=== PATIENT | male | born 1955 | race Caucasian/White ===

== ENCOUNTER 2016-12-22 03:41 | Inpatient (IN) | payer OTHER ==
[~2016-12-22] VITALS: Ht 172.7 cm; Wt 61.9 kg
[~2016-12-22 03:41] MED LIST: AMT24 PO; ASCO500T16 PO; ASPI81TA28 PO; ATOR-24 PO; ATV/2; CALCTAB5 PO; CARB400T3 PO; CARV12.52 PO; CHOL1000 PO; CLON0.5T3 PO; CYAN10005 PO; DOCU-94 PO; FAMO20TA11 PO; FLNIN NAE; FRS/40 PO; LACTTAB7 PO; LAMO100T16 PO; MULT-106 PO; OLOP0.1S2 OP; OMEP40CA PO; PANC6000 PO; PLV75 PO; POTA20TA16 PO; QUET1TAB30 PO; QUET400T PO; TERA1CAP PO; TPM100 PO; VILA1TAB3 PO
[2016-12-22 04:26] LABS: HEMATOCRIT 29.8 % (42-52); MEAN CELL VOLUME 82.3 fL (80-100); MEAN CORPUSCULAR HEMOGLOBIN 27.1 pg (25-34); MEAN CORPUSCULAR HGB CONC 32.9 g/dl (32-36); PLATELET COUNT 294 K/uL (130-400); RED BLOOD COUNT 3.62 M/uL (4.7-6.1); WHITE BLOOD COUNT 6.45 K/uL (4.8-10.8)
[2016-12-22] MEDS ORDERED: DICY20TA35 PO (04:29)
[2016-12-22] MEDS ORDERED: OMEP40CA41 PO (04:33)
[2016-12-22] MEDS ORDERED: TOPI200T14 PO (04:40)
[2016-12-22] MEDS ORDERED: CALC600T PO (04:40)
[2016-12-22] MEDS ORDERED: FLUT0.15 NAE (04:40)
[2016-12-22] MEDS ORDERED: OLOP0.1S3 OP (04:40)
[2016-12-22 04:51] LABS: BUN/CREATININE RATIO 10.4 (10-20); CREATININE 0.54 mg/dl (0.60-1.40); MAGNESIUM 1.6 mg/dl (1.8-2.4); POTASSIUM 4.1 mmol/L (3.5-5.1)
[2016-12-22 04:53] LABS: PARTIAL THROMBOPLASTIN RATIO 1.1; PROTHROMBIN TIME (PATIENT) 11.1 SECONDS (9.0-12.0)
[2016-12-22 04:55] LABS: ACANTHOCYTES 1+; BASO % 0.3 %; BASO ABS # 0.02 K/uL (0-0.2); COMPLETE YES; EOS % 0.9 %; IG% 0.2 %; LYMPH % 20.9 %; LYMPH ABS # 1.35 K/uL (1.2-3.4); MONO % 5.6 %; NEUT % 72.1 %; OVALOCYTES 1+
[2016-12-22 05:02] LABS: ALB/GLOB RATIO 0.7 (0.9-2); CKMB/CK RATIO 3.6 (0-3.0); THYROID STIMULATING HORMONE 1.14 uIu/ml (0.300-4.500)
--- NOTE | 2016-12-22 05:09 | EMERGENCY ROOM VISIT NOTE ---
ED Visit Note First contact with patient: 03:47 I saw this patient in conjunction with Placido Pond PA-C. I agree with his decision-making and treatment plan.
[2016-12-22] MEDS ORDERED: ONDANSETRON INJ 2 MG/ML 2 ML VIAL IV STA (05:26)
[2016-12-22] MEDS ORDERED: MoRPHine SULFATE 4 MG/ML 1 ML CARP\\VIAL IV ONE (05:30)
[2016-12-22 05:48] LABS: URINE APPEARANCE CLOUDY (CLEAR); URINE BILIRUBIN NEG (NEG); URINE COLOR YELLOW; URINE NITRITE NEG (NEG); URINE PH 7.5 (4.5-7.5); URINE SPECIFIC GRAVITY 1.013 (1.000-1.030); UROBILINOGEN NEG (NEG); ZZUR CULT IF INDIC CLEAN CATCH YES
--- NOTE | 2016-12-22 06:00 | EMERGENCY ROOM VISIT NOTE ---
History First contact with patient: 03:47 Chief Complaint: FALL Stated Complaint: FALL/NEAR SYNCOPAL EPISODE History of Present Illness The patient is a 61 year old male who presents to the Emergency Room with complaints of a fall at home approximately 90 minutes ago. The patient states that he was walking into his bathroom to urinate, when the next thing he remembers he was on the ground. The patient does not report having chest pain, chest tightness, shortness of breath, or lightheadedness before or after the event. He is unsure if he had a syncopal episode or mechanical fall. The patient had been feeling well today, but was not able to stand following the fall. He was able to call out to his , who contacted EMS. The patient has a history of stroke and multiple cardiac stents in the past. He is on Plavix. He is with pain of his left leg. He rates his current discomfort a 4/10 that worsens with movement. He is unsure if he struck his head in the fall. He has not had anything for pain. Review of Systems More than 10 systems were reviewed and otherwise negative with the exception of history of present illness. Past Medical/Surgical History Medical Problems: (1) TIA (transient ischemic attack) Family History Patient reports no known family medical history. Social History Smoking Status: Never Smoker Drug Use: none Marital Status: Housing Status: lives with family Occupation Status: disabled Current/Historical Medications Scheduled Ascorbic Acid (Ascorbic Acid), 500 MG PO DAILY Aspirin (Aspirin Ec), 81 MG PO DAILY Atorvastatin (Lipitor), 40 MG PO QAM Calcium Carbonate (Calcium 600), 600 MG PO QAM Carbamazepine Extended Release (Tegretol Xr), 400 MG PO AMPM Carvedilol (Coreg), 12.5 MG PO AMHS Cholecalciferol (Vitamin D3), 1,000 MG PO DAILY Clonazepam (Klonopin), 0.5 MG PO AMHS Clopidogrel Bisulfate (Clopidogrel), 75 MG PO DAILY Cyanocobalamin (Vitamin B-12), 1,000 MCG PO DAILY Fluticasone Propionate (Nasal) (Flonase Allergy Relief), 1 SPRAY XIMENA DAILY Lubiprostone (Amitiza), 24 MCG PO BID Multiple Vitamins W/ Minerals (One Daily Mens), 1 TABLET PO DAILY Olopatadine Hcl (Patanol 0.1% Oph), 1 DROP OP BID Omeprazole (Prilosec), 40 MG PO QAM Pancrelipase (Lipase-Protease- (Creon), 24,000 MG PO WM Quetiapine Fumarate (Seroquel), 25 MG PO TID Quetiapine Fumarate Xr (Seroquel Xr Tab), 800 MG PO HS Terazosin Hcl (Hytrin), 1 MG PO HS Topiramate (Topamax), 200 MG PO AMHS Vilazodone Hcl (Viibryd), 40 MG PO QPM Scheduled PRN Dicyclomine Hcl (Bentyl), 20 MG PO BID PRN for ABDOMINAL CRAMPING Lorazepam (Ativan), 2 MG UNKNOWN UD PRN for seizures Allergies Coded Allergies: Levetiracetam (Verified Allergy, Mild, 12/22/16) Phenytoin (Verified Allergy, Mild, 12/22/16) Physical Exam Vital Signs Date Time Temp Pulse Resp B/P (MAP) Pulse Ox O2 Delivery O2 Flow Rate FiO2 12/22/16 04:48 66 14 129/61 98 Room Air 12/22/16 04:02 Room Air 12/22/16 03:50 76 12/22/16 03:45 36.5 80 18 126/61 97 Room Air Physical Exam VITALS: Vitals are noted on the nurse's note and reviewed by myself. Vital signs stable. GENERAL: Chronically ill appearing thin white male who is comfortable when resting flat and his emergency department bed. HEAD: Normocephalic atraumatic. EYES: Pupils equal round and reactive to light and accommodation. Conjunctivae without injection, sclerae without icterus. Extraocular movements intact. NOSE: Patent, turbinates without inflammation or discharge. NECK: Supple without nuchal rigidity. No lymphadenopathy. No thyromegaly. Cervical spine is nontender. HEART: Regular rate and rhythm with systolic murmur LUNGS: Clear to auscultation bilaterally without wheezes, rales or rhonchi. No retractions or accessory muscle use. ABDOMEN: Positive normal bowel sounds x 4. Soft, nontender, without masses or organomegaly. No guarding or rebound tenderness. MUSCULOSKELETAL: Significant tenderness appreciated with light palpation throughout the left hip into the left mid femur. NEURO: Patient was alert and oriented to person place and time. CN II through XII grossly intact. Medical Decision & Procedures ER Provider Diagnostic Interpretation: Preliminary Findings Only See Final Report For Complete Findings CT HEAD: No acute intracranial hemorrhage or mass effect. Chronic infarcts are similar to prior CT 01/06/16. Visualized paranasal sinuses and mastoid air cells are clear. Laboratory Results 12/22/16 04:10 Red Blood Count 3.62, Mean Corpuscular Volume 82.3, Mean Corpuscular Hemoglobin 27.1, Mean Corpuscular Hemoglobin Concent 32.9, Mean Platelet Volume 8.0, Neutrophils (%) (Auto) 72.1, Lymphocytes (%) (Auto) 20.9, Monocytes (%) (Auto) 5.6, Eosinophils (%) (Auto) 0.9, Basophils (%) (Auto) 0.3, Neutrophils # (Auto) 4.65, Lymphocytes # (Auto) 1.35, Monocytes # (Auto) 0.36, Eosinophils # (Auto) 0.06, Basophils # (Auto) 0.02 12/22/16 04:10 Test 12/22/16 04:10 12/22/16 04:20 12/22/16 05:25 White Blood Count 6.45 K/uL (4.8-10.8) Red Blood Count 3.62 M/uL (4.7-6.1) Hemoglobin 9.8 g/dL (14.0-18.0) Hematocrit 29.8 % (42-52) Mean Corpuscular Volume 82.3 fL (80-100) Mean Corpuscular Hemoglobin 27.1 pg (25-34) Mean Corpuscular Hemoglobin Concent 32.9 g/dl (32-36) Platelet Count 294 K/uL (130-400) Mean Platelet Volume 8.0 fL (7.4-10.4) Neutrophils (%) (Auto) 72.1 % Lymphocytes (%) (Auto) 20.9 % Monocytes (%) (Auto) 5.6 % Eosinophils (%) (Auto) 0.9 % Basophils (%) (Auto) 0.3 % Neutrophils # (Auto) 4.65 K/uL (1.4-6.5) Lymphocytes # (Auto) 1.35 K/uL (1.2-3.4) Monocytes # (Auto) 0.36 K/uL (0.11-0.59) Eosinophils # (Auto) 0.06 K/uL (0-0.5) Basophils # (Auto) 0.02 K/uL (0-0.2) RDW Standard Deviation 47.5 fL (36.4-46.3) RDW Coefficient of Variation 15.6 % (11.5-14.5) Immature Granulocyte % (Auto) 0.2 % Immature Granulocyte # (Auto) 0.01 K/uL (0.00-0.02) Ovalocytes 1+ Acanthocytes 1+ Prothrombin Time 11.1 SECONDS (9.0-12.0) Prothromb Time International Ratio 1.0 (0.9-1.1) Activated Partial Thromboplast Time 27.5 SECONDS (21.0-31.0) Partial Thromboplastin Ratio 1.1 Anion Gap 8.0 mmol/L (3-11) Est Creatinine Clear Calc Drug Dose 116.3 ml/min Estimated GFR () 129.5 Estimated GFR (Non- 111.7 BUN/Creatinine Ratio 10.4 (10-20) Calcium Level 8.0 mg/dl (8.5-10.1) Magnesium Level 1.6 mg/dl (1.8-2.4) Total Bilirubin 0.3 mg/dl (0.2-1) Aspartate Amino Transf (AST/SGOT) 16 U/L (15-37) Alanine Aminotransferase (ALT/SGPT) 20 U/L (12-78) Alkaline Phosphatase 124 U/L (45-117) Total Creatine Kinase 56 U/L (39-308) Creatine Kinase MB 2.0 ng/ml (0.5-3.6) Creatine Kinase MB Ratio 3.6 (0-3.0) Total Protein 6.5 gm/dl (6.4-8.2) Albumin 2.7 gm/dl (3.4-5.0) Globulin 3.8 gm/dl (2.5-4.0) Albumin/Globulin Ratio 0.7 (0.9-2) Thyroid Stimulating Hormone (TSH) 1.140 uIu/ml (0.300-4.500) Bedside Troponin I < 0.030 ng/ml (0-0.045) Medications Administered Medications (Trade) Dose Ordered Sig/Pedro Route Start Time Stop Time Status Last Admin Dose Admin Morphine Sulfate (MoRPHine SULFATE INJ) 4 mg NOW ONCE IV 12/22/16 05:30 12/22/16 05:31 DC 12/22/16 05:33 4 MG Ondansetron HCl (Zofran Inj) 4 mg NOW STAT IV 12/22/16 05:26 12/22/16 05:27 DC 12/22/16 05:32 4 MG ED Course Physical exam and history were performed. Nursing notes and EMR were reviewed. Patient appears to have fallen versus had syncopal episode tonight. He does have tenderness of his left hip. The patient has a history of both stroke and cardiac disease. He is on Plavix. IV access was established and labs were obtained. EKG was performed and was sinus rhythm with first-degree AV block at 61 beats minute. EKG is similar to EKG in November 2015. The patient was placed on the front desk monitor. CT scans and x-rays were performed. Case was discussed with my attending physician, Dr. Moore, who also independently evaluated the patient. The patient's blood work is as above and was reviewed. He does not have a significantly elevated white blood cell count. He is mildly anemic. He does not have a gross electrolyte imbalance. Troponin 1 is negative. CK is not diagnostic of rhabdomyolysis. Patient's CT scan does not show evidence of acute findings. His x-rays were reviewed by myself and my attending, and are concerning for what appears to be a left intertrochanteric fracture of the femur. Radiology read is pending at the time of this dictation. Clinically this does correlate with the patient's discomfort. The patient was given IV morphine and IV Zofran. I had a lengthy discussion with the patient and family regarding the significance of the injury. The patient does not appear stable for discharge home. He may have had a syncopal episode tonight, and certainly seems to have a left hip fracture. He may be a challenging surgical candidate considering his comorbidities. I discussed the case with the on-call [facility] hospitalist , who agreed to evaluate the patient here in the department for further care and management. The chart was completed utilizing [employer] Speech Voice Recognition Software. Grammatical errors, random word insertions, pronoun errors, and incomplete sentences are an occasional consequence of this system due to software limitations, ambient noise, and hardware issues. Any formal questions or concerns about the content, text, or information contained within the body of this dictation should be directly addressed to the provider for clarification. . Medical Decision Differential diagnosis: Etiologies such as vasovagal event, infection, hypoglycemia, electrolyte abnormalities, cardiac sources, intracerebral event, toxicologic, sprain, strain , fracture, dislocation, subluxation, contusion, neurologic, as well as others were entertained. Impression Primary Impression: Fall at home Additional Impression: Hip fracture, left Departure Information Referrals Griffin Salinas M.D. (PCP) Patient Instructions My [facility] Problem Qualifiers
[2016-12-22] MEDS ORDERED: BISACODYL 10 MG SUPP PR PRN (06:15)
[2016-12-22] MEDS ORDERED: POLYETHYLENE (MIRALAX) 17 GM PACK PO PRN ×2 (06:15)
[2016-12-22] MEDS ORDERED: NALOXONE HCL 0.4 MG/1 ML VIAL/CARP IV PRN (06:15)
[2016-12-22] MEDS ORDERED: ONDANSETRON INJ 2 MG/ML 2 ML VIAL IV PRN (06:15)
[2016-12-22] MEDS ORDERED: ALUMINUM/MAGNESIUM/SIMETH (MAALOX MAX) 30 ML UDC PO PRN (06:15)
[2016-12-22] MEDS ORDERED: SOD PHOSPHATE/SOD BIPHOSPHATE ENEMA 132 ML BTL PR PRN (06:15)
[2016-12-22] MEDS ORDERED: MAGNESIUM HYDROXIDE SUSP 30 ML UDC PO PRN ×2 (06:15)
[2016-12-22] MEDS ORDERED: ACETAMINOPHEN 325 MG TAB PO PRN (06:15)
[2016-12-22 06:21] LABS: MANUAL MICROSCOPIC REQUIRED? NO; REVIEW REQ? NO
[2016-12-22] MEDS ORDERED: MAGNESIUM SULFATE 1GM / D5W 1 GM BAG ONE (06:35)
--- NOTE | 2016-12-22 06:49 | History and Physical ---
History & Physical Date & Time of Service: Dec 22, 2016 at 06:18 Chief Complaint: Fall/Near Syncopal Episode Primary Care Physician: Griffin Salinas M.D. History of Present Illness Source: patient, family, hospital records This is a chronically ill 61 year old male with a complex past medical history, including hx. of CVA of the middle cerebral artery, hx. 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, mood disorder/depression/anxiety, tobacco use disorder, unintentional weight loss presents with a syncopal episode , transient loss of consciousness. States that he does not recall the fall itself, but regained consciousness shortly after he fell. Denies urinary/bowel incontinence; no tongue biting. heard the fall - and was by his side very shortly afterwards; states that his main complaint was left hip pain. No post-ictal state; no recent illness; no recent change in medications. No chest pain/shortness of breath/palpitations/ edema. states that he has very poor appetite at home and has had significant weight loss, unintentionally. He continues to smoke and is not yet ready to quit. Family History Patient reports no known family medical history. Social History Smoking Status: Current Every Day Smoker Alcohol Use: occasionally Drug Use: none Marital Status: Occupational Status: disabled Allergies Coded Allergies: Levetiracetam (Verified Allergy, Mild, 12/22/16) Phenytoin (Verified Allergy, Mild, 12/22/16) Home Medications Scheduled Ascorbic Acid (Ascorbic Acid), 500 MG PO DAILY Aspirin (Aspirin Ec), 81 MG PO DAILY Atorvastatin (Lipitor), 40 MG PO QAM Calcium Carbonate (Calcium 600), 600 MG PO QAM Carbamazepine Extended Release (Tegretol Xr), 400 MG PO AMPM Carvedilol (Coreg), 12.5 MG PO AMHS Cholecalciferol (Vitamin D3), 1,000 MG PO DAILY Clonazepam (Klonopin), 0.5 MG PO AMHS Clopidogrel Bisulfate (Clopidogrel), 75 MG PO DAILY Cyanocobalamin (Vitamin B-12), 1,000 MCG PO DAILY Fluticasone Propionate (Nasal) (Flonase Allergy Relief), 1 SPRAY XIMENA DAILY Lubiprostone (Amitiza), 24 MCG PO BID Multiple Vitamins W/ Minerals (One Daily Mens), 1 TABLET PO DAILY Olopatadine Hcl (Patanol 0.1% Oph), 1 DROP OP BID Omeprazole (Prilosec), 40 MG PO QAM Pancrelipase (Lipase-Protease- (Creon), 24,000 MG PO WM Quetiapine Fumarate (Seroquel), 25 MG PO TID Quetiapine Fumarate Xr (Seroquel Xr Tab), 800 MG PO HS Terazosin Hcl (Hytrin), 1 MG PO HS Topiramate (Topamax), 200 MG PO AMHS Vilazodone Hcl (Viibryd), 40 MG PO QPM Scheduled PRN Dicyclomine Hcl (Bentyl), 20 MG PO BID PRN for ABDOMINAL CRAMPING Lorazepam (Ativan), 2 MG UNKNOWN UD PRN for seizures Review of Systems Constitutional: + weight loss, + weakness, + fatigue, No fever, No chills, No sweats Eyes: No worsening of vision ENT: No hearing loss Respiratory: + shortness of breath (chronic), No cough, No sputum, No wheezing , No dyspnea on exertion, No dyspnea at rest, No hemoptysis Cardiovascular: No chest pain, No orthopnea, No PND, No edema, No claudication , No palpitations Abdomen: No pain, No nausea, No vomiting, No diarrhea, No constipation, No GI bleeding Musculoskeletal: + joint pain (left hip), + muscle pain (left leg) Genitourinary - Male: No hematuria, No dysuria, No urinary frequency, No urinary urgency, No urinary hesitancy, No urinary retention, No urinary incontinence Neurologic: + memory loss (transient loss of consciousness during syncopal episode), + weakness, No paralysis, No numbness/tingling, No vertigo, No balance problems Psychiatric: + depression symptoms, + anxiety, + insomnia (controlled with medications) Endocrine: + fatigue Hematologic / Lymphatic: No abnormal bleeding/bruising Integumentary: No rash Allergic / Immunologic: + environmental allergies, No seasonal allergies Physical Exam Vital Signs Date Time Temp Pulse Resp B/P (MAP) Pulse Ox O2 Delivery O2 Flow Rate FiO2 12/22/16 06:01 64 21 111/57 99 Room Air 12/22/16 04:48 66 14 129/61 98 Room Air 12/22/16 04:02 Room Air 12/22/16 03:50 76 12/22/16 03:45 36.5 80 18 126/61 97 Room Air General Appearance: + moderate distress (secondary to pain), + cachetic, + thin , + pertinent finding (thin, ill appearing, cachectic; moderate distress secondary to pain) Head: normocephalic, atraumatic Eyes: normal inspection ENT: hearing grossly normal Respiratory/Chest: chest non-tender, lungs clear, no respiratory distress, no accessory muscle use, + decreased breath sounds Cardiovascular: no edema, no murmur, + tachycardia Abdomen/GI: normal bowel sounds, non tender, soft Back: normal inspection Extremities/Musculoskelatal: + pertinent finding (left leg is externally rotated, no movement secondary to pain, point tenderness) Neurologic/Psych: pressure dispatcher II-XII nml as tested, no motor/sensory deficits, alert, normal mood/affect, oriented x 3 Skin: normal color Lymphatic: no adenopathy Diagnostics Laboratory Results Results Past 24 Hours Test 12/22/16 04:10 12/22/16 04:20 12/22/16 05:25 Range/Units White Blood Count 6.45 4.8-10.8 K/uL Red Blood Count 3.62 4.7-6.1 M/uL Hemoglobin 9.8 14.0-18.0 g/dL Hematocrit 29.8 42-52 % Mean Corpuscular Volume 82.3 80-100 fL Mean Corpuscular Hemoglobin 27.1 25-34 pg Mean Corpuscular Hemoglobin Concent 32.9 32-36 g/dl Platelet Count 294 130-400 K/uL Mean Platelet Volume 8.0 7.4-10.4 fL Neutrophils (%) (Auto) 72.1 % Lymphocytes (%) (Auto) 20.9 % Monocytes (%) (Auto) 5.6 % Eosinophils (%) (Auto) 0.9 % Basophils (%) (Auto) 0.3 % Neutrophils # (Auto) 4.65 1.4-6.5 K/uL Lymphocytes # (Auto) 1.35 1.2-3.4 K/uL Monocytes # (Auto) 0.36 0.11-0.59 K/uL Eosinophils # (Auto) 0.06 0-0.5 K/uL Basophils # (Auto) 0.02 0-0.2 K/uL RDW Standard Deviation 47.5 36.4-46.3 fL RDW Coefficient of Variation 15.6 11.5-14.5 % Immature Granulocyte % (Auto) 0.2 % Immature Granulocyte # (Auto) 0.01 0.00-0.02 K/uL Ovalocytes 1+ Acanthocytes 1+ Prothrombin Time 11.1 9.0-12.0 SECONDS Prothromb Time International Ratio 1.0 0.9-1.1 Activated Partial Thromboplast Time 27.5 21.0-31.0 SECONDS Partial Thromboplastin Ratio 1.1 Sodium Level 131 136-145 mmol/L Potassium Level 4.1 3.5-5.1 mmol/L Chloride Level 97 98-107 mmol/L Carbon Dioxide Level 26 21-32 mmol/L Anion Gap 8.0 3-11 mmol/L Blood Urea Nitrogen 6 7-18 mg/dl Creatinine 0.54 0.60-1.40 mg/dl Est Creatinine Clear Calc Drug Dose 116.3 ml/min Estimated GFR () 129.5 Estimated GFR (Non- 111.7 BUN/Creatinine Ratio 10.4 10-20 Random Glucose 76 70-99 mg/dl Calcium Level 8.0 8.5-10.1 mg/dl Magnesium Level 1.6 1.8-2.4 mg/dl Total Bilirubin 0.3 0.2-1 mg/dl Aspartate Amino Transf (AST/SGOT) 16 15-37 U/L Alanine Aminotransferase (ALT/SGPT) 20 12-78 U/L Alkaline Phosphatase 124 45-117 U/L Total Creatine Kinase 56 39-308 U/L Creatine Kinase MB 2.0 0.5-3.6 ng/ml Creatine Kinase MB Ratio 3.6 0-3.0 Total Protein 6.5 6.4-8.2 gm/dl Albumin 2.7 3.4-5.0 gm/dl Globulin 3.8 2.5-4.0 gm/dl Albumin/Globulin Ratio 0.7 0.9-2 Thyroid Stimulating Hormone (TSH) 1.140 0.300-4.500 uIu/ml Bedside Troponin I < 0.030 0-0.045 ng/ml No change from prior EKG Impression Assessment and Plan This is a chronically ill 61 year old male with a complex past medical history, including hx. of CVA of the middle cerebral artery, hx. 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 of CVA No residual motor dysfunction besides left LE, no sensory deficits No post-ictal state monitor in tele update echo IVFs may need adjustment of his medications Unintentional Weight Loss in the setting of Tobacco use Disorder concerning for malignancy with tobacco use disorder, should obtain chest CT as outpatient elevated alk phos is also concerning when he is eating, will need ensure TID with meals Hx. of CVA middle cerebral artery follows with Dr. Silva hold aspirin, Plavix for now for possible surgery continue statin Hx. of CAD no complaint of chest pain, clinically stable continue b-bella, statin, hold aspirin Seizure Disorder cont anticonvulsants DVT ppx SCDs FULL CODE
[2016-12-22 07:00] VITALS: BP 120/68; PULSE 64; TEMP 36.6; O2SAT 98; Ht 172.7 cm; Wt 61.9 kg
--- NOTE | 2016-12-22 07:09 | DIAGNOSTIC IMAGING REPORT ---
HEAD CT NONCONTRAST CT DOSE: 729.78 mGycm HISTORY: Syncope TECHNIQUE: Multiaxial CT images of the head were performed without the use of intravenous contrast. Automated exposure control was utilized for this study. Comparison: Head CT 01/06/2016. Findings: The paranasal sinuses and mastoid air cells are clear. Old large right MCA territory infarct. Small old left parietal infarct. No mass, hematoma, midline shift, or acute infarct. Impression: No acute intracranial abnormality. Old infarcts, unchanged. Electronically signed by: Tereso Guerrier M.D. 12/22/2016 7:08 AM Dictated Date/Time: 12/22/2016 7:06 AM
--- NOTE | 2016-12-22 07:49 | DIAGNOSTIC IMAGING REPORT ---
PELVIS 1 OR 2 VIEW ROUTINE, LEFT FEMUR 2 VIEWS ROUTINE CLINICAL HISTORY: Fall. Left side pelvic pain. Left leg pain. COMPARISON STUDY: None. FINDINGS: There is a nondisplaced intertrochanteric fracture within the proximal left femur. No fractures identified within the pelvis or right hip. No dislocation. Focal round density overlying the right greater trochanter likely represents calcification within the soft tissues. There is suture material within the left lower quadrant and a stent within the midabdomen. The sacrum appears intact. IMPRESSION: Nondisplaced intertrochanteric fracture within the proximal left femur. Electronically signed by: Tereso Guerrier M.D. 12/22/2016 7:48 AM Dictated Date/Time: 12/22/2016 7:46 AM
--- NOTE | 2016-12-22 07:50 | DIAGNOSTIC IMAGING REPORT ---
CHEST ONE VIEW PORTABLE HISTORY: Fall. Left hip fracture. Syncope COMPARISON: Chest 12/29/2015. FINDINGS: The lungs are clear. The heart is normal in size. No pleural effusions. No pneumothorax. Old, healed left rib fractures. Old, healed right humeral neck fracture. Surgical clips within the right upper quadrant. IMPRESSION: No significant change compared to the prior study. No acute process. Electronically signed by: Tereso Guerrier M.D. 12/22/2016 7:49 AM Dictated Date/Time: 12/22/2016 7:48 AM
[2016-12-22] MEDS: SODIUM CHLORIDE 0.9% 1000ML 1,000 ML IV SCH ×2 (08:18→20:40)
[2016-12-22] MEDS: OXYCODONE HCL IR 5 MG TAB (IMMEDIATE RELEASE) PO PRN ×2 (08:18→17:20)
[2016-12-22] MEDS ORDERED: MAGNESIUM SULFATE 1GM / D5W 1 GM in PREMIXED IN D5W 100 ML IV ONE (09:00)
[2016-12-22] MEDS: HYDROmorphone INJ 1 MG/ML SYR IV PRN ×3 (09:09→19:08)
[2016-12-22] MEDS ORDERED: NURSING VERBAL MED ORDER ONE (09:45)
[2016-12-22] MEDS: CLONAZEPAM 0.5 MG TAB PO SCH ×2 (10:08→20:35)
[2016-12-22] MEDS: LUBIPROSTONE 8 MCG CAP PO SCH ×2 (10:09→20:35)
[2016-12-22] MEDS: CARVEDILOL 12.5 MG TAB PO SCH ×2 (10:09→20:35)
[2016-12-22] MEDS: QUETIAPINE FUMARATE 25 MG TAB PO SCH ×3 (10:09→20:33)
[2016-12-22] MEDS: ATORVASTATIN 40 MG TAB PO SCH (10:09)
[2016-12-22] MEDS: PANTOprazole SOD 40 MG TAB PO SCH (10:10)
[2016-12-22] MEDS: TOPIRAMATE 100 MG TAB PO SCH ×2 (10:10→20:34)
[2016-12-22] MEDS: HEPARIN SOD 5000 UNIT/0.5 ML CARP SQ SCH ×2 (10:12→20:40)
[2016-12-22 11:24] VITALS: BP 103/62; PULSE 73; TEMP 36.6; O2SAT 97
[2016-12-22 15:06] VITALS: BP 113/64; PULSE 71; TEMP 36.7; O2SAT 97
--- NOTE | 2016-12-22 17:40 | Progress Note ---
Internal Med Progress Note Date of Service: Dec 22, 2016. Provider Documentation: SUBJECTIVE: The patient was seen and examined Complains of Left Hip pain Denies any Chest pain,palpitation,SOB No cardiac symptoms on regular activities No new neurological symptoms Schedule for surgery today Denies any symptoms OBJECTIVE: Vital Signs-as noted below Exam: General-No distress malnourished Minimal Left facial droop Eyes-Normal ENT-Normal Neck-supple Lungs-Clear to auscultate bilaterally Heart-Regular Abdomen-Benign,no masses,bowel sound present Extremities-No edema Neuro-AAOx3 Left facial droop Generally weak,no focal deficit Lab data as noted below. ASSESSMENT & PLAN: Enterococcus UTI Asymptomatic No fever and or Increase in WCC Discussed with ID and started on Dapomycin Can go for surgery Await C/S Left Hip Fracture s/p Mechanical Fall X-ray seems to suggest a left hip fracture Clinically significant pain at that side with painful ROM Complex medical history; will consult anesthesia Obtain an updated echo:: Moderate circumferential pericardial effusion. * There are no echocardiographic indications of cardiac tamponade. * Ejection Fraction = 55-60%. * Septal motion is consistent with conduction abnormality. Orthopedic consultation placed-appreciate Input Dilaudid and oxycodone PRN D/W Ortho-likely surgery this afternoon Hx. of CAD Has ~ 6 cardiac stents No complaint of chest pain, clinically stable Continue b-bella, statin, hold aspirin Was evaluated by the Acoustical Installer 1 year ago Will get Updated ECHO : Moderate circumferential pericardial effusion. * There are no echocardiographic indications of cardiac tamponade. * Ejection Fraction = 55-60%. * Septal motion is consistent with conduction abnormality. Carries more than usual risk for proposed surgery Discussed with the family members Syncopal Episode Likely mechanical fall Denies any LOC Unsure of the cause of his syncopal episode: possible polypharmacy H/O seizures and hx. of CVA No residual motor dysfunction besides left LE, no sensory deficits No post-ictal state monitor in tele update echo IVFs may need adjustment of his medications Unintentional Weight Loss in the setting of Tobacco use Disorder concerning for malignancy with tobacco use disorder, should obtain chest CT as outpatient elevated alk phos is also concerning when he is eating, will need ensure TID with meals Hx. of CVA middle cerebral artery follows with Dr. Silva hold aspirin, Plavix -has not been taking Plavix for the last 1 week or so. continue statin Malnutrition Has severe protein calori malnutrition Will need Dietary consult and nutritional supplements Seizure Disorder cont anticonvulsants DVT ppx SCDs FULL CODE Vital Signs: Date Time Temp Pulse Resp B/P (MAP) Pulse Ox O2 Delivery O2 Flow Rate FiO2 12/23/16 11:27 Room Air 12/23/16 10:44 36.6 82 16 104/58 (73) 98 Room Air 12/23/16 08:00 Room Air 12/23/16 07:46 36.2 84 18 104/64 (77) 96 Room Air 12/23/16 04:06 36.9 86 18 102/64 (77) 95 12/23/16 04:00 Room Air 12/23/16 00:10 36.8 71 16 114/63 (80) 95 12/22/16 23:59 Room Air 12/22/16 20:00 Room Air 12/22/16 19:12 36.9 71 18 116/64 (81) 95 Room Air 12/22/16 16:00 Room Air 12/22/16 15:06 36.7 71 19 113/64 (80) 97 Room Air Lab Results: Microbiology Results 12/22/16 MRSA DNA Surveillance Screen - Final, Complete Specimen Negative for MRSA by DNA Probe
--- NOTE | 2016-12-22 18:37 | ORTHOPEDIC CONSULTATION ---
DATE OF CONSULTATION: 12/22/2016 HISTORY OF PRESENT ILLNESS: A 61-year-old male with a history of a CVA in the past. He was at home in his usual state and had a fall. He fractured his left hip. 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 He is a smoker. He told me that he has brittle bones. He has a poor appetite. FAMILY HISTORY: Noncontributory. SOCIAL HISTORY: Lives with his and is current every day smoker. He is disabled. ALLERGIES: PHENYTOIN AND LEVETIRACETAM. MEDICATIONS: He is on multiple including aspirin and Plavix, which he takes 75 mg daily, but it is unclear when his last dose of Plavix was, possibly it could have been 5 days ago. Other medications per history and physical. These were reviewed. PHYSICAL EXAMINATION: Demonstrates he is a thin male, looks a bit cachectic and left hip is externally rotated, but not significantly shortened at all. Any movement of his leg gives him significant pain in his left hip. He can dorsiflex his great toe, but even dorsiflexing his foot gives him pain in his hips, so he is reluctant to do that, so I could not tell for sure as he had dorsiflexion of the foot being intact. Circulation, he had satisfactory capillary refill. His upper extremity on the left side did not have any significant weakness. His x-rays demonstrate a minimally displaced intertrochanteric hip fracture of the left hip. ASSESSMENT: Intertrochanteric hip fracture, left hip in an ill appearing cachectic male, smoker, likely has poor bone quality. PLAN: Is for open reduction and internal fixation with trochanteric femoral nail. The patient needs to be medically cleared prior to proceeding with surgery tentatively planned for add on tomorrow's schedule.
--- NOTE | 2016-12-22 19:06 | Anesthesiology Progress Note ---
Anesthesia Progress Note Date of Service Dec 22, 2016. Progress Notes Mr. Doyle is a 61 year old male with a complex medical history to include chronic SOB, HTN, CAD (with stents), PVD, GERD, CVA with associated grand mal seizures, anemia, anxiety/depression and current every day smoking. He had a syncopal episode at home (no post-ictal state or loss of bowel function) and sustained left hip fx. Plan for left troch nail with Dr. Goldman on 12/23/16. EKG showed sinus rhythm with first degree AV block and LBBB (LBBB seen on EKG in 2016). Echo has been ordered and is pending at this time. H/H is 9.8 and 29.8 and patient is also hyponatremia with a sodium of 131. Of note, patient had been on plavix as an outpatient but has NOT taken this in 2 weeks per his (problems with refilling the medication). I spoke both with the patient and his and discussed GA vs SAB with MAC. He should be a candidate for SAB given its been over 7 days since his last plavix dose although will await echo to ensure no significant valvular disease. Consent was obtained and all questions were answered.
[2016-12-22 19:12] VITALS: BP 116/64; PULSE 71; TEMP 36.9; O2SAT 95
[2016-12-22] MEDS: DOCUSATE SODIUM/SENNA 50/8.6MG TAB PO SCH (20:34)
[2016-12-22] MEDS: QUETIAPINE FUMARATE 200 MG TABCR PO SCH (20:35)
[2016-12-23] VITALS (12 sets, daily range): BP systolic 102–145; BP diastolic 55–70; PULSE 71–99; TEMP 36.2–36.9; O2SAT 93–99
[2016-12-23] MEDS: HYDROmorphone INJ 1 MG/ML SYR IV PRN ×2 (04:10→21:10)
[2016-12-23] MEDS ORDERED: CEFAZOLIN 2000 MG/60 ML D5W IV SCH (06:00)
[2016-12-23] MEDS ORDERED: CEFAZOLIN IV 2,000 MG in DEXTROSE 5% 50ML 50 ML IV SCH (06:00)
--- NOTE | 2016-12-23 06:57 | History & Physical Bridge Note ---
H&P Re-Evaluation Bridge Note: I have examined the patient, reviewed the History & Physical and in the interval since the performance of the History & Physical I have noted the following changes of clinical significance: No changes noted
[2016-12-23] MEDS: SODIUM CHLORIDE 0.9% 1000ML 1,000 ML IV SCH ×2 (07:38→19:26)
[2016-12-23] MEDS: ATORVASTATIN 40 MG TAB PO SCH (07:41)
[2016-12-23] MEDS: PANTOprazole SOD 40 MG TAB PO SCH (07:41)
[2016-12-23] MEDS: QUETIAPINE FUMARATE 25 MG TAB PO SCH ×3 (07:42→20:23)
[2016-12-23] MEDS: TOPIRAMATE 100 MG TAB PO SCH ×2 (07:42→20:23)
[2016-12-23] MEDS: LUBIPROSTONE 8 MCG CAP PO SCH ×2 (07:42→20:24)
[2016-12-23] MEDS: CLONAZEPAM 0.5 MG TAB PO SCH ×2 (07:44→20:23)
[2016-12-23] MEDS: CARVEDILOL 12.5 MG TAB PO SCH ×2 (07:46→20:23)
[2016-12-23] MEDS ORDERED: PERFLUTREN LIPID MICROSPHERE (DEFINITY) IV ONE (08:53)
[2016-12-23] MEDS: HEPARIN SOD 5000 UNIT/0.5 ML CARP SQ SCH (08:59)
[2016-12-23] MEDS ORDERED: NURSING VERBAL MED ORDER ONE ×2 (09:00→14:30)
--- NOTE | 2016-12-23 09:32 | Clinical Documentation Query ---
[facility] : CLINICAL DOCUMENTATION QUERY Patient is a 61 year old male admitted s/p fall, sustaining a left hip fracture. H&P noted " states that he has very poor appetite at home and has had significant weight loss, unintentionally. Subsquent assessment includes "cachectic", "ill appearing", and "thin". BMI 19.5 kg/m*m. Unable to quantify weight loss per EMR as there seems to be some incorrectly documented findings. Treatment to include Ensure TID with meals when oral intake resumed. In your clinical opinion is this patient being managed for: ( +) Severe protein-calorie malnutrition ( ) Other explanation of clinical findings (Please Explain) ( ) Unable to determine (Please Define) ( ) Need to Discuss ( ) Not Agree The medical record reflects the following clinical findings, treatment, and risk factors. Clinical Indicators: As above. Low albumin. Low serum creatinine. BMI 19.5 kg/m*m Treatment: Ensure TID with meals Risk Factors: Possible malignancy Please clarify and document your clinical opinion in the progress notes and discharge summary. Terms such as "probable", "suspected", "likely", "questionable", "possible", or "still to be ruled out" are acceptable. IF IN AGREEMENT, YOU MUST DOCUMENT ABOVE DIAGNOSTIC STATEMENT IN DAILY PROGRESS NOTES AND DISCHARGE SUMMARY. This document is not part of the patient's record. Thank You, Dennis Oh RN [phone]
--- NOTE | 2016-12-23 11:25 | ECHOCARDIOGRAM REPORT ---
*NOTICE TO RECEIVING [employer] This information is strictly Confidential and protected under [place] law. [place] law prohibits you from making any further disclosure of this information unless further disclosure is expressly permitted by the written consent of the person to whom it pertains or is authorized by law. A general authorization for the release of medical or other information is not sufficient for this purpose. Hospital accepts no responsibility if the information is made available to any other person, INCLUDING THE PATIENT. Interpretation Summary * Name: KOFI GRAY II Study Date: 12/23/2016 08:42 AM BP: 111/79 mmHg * Patient Location: [facility] HR: 67 * : 1955 (M/d/yyyy) Gender: Male Height: 68 in * Age: 61 yrs Ethnicity: CA Weight: 129 lb * Ordering Physician: Travis Montes * Performed By: Fabby Piña * * Reason For Study: SYNCOPE * BSA: 1.7 m2 * -- Conclusions -- * Moderate circumferential pericardial effusion. * There are no echocardiographic indications of cardiac tamponade. * Ejection Fraction = 55-60%. * Septal motion is consistent with conduction abnormality. Procedure Details * The study was technically limited. * The study was technically difficult. * Limited views were obtained. * There were technical limitations due to patient's Poor acoustic windows secondary to severe lung disease, poor positioning and inability to cooperate. * A contrast injection of Definity was performed to improve assessment of LV function. * Contrast was injected into an intravenous site in the right arm. * One vial of Definity ultrasound contrast was diluted in normal saline to a total volume of 10 ml. A total of '2' ml of solution was administered during imaging. * Lot # [id number] of Definity utilized for procedure. * Expiration date 12/26. Left Ventricle * Ejection Fraction = 55-60%. * Septal motion is consistent with conduction abnormality. Right Ventricle * The right ventricular cavity size is normal (basal dimension <4.2 cm in right ventricular apical 4-chamber view). * The right ventricular systolic function is normal. Atria * The left atrial size is normal. * Right atrial size is normal. Mitral Valve * There is mild mitral annular calcification. * There is no mitral valve stenosis. * There is no mitral regurgitation noted. Tricuspid Valve * The tricuspid valve is not well visualized. Aortic Valve * The aortic valve is not well visualized. Pulmonic Valve * The pulmonic valve is not well visualized. Pericardium/Pleural * There are no echocardiographic indications of cardiac tamponade. * Moderate circumferential pericardial effusion. MMode 2D Measurements and Calculations LVAd ap4 37.3 cm\S\2 LVLd ap4 9.1 cm EDV(MOD-sp4) 122.5 ml EDV(sp4-el) 130.0 ml LVAs ap4 19.4 cm\S\2 LVLs ap4 7.3 cm ESV(MOD-sp4) 43.8 ml ESV(sp4-el) 43.8 ml EF(MOD-sp4) 64.3 % EF(sp4-el) 66.3 % LVAd ap2 29.2 cm\S\2 LVLd ap2 9.1 cm EDV(MOD-sp2) 77.6 ml EDV(sp2-el) 79.8 ml LVAs ap2 17.1 cm\S\2 LVLs ap2 8.0 cm ESV(MOD-sp2) 30.4 ml ESV(sp2-el) 31.1 ml EF(MOD-sp2) 60.9 % EF(sp2-el) 61.1 % LVLd %diff -0.16 % EDV(MOD-bp) 97.8 ml LVLs %diff 8.6 % ESV(MOD-bp) 37.8 ml EF(MOD-bp) 61.4 % SV(MOD-sp4) 78.8 ml SI(MOD-sp4) 46.4 ml/m\S\2 SV(MOD-sp2) 47.3 ml SI(MOD-sp2) 27.9 ml/m\S\2 SV(MOD-bp) 60.0 ml SI(MOD-bp) 35.4 ml/m\S\2 SV(sp4-el) 86.2 ml SI(sp4-el) 50.8 ml/m\S\2 SV(sp2-el) 48.8 ml SI(sp2-el) 28.8 ml/m\S\2 Doppler Measurements and Calculations MV E max donna 91.1 cm/sec MV dec time 0.16 sec Ao V2 max 123.8 cm/sec Ao max PG 6.1 mmHg Ao max PG (full) 2.7 mmHg LV V1 max PG 3.5 mmHg LV V1 max 93.2 cm/sec
[2016-12-23] MEDS ORDERED: DAPTOmycin IV 250 MG in SODIUM CHLORIDE 0.9% 50ML 50 ML IV SCH (12:00)
--- NOTE | 2016-12-23 14:11 | Consultant Recommendations ---
[employer] Supervisor Recommendations Date of Service Dec 23, 2016. [employer] Supervisor Recommendations ID Consult Dictated # [id number] A/P: 1. UTI -continue dapto pending final culture results, will need 3 days total -thank you
--- NOTE | 2016-12-23 15:02 | INFECT. DISEASE CONSULTATION ---
DATE OF CONSULTATION: 12/23/2016 REQUESTING PHYSICIAN: Dr. Montes. HISTORY OF PRESENT ILLNESS: This is a 61-year-old gentleman who was admitted after he suffered a fall at home. He states he does not remember falling. As a result of this, he did have a left hip fracture and is scheduled for open reduction and internal fixation later today. As part of his initial workup, a urine culture was obtained and is growing enterococcus. His UA had greater than 30 WBCs. He denies any current urinary symptoms. He also denies any symptoms of burning, bleeding, frequency or urgency at home prior to admission. He denies any fevers or chills. He was given a one time dose of daptomycin. Currently, he is only receiving perioperative Ancef. He denies chest pain, cough, shortness of breath, nausea, vomiting, diarrhea or abdominal pain. He does admit to some pain in the hip but states it is mild. Per the H&P, there was questionable syncopal episode at home. PAST MEDICAL HISTORY: Significant for CVA, coronary artery disease with stenting, seizure disorder, depression, anxiety. FAMILY HISTORY: Noncontributory. SOCIAL HISTORY: Significant for daily tobacco use. He does drink occasionally. He denies any drug use. He is and lives with his . ALLERGIES: HE HAS ALLERGIES TO KEPPRA AND DILANTIN. CURRENT MEDICATIONS: Include Senokot, Seroquel, Hytrin, Lipitor, Coreg, Klonopin, Seroquel, Topamax, Amitiza, Protonix, Tylenol, Maalox, milk of magnesia, Zofran, Roxicodone, Dilaudid. PHYSICAL EXAMINATION: VITAL SIGNS: He is afebrile, pulse 82, respiratory rate 16, blood pressure 104/58, oxygen saturation is 98% on room air. GENERAL: He is awake, alert and oriented. He does have some aphasia secondary to his previous CVA. HEENT: Mucous membranes are dry. HEART: Regular. LUNGS: Clear. ABDOMEN: Soft, nontender, nondistended. There is no suprapubic tenderness. There is no edema. SKIN: Without rash. LABORATORY STUDIES: CBC reveals a white blood cell count of 6.4, hemoglobin 9.8 and platelets were 294. Chemistry panel reveals a sodium of 131, potassium 4.1, chloride 97, bicarb 26, BUN 6, creatinine 0.5, glucose is 76. LFTs are within normal limits. Again, urinalysis had greater than 30 WBCs and 1+ bacteria. Hep C antibody is negative. Urine cultures growing enterococcus species. Chest x-ray done today shows no acute process. Femur x-ray showed a nondisplaced left femur fracture. Head CT done in the Emergency Room showed no acute abnormality. Pelvic x-ray done does not show any pelvic fracture. Enterococcal urinary tract infection. At this time, he can be restarted on daptomycin at his current dose, pending the results of his urine culture. He will likely need a short course of antibiotics for cystitis. Antibiotics will be further narrowed when final sensitivities are available. Thank you for this consultation.
[2016-12-23] MEDS ORDERED: PROPOFOL IV EMULSION 10 MG/ML 20 ML VIAL IV ONE ×2 (16:00→17:05)
[2016-12-23] MEDS ORDERED: FENTANYL CITRATE INJ 50 MCG/1 ML 2 ML VIAL ONE (16:00)
[2016-12-23] MEDS ORDERED: MIDAZOLAM HCL 1 MG/ML 2ML VIAL ONE ×2 (16:00→16:47)
[2016-12-23] MEDS ORDERED: LIDOCAINE HCL 2% 2 ML VIAL (20MG/ML) ONE (16:00)
[2016-12-23] MEDS ORDERED: BUPIVACAINE 0.5 % 5 MG/1 ML PF 10ML VIAL ONE (16:14)
[2016-12-23] MEDS ORDERED: HYDROmorphone INJ 2 MG/ML SYR/VIAL IV PRN (16:45)
[2016-12-23] MEDS ORDERED: ATROPINE SULFATE 0.1 MG/ML 5ML SYR IV PRN (16:45)
[2016-12-23] MEDS ORDERED: ONDANSETRON INJ 2 MG/ML 2 ML VIAL IV PRN (16:45)
[2016-12-23] MEDS ORDERED: PHENYLEPHRINE 100MCG/ML 5ML SYR IV PRN (16:45)
[2016-12-23] MEDS ORDERED: EpHEDrine SULFATE INJ 50 MG/ML AMP IV PRN (16:45)
--- NOTE | 2016-12-23 18:07 | Anesthesiology Progress Note ---
Anesthesia Post Op Note Date & Time Dec 23, 2016 at 18:07 Vital Signs Pain Intensity: 0 Vital Signs Past 12 Hours Date Time Temp Pulse Resp B/P (MAP) Pulse Ox O2 Delivery O2 Flow Rate FiO2 12/23/16 17:55 85 14 133/66 100 Oxymask 5 12/23/16 17:45 82 14 140/68 100 Oxymask 10 12/23/16 17:38 36.5 84 14 132/63 100 Oxymask 10 12/23/16 11:27 Room Air 12/23/16 10:44 36.6 82 16 104/58 (73) 98 Room Air 12/23/16 08:00 Room Air 12/23/16 07:46 36.2 84 18 104/64 (77) 96 Room Air Notes Mental Status: alert / awake / arousable, participated in evaluation Pt Amnestic to Procedure: Yes Nausea / Vomiting: adequately controlled Pain: adequately controlled Airway Patency, RR, SpO2: stable & adequate BP & HR: stable & adequate Hydration State: stable & adequate Neuraxial Anesthesia: was administered, sensory block is resolving Anesthetic Complications: no major complications apparent
[2016-12-23] MEDS: BOOST VANILLA PO SCH ×2 (19:48)
--- NOTE | 2016-12-23 19:48 | DIAGNOSTIC IMAGING REPORT ---
LEFT HIP UNILATERAL 2 VIEWS CLINICAL HISTORY: Left hip fracture. Postoperative evaluation. COMPARISON: Left femur radiographs December 22, 2016. FINDINGS: These images demonstrate placement of a left femoral trochanteric nail. Hardware fixates the intertrochanteric fracture of the left femur. Fracture alignment is near anatomic. There are no unexpected radiopaque foreign bodies. There is a distal screw. IMPRESSION: Expected findings following proximal left femoral internal fixation with trochanteric nail. Electronically signed by: Biju Cortes M.D. 12/23/2016 7:46 PM Dictated Date/Time: 12/23/2016 7:45 PM
--- NOTE | 2016-12-23 19:49 | DIAGNOSTIC IMAGING REPORT ---
INTRAOPERATIVE FLUOROSCOPIC IMAGES OF THE LEFT FEMUR CLINICAL HISTORY: Left trochanteric nail. COMPARISON: Pelvis and left femur radiographs December 22, 2016. Fluoroscopy time: 46 seconds. FINDINGS: 3 fluoroscopic images demonstrate placement of a left femoral trochanteric nail which fixates the intertrochanteric fracture. There is a distal screw. Fracture alignment is near anatomic. There are no unexpected radiopaque foreign bodies. IMPRESSION: Expected findings following left femoral internal fixation with trochanteric nail. Electronically signed by: Biju Cortes M.D. 12/23/2016 7:47 PM Dictated Date/Time: 12/23/2016 7:47 PM
--- NOTE | 2016-12-23 20:17 | OPERATIVE REPORT ---
DATE OF OPERATION: 12/23/2016 PREOPERATIVE DIAGNOSIS: Two-part intertrochanteric left hip fracture. POSTOPERATIVE DIAGNOSIS: Two-part intertrochanteric left hip fracture. PROCEDURE: Closed reduction, trochanteric femoral nailing, left hip fracture. SURGEON: Dr. Goldman. ANESTHESIA: Spinal. COMPLICATIONS: None. DESCRIPTION OF PROCEDURE: Following induction of adequate spinal anesthesia, the patient was placed on the fracture table and the fracture was reduced, with a small amount of traction and internal rotation. The left hip was prepped and draped in the usual sterile manner. Longitudinal incision was made over the tip of the trochanter roughly 1 inch in length. Blunt dissection was carried down to the tip of the trochanter which was opened slightly with a drill tipped guidewire and the drill tipped guidewire was manually placed intramedullary. That was overdrilled using a 17 mm drill. A short 11 mm trochanteric nail was impacted into position and locked proximally using a spiral blade 105 mm in diameter. This was locked and then distal locking was carried out using a single 44 mm cortical bone screw. This produced anatomic reduction and fixation of the fracture. Wounds were irrigated and closed with 2-0 Dexon and lena. Sterile dressing of Adaptic, 4 x 4's, and foam tape was applied. The patient tolerated the procedure well. I attest to the content of the Intraoperative Record and any orders documented therein. Any exception s are noted below.
[2016-12-23] MEDS: DOCUSATE SODIUM/SENNA 50/8.6MG TAB PO SCH (20:23)
[2016-12-23] MEDS: QUETIAPINE FUMARATE 200 MG TABCR PO SCH (20:24)
[2016-12-24] VITALS (7 sets, daily range): BP systolic 106–137; BP diastolic 56–71; PULSE 84–93; TEMP 36.6–37.2; O2SAT 91–100
[2016-12-24] MEDS: QUETIAPINE FUMARATE 25 MG TAB PO SCH ×3 (07:45→20:35)
[2016-12-24] MEDS: PANTOprazole SOD 40 MG TAB PO SCH (07:45)
[2016-12-24] MEDS: CARVEDILOL 12.5 MG TAB PO SCH ×2 (07:45→20:35)
[2016-12-24] MEDS: TOPIRAMATE 100 MG TAB PO SCH ×2 (07:45→20:36)
[2016-12-24] MEDS: ATORVASTATIN 40 MG TAB PO SCH (07:46)
[2016-12-24] MEDS: LUBIPROSTONE 8 MCG CAP PO SCH ×2 (07:46→20:34)
[2016-12-24] MEDS: SODIUM CHLORIDE 0.9% 1000ML 1,000 ML IV SCH ×2 (07:49→20:36)
[2016-12-24] MEDS: CLONAZEPAM 0.5 MG TAB PO SCH ×2 (07:49→20:34)
--- NOTE | 2016-12-24 08:07 | Orthopedic Progress Note ---
Orthopedic Progress Note Date of Service Dec 24, 2016. Subjective Post OP Day: 1 Reports: feeling well Objective N/V intact, dressing C/D/I, toes mobile Date Time Temp Pulse Resp B/P (MAP) Pulse Ox O2 Delivery O2 Flow Rate FiO2 12/24/16 07:11 36.7 88 18 123/67 (85) 97 Room Air 12/24/16 04:21 36.7 93 18 128/60 (82) 95 Room Air 12/24/16 04:00 Room Air 12/24/16 00:00 Room Air 12/23/16 23:41 36.7 93 18 125/65 (85) 98 Room Air 12/23/16 20:30 88 18 131/67 (88) 96 12/23/16 20:00 86 18 145/68 (93) 98 12/23/16 20:00 Room Air 12/23/16 19:45 83 16 145/69 (94) 99 12/23/16 19:30 96 16 135/67 (89) 97 12/23/16 19:15 99 16 138/70 (92) 93 12/23/16 19:07 96 Room Air 12/23/16 19:00 36.4 90 16 122/55 (77) 96 Room Air 12/23/16 18:30 90 14 168/76 100 Oxymask 3 12/23/16 18:15 82 14 131/79 100 Oxymask 3 12/23/16 18:05 36.9 80 14 136/68 100 Oxymask 3 12/23/16 17:55 85 14 133/66 100 Oxymask 5 12/23/16 17:45 82 14 140/68 100 Oxymask 10 12/23/16 17:38 36.5 84 14 132/63 100 Oxymask 10 12/23/16 11:27 Room Air 12/23/16 10:44 36.6 82 16 104/58 (73) 98 Room Air Laboratory Results 24 Hours: Test 12/24/16 07:39 Additional Notes: Labs pending Assessment & Plan Assessment: 61 yo male stable POD #1 s/p left hip troch nail Plan: 1. Med management 2. DVT prophylaxis- will defer to medicine given h/o CVA 3. PT/OT- WBAT 4. D/C planning
--- NOTE | 2016-12-24 08:34 | Anesthesiology Progress Note ---
Anesthesia Post Op Note Date & Time Dec 24, 2016 at 08:33 Vital Signs Pain Intensity: 0.0 Vital Signs Past 12 Hours Date Time Temp Pulse Resp B/P (MAP) Pulse Ox O2 Delivery O2 Flow Rate FiO2 12/24/16 07:11 36.7 88 18 123/67 (85) 97 Room Air 12/24/16 04:21 36.7 93 18 128/60 (82) 95 Room Air 12/24/16 04:00 Room Air 12/24/16 00:00 Room Air 12/23/16 23:41 36.7 93 18 125/65 (85) 98 Room Air Notes Mental Status: alert / awake / arousable, participated in evaluation Pt Amnestic to Procedure: Yes Nausea / Vomiting: adequately controlled Pain: adequately controlled Airway Patency, RR, SpO2: stable & adequate BP & HR: stable & adequate Hydration State: stable & adequate Neuraxial Anesthesia: sensory block resolved Anesthetic Complications: no major complications apparent
[2016-12-24] MEDS ORDERED: NURSING VERBAL MED ORDER ONE ×2 (09:00)
[2016-12-24 09:12] LABS: HEMATOCRIT 28.8 % (42-52); MEAN CELL VOLUME 84.7 fL (80-100); MEAN CORPUSCULAR HEMOGLOBIN 26.5 pg (25-34); MEAN CORPUSCULAR HGB CONC 31.3 g/dl (32-36); MEAN PLATELET VOLUME 8.3 fL (7.4-10.4); PLATELET COUNT 289 K/uL (130-400); WHITE BLOOD COUNT 6.97 K/uL (4.8-10.8)
[2016-12-24] MEDS: BOOST VANILLA PO SCH ×6 (09:27→20:35)
--- NOTE | 2016-12-24 09:52 | Progress Note ---
Subjective Date of Service: Dec 24, 2016. Subjective s/p ORIF hip for fracture after fall at home. Remains on Dapto, day 09/10 today. Final urine culture pending. afebrile. wbc nml. no events. Problem List Medical Problems: (1) Altered mental status Status: Acute (2) Fall at home Status: Acute (3) Falling Status: Acute (4) Hip fracture, left Status: Acute (5) Slurred speech Status: Acute (6) Vomiting Status: Acute Objective Vital Signs Date Time Temp Pulse Resp B/P (MAP) Pulse Ox O2 Delivery O2 Flow Rate FiO2 12/24/16 08:00 Room Air 12/24/16 07:11 36.7 88 18 123/67 (85) 97 Room Air 12/24/16 04:21 36.7 93 18 128/60 (82) 95 Room Air 12/24/16 04:00 Room Air 12/24/16 00:00 Room Air 12/23/16 23:41 36.7 93 18 125/65 (85) 98 Room Air 12/23/16 20:30 88 18 131/67 (88) 96 12/23/16 20:00 86 18 145/68 (93) 98 12/23/16 20:00 Room Air 12/23/16 19:45 83 16 145/69 (94) 99 12/23/16 19:30 96 16 135/67 (89) 97 12/23/16 19:15 99 16 138/70 (92) 93 12/23/16 19:07 96 Room Air 12/23/16 19:00 36.4 90 16 122/55 (77) 96 Room Air 12/23/16 18:30 90 14 168/76 100 Oxymask 3 12/23/16 18:15 82 14 131/79 100 Oxymask 3 12/23/16 18:05 36.9 80 14 136/68 100 Oxymask 3 12/23/16 17:55 85 14 133/66 100 Oxymask 5 12/23/16 17:45 82 14 140/68 100 Oxymask 10 12/23/16 17:38 36.5 84 14 132/63 100 Oxymask 10 12/23/16 11:27 Room Air 12/23/16 10:44 36.6 82 16 104/58 (73) 98 Room Air Laboratory Results Item Value Date Time Urine Culture - Preliminary Resulted 12/22/16 0525 Urine , Clean Catch Enterococcus Species Last 24 Hours Test 12/24/16 08:44 White Blood Count 6.97 K/uL Red Blood Count 3.40 M/uL Hemoglobin 9.0 g/dL Hematocrit 28.8 % Mean Corpuscular Volume 84.7 fL Mean Corpuscular Hemoglobin 26.5 pg Mean Corpuscular Hemoglobin Concent 31.3 g/dl RDW Standard Deviation 49.4 fL RDW Coefficient of Variation 15.9 % Platelet Count 289 K/uL Mean Platelet Volume 8.3 fL Assessment and Plan (1) UTI (urinary tract infection) due to Enterococcus Assessment & Plan: continue dapto, day 3/3. can d/c abx after today's dose. No new ID recs at this time.
[2016-12-24 10:11] LABS: BUN/CREATININE RATIO 10.4 (10-20); CALCIUM 8.3 mg/dl (8.5-10.1); CREATININE 0.54 mg/dl (0.60-1.40); MAGNESIUM 1.8 mg/dl (1.8-2.4); PHOSPHORUS 2.6 mg/dl (2.5-4.9); POTASSIUM 3.2 mmol/L (3.5-5.1)
[2016-12-24] MEDS ORDERED: POTASSIUM CHLORIDE 20 MEQ TABCR PO STA (10:23)
--- NOTE | 2016-12-24 11:28 | Progress Note ---
Internal Med Progress Note Date of Service: Dec 24, 2016. Provider Documentation: SUBJECTIVE: The patient was seen and examined Complains of Left Hip pain Denies any Chest pain,palpitation,SOB No cardiac symptoms on regular activities No new neurological symptoms S/P left hip troch nail on 12/24/16 Doing well following surgery OBJECTIVE: Vital Signs-as noted below Exam: General-No distress malnourished Minimal Left facial droop Eyes-Normal ENT-Normal Neck-supple Lungs-Clear to auscultate bilaterally Heart-Regular Abdomen-Benign,no masses,bowel sound present Extremities-No edema Neuro-AAOx3 Left facial droop Generally weak,no focal deficit Lab data as noted below. ASSESSMENT & PLAN: Enterococcus UTI Asymptomatic No fever and or Increase in WCC Discussed with ID and started on Dapomycin Await C/S Appreciate ID input Left Hip Fracture s/p Mechanical Fall X-ray seems to suggest a left hip fracture Clinically significant pain at that side with painful ROM Complex medical history; will consult anesthesia Obtain an updated echo:: Moderate circumferential pericardial effusion. * There are no echocardiographic indications of cardiac tamponade. * Ejection Fraction = 55-60%. * Septal motion is consistent with conduction abnormality. Orthopedic consultation placed-appreciate Input Dilaudid and oxycodone PRN POD #1 left hip troch nail on 12/24/16 Hx. of CAD Has ~ 6 cardiac stents No complaint of chest pain, clinically stable Continue b-bella, statin, hold aspirin Was evaluated by the [employer] 1 year ago Will get Updated ECHO : Moderate circumferential pericardial effusion. * There are no echocardiographic indications of cardiac tamponade. * Ejection Fraction = 55-60%. * Septal motion is consistent with conduction abnormality. Carries more than usual risk for proposed surgery Discussed with the family members No acute issue Syncopal Episode Likely mechanical fall Denies any LOC Unsure of the cause of his syncopal episode: possible polypharmacy H/O seizures and hx. of CVA No residual motor dysfunction besides left LE, no sensory deficits No post-ictal state monitor in tele update echo IVFs may need adjustment of his medications Unintentional Weight Loss in the setting of Tobacco use Disorder concerning for malignancy with tobacco use disorder, should obtain chest CT as outpatient elevated alk phos is also concerning when he is eating, will need ensure TID with meals Hx. of CVA middle cerebral artery follows with Dr. Ricardo rg aspirin, Plavix -has not been taking Plavix for the last 1 week or so. continue statin Will start Plavix fron tomorrow Aspirin from today Malnutrition Has severe protein calori malnutrition Will need Dietary consult and nutritional supplements Seizure Disorder cont anticonvulsants DVT ppx SQ Heparin FULL CODE PT/OT evaluation Vital Signs: Date Time Temp Pulse Resp B/P (MAP) Pulse Ox O2 Delivery O2 Flow Rate FiO2 12/24/16 16:00 Room Air 12/24/16 15:00 37.2 87 18 137/71 (93) 99 Room Air 12/24/16 12:00 Room Air 12/24/16 10:57 36.6 86 18 106/56 (73) 96 Room Air 12/24/16 08:00 Room Air 12/24/16 07:11 36.7 88 18 123/67 (85) 97 Room Air 12/24/16 04:21 36.7 93 18 128/60 (82) 95 Room Air 12/24/16 04:00 Room Air 12/24/16 00:00 Room Air 12/23/16 23:41 36.7 93 18 125/65 (85) 98 Room Air 12/23/16 20:30 88 18 131/67 (88) 96 12/23/16 20:00 86 18 145/68 (93) 98 12/23/16 20:00 Room Air 12/23/16 19:45 83 16 145/69 (94) 99 12/23/16 19:30 96 16 135/67 (89) 97 12/23/16 19:15 99 16 138/70 (92) 93 12/23/16 19:07 96 Room Air 12/23/16 19:00 36.4 90 16 122/55 (77) 96 Room Air 12/23/16 18:30 90 14 168/76 100 Oxymask 3 12/23/16 18:15 82 14 131/79 100 Oxymask 3 Lab Results: Results Past 24 Hours Test 12/24/16 08:44 Range/Units White Blood Count 6.97 4.8-10.8 K/uL Red Blood Count 3.40 4.7-6.1 M/uL Hemoglobin 9.0 14.0-18.0 g/dL Hematocrit 28.8 42-52 % Mean Corpuscular Volume 84.7 80-100 fL Mean Corpuscular Hemoglobin 26.5 25-34 pg Mean Corpuscular Hemoglobin Concent 31.3 32-36 g/dl RDW Standard Deviation 49.4 36.4-46.3 fL RDW Coefficient of Variation 15.9 11.5-14.5 % Platelet Count 289 130-400 K/uL Mean Platelet Volume 8.3 7.4-10.4 fL Sodium Level 137 136-145 mmol/L Potassium Level 3.2 3.5-5.1 mmol/L Chloride Level 106 98-107 mmol/L Carbon Dioxide Level 21 21-32 mmol/L Anion Gap 10.0 3-11 mmol/L Blood Urea Nitrogen 6 7-18 mg/dl Creatinine 0.54 0.60-1.40 mg/dl Est Creatinine Clear Calc Drug Dose 112.9 ml/min Estimated GFR () 129.5 Estimated GFR (Non- 111.7 BUN/Creatinine Ratio 10.4 10-20 Random Glucose 131 70-99 mg/dl Calcium Level 8.3 8.5-10.1 mg/dl Phosphorus Level 2.6 2.5-4.9 mg/dl Magnesium Level 1.8 1.8-2.4 mg/dl
[2016-12-24] MEDS: OXYCODONE HCL IR 5 MG TAB (IMMEDIATE RELEASE) PO PRN ×2 (12:57→21:31)
[2016-12-24] MEDS: DAPTOmycin IV 250 MG in SODIUM CHLORIDE 0.9% 50ML 50 ML IV SCH (12:57)
[2016-12-24] MEDS: PANCRELIPASE PO SCH (17:30)
[2016-12-24] MEDS: QUETIAPINE FUMARATE 200 MG TABCR PO SCH (20:35)
[2016-12-24] MEDS: DOCUSATE SODIUM/SENNA 50/8.6MG TAB PO SCH (20:35)
[2016-12-24] MEDS: HEPARIN SOD 5000 UNIT/0.5 ML CARP SQ SCH (20:37)
[2016-12-25] VITALS (19 sets, daily range): BP systolic 93–172; BP diastolic 55–85; PULSE 81–100; TEMP 36.4–37.4; O2SAT 96–100
[2016-12-25 05:59] LABS: MEAN CELL VOLUME 84.5 fL (80-100); MEAN CORPUSCULAR HEMOGLOBIN 27.1 pg (25-34); MEAN CORPUSCULAR HGB CONC 32.1 g/dl (32-36); MEAN PLATELET VOLUME 8.2 fL (7.4-10.4); PLATELET COUNT 255 K/uL (130-400); RED BLOOD COUNT 2.84 M/uL (4.7-6.1); WHITE BLOOD COUNT 5.88 K/uL (4.8-10.8)
[2016-12-25] MEDS: PANCRELIPASE PO SCH ×3 (06:04→17:03)
[2016-12-25] MEDS: ATORVASTATIN 40 MG TAB PO SCH (07:48)
[2016-12-25] MEDS: LUBIPROSTONE 8 MCG CAP PO SCH ×2 (07:48→20:58)
[2016-12-25] MEDS: QUETIAPINE FUMARATE 25 MG TAB PO SCH ×3 (07:49→20:58)
[2016-12-25] MEDS: CLOPIDOGREL BISULFATE 75 MG TAB PO SCH (07:49)
[2016-12-25] MEDS: TOPIRAMATE 100 MG TAB PO SCH ×2 (07:49→20:58)
[2016-12-25] MEDS: ASPIRIN 81 MG ECTAB PO SCH (07:49)
[2016-12-25] MEDS: PANTOprazole SOD 40 MG TAB PO SCH (07:53)
[2016-12-25] MEDS: CLONAZEPAM 0.5 MG TAB PO SCH ×2 (07:53→20:56)
[2016-12-25] MEDS: HEPARIN SOD 5000 UNIT/0.5 ML CARP SQ SCH ×2 (07:56→20:56)
[2016-12-25] MEDS: CARVEDILOL 12.5 MG TAB PO SCH ×2 (08:10→20:57)
[2016-12-25] MEDS: BOOST VANILLA PO SCH ×6 (08:55→20:56)
[2016-12-25] MEDS: VIIBRYD 40 MG PO SCH (08:56)
[2016-12-25] MEDS: DAPTOmycin IV 250 MG in SODIUM CHLORIDE 0.9% 50ML 50 ML IV SCH (11:17)
[2016-12-25] MEDS: HYDROmorphone INJ 1 MG/ML SYR IV PRN (11:17)
--- NOTE | 2016-12-25 11:34 | Orthopedic Progress Note ---
Orthopedic Progress Note Date of Service Dec 25, 2016. Subjective Post OP Day: 2 Reports: feeling well, pain controlled w PO medications, Denies: complaints, chest pain, SOB, nausea / vomiting, light headedness, calf pain Objective calves soft nontender, N/V intact, capillary refill less than 2 sec., dressing C /D/I, A&O x3, toes mobile Date Time Temp Pulse Resp B/P (MAP) Pulse Ox O2 Delivery O2 Flow Rate FiO2 12/25/16 11:22 Room Air 12/25/16 11:13 36.6 84 18 132/73 (92) 98 Room Air 12/25/16 08:00 Room Air 12/25/16 07:57 93/55 (68) 12/25/16 07:18 36.9 81 19 98/61 (73) 98 Room Air 12/25/16 04:09 37.4 86 18 117/67 (84) 98 Room Air 12/25/16 04:02 Room Air 12/25/16 00:00 Room Air 12/24/16 23:51 36.7 84 18 134/70 (91) 99 Room Air 12/24/16 20:00 Room Air 12/24/16 18:53 36.6 90 19 133/70 (91) 100 Room Air 12/24/16 16:00 Room Air 12/24/16 15:00 37.2 87 18 137/71 (93) 99 Room Air 12/24/16 12:00 Room Air Laboratory Results 24 Hours: Test 12/25/16 05:30 Hematocrit 24.0 % Hemoglobin 7.7 g/dL Assessment & Plan Assessment: 61 yo male stable POD #2 s/p left hip troch nail Plan: 1. Med management 2. DVT prophylaxis- will defer to medicine given h/o CVA 3. PT/OT- WBAT 4. D/C planning - per medicine
--- NOTE | 2016-12-25 13:47 | Progress Note ---
Internal Med Progress Note Date of Service: Dec 25, 2016. Provider Documentation: SUBJECTIVE: The patient was seen and examined Complains of Left Hip pain Denies any Chest pain,palpitation,SOB No cardiac symptoms on regular activities No new neurological symptoms-On Admission S/P left hip troch nail on 12/24/16 Doing well following surgery Generally weak but no other symptoms OBJECTIVE: Vital Signs-as noted below Exam: General-No distress malnourished Minimal Left facial droop Eyes-Normal ENT-Normal Neck-supple Lungs-Clear to auscultate bilaterally Heart-Regular Abdomen-Benign,no masses,bowel sound present Extremities-No edema Neuro-AAOx3 Left facial droop Generally weak,no focal deficit Lab data as noted below. ASSESSMENT & PLAN: Acute Blood Loss Anemia Hb Dropped to 7.7 Will recheck Will transfuse 2 units of PRBC if trending down Will need to discuss with the Enterococcus faecalis- UTI Asymptomatic No fever and or Increase in WCC Discussed with ID and started on Dapomycin Await C/S- Appreciate ID input Continue Daptomycin for w 3 days Left Hip Fracture s/p Mechanical Fall X-ray seems to suggest a left hip fracture Clinically significant pain at that side with painful ROM Complex medical history; will consult anesthesia Obtain an updated echo:: Moderate circumferential pericardial effusion. * There are no echocardiographic indications of cardiac tamponade. * Ejection Fraction = 55-60%. * Septal motion is consistent with conduction abnormality. Orthopedic consultation placed-appreciate Input Dilaudid and oxycodone PRN POD #1 left hip troch nail on 12/24/16 Denies any pain at rest PT/OT Hx. 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 * There are no echocardiographic indications of cardiac tamponade. * Ejection Fraction = 55-60%. * Septal motion is consistent with conduction abnormality. Carries more than usual risk for proposed surgery Discussed with the family members No acute issue Syncopal Episode Likely mechanical fall Denies any LOC Unsure of the cause of his syncopal episode: possible polypharmacy H/O seizures and hx. of CVA No residual motor dysfunction besides left LE, no sensory deficits No post-ictal state monitor in tele update echo IVFs may need adjustment of his medications Unintentional Weight Loss in the setting of Tobacco use Disorder concerning for malignancy with tobacco use disorder, should obtain chest CT as outpatient elevated alk phos is also concerning when he is eating, will need ensure TID with meals Hx. of CVA middle cerebral artery follows with Dr. Silva hold aspirin, Plavix -has not been taking Plavix for the last 1 week or so. continue statin Will start Plavix fron tomorrow Aspirin from today Malnutrition Has severe protein calori malnutrition Will need Dietary consult and nutritional supplements Seizure Disorder cont anticonvulsants DVT ppx SQ Heparin FULL CODE PT/OT evaluation Likely to need Rehab Vital Signs: Date Time Temp Pulse Resp B/P (MAP) Pulse Ox O2 Delivery O2 Flow Rate FiO2 12/25/16 13:15 36.5 88 17 117/70 98 12/25/16 12:45 36.7 92 17 109/69 99 12/25/16 12:10 36.8 88 17 109/67 100 12/25/16 11:55 37.0 92 18 109/66 98 12/25/16 11:22 Room Air 12/25/16 11:13 36.6 84 18 132/73 (92) 98 Room Air 12/25/16 08:00 Room Air 12/25/16 07:57 93/55 (68) 12/25/16 07:18 36.9 81 19 98/61 (73) 98 Room Air 12/25/16 04:09 37.4 86 18 117/67 (84) 98 Room Air 12/25/16 04:02 Room Air 12/25/16 00:00 Room Air 12/24/16 23:51 36.7 84 18 134/70 (91) 99 Room Air 12/24/16 20:00 Room Air 12/24/16 18:53 36.6 90 19 133/70 (91) 100 Room Air 12/24/16 16:00 Room Air 12/24/16 15:00 37.2 87 18 137/71 (93) 99 Room Air Lab Results: Results Past 24 Hours Test 12/25/16 05:30 12/25/16 12:00 Range/Units White Blood Count 5.88 4.8-10.8 K/uL Red Blood Count 2.84 4.7-6.1 M/uL Hemoglobin 7.7 14.0-18.0 g/dL Hematocrit 24.0 42-52 % Mean Corpuscular Volume 84.5 80-100 fL Mean Corpuscular Hemoglobin 27.1 25-34 pg Mean Corpuscular Hemoglobin Concent 32.1 32-36 g/dl RDW Standard Deviation 50.1 36.4-46.3 fL RDW Coefficient of Variation 16.0 11.5-14.5 % Platelet Count 255 130-400 K/uL Mean Platelet Volume 8.2 7.4-10.4 fL
[2016-12-25] MEDS: QUETIAPINE FUMARATE 200 MG TABCR PO SCH (20:57)
[2016-12-25] MEDS: DOCUSATE SODIUM/SENNA 50/8.6MG TAB PO SCH (20:58)
[2016-12-25 21:23] LABS: HEMATOCRIT 34.9 % (42-52)
[2016-12-26 04:23] VITALS: BP 145/69; PULSE 93; TEMP 36.8; O2SAT 97
[2016-12-26] MEDS: PANCRELIPASE PO SCH ×3 (06:22→15:29)
[2016-12-26 06:56] VITALS: BP 123/66; PULSE 86; TEMP 36.8; O2SAT 97
[2016-12-26] MEDS: CLOPIDOGREL BISULFATE 75 MG TAB PO SCH (07:41)
[2016-12-26] MEDS: LUBIPROSTONE 8 MCG CAP PO SCH ×2 (07:41→20:27)
[2016-12-26] MEDS: PANTOprazole SOD 40 MG TAB PO SCH (07:41)
[2016-12-26] MEDS: DICYCLOMINE HCL 20 MG TAB PO PRN ×2 (07:41→20:30)
[2016-12-26] MEDS: CARVEDILOL 12.5 MG TAB PO SCH ×2 (07:41→20:27)
[2016-12-26] MEDS: QUETIAPINE FUMARATE 25 MG TAB PO SCH ×3 (07:41→20:26)
[2016-12-26] MEDS: VIIBRYD 40 MG PO SCH (07:42)
[2016-12-26] MEDS: TOPIRAMATE 100 MG TAB PO SCH ×2 (07:42→20:27)
[2016-12-26] MEDS: ASPIRIN 81 MG ECTAB PO SCH (07:42)
[2016-12-26] MEDS: ATORVASTATIN 40 MG TAB PO SCH (07:42)
[2016-12-26] MEDS: HEPARIN SOD 5000 UNIT/0.5 ML CARP SQ SCH ×2 (07:48→20:27)
[2016-12-26] MEDS: BOOST VANILLA PO SCH ×6 (07:49→20:26)
--- NOTE | 2016-12-26 08:20 | Orthopedic Progress Note ---
Orthopedic Progress Note Date of Service Dec 26, 2016. Subjective Post OP Day: 3 Reports: feeling well, pain controlled w PO medications, Denies: complaints, chest pain, SOB, nausea / vomiting, light headedness, calf pain Objective calves soft nontender, capillary refill less than 2 sec., dressing C/D/I, A&O x3 , toes mobile Patient was tired during the examination but was easily aroused by talking to him. Dressing was C/D/I. He did note some pain over his hip. Date Time Temp Pulse Resp B/P (MAP) Pulse Ox O2 Delivery O2 Flow Rate FiO2 12/26/16 06:56 36.8 86 20 123/66 (85) 97 Room Air 12/26/16 04:23 36.8 93 18 145/69 (94) 97 Room Air 12/26/16 04:00 Room Air 12/26/16 00:00 Room Air 12/25/16 23:57 36.8 94 18 131/67 (88) 97 Room Air 12/25/16 20:00 Room Air 12/25/16 19:45 37.2 96 20 167/76 96 12/25/16 19:00 36.8 96 18 172/81 98 12/25/16 18:00 36.6 94 18 166/85 100 12/25/16 17:30 89 18 169/80 100 12/25/16 17:00 97 18 154/74 98 12/25/16 16:40 36.7 100 18 153/76 100 12/25/16 16:25 36.7 94 18 140/76 97 12/25/16 16:11 36.5 94 18 138/75 98 12/25/16 16:00 Room Air 12/25/16 15:01 36.9 99 18 133/71 (91) 97 Room Air 12/25/16 14:00 36.4 87 18 122/71 98 12/25/16 13:15 36.5 88 17 117/70 98 12/25/16 12:45 36.7 92 17 109/69 99 12/25/16 12:10 36.8 88 17 109/67 100 12/25/16 11:55 37.0 92 18 109/66 98 12/25/16 11:22 Room Air 12/25/16 11:13 36.6 84 18 132/73 (92) 98 Room Air Laboratory Results 24 Hours: Test 12/25/16 20:58 Hematocrit 34.9 % Hemoglobin 11.4 g/dL Assessment & Plan Assessment: 61 yo male stable POD #3 s/p left hip troch nail Plan: 1. Med management 2. DVT prophylaxis- will defer to medicine given h/o CVA 3. PT/OT- WBAT 4. D/C planning - per medicine Inhouse Planning Pain Management: Dilaudid, Oxy IR DVT Prophylaxis: other (Plavix) Discharge Planning Discharge Planning: uncertain
[2016-12-26] MEDS: CLONAZEPAM 0.5 MG TAB PO SCH ×2 (09:00→20:27)
[2016-12-26 09:51] LABS: HEMATOCRIT 33.1 % (42-52); MEAN CELL VOLUME 84.4 fL (80-100); MEAN CORPUSCULAR HEMOGLOBIN 29.1 pg (25-34); MEAN CORPUSCULAR HGB CONC 34.4 g/dl (32-36); MEAN PLATELET VOLUME 8.6 fL (7.4-10.4); PLATELET COUNT 269 K/uL (130-400); RED BLOOD COUNT 3.92 M/uL (4.7-6.1); WHITE BLOOD COUNT 6.14 K/uL (4.8-10.8)
--- NOTE | 2016-12-26 10:04 | Consultant Recommendations ---
Cognos Developer Recommendations Date of Service Dec 26, 2016. Cognos Developer Recommendations ID Consult Dictated # [id number] A/P: 1. UTI -continue dapto pending final culture results, will need 3 days total -thank you Orthopedics S/P Left intertrochanteric nail UOC DISCHARGE INSTRUCTIONS: HIP FRACTURE SELF CARE INSTRUCTIONS: A. You are to ambulate with a walker or crutches for approximately 6 weeks. B. You are TOE TOUCH WEIGHT BEARING on your operative lower extremity for at least 6 weeks. C. Wear low heeled shoes with non-slip soles D. Be sure that your floors are free of things that could trip you throw rugs, electrical cords, and small objects. Avoid wet and waxed floors, especially with crutches/walker/cane. E. Try to walk several times a day with rest periods between. F. You may shower 48 hours after surgery and get the incision area wet, but DO NOT soak or submerge incision area in water. (No baths, swimming pools, hot tubs ) G. You may have a large, band-aid like dressing over your incision (Aquacel). This will remain on your incision for 7 days, and then can be removed. You CAN shower with this on. If incision is leaking through the dressing, please call the office . H. Do NOT apply soap or any ointment/lotions directly over incision. I. You may use ice as needed to operative site. SPECIAL CARE INSTRUCTIONS: VERY IMPORTANT TO READ AND REVIEW A. You may be at risk for phlebitis or blood clots. a. Wear surgical stockings (YANET hose) for 2 weeks after surgery to improve circulation and reduce swelling. b. Take ASPIRIN 325 mg twice daily for 4 weeks or as directed. This is your blood thinner. c. If you are on Coumadin- you will have daily/weekly blood work to monitor your levels. This will be done by either your family physician/ herbarium curator (if you are on Coumadin chronically) versus your orthopedic surgeon. Expect a phone call the day of or the day after your blood work is drawn to adjust your dose accordingly. B. There are a few signs you need to watch for after you are home. Call [facility] [place] at [phone] if you experience any of the following: a. If you have a temperature of 101 degrees or higher. b. Sudden increase in pain in your hip not relieved by rest or pain medication. c. Any fluid or drainage from the incision; redness of the incision. d. Shortness of breath or chest pain. B. Please call [facility] at [phone] if you have any questions or concerns about your operation or recovery. C. Call your physician if: a. Temperature is greater than 101 degrees (F). b. Pain is not relieved by prescribed pain medications. c. Increase drainage or redness from incision. d. Unanswered questions or concerns. D. Pain Medication: a. You will be prescribed pain medication upon discharge that should last till your first post-operative appointment. b. If you experience nausea and/or skin rash, discontinue this medication and contact our office for an alternative medication. c. Caution- narcotic pain medication can cause constipation. FOLLOW UP VISIT: Please call [facility] at [phone] to schedule a follow up appointment 10-14 days from the date of your surgery date.
[2016-12-26 10:26] LABS: BUN/CREATININE RATIO 11.8 (10-20); CALCIUM 8.5 mg/dl (8.5-10.1); CREATININE 0.68 mg/dl (0.60-1.40); MAGNESIUM 1.7 mg/dl (1.8-2.4); POTASSIUM 2.7 mmol/L (3.5-5.1)
[2016-12-26 11:00] VITALS: BP 94/56; PULSE 86; TEMP 36.4; O2SAT 97
[2016-12-26] MEDS ORDERED: POTASSIUM CHLORIDE 10 MEQ TABCR PO ONE (11:00)
[2016-12-26] MEDS ORDERED: POTASSIUM CHLR 10 MEQ / WTR 10 MEQ in PREMIXED WATER 100 ML IV ONE (11:00)
[2016-12-26] MEDS ORDERED: MAGNESIUM SULFATE 1GM / D5W 1 GM in PREMIXED IN D5W 100 ML IV ONE (12:00)
[2016-12-26] MEDS: DAPTOmycin IV 250 MG in SODIUM CHLORIDE 0.9% 50ML 50 ML IV SCH (12:48)
[2016-12-26 15:17] VITALS: BP 132/68; PULSE 80; TEMP 36.7; O2SAT 98
--- NOTE | 2016-12-26 15:39 | Progress Note ---
Internal Med Progress Note Date of Service: Dec 26, 2016. Provider Documentation: SUBJECTIVE: The patient was seen and examined Complains of Left Hip pain Denies any Chest pain,palpitation,SOB No cardiac symptoms on regular activities No new neurological symptoms-On Admission S/P left hip troch nail on 12/24/16 Remains generally weak No babatunde symptoms OBJECTIVE: Vital Signs-as noted below Exam: General-No distress malnourished Minimal Left facial droop Eyes-Normal ENT-Normal Neck-supple Lungs-Clear to auscultate bilaterally Heart-Regular Abdomen-Benign,no masses,bowel sound present Extremities-No edema Neuro-AAOx3 Left facial droop Generally weak,no focal deficit Lab data as noted below. ASSESSMENT & PLAN: Acute Blood Loss Anemia Hb Dropped to 7.7 Will recheck Will transfuse 2 units of PRBC if trending down Will need to discuss with the Hb went up to >11 Enterococcus faecalis- UTI Asymptomatic No fever and or Increase in WCC Discussed with ID and started on Dapomycin Await C/S- Appreciate ID input Continue Daptomycin for w 3 days Will discontinue Daptomycin Left Hip Fracture s/p Mechanical Fall X-ray seems to suggest a left hip fracture Clinically significant pain at that side with painful ROM Complex medical history; will consult anesthesia Obtain an updated echo:: Moderate circumferential pericardial effusion. * There are no echocardiographic indications of cardiac tamponade. * Ejection Fraction = 55-60%. * Septal motion is consistent with conduction abnormality. Orthopedic consultation placed-appreciate Input Dilaudid and oxycodone PRN POD #1 left hip troch nail on 12/24/16 Denies any pain at rest PT/OT-will need rehab Hx. of CAD Has ~ 6 cardiac stents No complaint of chest pain, clinically stable Continue b-bella, statin, hold aspirin Was evaluated by the Form Setter 1 year ago Will get Updated ECHO : Moderate circumferential pericardial effusion. * There are no echocardiographic indications of cardiac tamponade. * Ejection Fraction = 55-60%. * Septal motion is consistent with conduction abnormality. Carries more than usual risk for proposed surgery Discussed with the family members No acute issue Syncopal Episode Likely mechanical fall Denies any LOC Unsure of the cause of his syncopal episode: possible polypharmacy H/O seizures and hx. of CVA No residual motor dysfunction besides left LE, no sensory deficits No post-ictal state monitor in tele update echo IVFs may need adjustment of his medications Unintentional Weight Loss in the setting of Tobacco use Disorder concerning for malignancy with tobacco use disorder, should obtain chest CT as outpatient elevated alk phos is also concerning when he is eating, will need ensure TID with meals Hx. of CVA middle cerebral artery follows with Dr. Silva hold aspirin, Plavix -has not been taking Plavix for the last 1 week or so. continue statin Will start Plavix fron tomorrow Aspirin from today Malnutrition Has severe protein calori malnutrition Will need Dietary consult and nutritional supplements Seizure Disorder cont anticonvulsants DVT ppx SQ Heparin FULL CODE PT/OT evaluation Likely to need Rehab Vital Signs: Date Time Temp Pulse Resp B/P (MAP) Pulse Ox O2 Delivery O2 Flow Rate FiO2 12/26/16 12:03 Room Air 12/26/16 11:00 36.4 86 17 94/56 (69) 97 Room Air 12/26/16 08:05 Room Air 12/26/16 06:56 36.8 86 20 123/66 (85) 97 Room Air 12/26/16 04:23 36.8 93 18 145/69 (94) 97 Room Air 12/26/16 04:00 Room Air 12/26/16 00:00 Room Air 12/25/16 23:57 36.8 94 18 131/67 (88) 97 Room Air 12/25/16 20:00 Room Air 12/25/16 19:45 37.2 96 20 167/76 96 12/25/16 19:00 36.8 96 18 172/81 98 12/25/16 18:00 36.6 94 18 166/85 100 12/25/16 17:30 89 18 169/80 100 12/25/16 17:00 97 18 154/74 98 12/25/16 16:40 36.7 100 18 153/76 100 12/25/16 16:25 36.7 94 18 140/76 97 12/25/16 16:11 36.5 94 18 138/75 98 12/25/16 16:00 Room Air Lab Results: Results Past 24 Hours Test 12/25/16 20:58 12/26/16 08:40 Range/Units Hemoglobin 11.4 11.4 14.0-18.0 g/dL Hematocrit 34.9 33.1 42-52 % White Blood Count 6.14 4.8-10.8 K/uL Red Blood Count 3.92 4.7-6.1 M/uL Mean Corpuscular Volume 84.4 80-100 fL Mean Corpuscular Hemoglobin 29.1 25-34 pg Mean Corpuscular Hemoglobin Concent 34.4 32-36 g/dl RDW Standard Deviation 49.0 36.4-46.3 fL RDW Coefficient of Variation 15.9 11.5-14.5 % Platelet Count 269 130-400 K/uL Mean Platelet Volume 8.6 7.4-10.4 fL Sodium Level 139 136-145 mmol/L Potassium Level 2.7 3.5-5.1 mmol/L Chloride Level 108 98-107 mmol/L Carbon Dioxide Level 20 21-32 mmol/L Anion Gap 11.0 3-11 mmol/L Blood Urea Nitrogen 8 7-18 mg/dl Creatinine 0.68 0.60-1.40 mg/dl Est Creatinine Clear Calc Drug Dose 96.9 ml/min Estimated GFR () 117.8 Estimated GFR (Non- 101.6 BUN/Creatinine Ratio 11.8 10-20 Random Glucose 113 70-99 mg/dl Calcium Level 8.5 8.5-10.1 mg/dl Magnesium Level 1.7 1.8-2.4 mg/dl
[2016-12-26 18:48] VITALS: BP 150/73; PULSE 82; TEMP 36.8; O2SAT 97
[2016-12-26] MEDS: DOCUSATE SODIUM/SENNA 50/8.6MG TAB PO SCH (20:26)
[2016-12-26] MEDS: QUETIAPINE FUMARATE 200 MG TABCR PO SCH (20:28)
[2016-12-26 23:15] VITALS: BP 118/68; PULSE 78; TEMP 37; O2SAT 98
[2016-12-27] VITALS (10 sets, daily range): BP systolic 85–147; BP diastolic 48–70; PULSE 74–91; TEMP 36.6–37.5; O2SAT 95–98
[2016-12-27] MEDS: PANCRELIPASE PO SCH ×3 (06:34→16:42)
[2016-12-27] MEDS: HEPARIN SOD 5000 UNIT/0.5 ML CARP SQ SCH ×2 (08:13→21:02)
[2016-12-27] MEDS: CLOPIDOGREL BISULFATE 75 MG TAB PO SCH (08:14)
[2016-12-27] MEDS: LUBIPROSTONE 8 MCG CAP PO SCH ×2 (08:14→21:02)
[2016-12-27] MEDS: CARVEDILOL 12.5 MG TAB PO SCH ×2 (08:14→21:00)
[2016-12-27] MEDS: ATORVASTATIN 40 MG TAB PO SCH (08:15)
[2016-12-27] MEDS: VIIBRYD 40 MG PO SCH (08:15)
[2016-12-27] MEDS: ASPIRIN 81 MG ECTAB PO SCH (08:15)
[2016-12-27] MEDS: CLONAZEPAM 0.5 MG TAB PO SCH ×2 (08:16→20:59)
[2016-12-27] MEDS: QUETIAPINE FUMARATE 25 MG TAB PO SCH ×3 (08:17→21:01)
[2016-12-27] MEDS: TOPIRAMATE 100 MG TAB PO SCH ×2 (08:18→21:01)
[2016-12-27] MEDS: PANTOprazole SOD 40 MG TAB PO SCH (08:18)
[2016-12-27 09:13] LABS: HEMATOCRIT 31.6 % (42-52); MEAN CORPUSCULAR HEMOGLOBIN 27.4 pg (25-34); MEAN CORPUSCULAR HGB CONC 32.6 g/dl (32-36); MEAN PLATELET VOLUME 8.4 fL (7.4-10.4); PLATELET COUNT 311 K/uL (130-400); RED BLOOD COUNT 3.76 M/uL (4.7-6.1); WHITE BLOOD COUNT 5.18 K/uL (4.8-10.8)
[2016-12-27 09:28] LABS: CALCIUM 7.9 mg/dl (8.5-10.1)
[2016-12-27 09:45] LABS: BUN/CREATININE RATIO 15.7 (10-20); CREATININE 0.56 mg/dl (0.60-1.40); MAGNESIUM 1.9 mg/dl (1.8-2.4); PHOSPHORUS 2.7 mg/dl (2.5-4.9); POTASSIUM 2.4 mmol/L (3.5-5.1)
[2016-12-27] MEDS: BOOST VANILLA PO SCH ×6 (10:00→20:59)
[2016-12-27] MEDS ORDERED: POTASSIUM CHLORIDE 10 MEQ TABCR PO ONE (10:30)
[2016-12-27] MEDS ORDERED: MAGNESIUM SULFATE 1GM / D5W 1 GM in PREMIXED IN D5W 100 ML IV ONE (10:30)
[2016-12-27] MEDS: POTASSIUM CHLR 10 MEQ / WTR 10 MEQ in PREMIXED WATER 100 ML IV SCH ×2 (10:40→11:59)
[2016-12-27] MEDS: DAPTOmycin IV 250 MG in SODIUM CHLORIDE 0.9% 50ML 50 ML IV SCH (13:08)
--- NOTE | 2016-12-27 15:41 | Progress Note ---
Internal Med Progress Note Date of Service: Dec 27, 2016. Provider Documentation: SUBJECTIVE: The patient was seen and examined Complains of Left Hip pain Denies any Chest pain,palpitation,SOB No cardiac symptoms on regular activities No new neurological symptoms-On Admission S/P left hip troch nail on 12/24/16 Remains generally weak and lethargic No new symptoms OBJECTIVE: Vital Signs-as noted below Exam: General-No distress malnourished Minimal Left facial droop Eyes-Normal ENT-Normal Neck-supple Lungs-Clear to auscultate bilaterally Heart-Regular Abdomen-Benign,no masses,bowel sound present Extremities-No edema Neuro-AAOx3 Left facial droop Generally weak,no focal deficit Lab data as noted below. ASSESSMENT & PLAN: Acute Blood Loss Anemia Hb Dropped to 7.7 Will recheck Will transfuse 2 units of PRBC if trending down Will need to discuss with the Hb went up to >11 Remains stable Enterococcus faecalis- UTI Asymptomatic No fever and or Increase in WCC Discussed with ID and started on Dapomycin Await C/S- Appreciate ID input Continue Daptomycin for w 3 days Daptomycin discontinued Left Hip Fracture s/p Mechanical Fall X-ray seems to suggest a left hip fracture Clinically significant pain at that side with painful ROM Complex medical history; will consult anesthesia Obtain an updated echo:: Moderate circumferential pericardial effusion. * There are no echocardiographic indications of cardiac tamponade. * Ejection Fraction = 55-60%. * Septal motion is consistent with conduction abnormality. Orthopedic consultation placed-appreciate Input Dilaudid and oxycodone PRN POD #3 left hip troch nail on 12/24/16 Denies any pain at rest PT/OT-will need rehab Anxiety/Depression On a host of Antipsychotic medication Not sure if medications need to be updated to improve his general condition Will get a psychiatry evaluation Hx. of CAD Has ~ 6 cardiac stents No complaint of chest pain, clinically stable Continue b-bella, statin, hold aspirin Was evaluated by the [employer] 1 year ago Will get Updated ECHO : Moderate circumferential pericardial effusion. * There are no echocardiographic indications of cardiac tamponade. * Ejection Fraction = 55-60%. * Septal motion is consistent with conduction abnormality. Carries more than usual risk for proposed surgery Discussed with the family members No acute issue Syncopal Episode Likely mechanical fall Denies any LOC Unsure of the cause of his syncopal episode: possible polypharmacy H/O seizures and hx. of CVA No residual motor dysfunction besides left LE, no sensory deficits No post-ictal state monitor in tele update echo IVFs may need adjustment of his medications Unintentional Weight Loss in the setting of Tobacco use Disorder concerning for malignancy with tobacco use disorder, should obtain chest CT as outpatient elevated alk phos is also concerning when he is eating, will need ensure TID with meals Weight loss has been going on for >1 year Recently lost more Saw his PCP in last 2 weeks-no malignancy suggested CT of the abdomen and pelvis last year-no mass and CXR is negative Hx. of CVA middle cerebral artery follows with Dr. Ricardo rg aspirin, Plavix -has not been taking Plavix for the last 1 week or so. continue statin Will start Plavix fron tomorrow Aspirin from today Malnutrition Has severe protein calori malnutrition Will need Dietary consult and nutritional supplements Seizure Disorder cont anticonvulsants DVT ppx SQ Heparin FULL CODE PT/OT evaluation Likely to need Rehab Discussed in detailed with the Vital Signs: Date Time Temp Pulse Resp B/P (MAP) Pulse Ox O2 Delivery O2 Flow Rate FiO2 12/27/16 14:50 36.6 76 17 147/70 (95) 98 Room Air 12/27/16 12:00 95 Room Air 12/27/16 11:58 36.8 88 20 122/67 (85) 98 Room Air 12/27/16 09:35 91 97 12/27/16 08:00 96 Room Air 12/27/16 07:41 37.0 74 18 132/65 (87) 96 12/27/16 04:02 Room Air 12/27/16 03:41 37.1 77 18 129/69 (89) 97 Room Air 12/27/16 00:02 Room Air 12/26/16 23:15 37.0 78 18 118/68 (85) 98 Room Air 12/26/16 20:00 Room Air 12/26/16 18:48 36.8 82 19 150/73 (98) 97 Room Air Lab Results: Results Past 24 Hours Test 12/27/16 08:51 Range/Units White Blood Count 5.18 4.8-10.8 K/uL Red Blood Count 3.76 4.7-6.1 M/uL Hemoglobin 10.3 14.0-18.0 g/dL Hematocrit 31.6 42-52 % Mean Corpuscular Volume 84.0 80-100 fL Mean Corpuscular Hemoglobin 27.4 25-34 pg Mean Corpuscular Hemoglobin Concent 32.6 32-36 g/dl RDW Standard Deviation 49.7 36.4-46.3 fL RDW Coefficient of Variation 16.1 11.5-14.5 % Platelet Count 311 130-400 K/uL Mean Platelet Volume 8.4 7.4-10.4 fL Sodium Level 142 136-145 mmol/L Potassium Level 2.4 3.5-5.1 mmol/L Chloride Level 111 98-107 mmol/L Carbon Dioxide Level 19 21-32 mmol/L Anion Gap 12.0 3-11 mmol/L Blood Urea Nitrogen 9 7-18 mg/dl Creatinine 0.56 0.60-1.40 mg/dl Est Creatinine Clear Calc Drug Dose 119.9 ml/min Estimated GFR () 127.6 Estimated GFR (Non- 110.1 BUN/Creatinine Ratio 15.7 10-20 Random Glucose 103 70-99 mg/dl Calcium Level 7.9 8.5-10.1 mg/dl Phosphorus Level 2.7 2.5-4.9 mg/dl Magnesium Level 1.9 1.8-2.4 mg/dl
[2016-12-27] MEDS: OXYCODONE HCL IR 5 MG TAB (IMMEDIATE RELEASE) PO PRN (20:59)
[2016-12-27] MEDS: DOCUSATE SODIUM/SENNA 50/8.6MG TAB PO SCH (21:00)
[2016-12-27] MEDS: QUETIAPINE FUMARATE 200 MG TABCR PO SCH (21:01)
[2016-12-28] VITALS (8 sets, daily range): BP systolic 85–156; BP diastolic 45–75; PULSE 71–82; TEMP 36.4–37.5; O2SAT 96–100
[2016-12-28] MEDS: PANCRELIPASE PO SCH ×3 (06:00→17:04)
[2016-12-28 06:38] LABS: HEMATOCRIT 31.8 % (42-52); MEAN CORPUSCULAR HGB CONC 31.8 g/dl (32-36); MEAN PLATELET VOLUME 8.7 fL (7.4-10.4); PLATELET COUNT 318 K/uL (130-400); RED BLOOD COUNT 3.74 M/uL (4.7-6.1)
[2016-12-28 07:24] LABS: BUN/CREATININE RATIO 21.2 (10-20); CALCIUM 7.7 mg/dl (8.5-10.1); CREATININE 0.46 mg/dl (0.60-1.40); MAGNESIUM 1.9 mg/dl (1.8-2.4); POTASSIUM 2.3 mmol/L (3.5-5.1)
[2016-12-28] MEDS ORDERED: POTASSIUM CHLR 20 MEQ / WTR 40 MEQ in PREMIXED WATER 100 ML IV STA (07:45)
--- NOTE | 2016-12-28 07:57 | Psychiatric Consultation ---
Consultation Date of Consultation Dec 28, 2016. Identifying Data Rufus Doyle is a 61-year-old male who currently lives with his who is his POA. Rufus Doyle was admitted to the medical service s/p fall beleived to be mechanical resulting in broken hip. He has had subsequent surgery and due to significant weight loss, low interest and low motivation psychiatry was consulted to evaluate anxiety and depression. Information provided by the patient is considered to be reliable in regards to his self report, but he is o/w a poor historian. Remainder of history gathered from record, and his Chief Complaint "I am okay". History of Present Illness Medical history he coronary stenting history of seizures secondary disorder depression, irritability personality changes possibly secondary to CVA, tobacco dependence who has had a one-year history of significant weight loss unintentionally. He presented to the [facility] status post fall which is notably to be mechanical in nature resulting in a fractured hip. He is status post surgery and is pending transfer to [facility] once medically stable for rehabilitation. Psychiatry was consulted regarding concerns of depression. The patient was seen at the bedside 2017 prior nurse liaison and then again on 12/28/2016 by this provider. History is gathered from the record, and bedside evaluations. The patient is a poor historian stating that he sees a doctor in [place] "ask my " he states he sees a doctor once a month and reports being on meds "for a long time." Further information gathered from the record is that he sees a psychiatric physician senior agricultural assistant at [facility] every 3 months and that his daughter sets up a pillbox at home and that the patient has not aware of the medications that he takes. Apparently the patient became aggressive after his CVA in 2004 and mean, very depressed and paranoid. It was reported that lately he has not been irritable or aggressive or mean that has been more withdrawn. Since his hip surgery has been reported that he is getting mean and shorter tempered again. The patient reports low motivation and low interest. However he denies being hopeless helpless or worthless and states he enjoys times with his grandkids. He denies suicidal ideations intention or plan. He denies homicidal ideations intention or plan. Collateral history reports no history of aggressive actions such as hitting or hurting others in the past 12 months and denies any history of suicide attempts. He does report low appetite and not feeling like eating. He does report that he struggled with constipation and he told the nurse "I had trouble with my bowels and afraid now to eat" he denies having low energy and states he spends his time tinkering in his garage and enjoying time with his grandkids. The patient denies feeling irritable he denies anxiety. He states he sleeps well. He denies signs or symptoms of psychosis. Collateral history from patient's confirms history as above. She notes that patient has had two bowel obstructions and surgery at [facility], and then at [facility] the latter was 5 weeks ago, and so he is afraid to eat due to fear or recurrent bowel obstruction. She notes that his klonopin, and viibryd and his seroquel come from [facility] at [facility] (prior provider was Dr Lu who no longer provides telemedicine services there) To the 's knowledge the patient has not been on mirtazapine. Dr Silva prescribes the topiramate and the tegretol. Of not the tegretol XR has not been continued during this hospital stay but is listed on home meds. Past Psychiatric History Current OP Treatment: psychiatrist (psychiatric physician senior agricultural assistant at [facility]) Prior Psych Hospitalizations: none Access to a Gun: No Suicide Attempts: No Past Medication Trials Unknown at this time we will be crit requesting records from [facility] in discussing with Past Medical/Surgical History History of Concussion/Seizure: Yes (seizures status post CVA in 2004) (1) UTI (urinary tract infection) due to Enterococcus (2) Seizures (3) CVA (cerebral infarction) (4) GERD (gastroesophageal reflux disease) (5) Hip fracture, left (6) History of cholecystectomy (7) Status post carotid surgery (8) S/p stent right lower extremity (9) Velez esophagus (10) Pancreatitis (11) Diverticulitis (12) PAD (peripheral artery disease) (13) WI (myocardial infarction) Allergies Allergies: Coded Allergies: Levetiracetam (Verified Allergy, Mild, 12/23/16) Phenytoin (Verified Allergy, Mild, 12/23/16) Home Medications Scheduled Ascorbic Acid (Ascorbic Acid), 500 MG PO DAILY Aspirin (Aspirin Ec), 81 MG PO DAILY Atorvastatin (Lipitor), 40 MG PO QAM Calcium Carbonate (Calcium 600), 600 MG PO QAM Carbamazepine Extended Release (Tegretol Xr), 400 MG PO AMPM Carvedilol (Coreg), 12.5 MG PO AMHS Cholecalciferol (Vitamin D3), 1,000 MG PO DAILY Clonazepam (Klonopin), 0.5 MG PO AMHS Clopidogrel Bisulfate (Clopidogrel), 75 MG PO DAILY Cyanocobalamin (Vitamin B-12), 1,000 MCG PO DAILY Fluticasone Propionate (Nasal) (Flonase Allergy Relief), 1 SPRAY XIMENA DAILY Lubiprostone (Amitiza), 24 MCG PO BID Multiple Vitamins W/ Minerals (One Daily Mens), 1 TABLET PO DAILY Olopatadine Hcl (Patanol 0.1% Oph), 1 DROP OP BID Omeprazole (Prilosec), 40 MG PO QAM Pancrelipase (Lipase-Protease- (Creon), 24,000 MG PO WM Quetiapine Fumarate (Seroquel), 25 MG PO TID Quetiapine Fumarate Xr (Seroquel Xr Tab), 800 MG PO HS Terazosin Hcl (Hytrin), 1 MG PO HS Topiramate (Topamax), 200 MG PO AMHS Vilazodone Hcl (Viibryd), 40 MG PO QPM Scheduled PRN Dicyclomine Hcl (Bentyl), 20 MG PO BID PRN for ABDOMINAL CRAMPING Lorazepam (Ativan), 2 MG UNKNOWN UD PRN for seizures Family History Cardiac disorder MOTHER SISTER FH: cancer BROTHER Hypertension MOTHER SISTER History of Suicide: No History of Substance Abuse: No Psychiatric History: No Alcohol Use Alcohol Use In Past 12 Months: No (history of significant alcohol use until his stroke in 2004, functional alcoholic) Smoking Use Smoking Status: Current Every Day Smoker (precontemplation O regarding quitting ) Personal History Work History: 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 We had a heart attack.an inspection license and worked on cars. Now he is on disability. His grandson took over the garage after patient had a stroke. Patient continues to go down to the garage and sometimes seems down and not being able help anymore. Relationship History: (44 years has 2 children a son and a daughter, total of 14 grandchildren to include biological, some adopted and some stepgrandchildren) Legal History: none Additional Comments: He denies a history of physical emotional sexual or verbal abuse. Review of Systems Patient does have some residual hip pain, low appetite, low motivation, low interest he has motor deficits from his CVA in 2004 but denies other physical concerns on review of symptoms today. Examination Vital Signs Vital Signs Past 12 Hours Date Time Temp Pulse Resp B/P (MAP) Pulse Ox O2 Delivery O2 Flow Rate FiO2 12/28/16 04:27 37.5 78 18 144/71 (95) 97 Room Air 12/28/16 04:02 Room Air 12/28/16 00:00 Room Air 12/27/16 23:45 37.5 79 18 121/66 (84) 96 Room Air 12/27/16 20:04 Room Air Laboratory Results Last 24 Hours Test 12/27/16 08:51 12/28/16 06:02 White Blood Count 5.18 K/uL 6.30 K/uL Red Blood Count 3.76 M/uL 3.74 M/uL Hemoglobin 10.3 g/dL 10.1 g/dL Hematocrit 31.6 % 31.8 % Mean Corpuscular Volume 84.0 fL 85.0 fL Mean Corpuscular Hemoglobin 27.4 pg 27.0 pg Mean Corpuscular Hemoglobin Concent 32.6 g/dl 31.8 g/dl RDW Standard Deviation 49.7 fL 50.4 fL RDW Coefficient of Variation 16.1 % 16.4 % Platelet Count 311 K/uL 318 K/uL Mean Platelet Volume 8.4 fL 8.7 fL Sodium Level 142 mmol/L 143 mmol/L Potassium Level 2.4 mmol/L 2.3 mmol/L Chloride Level 111 mmol/L 114 mmol/L Carbon Dioxide Level 19 mmol/L 19 mmol/L Anion Gap 12.0 mmol/L 11.0 mmol/L Blood Urea Nitrogen 9 mg/dl 10 mg/dl Creatinine 0.56 mg/dl 0.46 mg/dl Est Creatinine Clear Calc Drug Dose 119.9 ml/min 143.9 ml/min Estimated GFR () 127.6 138.3 Estimated GFR (Non- 110.1 119.4 BUN/Creatinine Ratio 15.7 21.2 Random Glucose 103 mg/dl 89 mg/dl Calcium Level 7.9 mg/dl 7.7 mg/dl Phosphorus Level 2.7 mg/dl Magnesium Level 1.9 mg/dl 1.9 mg/dl Mental Examination During interview pt is: alert and oriented (awakens to verbal stimuli) Appearance: other (clean laying in bed but appears slightly groggy) Eye contact is: good Motor behavior is: other (gait and station not appreciated as patient lays in bed he leans against the pillows and opens his eyes to verbal stimuli and answers questions cooperatively) Speech: other (slowed slurred speech, but oriented and answers questions appropriately) Affect: mood congruent, depressed Mood is: depressed Thought process: goal directed, linear, logical (although paucity of spontaneous participation only answering in 1-2 word phrases to questions) Thought content: reality based without delusions Suicidal thought are: denied Homicidal thoughts are: denied Hallucinations: denies auditory, denies visual Cognition: attention grossly intact (he is oriented to person place and location and reason for being in the hospital) Intelligence estimated to be: average Insight: good Judgement: fair Impression / Recommendations Impression The patient is a 61-year-old white male with multiple medical problems. From a behavioral health perspective it is possible that he had mental health concerns prior to his CVA given his alcoholism. However since his CVA is reported that he has personality and mood changes to include irritability and depression that if seemingly been well controlled up until recently now manifesting as low motivation low interest apathy and significant weight loss. He denies imminent safety concerns at this time although this should be monitored. Although medications could slow bowels and decreased appetite is a secondary concern resulting in weight loss, or medications simply suppress his appetite significantly, I do agree that patient should be evaluated for other causes of weight loss such as underlying cancer process as the degree of his weight loss is fairly dramatic in the last year. Furthermore that he does endorse some symptoms of depression that do not seem sufficiently impairing to explain the degree of weight loss that he has had. His thyroid is normal. We will need to gain more collateral to see what medications patient has been on in the past as well as how long he has been on his current regimen. The reason being is there are several medications in his regimen that could slow his bowels such as Seroquel, Tegretol. Furthermore medications such as Topamax and fibroid can lead to anorexia and nausea/low appetite respectively. It is unclear if the Topamax is being used for seizure prophylaxis or as a behavioral health medication. Requesting records from [facility] as well as Dr. Silva may be useful prior to making immediate men changes. If the patient has never had a trial of mirtazapine (Remeron) it may make sense to change his viibryd to this particular medication as it can facilitate appetite. We would need to watch for oversedation and consider a slow taper of the clonazepam watching again for seizures. Finally in regards to slow bowel if these medications are considered essential weaning he has had prior trials off of these medicines her multiple medication failures or intolerances then it would make sense to promote bowel movement with me relax and starting Colace simultaneously to help promote regular bowel movements. I will defer to the primary team to set up a bowel regimen for this patient so that we can help overcome his concern of blockage. And again assuring he has had routine GI screenings to rule out malignancy as a cause of blockage. Inventory Assets Strengths: Supportive family, patient willing to take medications, willing to participate in care Risk Factors Assessment Male: Yes : Yes /single/: No Higher / Fall in social status: No Access to guns: No Health problems: Yes Mental Health Diagnoses: Yes Substance use disorders: No Previous attempt: No Previous attempt;highly lethal: No Previous attempt; planned: No Previous attempt; didn't tell: No Family history of suicide: No Previous psychiatric stay: No Hopelessness: No Smoker: Yes Protective Factors Assessment : Yes Employed: No Stable relationships: Yes Supportive family: Yes Recommendations (1) 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 Safety patient is not considered an imminent danger to self or others at this time. When he is medically cleared outpatient care with close follow-up with his behavioral health providers is the most appropriate setting for care. 2. In regards to his medications after collecting collateral information from his and in light of his depressive symptoms of low interest and low energy and poor appetite and ongoing worry about recurrent SBO. Will taper off viibryd and give trial of mitazapine (taper ordered in chart) - will wait for records from [facility] and Dr Silva's office to see duration of each med to see if a change in the last year coincided with his concerns of weight loss, small bowel obstruction, and or depressive sx - in future would like to slow taper klonopin once tegretol is reinitiated and therapeutic to reduce risk of oversedation from remeron and klonopin and seroquel (tegretol could contribute as well but needed for seizure prophylaxis) (2) Weight loss Please see discussion above regarding psychotropic medications that could be contributing to weight loss and again as above we will gather collateral history from his medical records to look for medications that will help inspire appetite or at least not suppress it any further. He may benefit from therapy to work on his anxiety about eating given his repeat Small Bowel Obstructions (3) Alcohol dependence in sustained full remission This is currently not an active concern provider included on the problem list for completeness. (4) Seizures Recommend primary team start titration of tegretol XR to work towards prior outpatient dose to prophylax against seizures. Psychiatry would like to taper klonopin to reduce risk of oversedation as we start remeron, but will wait until this medication is therapeutic as to reduce risk of provoking seizure. (5) Intermittent small bowel obstruction - primary team may consider a bowel regimen such as starting with me relax and Colace simultaneously and once patient is having consistent productive bowel movements - please consider consultation with pharmacy to rule out medications as culprits, and assure f/u with PCM or GI to evaluate for cause or reccurent Small bowel obstructions
[2016-12-28] MEDS: CLONAZEPAM 0.5 MG TAB PO SCH ×2 (07:58→21:12)
[2016-12-28] MEDS: BOOST VANILLA PO SCH ×6 (07:58→21:12)
[2016-12-28] MEDS: QUETIAPINE FUMARATE 25 MG TAB PO SCH ×3 (07:59→22:07)
[2016-12-28] MEDS: LUBIPROSTONE 8 MCG CAP PO SCH ×2 (07:59→22:59)
[2016-12-28] MEDS: TOPIRAMATE 100 MG TAB PO SCH ×2 (07:59→22:10)
[2016-12-28] MEDS: CLOPIDOGREL BISULFATE 75 MG TAB PO SCH (07:59)
[2016-12-28] MEDS: CARVEDILOL 12.5 MG TAB PO SCH ×2 (07:59→22:06)
[2016-12-28] MEDS: ATORVASTATIN 40 MG TAB PO SCH (08:00)
[2016-12-28] MEDS: VIIBRYD 40 MG PO SCH ×2 (08:00→21:13)
[2016-12-28] MEDS: ASPIRIN 81 MG ECTAB PO SCH (08:00)
[2016-12-28] MEDS: POTASSIUM CHLR 10MEQ / WTR IV SCH ×4 (08:01→11:33)
[2016-12-28] MEDS: PANTOprazole SOD 40 MG TAB PO SCH (08:02)
[2016-12-28] MEDS ORDERED: POTASSIUM CHLORIDE 10 MEQ TABCR PO ONE (08:15)
[2016-12-28] MEDS: HEPARIN SOD 5000 UNIT/0.5 ML CARP SQ SCH ×2 (08:19→22:16)
--- NOTE | 2016-12-28 12:36 | Progress Note ---
Internal Med Progress Note Date of Service: Dec 28, 2016. Provider Documentation: SUBJECTIVE: The patient was seen and examined Complains of Left Hip pain Denies any Chest pain,palpitation,SOB No cardiac symptoms on regular activities No new neurological symptoms-On Admission S/P left hip troch nail on 12/24/16 Remains generally weak and lethargic Lack of motivation OBJECTIVE: Vital Signs-as noted below Exam: General-No distress at rest malnourished Minimal Left facial droop Eyes-Normal ENT-Normal Neck-supple Lungs-Clear to auscultate bilaterally Heart-Regular Abdomen-Benign,no masses,bowel sound present Extremities-No edema Neuro-AAOx3 Left facial droop Generally weak,no focal deficit Lab data as noted below. ASSESSMENT & PLAN: Hypokalemia Do not know the cause yet Poor intake may be the reason Supplement and recheck Acute Blood Loss Anemia Hb Dropped to 7.7 Will recheck Will transfuse 2 units of PRBC if trending down Will need to discuss with the Hb went up to >11 Remains stable Enterococcus faecalis- UTI Asymptomatic No fever and or Increase in WCC Discussed with ID and started on Dapomycin Await C/S- Appreciate ID input Continue Daptomycin for w 3 days Daptomycin discontinued Left Hip Fracture s/p Mechanical Fall X-ray seems to suggest a left hip fracture Clinically significant pain at that side with painful ROM Complex medical history; will consult anesthesia Obtain an updated echo:: Moderate circumferential pericardial effusion. * There are no echocardiographic indications of cardiac tamponade. * Ejection Fraction = 55-60%. * Septal motion is consistent with conduction abnormality. Orthopedic consultation placed-appreciate Input Dilaudid and oxycodone PRN POD #3 left hip troch nail on 12/24/16 Denies any pain at rest PT/OT-will need rehab Hx. of CVA-deconditioning middle cerebral artery follows with Dr. Ricardo rg aspirin, Plavix -has not been taking Plavix for the last 1 week or so. continue statin started back on Aspirin and Plavix Neurology consulted for any adjustment of medication Anxiety/Depression On a host of Antipsychotic medication Not sure if medications need to be updated to improve his general condition Will get a psychiatry evaluation-appreciate input Advised Neurology evaluation Hx. of CAD Has ~ 6 cardiac stents No complaint of chest pain, clinically stable Continue b-bella, statin, hold aspirin Was evaluated by the Broadcast Supervisor 1 year ago Will get Updated ECHO : Moderate circumferential pericardial effusion. * There are no echocardiographic indications of cardiac tamponade. * Ejection Fraction = 55-60%. * Septal motion is consistent with conduction abnormality. Carries more than usual risk for proposed surgery Discussed with the family members No acute issue Syncopal Episode Likely mechanical fall Denies any LOC Unsure of the cause of his syncopal episode: possible polypharmacy H/O seizures and hx. of CVA No residual motor dysfunction besides left LE, no sensory deficits No post-ictal state monitor in tele update echo IVFs may need adjustment of his medications Unintentional Weight Loss in the setting of Tobacco use Disorder concerning for malignancy with tobacco use disorder, should obtain chest CT as outpatient elevated alk phos is also concerning when he is eating, will need ensure TID with meals Weight loss has been going on for >1 year Recently lost more Saw his PCP in last 2 weeks-no malignancy suggested CT of the abdomen and pelvis last year-no mass and CXR is negative Malnutrition Has severe protein calori malnutrition Dietary consult and nutritional supplements Seizure Disorder cont anticonvulsants No recent seizure DVT ppx SQ Heparin FULL CODE PT/OT evaluation Likely to need Rehab Discussed in detailed with the Vital Signs: Date Time Temp Pulse Resp B/P (MAP) Pulse Ox O2 Delivery O2 Flow Rate FiO2 12/28/16 11:20 37.1 76 20 126/69 (88) 98 Room Air 12/28/16 09:10 71 96 12/28/16 08:00 Room Air 12/28/16 07:53 36.6 82 20 147/68 (94) 96 Room Air 12/28/16 04:27 37.5 78 18 144/71 (95) 97 Room Air 12/28/16 04:02 Room Air 12/28/16 00:00 Room Air 12/27/16 23:45 37.5 79 18 121/66 (84) 96 Room Air 12/27/16 20:04 Room Air 12/27/16 18:54 36.9 82 18 140/68 (92) 96 Room Air 12/27/16 16:00 96 Room Air 12/27/16 14:50 36.6 76 17 147/70 (95) 98 Room Air Lab Results: Results Past 24 Hours Test 12/28/16 06:02 Range/Units White Blood Count 6.30 4.8-10.8 K/uL Red Blood Count 3.74 4.7-6.1 M/uL Hemoglobin 10.1 14.0-18.0 g/dL Hematocrit 31.8 42-52 % Mean Corpuscular Volume 85.0 80-100 fL Mean Corpuscular Hemoglobin 27.0 25-34 pg Mean Corpuscular Hemoglobin Concent 31.8 32-36 g/dl RDW Standard Deviation 50.4 36.4-46.3 fL RDW Coefficient of Variation 16.4 11.5-14.5 % Platelet Count 318 130-400 K/uL Mean Platelet Volume 8.7 7.4-10.4 fL Sodium Level 143 136-145 mmol/L Potassium Level 2.3 3.5-5.1 mmol/L Chloride Level 114 98-107 mmol/L Carbon Dioxide Level 19 21-32 mmol/L Anion Gap 11.0 3-11 mmol/L Blood Urea Nitrogen 10 7-18 mg/dl Creatinine 0.46 0.60-1.40 mg/dl Est Creatinine Clear Calc Drug Dose 143.9 ml/min Estimated GFR () 138.3 Estimated GFR (Non- 119.4 BUN/Creatinine Ratio 21.2 10-20 Random Glucose 89 70-99 mg/dl Calcium Level 7.7 8.5-10.1 mg/dl Magnesium Level 1.9 1.8-2.4 mg/dl
[2016-12-28] MEDS ORDERED: HOME MED ADMINISTRATION ONE (13:45)
[2016-12-28] MEDS: DOCUSATE SODIUM/SENNA 50/8.6MG TAB PO SCH (21:15)
[2016-12-28] MEDS: MIRTAZAPINE TAB 15 MG TAB PO SCH (22:07)
[2016-12-28] MEDS: QUETIAPINE FUMARATE 200 MG TABCR PO SCH (22:08)
[2016-12-29] VITALS (7 sets, daily range): BP systolic 97–154; BP diastolic 55–79; PULSE 80–88; TEMP 36.6–37.1; O2SAT 97–100
--- NOTE | 2016-12-29 08:16 | Neurology Consultation ---
Neurology Consultation Date of Consultation: Dec 29, 2016. Attending Physician: Travis Montes DO Primary Care Physician: Griffin Salinas M.D. Reason for Consultation: Patient is a 61-year-old, was asked to see the request of Dr. Gamez, for neurologic evaluation regarding previous stroke, seizure disorder, and decreased appetite with weight loss. History of Present Illness Source: patient, caregiver, clinic records, hospital records I first saw this patient in November 2015 for a nonspecific transient ischemic attack. He had no new stroke by MRI. The patient's history starts with a large right middle cerebral artery stroke in 2004. He was left with a left spastic hemiparesis, dysarthric speech problem , affective disorder, and complex partial seizures. Typical seizure would consist of the onset of a visual distortion or visual hallucination followed by left upper extremity clonic activity. Occasionally there would be secondary generalization of the activity. In the past she had allergies to Keppra and Dilantin. He saw Dr. Silva in 2007 while on Depakote and topiramate. By the time of his last known seizure, August 2015, he was on topiramate and carbamazepine as well as Lamictal. Currently, he is on carbamazepine e- are 400 mg twice a day, topiramate 200 mg twice a day, clonazepam 0.5 mg 3 times a day. His most recent carbamazepine level was in July and was 10.5. The patient fell on December 22 in the bathroom. This was approximately 90 minutes prior to him arriving at the emergency room at 0345 hours on that date. At that time temperature was 36.5, pulse 80, respiratory rate 18, blood pressure 126/61, and O2 saturation 97%. He did not remember the fall, and there was a concern of head trauma. CT scan of the head showed the old infarcts and no acute or new findings. A left hip fracture was diagnosed and he underwent surgery to repair the left hip fracture December [address] Goldman. He has been having some left lower extremity pain since surgery. He has had no seizures since admission. Unfortunately, he was not given his carbamazepine since admission December 22 because his particular dosage was not formulary for the hospital. He was not given a generic equivalent. He continued on topiramate. He saw Dr. Arnett, psychiatry, December 28 verified mood issues secondary to his old stroke, consisting of depression and irritability, and some issues with decreased appetite and weight loss and weakness in general. She wondered if some medications could be changed. This morning, the patient has no complaint of pain in the arms or right leg, spine, or head. He does have some left lower extremity pain that increases with leg movement. He denies lightheadedness, double vision, new weakness or numbness. Past Medical/Surgical History Medical Problems: (1) Altered mental status Status: Acute (2) Fall at home Status: Acute (3) Falling Status: Acute (4) Hip fracture, left Status: Acute (5) Slurred speech Status: Acute (6) Vomiting Status: Acute Large right middle cerebral artery stroke 2004. 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 Patient was a half-pack a day cigarette smoker, using unfiltered cigarettes Patient used to drink a case of beer per week but quit in 2005 after his seizure disorder initiated and he was on seizure medication Smoking Status: Current every day smoker Smokeless Tobacco Use: No Alcohol Use: none Drug Use: none Marital Status: Housing Status: lives with family Occupation Status: disabled Allergies Coded Allergies: Levetiracetam (Verified Allergy, Mild, 12/23/16) Phenytoin (Verified Allergy, Mild, 12/23/16) Current Inpatient Medications Current Inpatient Medications Medications (Trade) Dose Ordered Sig/Pedro Route Start Time Stop Time Status Last Admin Dose Admin Heparin Sodium (Porcine) (Heparin Sq 5000 Unit/0.5ml) 5,000 unit Q12 SQ 12/22/16 09:00 01/21/17 08:59 Future hold 12/28/16 22:16 5,000 UNIT Acetaminophen (Tylenol Tab) 650 mg Q4H PRN PO 12/22/16 06:15 01/21/17 06:14 Al Hydrox/Mg Hydrox/Simethicone (Maalox Max Susp) 15 ml Q4H PRN PO 12/22/16 06:15 01/21/17 06:14 Magnesium Hydroxide (Milk Of Magnesia Susp) 30 ml Q12H PRN PO 12/22/16 06:15 01/21/17 06:14 12/26/16 11:09 30 ML Ondansetron HCl (Zofran Inj) 4 mg Q6H PRN IV 12/22/16 06:15 01/21/17 06:14 Polyethylene (Miralax Powder Packet) 17 gm DAILY PRN PO 12/22/16 06:15 01/21/17 06:14 12/25/16 17:03 17 GM Oxycodone HCl (Roxicodone Immediate Rel Tab) 10 mg Q4H PRN PO 12/22/16 06:15 01/05/17 06:14 12/27/16 20:59 10 MG Hydromorphone HCl (Dilaudid Inj) 0.5 mg Q20M PRN IV 12/22/16 06:15 01/05/17 06:14 12/25/16 11:17 0.5 MG Naloxone HCl (Narcan Inj) 0.1 mg PRN PRN IV 12/22/16 06:15 01/21/17 06:14 Senna/Docusate Sodium (Senokot S Tab) 2 tab HS PO 12/22/16 21:00 01/21/17 20:59 12/28/16 21:15 2 TAB Bisacodyl (Dulcolax Supp) 10 mg DAILY PRN TX 12/22/16 06:15 01/21/17 06:14 Sodium Biphosphate/ Sodium Phosphate (Fleet Enema) 132 ml PRN PRN TX 12/22/16 06:15 Atorvastatin Calcium (Lipitor Tab) 40 mg QAM PO 12/22/16 09:00 01/21/17 08:59 12/28/16 08:00 40 MG Carvedilol (Coreg Tab) 12.5 mg BID PO 12/22/16 09:00 01/21/17 08:59 12/28/16 22:06 12.5 MG Clonazepam (Klonopin Tab) 0.5 mg BID PO 12/22/16 09:00 01/21/17 08:59 12/28/16 21:12 0.5 MG Dicyclomine HCl (Bentyl Tab) 20 mg BID PRN PO 12/22/16 06:15 01/21/17 06:14 12/26/16 20:30 20 MG Quetiapine Fumarate (seroQUEL TAB) 25 mg TID PO 12/22/16 09:00 01/21/17 08:59 12/28/16 22:07 25 MG Quetiapine Fumarate (seroQUEL XR TAB) 800 mg HS PO 12/22/16 21:00 01/21/17 20:59 12/28/16 22:08 800 MG Terazosin HCl (Hytrin Cap) 1 mg HS PO 12/22/16 21:00 01/21/17 20:59 12/28/16 22:06 1 MG Topiramate (Topamax Tab) 200 mg AMHS PO 12/22/16 09:00 01/21/17 08:59 12/28/16 22:10 200 MG Lubiprostone (Amitiza) 24 mcg BID PO 12/22/16 09:00 01/21/17 08:59 12/28/16 22:59 24 MCG Pantoprazole Sodium (Protonix Tab) 40 mg QAM PO 12/22/16 09:00 01/21/17 08:59 12/28/16 08:02 40 MG Enteral Nutritional Formula (Boost) 1 can 1000,1400,2000 PO 12/23/16 20:00 01/22/17 19:59 12/28/16 21:12 1 CAN Aspirin (Ecotrin Tab) 81 mg QAM PO 12/25/16 09:00 01/24/17 08:59 12/28/16 08:00 81 MG Clopidogrel Bisulfate (plAVix TAB) 75 mg QAM PO 12/25/16 09:00 01/24/17 08:59 12/28/16 07:59 75 MG Pancrelipase (Creon 94448 Unit) 1 AC PO 12/24/16 16:15 01/23/17 16:14 12/28/16 17:04 1 Mirtazapine (Remeron Tab) 7.5 mg Taper HS PO 12/28/16 21:00 04/10/17 20:59 12/28/16 22:07 7.5 MG Non-Formulary Medication (Non-Formulary Patient'S Own Med) 0.5 ea Taper HS PO 12/28/16 21:00 01/05/17 20:59 12/28/16 21:13 0.5 EA Miscellaneous Information (Order Awaiting Action) 1 ea QS N/A 12/28/16 16:00 01/27/17 15:59 Review of Systems Constitutional: + weakness, + fatigue Eyes: No worsening of vision, No diplopia ENT: No hearing loss, No tinnitus Respiratory: No cough, No shortness of breath Cardiovascular: No chest pain, No palpitations Abdomen: No pain, No nausea Musculoskeletal: + joint pain, No muscle pain Genitourinary - Male: No dysuria, No urinary incontinence Neurologic: + weakness, No memory loss, No numbness/tingling Psychiatric: + depression symptoms, No anxiety Endocrine: + fatigue Hematologic / Lymphatic: No abnormal bleeding/bruising Integumentary: No rash Allergic / Immunologic: No hives Physical Exam Vital Signs (Past 24 Hrs): Date Time Temp Pulse Resp B/P (MAP) Pulse Ox O2 Delivery O2 Flow Rate FiO2 12/29/16 00:07 Room Air 12/28/16 23:24 36.9 75 16 125/69 (87) 98 Room Air 12/28/16 21:17 73 156/73 (100) 12/28/16 20:15 Room Air 12/28/16 15:01 36.4 73 16 139/75 (96) 100 Room Air 12/28/16 14:45 Room Air 12/28/16 14:30 36.4 76 18 131/69 (89) 98 Room Air 12/28/16 12:00 Room Air 12/28/16 11:20 37.1 76 20 126/69 (88) 98 Room Air 12/28/16 09:10 71 96 12/28/16 08:00 Room Air 12/28/16 07:53 36.6 82 20 147/68 (94) 96 Room Air The patient is right-handed. The patient is sleepy but easily arousable with voice and gentle shaking. Speech has some dysarthria but no specific aphasia. Mentation and thought processes are reasonable to questioning. Mood and affect seems reasonable also although he is sleepy. The discs are sharp with positive venous pulsations. There are no exudates, hemorrhages, or blood vessel changes seen. Pupils are 3mm bilaterally and reactive to light. Extraocular eye muscles are intact without nystagmus. He seems to not see off to the left consistent with a homonymous hemianopsia. There are no deficits to sensation of the face bilaterally. Corneal reflexes are positive bilaterally. Facial strength and symmetry is normal bilaterally. Hearing seems intact grossly to voice and finger rub. Palate moves well without asymmetry. There is normal sternocleidomastoid and trapezius strength bilaterally. Tongue is midline with good strength bilaterally. Neck is with full range of motion without discomfort. There are no cervical bruits. There are no cranial or ocular bruits. Heart is without murmur. Cervical, thoracic, and lumbar spine are nontender to palpation. Gait is is not tested in his stance is poor sitting up in bed With outstretched arms there is drift on the left. There are no resting, postural, or action tremors. There is no ataxia with [id number] testing. There is decreased facility in the left hand. There are no abnormal involuntary movements noted. Motor strength is 5/5 diffusely in the right arm and leg diffusely both proximally and distally with good tone. The left arm and leg are 4/5 diffusely both proximally and distally but there are some giveaway weakness on the left leg because of pain at the hip The limbs have good tone without rigidity or spasticity, and there is no atrophy noted. Muscle bulk is normal, there is no tenderness, no myotonia noted to percussion, and no fasciculations seen. Sensory examination is intact to pin and touch throughout all four limbs. Reflexes are 1/4 in the biceps, triceps, brachioradialis, quadriceps, and Achilles tendons bilaterally. Toes are downgoing with plantar stimulation bilaterally. Peripheral pulses are present and of normal quality distally in all four limbs. There is no peripheral edema noted. Laboratory Results Past 24 Hours: Test 12/29/16 07:[address] DOSE: 729.78 mGycm HISTORY: Syncope TECHNIQUE: Multiaxial CT images of the head were performed without the use of intravenous contrast. Automated exposure control was utilized for this study. Comparison: Head CT 01/06/2016. Findings: The paranasal sinuses and mastoid air cells are clear. Old large right MCA territory infarct. Small old left parietal infarct. No mass, hematoma, midline shift, or acute infarct. Impression: No acute intracranial abnormality. Old infarcts, unchanged. Electronically signed by: Tereso Guerrier M.D. 12/22/2016 7:08 AM Impression 1. Post large right middle cerebral artery stroke 2005 with residual dysarthria , left hemiparesis, seizure disorder, and psychiatric issues. he is post-TIA in November 2015 as well. Sometime in the past he had a left posterior parietal small stroke. Currently he is stable neurologically although he seems to have a little more deficits on the left side than I remember a year ago. This could indicate new stroke activity since last year, but it may be bringing out old deficits when he is weak and fatigued. He is on aspirin and Plavix currently. He continues to be in until 10 cigarette smoker chronically 2. Seizure disorder secondary to previous stroke. He has been quite stable on carbamazepine, topiramate, and clonazepam. Unfortunate, he has not been getting carbamazepine in the hospital. 3. Decreased appetite and weight loss. Certainly, topiramate could be responsible for this. 4. Depression and other behavioral/psychiatric issues. Currently he is on Seroquel and clonazepam Plan 1. He needs carbamazepine while in the hospital. I would give him 200 mg carbamazepine 4 times a day, until he is able to get his usual long-acting Tegretol ER 400 mg twice a day 2. Once he is on his carbamazepine for a few days, I would decrease topiramate by 50 mg per week until off. 3. MRI of the brain to compare to previous study 4. PT, OT, and speech therapy consults. 5. I do not see a need for an EEG at this time. I have spoken with Dr. worrell regarding this case, including differential diagnosis and treatment options.
[2016-12-29 08:30] LABS: BUN/CREATININE RATIO 16.4 (10-20); CALCIUM 7.4 mg/dl (8.5-10.1); CREATININE 0.47 mg/dl (0.60-1.40); POTASSIUM 2.5 mmol/L (3.5-5.1)
[2016-12-29] MEDS ORDERED: MAGNESIUM SULFATE 1GM / D5W 1 GM in PREMIXED IN D5W 100 ML IV STA (08:47)
[2016-12-29] MEDS ORDERED: POTASSIUM CHLORIDE 10 MEQ TABCR PO ONE (09:00)
[2016-12-29] MEDS: LUBIPROSTONE 8 MCG CAP PO SCH ×2 (09:26→20:46)
[2016-12-29] MEDS: PANCRELIPASE PO SCH ×3 (09:26→17:13)
[2016-12-29] MEDS: QUETIAPINE FUMARATE 25 MG TAB PO SCH ×3 (09:28→20:50)
[2016-12-29] MEDS: CARBAMAZEPINE 200 MG TAB PO SCH ×4 (09:29→20:56)
[2016-12-29] MEDS: TOPIRAMATE 100 MG TAB PO SCH ×2 (09:29→20:51)
[2016-12-29] MEDS: CARVEDILOL 12.5 MG TAB PO SCH ×2 (09:32→20:47)
[2016-12-29] MEDS: PANTOprazole SOD 40 MG TAB PO SCH (10:16)
[2016-12-29] MEDS: CLOPIDOGREL BISULFATE 75 MG TAB PO SCH (10:16)
[2016-12-29] MEDS: ATORVASTATIN 40 MG TAB PO SCH (10:17)
[2016-12-29] MEDS: CLONAZEPAM 0.5 MG TAB PO SCH ×2 (10:19→21:01)
[2016-12-29] MEDS: HEPARIN SOD 5000 UNIT/0.5 ML CARP SQ SCH ×2 (10:21→20:54)
[2016-12-29] MEDS: BOOST VANILLA PO SCH ×6 (10:26→19:53)
[2016-12-29] MEDS: POTASSIUM CHLR 10 MEQ / WTR 10 MEQ in PREMIXED WATER 100 ML IV SCH ×6 (11:40→23:28)
[2016-12-29] MEDS: ASPIRIN 81 MG ECTAB PO SCH (11:41)
--- NOTE | 2016-12-29 16:49 | Progress Note ---
Subjective Date of Service: Dec 29, 2016. Subjective Pt evaluation today including: conversation w/ patient, physical exam, lab review, review of studies, review of inpatient medication list Saw/examined the patient in room 382 +tired/lethargic denies any pain states he is eating okay, but his family member states that he's not eating as he should Problem List Medical Problems: (1) Altered mental status Status: Acute (2) Fall at home Status: Acute (3) Falling Status: Acute (4) Hip fracture, left Status: Acute (5) Slurred speech Status: Acute (6) Vomiting Status: Acute Review of Systems Constitutional: + weakness, No fever, No chills Respiratory: No cough, No sputum, No wheezing, No shortness of breath, No dyspnea on exertion, No dyspnea at rest, No hemoptysis Cardiac: No chest pain Abdomen: No pain, No nausea, No vomiting, No diarrhea, No constipation, No GI bleeding Male : No dysuria, No urinary frequency Psychiatric: No depression symptoms Heme: No abnormal bleeding/bruising Medications Current Inpatient Medications Medications (Trade) Dose Ordered Sig/Pedro Route Start Time Stop Time Status Last Admin Dose Admin Heparin Sodium (Porcine) (Heparin Sq 5000 Unit/0.5ml) 5,000 unit Q12 SQ 12/22/16 09:00 01/21/17 08:59 Future hold 12/29/16 10:21 5,000 UNIT Acetaminophen (Tylenol Tab) 650 mg Q4H PRN PO 12/22/16 06:15 01/21/17 06:14 Al Hydrox/Mg Hydrox/Simethicone (Maalox Max Susp) 15 ml Q4H PRN PO 12/22/16 06:15 01/21/17 06:14 Magnesium Hydroxide (Milk Of Magnesia Susp) 30 ml Q12H PRN PO 12/22/16 06:15 01/21/17 06:14 12/26/16 11:09 30 ML Ondansetron HCl (Zofran Inj) 4 mg Q6H PRN IV 12/22/16 06:15 01/21/17 06:14 Polyethylene (Miralax Powder Packet) 17 gm DAILY PRN PO 12/22/16 06:15 01/21/17 06:14 12/25/16 17:03 17 GM Oxycodone HCl (Roxicodone Immediate Rel Tab) 10 mg Q4H PRN PO 12/22/16 06:15 01/05/17 06:14 12/27/16 20:59 10 MG Hydromorphone HCl (Dilaudid Inj) 0.5 mg Q20M PRN IV 12/22/16 06:15 01/05/17 06:14 12/25/16 11:17 0.5 MG Naloxone HCl (Narcan Inj) 0.1 mg PRN PRN IV 12/22/16 06:15 01/21/17 06:14 Senna/Docusate Sodium (Senokot S Tab) 2 tab HS PO 12/22/16 21:00 01/21/17 20:59 12/28/16 21:15 2 TAB Bisacodyl (Dulcolax Supp) 10 mg DAILY PRN [place] 12/22/16 06:15 01/21/17 06:14 Sodium Biphosphate/ Sodium Phosphate (Fleet Enema) 132 ml PRN PRN [place] 12/22/16 06:15 Atorvastatin Calcium (Lipitor Tab) 40 mg QAM PO 12/22/16 09:00 01/21/17 08:59 12/29/16 10:17 40 MG Carvedilol (Coreg Tab) 12.5 mg BID PO 12/22/16 09:00 01/21/17 08:59 12/28/16 22:06 12.5 MG Clonazepam (Klonopin Tab) 0.5 mg BID PO 12/22/16 09:00 01/21/17 08:59 12/29/16 10:19 0.5 MG Dicyclomine HCl (Bentyl Tab) 20 mg BID PRN PO 12/22/16 06:15 01/21/17 06:14 12/26/16 20:30 20 MG Quetiapine Fumarate (seroQUEL TAB) 25 mg TID PO 12/22/16 09:00 01/21/17 08:59 12/29/16 13:45 25 MG Quetiapine Fumarate (seroQUEL XR TAB) 800 mg HS PO 12/22/16 21:00 01/21/17 20:59 12/28/16 22:08 800 MG Terazosin HCl (Hytrin Cap) 1 mg HS PO 12/22/16 21:00 01/21/17 20:59 12/28/16 22:06 1 MG Topiramate (Topamax Tab) 200 mg AMHS PO 12/22/16 09:00 01/21/17 08:59 12/29/16 09:29 200 MG Lubiprostone (Amitiza) 24 mcg BID PO 12/22/16 09:00 01/21/17 08:59 12/29/16 09:26 24 MCG Pantoprazole Sodium (Protonix Tab) 40 mg QAM PO 12/22/16 09:00 01/21/17 08:59 12/29/16 10:16 40 MG Enteral Nutritional Formula (Boost) 1 can 1000,1400,2000 PO 12/23/16 20:00 01/22/17 19:59 12/29/16 10:26 1 CAN Aspirin (Ecotrin Tab) 81 mg QAM PO 12/25/16 09:00 01/24/17 08:59 12/29/16 11:41 81 MG Clopidogrel Bisulfate (plAVix TAB) 75 mg QAM PO 12/25/16 09:00 01/24/17 08:59 12/29/16 10:16 75 MG Pancrelipase (Creon 73993 Unit) 1 AC PO 12/24/16 16:15 01/23/17 16:14 12/29/16 12:38 1 Mirtazapine (Remeron Tab) 7.5 mg Taper HS PO 12/28/16 21:00 04/10/17 20:59 12/28/16 22:07 7.5 MG Non-Formulary Medication (Non-Formulary Patient'S Own Med) 0.5 ea Taper HS PO 12/28/16 21:00 01/05/17 20:59 12/28/16 21:13 0.5 EA Carbamazepine (Tegretol Tab) 200 mg QID PO 12/29/16 09:00 01/28/17 08:59 12/29/16 13:16 200 MG Objective Vital Signs Date Time Temp Pulse Resp B/P (MAP) Pulse Ox O2 Delivery O2 Flow Rate FiO2 12/29/16 15:43 36.6 80 16 151/79 (103) 100 Room Air 12/29/16 15:30 Room Air 12/29/16 09:31 83 100/60 (73) 12/29/16 09:21 83 12/29/16 08:01 97 Room Air 12/29/16 08:00 Room Air 12/29/16 07:51 37.1 80 12 148/70 (96) 97 Room Air 150/71 (97) 12/29/16 00:07 Room Air 12/28/16 23:24 36.9 75 16 125/69 (87) 98 Room Air 12/28/16 21:17 73 156/73 (100) 12/28/16 20:15 Room Air Physical Exam General Appearance: no apparent distress, + thin, + pertinent finding (+tired/+ weakness) Cardiovascular: regular rate, rhythm, no edema, no murmur Abdomen: normal bowel sounds, non tender, soft Extremities: non-tender, normal inspection, no pedal edema Neurologic/Psychiatric: no motor/sensory deficits, alert, normal mood/affect Laboratory Results Last 24 Hours Test 12/29/16 07:11 12/29/16 09:53 Sodium Level 144 mmol/L Potassium Level 2.5 mmol/L Chloride Level 114 mmol/L Carbon Dioxide Level 21 mmol/L Anion Gap 9.0 mmol/L Blood Urea Nitrogen 8 mg/dl Creatinine 0.47 mg/dl Est Creatinine Clear Calc Drug Dose 140.8 ml/min Estimated GFR () 137.1 Estimated GFR (Non- 118.3 BUN/Creatinine Ratio 16.4 Random Glucose 87 mg/dl Calcium Level 7.4 mg/dl Assessment and Plan This is a chronically ill 61 year old male with a complex past medical history, including hx. of CVA of the middle cerebral artery, hx. 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, mood disorder/depression/anxiety, tobacco use disorder, unintentional weight loss presents with a syncopal episode Left Hip Fracture 12/29 s/p left hip nail PT/OT d/c to rehab when stable; in 1-2 days X-ray seems to suggest a left hip fracture clinically significant pain at that side with painful ROM complex medical history; will consult anesthesia obtain an updated echo orthopedic consultation placed Dilaudid and oxycodone PRN Acute Blood Loss Anemia s/p two units PRBCs H/H stable Hypokalemia possibly related to decreased PO intake boost 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 of CVA carbamazepine restarted taper topiramate as per neuro unsure of the cause of his syncopal episode: possible polypharmacy hx includes seizures and hx. of CVA No residual motor dysfunction besides left LE, no sensory deficits No post-ictal state monitor in tele update echo IVFs may need adjustment of his medications Unintentional Weight Loss in the setting of Tobacco use Disorder concerning for malignancy with tobacco use disorder, should obtain chest CT as outpatient elevated alk phos is also concerning when he is eating, will need ensure TID with meals Hx. of CVA middle cerebral artery follows with Dr. Silva hold aspirin, Plavix for now for possible surgery continue statin repeat Brain MRI pending Hx. of CAD no complaint of chest pain, clinically stable continue b-bella, statin, hold aspirin Seizure Disorder cont anticonvulsants DVT ppx SCDs FULL CODE
[2016-12-29] MEDS: MIRTAZAPINE TAB 15 MG TAB PO SCH (20:49)
[2016-12-29] MEDS: DOCUSATE SODIUM/SENNA 50/8.6MG TAB PO SCH (20:49)
[2016-12-29] MEDS: QUETIAPINE FUMARATE 200 MG TABCR PO SCH (20:51)
[2016-12-29] MEDS: VIIBRYD 40 MG PO SCH (21:05)
--- NOTE | 2016-12-29 22:24 | DIAGNOSTIC IMAGING REPORT ---
ORBIT RADIOGRAPHS 3 VIEWS HISTORY: pre-MRI screening. COMPARISON: None. FINDINGS: There are no radiopaque foreign bodies identified within the orbits. IMPRESSION: No radiopaque foreign bodies identified within the orbits. Electronically signed by: Chao Francis M.D. 12/29/2016 10:22 PM Dictated Date/Time: 12/29/2016 10:22 PM
--- NOTE | 2016-12-30 06:39 | DIAGNOSTIC IMAGING REPORT ---
Brain MRI WITHOUT CONTRAST HISTORY: Visual change homonymous hemianopsia TECHNIQUE: Multiplanar multisequence MRI of the brain was performed without the use of contrast. COMPARISON STUDY: 11/26/2015 FINDINGS: Old right cerebral infarct. No evidence for acute ischemic process based on diffusion-weighted images. Superimposed chronic small vessel change. Mild compensatory prominence of the right lateral ventricular system unchanged. Old cortical defect left superior parietal lobe. Moderate cerebral atrophy. No deviation of midline structures. Sella and parasellar regions are unremarkable. Internal auditory canals are symmetric. IMPRESSION: 1. Old cerebral infarct. 2. Mild atrophy. 3. No acute or interval change. Electronically signed by: Colby Stone M.D. 12/30/2016 6:38 AM Dictated Date/Time: 12/30/2016 6:34 AM
[2016-12-30 07:32] VITALS: BP 144/76; PULSE 78; TEMP 36.9; O2SAT 98
[2016-12-30 08:30] VITALS: O2SAT 98
[2016-12-30] MEDS: PANCRELIPASE PO SCH ×3 (08:58→17:50)
[2016-12-30] MEDS: LUBIPROSTONE 8 MCG CAP PO SCH ×2 (08:59→21:00)
[2016-12-30] MEDS: ASPIRIN 81 MG ECTAB PO SCH (08:59)
[2016-12-30] MEDS: ATORVASTATIN 40 MG TAB PO SCH (09:00)
[2016-12-30] MEDS: CLOPIDOGREL BISULFATE 75 MG TAB PO SCH (09:00)
[2016-12-30] MEDS: PANTOprazole SOD 40 MG TAB PO SCH (09:00)
[2016-12-30] MEDS: CARBAMAZEPINE 200 MG TAB PO SCH ×4 (09:01→22:56)
[2016-12-30] MEDS: QUETIAPINE FUMARATE 25 MG TAB PO SCH ×3 (09:01→21:00)
[2016-12-30] MEDS: TOPIRAMATE 100 MG TAB PO SCH ×2 (09:02→21:00)
[2016-12-30 09:06] VITALS: BP 143/77; PULSE 85
[2016-12-30 09:07] LABS: BUN/CREATININE RATIO 12.2 (10-20); CREATININE 0.5 mg/dl (0.60-1.40); POTASSIUM 2.7 mmol/L (3.5-5.1)
[2016-12-30] MEDS: CARVEDILOL 12.5 MG TAB PO SCH ×2 (09:07→22:54)
[2016-12-30] MEDS: CLONAZEPAM 0.5 MG TAB PO SCH ×2 (09:08→22:54)
[2016-12-30] MEDS: BOOST VANILLA PO SCH ×6 (09:08→18:32)
[2016-12-30 09:19] LABS: CALCIUM 7.7 mg/dl (8.5-10.1)
--- NOTE | 2016-12-30 09:35 | Neurology Progress Notes ---
Neurology Progress Note Date of Service Dec 30, 2016. Subjective Patient has no complaint of pain or headache this morning. He is up in the halls walking with a walker and assistance. He is not dizzy or have any vision issues. He has no new weakness or numbness. MRI of the brain showed no new stroke or lesions. The old strokes or similar. Chem profile revealed a low potassium. He has had no seizure activity. Objective Date Time Temp Pulse Resp B/P (MAP) Pulse Ox O2 Delivery O2 Flow Rate FiO2 12/30/16 09:06 85 143/77 (99) 12/30/16 08:30 98 Room Air 12/30/16 07:32 36.9 78 12 144/76 (98) 98 Room Air 12/30/16 00:30 Room Air 12/29/16 23:11 36.6 87 18 132/75 (94) 100 Room Air 12/29/16 20:44 88 154/69 (97) 100 Room Air 12/29/16 15:43 36.6 80 16 151/79 (103) 100 Room Air 12/29/16 15:30 Room Air 12/29/16 09:31 83 100/60 (73) Last 24 Hours Test 12/29/16 09:53 12/30/16 08:05 Sodium Level 143 mmol/L Potassium Level 2.7 mmol/L Chloride Level 113 mmol/L Carbon Dioxide Level 20 mmol/L Anion Gap 10.0 mmol/L Blood Urea Nitrogen 6 mg/dl Creatinine 0.50 mg/dl Est Creatinine Clear Calc Drug Dose 132.4 ml/min Estimated GFR () 133.7 Estimated GFR (Non- 115.3 BUN/Creatinine Ratio 12.2 Random Glucose 86 mg/dl Calcium Level 7.7 mg/dl Imaging: Brain MRI WITHOUT CONTRAST HISTORY: Visual change homonymous hemianopsia TECHNIQUE: Multiplanar multisequence MRI of the brain was performed without the use of contrast. COMPARISON STUDY: 11/26/2015 FINDINGS: Old right cerebral infarct. No evidence for acute ischemic process based on diffusion-weighted images. Superimposed chronic small vessel change. Mild compensatory prominence of the right lateral ventricular system unchanged. Old cortical defect left superior parietal lobe. Moderate cerebral atrophy. No deviation of midline structures. Sella and parasellar regions are unremarkable. Internal auditory canals are symmetric. IMPRESSION: 1. Old cerebral infarct. 2. Mild atrophy. 3. No acute or interval change. Electronically signed by: Colby Stone M.D. 12/30/2016 6:38 AM Exam: He is awake and alert. His speech is slow and slightly dysarthric but he follows commands well and is pleasant and cooperative. His mood seems good. Extraocular eye muscles seem intact without nystagmus. Today, he has normal visual gibson bilaterally with no signs of visual field deficit. Facial droop on the left is noted but it moves well voluntarily with smile. Strength is similar in the limbs compared to yesterday. Current Inpatient Medications Medications (Trade) Dose Ordered Sig/Pedro Route Start Time Stop Time Status Last Admin Dose Admin Heparin Sodium (Porcine) (Heparin Sq 5000 Unit/0.5ml) 5,000 unit Q12 SQ 12/22/16 09:00 01/21/17 08:59 Future hold 12/29/16 20:54 5,000 UNIT Acetaminophen (Tylenol Tab) 650 mg Q4H PRN PO 12/22/16 06:15 01/21/17 06:14 Al Hydrox/Mg Hydrox/Simethicone (Maalox Max Susp) 15 ml Q4H PRN PO 12/22/16 06:15 01/21/17 06:14 Magnesium Hydroxide (Milk Of Magnesia Susp) 30 ml Q12H PRN PO 12/22/16 06:15 01/21/17 06:14 12/26/16 11:09 30 ML Ondansetron HCl (Zofran Inj) 4 mg Q6H PRN IV 12/22/16 06:15 01/21/17 06:14 Polyethylene (Miralax Powder Packet) 17 gm DAILY PRN PO 12/22/16 06:15 01/21/17 06:14 12/25/16 17:03 17 GM Oxycodone HCl (Roxicodone Immediate Rel Tab) 10 mg Q4H PRN PO 12/22/16 06:15 01/05/17 06:14 12/27/16 20:59 10 MG Hydromorphone HCl (Dilaudid Inj) 0.5 mg Q20M PRN IV 12/22/16 06:15 01/05/17 06:14 12/25/16 11:17 0.5 MG Naloxone HCl (Narcan Inj) 0.1 mg PRN PRN IV 12/22/16 06:15 01/21/17 06:14 Senna/Docusate Sodium (Senokot S Tab) 2 tab HS PO 12/22/16 21:00 01/21/17 20:59 12/29/16 20:49 2 TAB Bisacodyl (Dulcolax Supp) 10 mg DAILY PRN SD 12/22/16 06:15 01/21/17 06:14 Sodium Biphosphate/ Sodium Phosphate (Fleet Enema) 132 ml PRN PRN SD 12/22/16 06:15 Atorvastatin Calcium (Lipitor Tab) 40 mg QAM PO 12/22/16 09:00 01/21/17 08:59 12/30/16 09:00 40 MG Carvedilol (Coreg Tab) 12.5 mg BID PO 12/22/16 09:00 01/21/17 08:59 12/30/16 09:07 12.5 MG Clonazepam (Klonopin Tab) 0.5 mg BID PO 12/22/16 09:00 01/21/17 08:59 12/30/16 09:08 0.5 MG Dicyclomine HCl (Bentyl Tab) 20 mg BID PRN PO 12/22/16 06:15 01/21/17 06:14 12/26/16 20:30 20 MG Quetiapine Fumarate (seroQUEL TAB) 25 mg TID PO 12/22/16 09:00 01/21/17 08:59 12/30/16 09:01 25 MG Quetiapine Fumarate (seroQUEL XR TAB) 800 mg HS PO 12/22/16 21:00 01/21/17 20:59 12/29/16 20:51 800 MG Terazosin HCl (Hytrin Cap) 1 mg HS PO 12/22/16 21:00 01/21/17 20:59 12/29/16 20:47 1 MG Topiramate (Topamax Tab) 200 mg AMHS PO 12/22/16 09:00 01/21/17 08:59 12/30/16 09:02 200 MG Lubiprostone (Amitiza) 24 mcg BID PO 12/22/16 09:00 01/21/17 08:59 12/30/16 08:59 24 MCG Pantoprazole Sodium (Protonix Tab) 40 mg QAM PO 12/22/16 09:00 01/21/17 08:59 12/30/16 09:00 40 MG Aspirin (Ecotrin Tab) 81 mg QAM PO 12/25/16 09:00 01/24/17 08:59 12/30/16 08:59 81 MG Clopidogrel Bisulfate (plAVix TAB) 75 mg QAM PO 12/25/16 09:00 01/24/17 08:59 12/30/16 09:00 75 MG Pancrelipase (Creon 39917 Unit) 1 AC PO 12/24/16 16:15 01/23/17 16:14 12/30/16 08:58 1 Mirtazapine (Remeron Tab) 7.5 mg Taper HS PO 12/28/16 21:00 04/10/17 20:59 12/29/16 20:49 7.5 MG Non-Formulary Medication (Non-Formulary Patient'S Own Med) 0.5 ea Taper HS PO 12/28/16 21:00 01/05/17 20:59 12/29/16 21:05 0.5 EA Carbamazepine (Tegretol Tab) 200 mg QID PO 12/29/16 09:00 01/28/17 08:59 12/30/16 09:01 200 MG Enteral Nutritional Formula (Boost) 1 can TIDM PO 12/29/16 18:00 01/28/17 17:59 12/30/16 09:08 1 CAN Impression 1. Post large right middle cerebral artery stroke 2004 with residual dysarthria , left hemiparesis, seizure disorder, and psychiatric issues. he is post-TIA in November 2015 as well. Sometime in the past he had a left posterior parietal small stroke. Currently he is stable neurologically although he seems to have a little more deficits on the left side than I remember a year ago. This could indicate new stroke activity since last year, but it may be bringing out old deficits when he is weak and fatigued. As an example, the left visual field deficit seen yesterday are not present today. That was likely a function of decreased concentration and fatigue He is on aspirin and Plavix currently. He continues to chronically smoke 2. Seizure disorder secondary to previous stroke. He has been quite stable on carbamazepine, topiramate, and clonazepam. Unfortunate, he has not been getting carbamazepine in the hospital, until yesterday. 3. Decreased appetite and weight loss. Certainly, topiramate could contribute to this 4. Depression and other behavioral/psychiatric issues. Currently he is on Seroquel and clonazepam and seems improved and stable Plan 1. Continue carbamazepine 200 mg by mouth 4 times a day while in the hospital. Once discharged he can switch to his Tegretol XL are 400 mg twice a day Check trough carbamazepine level in 5-7 days. 2. Starting tomorrow, decrease topiramate by 50 mg. Therefore 150 mg daily for 2 weeks, then 100 mg daily for 2 weeks, then 50 mg daily for 2 weeks, then stop 3. PT, OT, and speech therapy consults. He would likely benefit from a rehabilitation hospital stay to help recover from his hip fracture 4. I see no need for additional neurologic testing or treatment at this time. Please contact me if I can be of further assistance on this case. He can be seen by neurology as an outpatient for follow-up, if desired. Both Dr. Silva and myself have seen him in the past.
[2016-12-30] MEDS: HEPARIN SOD 5000 UNIT/0.5 ML CARP SQ SCH ×2 (09:52→22:58)
[2016-12-30] MEDS ORDERED: POTASSIUM CHLORIDE 20 MEQ/15 ML UDC PO STA (11:30)
[2016-12-30] MEDS ORDERED: POTASSIUM CHLR 20 MEQ / WTR 40 MEQ in PREMIXED WATER 100 ML IV STA (11:30)
[2016-12-30] MEDS: POTASSIUM CHLR 10MEQ / WTR IV SCH ×4 (11:53→16:41)
--- NOTE | 2016-12-30 12:04 | Psychiatric Progress Notes ---
Progress Note Date of Service Dec 30, 2016. Interval History The patient is a 61-year-old white male with multiple medical problems to include mood disorder secondary to general medical condition (right parietal temporal CVA) who has worsening of interest and significant weight loss preceding his fall and hip fracture that prompted this hospital stay. Chief Complaint "I'm okay". Subjective Patient was seen & assessed interval progress reviewed with the consult team. Patient appears to be tolerating the cross titration from viibryd to remeron now at 7.5mg x2 nights pending move to 15mg/hs tonight. He does state that he is tired today and reports he does not feel he is sleeping soundly at nights. He does not report any side effects that he can tell with the change (e.g. no PEDERSEN) His appetite is unchanged, and remains low. He states his mood remains low but denies h/h/w and denies safety concerns. he has hope that he will feel better as his medical conditions improve He denies feeling anxious. he denies s/sx of psychosis or waxing/waning mental status. --records from [facility] indicate that klonopin, seorquel and viibryd are from psychiatry (tegretol and topomax for seizures) there is a clear not from Spring 2016 where dtr mentioned to prescribing psychiatric provider about low appetite that seems to coincide with topomax titration. (prior opsychotropic trials of meds include: lamictal, depakote, lexapro, pamelor low dose for sleep, abilify) --neurology notes indicate that topomax was optimized to target seizure related activity through 2015 Review of Systems as noted above o/w patient denies concerns to this provider Mental Status Exam During interview pt is: alert and oriented (sitting in chair at bedside eyes closed opens to verbal stimili but does fall asleep and needs to be re-awakened) Appearance: other (clean sitting in hospital gown in chair at bedside) Eye contact is: good Motor behavior is: other (gait and station not appreciated as patient lays in bed he leans against the pillows and opens his eyes to verbal stimuli and answers questions cooperatively) Speech: other (slowed slurred speech, but oriented and answers questions appropriately) Affect: mood congruent, depressed Mood is: depressed Thought process: goal directed, linear, logical (although paucity of spontaneous participation only answering in 1-2 word phrases to questions) Thought content: reality based without delusions Suicidal thought are: denied Homicidal thoughts are: denied Hallucinations: denies auditory, denies visual Cognition: attention grossly intact (he is oriented to person place and location and reason for being in the hospital) Intelligence estimated to be: average Insight: good Judgement: fair Impression The patient is a 61-year-old white male with multiple medical problems. From a behavioral health perspective it is possible that he had mental health concerns prior to his CVA given his alcoholism. However since his CVA is reported that he has personality and mood changes to include irritability and depression that if seemingly been well controlled up until recently now manifesting as low motivation low interest apathy and significant weight loss. He denies imminent safety concerns at this time although this should be monitored. Plan (1) 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 Safety patient is not considered an imminent danger to self or others at this time. When he is medically cleared outpatient care with close follow-up with his behavioral health providers is the most appropriate setting for care. 2. In regards to his medications : - continue taper off viibryd and give trial of mitazapine (taper ordered in chart) will move to 15mg/hs tonight watch for excessive sedation - in future would like to slow taper klonopin but will delay to outpatient once tegretol is reinitiated and topomax is discontinued as not to further lower seizure threshold at this time of transition between seizure meds Goal is to reduce risk of oversedation from remeron and klonopin and seroquel ( tegretol could contribute as well but needed for seizure prophylaxis) (2) Weight loss - appreciate neurology recommendations regarding patient's medications to include topomax - continue cross titration off viibryd to remeron with hope that will stimulate appetite and improve mood - continue to keep bowels regular to reassure patient about regularity and reduce trepidation about repeat SBO - defer further evaluation to primary team regarding additional processes that could be relate to weight loss (3) Alcohol dependence in sustained full remission This is currently not an active concern provider included on the problem list for completeness. (4) Seizures - appreciate neurology input - psychiatry will not recommend taper of klonopin at this time. It should be held for excessive sedation, but since neurology is tapering one antiseizure med do not want to complicate the picture at this time by also adjusting klonopin as tapering could lower seizure threshold. In future once stable on tegretol and off topomax a slow protracted taper to reduce rebound anxiety and reduce risk of rebound seizure activity would be apporpriate as he is likely tolerant and it may be contributing to sedation. (5) Intermittent small bowel obstruction - defer to primary team as noted in initial consult. (per outpatinet records he has a history of Amtiza, bentyl, and stool softener, see scanned neurology notes for further details) Discharge / Aftercare Planning Psychiatrist: Name: Yusef Samaniego PA-C ([facility]) Date of Appointment: Feb 21, 2017 Time of Appointment: 929 Appointment Notes: This appointment had already been scheduled prior to hospitalization Visit Code E&M Code: 97422 Inventory Assets Strengths: Supportive family, patient willing to take medications, willing to participate in care Risk Factors Assessment Male: Yes : Yes /single/: No Higher / Fall in social status: No Health problems: Yes Mental Health Diagnoses: Yes Substance use disorders: No Previous attempt: No Previous attempt;highly lethal: No Previous attempt; planned: No Previous attempt; didn't tell: No Family history of suicide: No Previous psychiatric stay: No Hopelessness: No Smoker: Yes Protective Factors Assessment : Yes Employed: No Stable relationships: Yes Supportive family: Yes Data Vital Signs Last 24 Hrs: Date Time Temp Pulse Resp B/P (MAP) Pulse Ox O2 Delivery O2 Flow Rate FiO2 12/30/16 09:06 85 143/77 (99) 12/30/16 08:30 98 Room Air 12/30/16 07:45 Room Air 12/30/16 07:32 36.9 78 12 144/76 (98) 98 Room Air 12/30/16 00:30 Room Air 12/29/16 23:11 36.6 87 18 132/75 (94) 100 Room Air 12/29/16 20:44 88 154/69 (97) 100 Room Air 12/29/16 15:43 36.6 80 16 151/79 (103) 100 Room Air 12/29/16 15:30 Room Air Meds Administered Last 24 Hrs: Meds Administered (Past 24Hrs) Medications (Trade) Dose Ordered Sig/Pedro Route Start Time Stop Time Status Last Admin Dose Admin Mirtazapine (Remeron Tab) 7.5 mg Taper HS PO 12/28/16 21:00 04/10/17 20:59 12/29/16 20:49 7.5 MG Non-Formulary Medication (Non-Formulary Patient'S Own Med) 0.5 ea Taper HS PO 12/28/16 21:00 01/05/17 20:59 12/29/16 21:05 0.5 EA Carbamazepine (Tegretol Tab) 200 mg QID PO 12/29/16 09:00 01/28/17 08:59 12/30/16 09:01 200 MG Potassium Chloride 10 meq/ Prmx 100 ml @ 50 mls/hr Q1H IV 12/29/16 09:00 12/29/16 12:59 DC 12/29/16 18:32 50 MLS/HR Magnesium Sulfate 1 gm/Prmx 100 ml @ 100 mls/hr NOW STAT IV 12/29/16 08:47 12/29/16 09:46 DC 12/29/16 09:51 100 MLS/HR Enteral Nutritional Formula (Boost) 1 can TIDM PO 12/29/16 18:00 01/28/17 17:59 12/30/16 09:08 1 CAN Potassium Chloride 10 meq/ Prmx 100 ml @ 100 mls/hr Q1H IV 12/29/16 18:00 12/29/16 19:59 DC 12/29/16 23:28 100 MLS/HR Lab Results Last 24 Hrs: Last 24 Hours Test 12/30/16 08:05 12/30/16 11:15 Sodium Level 143 mmol/L Potassium Level 2.7 mmol/L Chloride Level 113 mmol/L Carbon Dioxide Level 20 mmol/L Anion Gap 10.0 mmol/L Blood Urea Nitrogen 6 mg/dl Creatinine 0.50 mg/dl Est Creatinine Clear Calc Drug Dose 132.4 ml/min Estimated GFR () 133.7 Estimated GFR (Non- 115.3 BUN/Creatinine Ratio 12.2 Random Glucose 86 mg/dl Calcium Level 7.7 mg/dl
--- NOTE | 2016-12-30 13:46 | NEPHROLOGY CONSULTATION ---
DATE OF CONSULTATION: 12/30/2016 CONSULTING PHYSICIAN: Dr. Montes. REASON FOR CONSULTATION: Hypokalemia, not improving. HISTORY OF PRESENT ILLNESS: This is a 61-year-old male who has multiple medical problems including a stroke in the past as well as grand mal seizure secondary to the stroke as well as heart disease requiring stenting, who had a recent partial colon resection in [place]. The patient was having significant diarrhea prior to the resection and then after the surgery, during that hospitalization, was having issues with low potassium and was sent home on potassium supplement twice a day. Potassium was eventually repleted and they stopped the potassium supplement. The patient was doing well, although has had a significant weight loss over the past year and half with a poor appetite. The patient also has tobacco abuse and continues to smoke. The patient fell, resulting in left hip fracture with a possible syncopal episode. Given the unintentional weight loss and smoking history, chest x-ray was done, which showed a heart normal in size, no pleural effusions, no pneumothorax, lungs are clear, previously healed left rib fractures, and a right humeral neck fracture. The patient's potassium level was 4.1 on the , it went down to 3.2 on the th, 2.7 on the , 2.4 on the , 2.3 on the and now up to 2.7. The patient has been having partially liquid stools. states that ever since the partial colon resection, he has not had the ability to pass gas. The patient received 40 mEq of potassium on the 16, 40 mEq on the , IV potassium on the x1, 20 IV on the as well as on the , 40 oral and 40 IV. On the , the patient received 40 IV followed by 20 IV and today received an additional 40 IV. The patient is comfortable. Pain is well controlled and his at the bedside. FAMILY HISTORY: No renal disease in family. SOCIAL HISTORY: Active smoker. No drugs. Occasional alcohol. Lives at home with . He does have significant history of alcohol abuse; however, quit in 2005. REVIEW OF SYSTEMS: Significant weight loss over the past year and half. Positive fatigue. Positive weakness. Positive chronic shortness of breath. Positive left hip pain with recent fracture, resulting in pinning. Positive weakness. Positive memory loss. No chest pain. Does have some loose stools. No nausea or vomiting. Positive poor appetite. All other review of systems otherwise negative. CURRENT MEDICATIONS: Aspirin 81 mg a day; Lipitor 40 mg a day; Tegretol 200 mg 4 times a day; Coreg 12.5 mg p.o. b.i.d.; Klonopin 0.5 mg p.o. b.i.d.; Plavix 75 mg daily; Boost 1 can p.o. t.i.d., which the patient declines; heparin 5,000 units subQ q. 12 hours; Amitiza 24 mcg p.o. b.i.d.; Dilaudid as needed; pancrelipase 1 with each meal; Protonix 40 mg daily; 40 of IV potassium administering now; Seroquel 25 mg p.o. t.i.d. and 800 mg at night; senna 2 tabs at night; Hytrin 1 mg at night and Topamax 200 mg. PAST MEDICAL HISTORY: Stroke of his middle cerebral artery; heart disease, status post stenting; seizure history, status post stroke; depression and anxiety; tobacco abuse; significant unintentional weight loss; and hypokalemia since the GI surgery. PAST SURGICAL HISTORY: Right CEA, cholecystectomy, recent pinning of the left hip fracture, stenting of the heart. PHYSICAL EXAMINATION: VITAL SIGNS: Temperature 36.9, pulse 85, blood pressure 143/77, and satting 98% on room air. GENERAL: Awake, alert, and oriented x3. Flat affect. Soft voice. EYES: No scleral icterus. ENT: Moist mucous membranes. NECK: Supple. PULMONARY: Clear to auscultation. CARDIAC: Regular rate and rhythm. ABDOMEN: Bowel sounds tympanitic. Mildly distended. incision well healed except for one small opening GENITOURINARY: Positive Vines. EXTREMITIES: No significant clubbing, cyanosis or edema. NEUROLOGIC: Decreased left arm and leg strength. DERMATOLOGIC: No rash or ulcers noted. LABORATORY DATA: Sodium level is 143, potassium 2.7, chloride is 113, bicarbonate is 20, BUN 6, creatinine 0.5, glucose is 86, calcium 7.7, phosphorus last checked was 2.7, and magnesium 1.9. Renin-nicolette is pending. Albumin is low at 2.7. CK was normal a 56. White count 6.3, H&H 10.1 and 31.8, and platelet count is 318. INR is 1. A 24-hour urine potassium is pending as well as a 24-hour urine sodium. Hep C is negative. ASSESSMENT AND PLAN: Persistent hypokalemia, developed after a partial colon resection and continues to have issues with low potassium. Most common causes are GI or renal related. Currently not on any diuretics. Magnesium levels are sufficient. Renin/nicolette is pending. Does have some loose stools. Perhaps may be losing it through the GI tract. GI examination does reveal tympanitic bowel sounds, so perhaps has some dilated loops of bowel, which may be affecting potassium and checking a KUB to be thorough. I continue to replete aggressively and agree with the current plan of care with Dr. Montes. I feel most likely cause is GI losses. The patient is undergoing 24-hour urine for potassium and sodium, although difficult to interpret in the setting of potassium administration. For now, we will continue to replete aggressively. The patient does have unintentional weight loss for the past year and a half, which may be more failure to thrive given his previous stroke and slow down or decline in function. We will discuss further with the hospitalist. For now, continue to replete aggressively with potassium, obtain a KUB of his abdomen looking for dilated loops of bowel, which I feel may be contributing in some way to the persistent hypokalemia. Other electrolytes are stable. We will follow up on the renin-nicolette. Thyroid levels are stable as well. I appreciate the consultation. PAOLO
--- NOTE | 2016-12-30 14:27 | DIAGNOSTIC IMAGING REPORT ---
KUB CLINICAL HISTORY: tympanitic bowel sounds-screen for dilated loops of bowel COMPARISON STUDY: 11/27/2015 FINDINGS: There are surgical clips within the right upper quadrant. There is diffuse colonic distention down to the level of the rectum. The transverse colon measures 12 cm in maximal diameter. IMPRESSION: Diffuse gaseous distention of the colon down to the level the rectum. The transverse colon measures 12 cm in diameter. Electronically signed by: Chao Francis M.D. 12/30/2016 2:26 PM Dictated Date/Time: 12/30/2016 2:24 PM
[2016-12-30 14:51] VITALS: BP 156/69; PULSE 84; TEMP 36.3; O2SAT 99
--- NOTE | 2016-12-30 17:40 | Progress Note ---
Subjective Date of Service: Dec 30, 2016. Subjective Pt evaluation today including: conversation w/ patient, physical exam, lab review, review of studies, review of inpatient medication list Saw/examined the patient in room 382 He is eating pudding; no distress, states there is no pain No abdominal pain, no diarrhea, no nausea/vomiting No other problems at this time Problem List Medical Problems: (1) Altered mental status Status: Acute (2) Fall at home Status: Acute (3) Falling Status: Acute (4) Hip fracture, left Status: Acute (5) Slurred speech Status: Acute (6) Vomiting Status: Acute Review of Systems Constitutional: + weakness, No fever, No chills Respiratory: No cough, No sputum, No shortness of breath Cardiac: No chest pain Abdomen: No pain, No nausea, No vomiting, No diarrhea Musculoskeletal: No joint pain (controlled with medications) Medications Current Inpatient Medications Medications (Trade) Dose Ordered Sig/Pedro Route Start Time Stop Time Status Last Admin Dose Admin Heparin Sodium (Porcine) (Heparin Sq 5000 Unit/0.5ml) 5,000 unit Q12 SQ 12/22/16 09:00 01/21/17 08:59 Future hold 12/30/16 09:52 5,000 UNIT Acetaminophen (Tylenol Tab) 650 mg Q4H PRN PO 12/22/16 06:15 01/21/17 06:14 Al Hydrox/Mg Hydrox/Simethicone (Maalox Max Susp) 15 ml Q4H PRN PO 12/22/16 06:15 01/21/17 06:14 Magnesium Hydroxide (Milk Of Magnesia Susp) 30 ml Q12H PRN PO 12/22/16 06:15 01/21/17 06:14 12/26/16 11:09 30 ML Ondansetron HCl (Zofran Inj) 4 mg Q6H PRN IV 12/22/16 06:15 01/21/17 06:14 Polyethylene (Miralax Powder Packet) 17 gm DAILY PRN PO 12/22/16 06:15 01/21/17 06:14 12/25/16 17:03 17 GM Oxycodone HCl (Roxicodone Immediate Rel Tab) 10 mg Q4H PRN PO 12/22/16 06:15 01/05/17 06:14 12/27/16 20:59 10 MG Hydromorphone HCl (Dilaudid Inj) 0.5 mg Q20M PRN IV 12/22/16 06:15 01/05/17 06:14 12/25/16 11:17 0.5 MG Naloxone HCl (Narcan Inj) 0.1 mg PRN PRN IV 12/22/16 06:15 01/21/17 06:14 Senna/Docusate Sodium (Senokot S Tab) 2 tab HS PO 12/22/16 21:00 01/21/17 20:59 12/29/16 20:49 2 TAB Bisacodyl (Dulcolax Supp) 10 mg DAILY PRN DC 12/22/16 06:15 01/21/17 06:14 Sodium Biphosphate/ Sodium Phosphate (Fleet Enema) 132 ml PRN PRN DC 12/22/16 06:15 Atorvastatin Calcium (Lipitor Tab) 40 mg QAM PO 12/22/16 09:00 01/21/17 08:59 12/30/16 09:00 40 MG Carvedilol (Coreg Tab) 12.5 mg BID PO 12/22/16 09:00 01/21/17 08:59 12/30/16 09:07 12.5 MG Clonazepam (Klonopin Tab) 0.5 mg BID PO 12/22/16 09:00 01/21/17 08:59 12/30/16 09:08 0.5 MG Dicyclomine HCl (Bentyl Tab) 20 mg BID PRN PO 12/22/16 06:15 01/21/17 06:14 12/26/16 20:30 20 MG Quetiapine Fumarate (seroQUEL TAB) 25 mg TID PO 12/22/16 09:00 01/21/17 08:59 12/30/16 13:27 25 MG Quetiapine Fumarate (seroQUEL XR TAB) 800 mg HS PO 12/22/16 21:00 01/21/17 20:59 12/29/16 20:51 800 MG Terazosin HCl (Hytrin Cap) 1 mg HS PO 12/22/16 21:00 01/21/17 20:59 12/29/16 20:47 1 MG Topiramate (Topamax Tab) 200 mg AMHS PO 12/22/16 09:00 01/21/17 08:59 12/30/16 09:02 200 MG Lubiprostone (Amitiza) 24 mcg BID PO 12/22/16 09:00 01/21/17 08:59 12/30/16 08:59 24 MCG Pantoprazole Sodium (Protonix Tab) 40 mg QAM PO 12/22/16 09:00 01/21/17 08:59 12/30/16 09:00 40 MG Aspirin (Ecotrin Tab) 81 mg QAM PO 12/25/16 09:00 01/24/17 08:59 12/30/16 08:59 81 MG Clopidogrel Bisulfate (plAVix TAB) 75 mg QAM PO 12/25/16 09:00 01/24/17 08:59 12/30/16 09:00 75 MG Pancrelipase (Creon 38087 Unit) 1 AC PO 12/24/16 16:15 01/23/17 16:14 12/30/16 12:04 1 Mirtazapine (Remeron Tab) 7.5 mg Taper HS PO 12/28/16 21:00 04/10/17 20:59 12/29/16 20:49 7.5 MG Non-Formulary Medication (Non-Formulary Patient'S Own Med) 0.5 ea Taper HS PO 12/28/16 21:00 01/05/17 20:59 12/29/16 21:05 0.5 EA Carbamazepine (Tegretol Tab) 200 mg QID PO 12/29/16 09:00 01/28/17 08:59 12/30/16 16:44 200 MG Enteral Nutritional Formula (Boost) 1 can TIDM PO 12/29/16 18:00 01/28/17 17:59 12/30/16 09:08 1 CAN Objective Vital Signs Date Time Temp Pulse Resp B/P (MAP) Pulse Ox O2 Delivery O2 Flow Rate FiO2 12/30/16 14:51 36.3 84 16 156/69 (98) 99 Room Air 12/30/16 09:06 85 143/77 (99) 12/30/16 08:30 98 Room Air 12/30/16 07:45 Room Air 12/30/16 07:32 36.9 78 12 144/76 (98) 98 Room Air 12/30/16 00:30 Room Air 12/29/16 23:11 36.6 87 18 132/75 (94) 100 Room Air 12/29/16 20:44 88 154/69 (97) 100 Room Air Physical Exam General Appearance: no apparent distress, + thin, + pertinent finding (+weak, slow motor function) Respiratory/Chest: chest non-tender, lungs clear, normal breath sounds, no respiratory distress, no accessory muscle use Cardiovascular: regular rate, rhythm, no edema, no murmur Abdomen: normal bowel sounds, non tender, soft Extremities: normal inspection, no pedal edema Neurologic/Psychiatric: alert, normal mood/affect, + motor weakness Laboratory Results Last 24 Hours Test 12/30/16 08:05 12/30/16 11:15 Sodium Level 143 mmol/L Potassium Level 2.7 mmol/L Chloride Level 113 mmol/L Carbon Dioxide Level 20 mmol/L Anion Gap 10.0 mmol/L Blood Urea Nitrogen 6 mg/dl Creatinine 0.50 mg/dl Est Creatinine Clear Calc Drug Dose 132.4 ml/min Estimated GFR () 133.7 Estimated GFR (Non- 115.3 BUN/Creatinine Ratio 12.2 Random Glucose 86 mg/dl Calcium Level 7.7 mg/dl Assessment and Plan This is a chronically ill 61 year old male with a complex past medical history, including hx. of CVA of the middle cerebral artery, hx. 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, mood disorder/depression/anxiety, tobacco use disorder, unintentional weight loss presents with a syncopal episode Left Hip Fracture 12/30 s/p left trochanteric nail PT/OT; d/c to rehab when stable 12/29 s/p left hip nail PT/OT d/c to rehab when stable; in 1-2 days X-ray seems to suggest a left hip fracture clinically significant pain at that side with painful ROM complex medical history; will consult anesthesia obtain an updated echo orthopedic consultation placed Dilaudid and oxycodone PRN Acute Blood Loss Anemia s/p two units PRBCs H/H stable Hypokalemia 12/30 appreciate nephro input possible GI loss replete aggressively, recheck in AM encourage PO intake, boost protein shakes TID with meals 12/29 possibly related to decreased PO intake 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 of CVA carbamazepine restarted taper topiramate as per neuro unsure of the cause of his syncopal episode: possible polypharmacy hx includes seizures and hx. of CVA No residual motor dysfunction besides left LE, no sensory deficits No post-ictal state monitor in tele update echo IVFs may need adjustment of his medications Unintentional Weight Loss in the setting of Tobacco use Disorder concerning for malignancy with tobacco use disorder, should obtain chest CT as outpatient elevated alk phos is also concerning when he is eating, will need ensure TID with meals Hx. of CVA middle cerebral artery follows with Dr. Silva hold aspirin, Plavix for now for possible surgery continue statin repeat Brain MRI pending Hx. of CAD no complaint of chest pain, clinically stable continue b-bella, statin, hold aspirin Seizure Disorder cont anticonvulsants DVT ppx SCDs FULL CODE
[2016-12-30 19:47] LABS: POTASSIUM URINE 10.4 meq/L
[2016-12-30 20:44] LABS: URINE COLLECTION TIME 24 HOURS; URINE SODIUM 24 HR 82 mmol/24 (40-220)
[2016-12-30] MEDS: VIIBRYD 40 MG PO SCH (21:00)
[2016-12-30 22:41] VITALS: BP 150/72; PULSE 85; TEMP 36.9; O2SAT 98
[2016-12-30] MEDS: DOCUSATE SODIUM/SENNA 50/8.6MG TAB PO SCH (22:55)
[2016-12-30] MEDS: QUETIAPINE FUMARATE 200 MG TABCR PO SCH (22:56)
[2016-12-30] MEDS: MIRTAZAPINE TAB 15 MG TAB PO SCH (22:56)
[2016-12-31 07:28] VITALS: BP 123/67; PULSE 85; TEMP 36.5; O2SAT 98
[2016-12-31 07:32] LABS: HEMATOCRIT 35.6 % (42-52); MEAN CELL VOLUME 86.4 fL (80-100); MEAN CORPUSCULAR HEMOGLOBIN 27.7 pg (25-34); MEAN PLATELET VOLUME 8.6 fL (7.4-10.4); PLATELET COUNT 313 K/uL (130-400); RED BLOOD COUNT 4.12 M/uL (4.7-6.1); WHITE BLOOD COUNT 5.77 K/uL (4.8-10.8)
[2016-12-31 08:07] LABS: BUN/CREATININE RATIO 14.1 (10-20); CALCIUM 8.5 mg/dl (8.5-10.1); CREATININE 0.56 mg/dl (0.60-1.40); MAGNESIUM 1.8 mg/dl (1.8-2.4)
[2016-12-31] MEDS: CLOPIDOGREL BISULFATE 75 MG TAB PO SCH (09:18)
[2016-12-31] MEDS: PANCRELIPASE PO SCH ×3 (09:18→17:05)
[2016-12-31] MEDS: CARBAMAZEPINE 200 MG TAB PO SCH ×4 (09:18→20:58)
[2016-12-31] MEDS: CARVEDILOL 12.5 MG TAB PO SCH ×2 (09:18→20:51)
[2016-12-31] MEDS: BOOST VANILLA PO SCH ×6 (09:18→17:49)
[2016-12-31] MEDS: ASPIRIN 81 MG ECTAB PO SCH (09:18)
[2016-12-31] MEDS: TOPIRAMATE 100 MG TAB PO SCH ×2 (09:18→20:59)
[2016-12-31] MEDS: PANTOprazole SOD 40 MG TAB PO SCH (09:18)
[2016-12-31] MEDS: ATORVASTATIN 40 MG TAB PO SCH (09:18)
[2016-12-31] MEDS: CLONAZEPAM 0.5 MG TAB PO SCH ×2 (09:18→20:55)
[2016-12-31] MEDS: LUBIPROSTONE 8 MCG CAP PO SCH ×2 (09:18→20:51)
[2016-12-31] MEDS ORDERED: MAGNESIUM SULFATE 1GM / D5W 1 GM in PREMIXED IN D5W 100 ML IV ONE (09:30)
[2016-12-31] MEDS: HEPARIN SOD 5000 UNIT/0.5 ML CARP SQ SCH ×2 (09:30→21:04)
[2016-12-31] MEDS: QUETIAPINE FUMARATE 25 MG TAB PO SCH ×3 (09:55→20:57)
--- NOTE | 2016-12-31 10:06 | Progress Note ---
Subjective Date of Service: Dec 31, 2016. Subjective Pt evaluation today including: conversation w/ patient, physical exam, lab review, review of studies, review of inpatient medication list Saw/examined the patient in room 382 Doing well today, actually more awake/alert c/o diarrhea this morning; did not have this prior to today pain is controlled ambulating Problem List Medical Problems: (1) Altered mental status Status: Acute (2) Fall at home Status: Acute (3) Falling Status: Acute (4) Hip fracture, left Status: Acute (5) Slurred speech Status: Acute (6) Vomiting Status: Acute Review of Systems Constitutional: No fever, No chills Respiratory: No shortness of breath Cardiac: No chest pain Abdomen: + diarrhea, No pain, No nausea, No vomiting, No constipation Musculoskeletal: No joint pain (controlled with medications) Heme: No abnormal bleeding/bruising Medications Current Inpatient Medications Medications (Trade) Dose Ordered Sig/Pedro Route Start Time Stop Time Status Last Admin Dose Admin Heparin Sodium (Porcine) (Heparin Sq 5000 Unit/0.5ml) 5,000 unit Q12 SQ 12/22/16 09:00 01/21/17 08:59 Future hold 12/31/16 09:30 5,000 UNIT Acetaminophen (Tylenol Tab) 650 mg Q4H PRN PO 12/22/16 06:15 01/21/17 06:14 Al Hydrox/Mg Hydrox/Simethicone (Maalox Max Susp) 15 ml Q4H PRN PO 12/22/16 06:15 01/21/17 06:14 Magnesium Hydroxide (Milk Of Magnesia Susp) 30 ml Q12H PRN PO 12/22/16 06:15 01/21/17 06:14 12/26/16 11:09 30 ML Ondansetron HCl (Zofran Inj) 4 mg Q6H PRN IV 12/22/16 06:15 01/21/17 06:14 Polyethylene (Miralax Powder Packet) 17 gm DAILY PRN PO 12/22/16 06:15 01/21/17 06:14 12/25/16 17:03 17 GM Oxycodone HCl (Roxicodone Immediate Rel Tab) 10 mg Q4H PRN PO 12/22/16 06:15 01/05/17 06:14 12/27/16 20:59 10 MG Hydromorphone HCl (Dilaudid Inj) 0.5 mg Q20M PRN IV 12/22/16 06:15 01/05/17 06:14 12/25/16 11:17 0.5 MG Naloxone HCl (Narcan Inj) 0.1 mg PRN PRN IV 12/22/16 06:15 01/21/17 06:14 Senna/Docusate Sodium (Senokot S Tab) 2 tab HS PO 12/22/16 21:00 01/21/17 20:59 12/30/16 22:55 2 TAB Bisacodyl (Dulcolax Supp) 10 mg DAILY PRN AR 12/22/16 06:15 01/21/17 06:14 Sodium Biphosphate/ Sodium Phosphate (Fleet Enema) 132 ml PRN PRN AR 12/22/16 06:15 Atorvastatin Calcium (Lipitor Tab) 40 mg QAM PO 12/22/16 09:00 01/21/17 08:59 12/31/16 09:18 40 MG Carvedilol (Coreg Tab) 12.5 mg BID PO 12/22/16 09:00 01/21/17 08:59 12/31/16 09:18 12.5 MG Clonazepam (Klonopin Tab) 0.5 mg BID PO 12/22/16 09:00 01/21/17 08:59 12/31/16 09:18 0.5 MG Dicyclomine HCl (Bentyl Tab) 20 mg BID PRN PO 12/22/16 06:15 01/21/17 06:14 12/26/16 20:30 20 MG Quetiapine Fumarate (seroQUEL TAB) 25 mg TID PO 12/22/16 09:00 01/21/17 08:59 12/31/16 09:55 25 MG Quetiapine Fumarate (seroQUEL XR TAB) 800 mg HS PO 12/22/16 21:00 01/21/17 20:59 12/30/16 22:56 800 MG Terazosin HCl (Hytrin Cap) 1 mg HS PO 12/22/16 21:00 01/21/17 20:59 12/30/16 22:54 1 MG Topiramate (Topamax Tab) 200 mg AMHS PO 12/22/16 09:00 01/21/17 08:59 12/31/16 09:18 200 MG Lubiprostone (Amitiza) 24 mcg BID PO 12/22/16 09:00 01/21/17 08:59 12/31/16 09:18 24 MCG Pantoprazole Sodium (Protonix Tab) 40 mg QAM PO 12/22/16 09:00 01/21/17 08:59 12/31/16 09:18 40 MG Aspirin (Ecotrin Tab) 81 mg QAM PO 12/25/16 09:00 01/24/17 08:59 12/31/16 09:18 81 MG Clopidogrel Bisulfate (plAVix TAB) 75 mg QAM PO 12/25/16 09:00 01/24/17 08:59 12/31/16 09:18 75 MG Pancrelipase (Creon 74316 Unit) 1 AC PO 12/24/16 16:15 01/23/17 16:14 12/31/16 09:18 1 Mirtazapine (Remeron Tab) 7.5 mg Taper HS PO 12/28/16 21:00 04/10/17 20:59 12/30/16 22:56 7.5 MG Non-Formulary Medication (Non-Formulary Patient'S Own Med) 0.5 ea Taper HS PO 12/28/16 21:00 01/05/17 20:59 12/29/16 21:05 0.5 EA Carbamazepine (Tegretol Tab) 200 mg QID PO 12/29/16 09:00 01/28/17 08:59 12/31/16 09:18 200 MG Enteral Nutritional Formula (Boost) 1 can TIDM PO 12/29/16 18:00 01/28/17 17:59 12/31/16 09:18 1 CAN Potassium Chloride 10 meq/ Prmx 100 ml @ 100 mls/hr Q1H IV 12/31/16 10:30 12/31/16 14:29 Magnesium Sulfate 1 gm/Prmx 100 ml @ 100 mls/hr NOW ONCE IV 12/31/16 09:30 12/31/16 10:29 12/31/16 09:55 100 MLS/HR Objective Vital Signs Date Time Temp Pulse Resp B/P (MAP) Pulse Ox O2 Delivery O2 Flow Rate FiO2 12/31/16 08:00 Room Air 12/31/16 07:28 36.5 85 20 123/67 (85) 98 Room Air 12/31/16 00:20 Room Air 12/30/16 22:41 36.9 85 16 150/72 (98) 98 Room Air 12/30/16 15:40 Room Air 12/30/16 14:51 36.3 84 16 156/69 (98) 99 Room Air Physical Exam General Appearance: no apparent distress, + cachetic, + thin Respiratory/Chest: chest non-tender, lungs clear, normal breath sounds, no respiratory distress, no accessory muscle use Cardiovascular: regular rate, rhythm, no edema, no murmur Abdomen: normal bowel sounds, non tender, soft Extremities: normal inspection, no pedal edema Neurologic/Psychiatric: + motor weakness (slow psychomotor) Laboratory Results Last 24 Hours Test 12/30/16 11:15 12/31/16 07:20 Urine Collection Time 24 HOURS Urine Total Volume 2000 mL Urine Sodium mEQ/L 41 meq/L Urine Sodium 24 Hour 82 mmol/24 Urine Potassium 24 Hour 21 mmol/24 White Blood Count 5.77 K/uL Red Blood Count 4.12 M/uL Hemoglobin 11.4 g/dL Hematocrit 35.6 % Mean Corpuscular Volume 86.4 fL Mean Corpuscular Hemoglobin 27.7 pg Mean Corpuscular Hemoglobin Concent 32.0 g/dl RDW Standard Deviation 52.6 fL RDW Coefficient of Variation 16.9 % Platelet Count 313 K/uL Mean Platelet Volume 8.6 fL Sodium Level 142 mmol/L Potassium Level 3.0 mmol/L Chloride Level 111 mmol/L Carbon Dioxide Level 23 mmol/L Anion Gap 8.0 mmol/L Blood Urea Nitrogen 8 mg/dl Creatinine 0.56 mg/dl Est Creatinine Clear Calc Drug Dose 118.2 ml/min Estimated GFR () 127.6 Estimated GFR (Non- 110.1 BUN/Creatinine Ratio 14.1 Random Glucose 87 mg/dl Calcium Level 8.5 mg/dl Magnesium Level 1.8 mg/dl Assessment and Plan This is a chronically ill 61 year old male with a complex past medical history, including hx. of CVA of the middle cerebral artery, hx. 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, mood disorder/depression/anxiety, tobacco use disorder, unintentional weight loss presents with a syncopal episode Left Hip Fracture 12/31 doing well stable for d/c in terms of fracture to [facility] 12/30 s/p left trochanteric nail PT/OT; d/c to rehab when stable 12/29 s/p left hip nail PT/OT d/c to rehab when stable; in 1-2 days X-ray seems to suggest a left hip fracture clinically significant pain at that side with painful ROM complex medical history; will consult anesthesia obtain an updated echo orthopedic consultation placed Dilaudid and oxycodone PRN Acute Blood Loss Anemia s/p two units PRBCs H/H stable Hypokalemia 12/31 K improving to 3.0 will need to replete again KUB ordered yesterday, showed some gaseous distention +diarrhea this morning appreciate nephrology input 12/30 appreciate nephro input possible GI loss replete aggressively, recheck in AM encourage PO intake, boost protein shakes TID with meals 12/29 possibly related to decreased PO intake 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 of CVA carbamazepine restarted taper topiramate as per neuro unsure of the cause of his syncopal episode: possible polypharmacy hx includes seizures and hx. of CVA No residual motor dysfunction besides left LE, no sensory deficits No post-ictal state monitor in tele update echo IVFs may need adjustment of his medications Unintentional Weight Loss in the setting of Tobacco use Disorder concerning for malignancy with tobacco use disorder, should obtain chest CT as outpatient elevated alk phos is also concerning when he is eating, will need ensure TID with meals Hx. of CVA middle cerebral artery follows with Dr. Silva hold aspirin, Plavix for now for possible surgery continue statin repeat Brain MRI pending Hx. of CAD no complaint of chest pain, clinically stable continue b-bella, statin, hold aspirin Seizure Disorder cont anticonvulsants DVT ppx SCDs FULL CODE
[2016-12-31] MEDS: POTASSIUM CHLR 10 MEQ / WTR 10 MEQ in PREMIXED WATER 100 ML IV SCH ×4 (11:12→14:36)
--- NOTE | 2016-12-31 12:26 | Nephrology Progress Note ---
Nephrology Progress Note Date of Service: Dec 31, 2016. Subjective 61 yo male with hip fracture s/p pinning with recent colon surgery and has dilated loops of bowel. has had chronic hypokalemia since the colon surgery. being aggressively repleted. k trending back up and now in the 3s. does have some diarrhea today. Objective Date Time Temp Pulse Resp B/P (MAP) Pulse Ox O2 Delivery O2 Flow Rate FiO2 12/31/16 08:00 Room Air 12/31/16 07:28 36.5 85 20 123/67 (85) 98 Room Air 12/31/16 00:20 Room Air 12/30/16 22:41 36.9 85 16 150/72 (98) 98 Room Air 12/30/16 15:40 Room Air 12/30/16 14:51 36.3 84 16 156/69 (98) 99 Room Air Physical Exam: General-aaox3, weak Eyes-no scleral icterus ENT-mmm Neck-supple Lungs-cta Heart-rrr Abdomen-bs+/tympanitic, mildly distended Extremities-mild edema Neuro-no new changes Current Inpatient Medications Medications (Trade) Dose Ordered Sig/Pedro Route Start Time Stop Time Status Last Admin Dose Admin Heparin Sodium (Porcine) (Heparin Sq 5000 Unit/0.5ml) 5,000 unit Q12 SQ 12/22/16 09:00 01/21/17 08:59 Future hold 12/31/16 09:30 5,000 UNIT Acetaminophen (Tylenol Tab) 650 mg Q4H PRN PO 12/22/16 06:15 01/21/17 06:14 Al Hydrox/Mg Hydrox/Simethicone (Maalox Max Susp) 15 ml Q4H PRN PO 12/22/16 06:15 01/21/17 06:14 Magnesium Hydroxide (Milk Of Magnesia Susp) 30 ml Q12H PRN PO 12/22/16 06:15 01/21/17 06:14 12/26/16 11:09 30 ML Ondansetron HCl (Zofran Inj) 4 mg Q6H PRN IV 12/22/16 06:15 01/21/17 06:14 Polyethylene (Miralax Powder Packet) 17 gm DAILY PRN PO 12/22/16 06:15 01/21/17 06:14 12/25/16 17:03 17 GM Oxycodone HCl (Roxicodone Immediate Rel Tab) 10 mg Q4H PRN PO 12/22/16 06:15 01/05/17 06:14 12/27/16 20:59 10 MG Hydromorphone HCl (Dilaudid Inj) 0.5 mg Q20M PRN IV 12/22/16 06:15 01/05/17 06:14 12/25/16 11:17 0.5 MG Naloxone HCl (Narcan Inj) 0.1 mg PRN PRN IV 12/22/16 06:15 01/21/17 06:14 Senna/Docusate Sodium (Senokot S Tab) 2 tab HS PO 12/22/16 21:00 01/21/17 20:59 12/30/16 22:55 2 TAB Bisacodyl (Dulcolax Supp) 10 mg DAILY PRN OR 12/22/16 06:15 01/21/17 06:14 Sodium Biphosphate/ Sodium Phosphate (Fleet Enema) 132 ml PRN PRN OR 12/22/16 06:15 Atorvastatin Calcium (Lipitor Tab) 40 mg QAM PO 12/22/16 09:00 01/21/17 08:59 12/31/16 09:18 40 MG Carvedilol (Coreg Tab) 12.5 mg BID PO 12/22/16 09:00 01/21/17 08:59 12/31/16 09:18 12.5 MG Clonazepam (Klonopin Tab) 0.5 mg BID PO 12/22/16 09:00 01/21/17 08:59 12/31/16 09:18 0.5 MG Dicyclomine HCl (Bentyl Tab) 20 mg BID PRN PO 12/22/16 06:15 01/21/17 06:14 12/26/16 20:30 20 MG Quetiapine Fumarate (seroQUEL TAB) 25 mg TID PO 12/22/16 09:00 01/21/17 08:59 12/31/16 09:55 25 MG Quetiapine Fumarate (seroQUEL XR TAB) 800 mg HS PO 12/22/16 21:00 01/21/17 20:59 12/30/16 22:56 800 MG Terazosin HCl (Hytrin Cap) 1 mg HS PO 12/22/16 21:00 01/21/17 20:59 12/30/16 22:54 1 MG Topiramate (Topamax Tab) 200 mg AMHS PO 12/22/16 09:00 01/21/17 08:59 12/31/16 09:18 200 MG Lubiprostone (Amitiza) 24 mcg BID PO 12/22/16 09:00 01/21/17 08:59 12/31/16 09:18 24 MCG Pantoprazole Sodium (Protonix Tab) 40 mg QAM PO 12/22/16 09:00 01/21/17 08:59 12/31/16 09:18 40 MG Aspirin (Ecotrin Tab) 81 mg QAM PO 12/25/16 09:00 01/24/17 08:59 12/31/16 09:18 81 MG Clopidogrel Bisulfate (plAVix TAB) 75 mg QAM PO 12/25/16 09:00 01/24/17 08:59 12/31/16 09:18 75 MG Pancrelipase (Creon 97766 Unit) 1 AC PO 12/24/16 16:15 01/23/17 16:14 12/31/16 09:18 1 Mirtazapine (Remeron Tab) 7.5 mg Taper HS PO 12/28/16 21:00 04/10/17 20:59 12/30/16 22:56 7.5 MG Non-Formulary Medication (Non-Formulary Patient'S Own Med) 0.5 ea Taper HS PO 12/28/16 21:00 01/05/17 20:59 12/29/16 21:05 0.5 EA Carbamazepine (Tegretol Tab) 200 mg QID PO 12/29/16 09:00 01/28/17 08:59 12/31/16 09:18 200 MG Enteral Nutritional Formula (Boost) 1 can TIDM PO 12/29/16 18:00 01/28/17 17:59 12/31/16 09:18 1 CAN Potassium Chloride 10 meq/ Prmx 100 ml @ 100 mls/hr Q1H IV 12/31/16 10:30 12/31/16 14:29 12/31/16 11:12 100 MLS/HR Last 24 Hours Test 12/31/16 07:20 White Blood Count 5.77 K/uL Red Blood Count 4.12 M/uL Hemoglobin 11.4 g/dL Hematocrit 35.6 % Mean Corpuscular Volume 86.4 fL Mean Corpuscular Hemoglobin 27.7 pg Mean Corpuscular Hemoglobin Concent 32.0 g/dl RDW Standard Deviation 52.6 fL RDW Coefficient of Variation 16.9 % Platelet Count 313 K/uL Mean Platelet Volume 8.6 fL Sodium Level 142 mmol/L Potassium Level 3.0 mmol/L Chloride Level 111 mmol/L Carbon Dioxide Level 23 mmol/L Anion Gap 8.0 mmol/L Blood Urea Nitrogen 8 mg/dl Creatinine 0.56 mg/dl Est Creatinine Clear Calc Drug Dose 118.2 ml/min Estimated GFR () 127.6 Estimated GFR (Non- 110.1 BUN/Creatinine Ratio 14.1 Random Glucose 87 mg/dl Calcium Level 8.5 mg/dl Magnesium Level 1.8 mg/dl Assessment & Plan hypokalemia-has chronic potassium wasting, thought to be GI in origin. 24 hour urine potassium was low indicating more of a GI source. mag is acceptable. k is trending back up and will need high dose oral potassium as an outpt and checking k every other day as outpt. for now, continue the iv potassium supplementation. question if the dilated loops of bowel is contributing somewhat to the GI losses. nicolette/renin is pending.
[2016-12-31 13:38] VITALS: BP 75/47; PULSE 78; O2SAT 100
[2016-12-31 15:26] VITALS: BP 148/67; PULSE 74; TEMP 36.5; O2SAT 100
[2016-12-31 20:49] VITALS: BP 144/75; PULSE 85
[2016-12-31] MEDS: MIRTAZAPINE TAB 15 MG TAB PO SCH (20:56)
[2016-12-31] MEDS: DOCUSATE SODIUM/SENNA 50/8.6MG TAB PO SCH (20:57)
[2016-12-31] MEDS: QUETIAPINE FUMARATE 200 MG TABCR PO SCH (21:00)
[2016-12-31] MEDS: VIIBRYD 40 MG PO SCH (22:37)
[2017-01-01 00:11] VITALS: BP 110/70; PULSE 75; TEMP 36.9; O2SAT 98
[2017-01-01 06:09] LABS: HEMATOCRIT 31.5 % (42-52); MEAN CELL VOLUME 85.6 fL (80-100); MEAN CORPUSCULAR HEMOGLOBIN 28.3 pg (25-34); MEAN PLATELET VOLUME 8.8 fL (7.4-10.4); PLATELET COUNT 306 K/uL (130-400); RED BLOOD COUNT 3.68 M/uL (4.7-6.1); WHITE BLOOD COUNT 4.99 K/uL (4.8-10.8)
[2017-01-01 06:41] LABS: CALCIUM 8.2 mg/dl (8.5-10.1); CREATININE 0.52 mg/dl (0.60-1.40); MAGNESIUM 1.9 mg/dl (1.8-2.4); POTASSIUM 2.9 mmol/L (3.5-5.1)
[2017-01-01 06:47] LABS: BUN/CREATININE RATIO 16.2 (10-20)
[2017-01-01 07:20] VITALS: BP 126/65; PULSE 76; TEMP 36.4; O2SAT 99
[2017-01-01] MEDS: QUETIAPINE FUMARATE 25 MG TAB PO SCH ×4 (08:38→17:31)
[2017-01-01] MEDS: DICYCLOMINE HCL 20 MG TAB PO PRN (08:39)
[2017-01-01] MEDS: ASPIRIN 81 MG ECTAB PO SCH (08:39)
[2017-01-01] MEDS: ATORVASTATIN 40 MG TAB PO SCH (08:39)
[2017-01-01] MEDS: CLOPIDOGREL BISULFATE 75 MG TAB PO SCH (08:39)
[2017-01-01] MEDS: TOPIRAMATE 100 MG TAB PO SCH ×2 (08:40→21:00)
[2017-01-01] MEDS: PANTOprazole SOD 40 MG TAB PO SCH (08:40)
[2017-01-01] MEDS: CARBAMAZEPINE 200 MG TAB PO SCH ×5 (08:41→21:57)
[2017-01-01] MEDS: CARVEDILOL 12.5 MG TAB PO SCH ×2 (08:42→21:45)
[2017-01-01] MEDS: LUBIPROSTONE 8 MCG CAP PO SCH ×2 (08:42→21:51)
[2017-01-01] MEDS: HEPARIN SOD 5000 UNIT/0.5 ML CARP SQ SCH ×2 (08:45→21:42)
[2017-01-01] MEDS: PANCRELIPASE PO SCH ×4 (08:49→17:30)
[2017-01-01] MEDS: CLONAZEPAM 0.5 MG TAB PO SCH ×2 (08:55→21:42)
[2017-01-01] MEDS: BOOST VANILLA PO SCH ×6 (08:55→19:14)
--- NOTE | 2017-01-01 09:08 | Nephrology Progress Note ---
Nephrology Progress Note Date of Service: Jan 01, 2017. Subjective 61 yo male with hip fracture s/p pinning with recent colon surgery and has dilated loops of bowel. has had chronic hypokalemia since the colon surgery. being aggressively repleted. k of 2.9 this morning. pt comfortable. no significant diarrhea noted. Objective Date Time Temp Pulse Resp B/P (MAP) Pulse Ox O2 Delivery O2 Flow Rate FiO2 01/01/17 07:20 36.4 76 16 126/65 (85) 99 Room Air 01/01/17 00:43 Room Air 01/01/17 00:11 36.9 75 16 110/70 (83) 98 Room Air 12/31/16 20:49 85 144/75 (98) 12/31/16 15:45 Room Air 12/31/16 15:26 36.5 74 16 148/67 (94) 100 Room Air 12/31/16 13:38 78 100 Physical Exam: General-aaox3, weak, cachectic Eyes-no scleral icterus ENT-mmm Neck-supple Lungs-clear Heart-regular Abdomen-bs+/tympanitic, nondistended Extremities-mild edema Neuro-chronic, no new focal deficits Current Inpatient Medications Medications (Trade) Dose Ordered Sig/Pedro Route Start Time Stop Time Status Last Admin Dose Admin Heparin Sodium (Porcine) (Heparin Sq 5000 Unit/0.5ml) 5,000 unit Q12 SQ 12/22/16 09:00 01/21/17 08:59 Future hold 01/01/17 08:45 5,000 UNIT Acetaminophen (Tylenol Tab) 650 mg Q4H PRN PO 12/22/16 06:15 01/21/17 06:14 Al Hydrox/Mg Hydrox/Simethicone (Maalox Max Susp) 15 ml Q4H PRN PO 12/22/16 06:15 01/21/17 06:14 Magnesium Hydroxide (Milk Of Magnesia Susp) 30 ml Q12H PRN PO 12/22/16 06:15 01/21/17 06:14 12/26/16 11:09 30 ML Ondansetron HCl (Zofran Inj) 4 mg Q6H PRN IV 12/22/16 06:15 01/21/17 06:14 Polyethylene (Miralax Powder Packet) 17 gm DAILY PRN PO 12/22/16 06:15 01/21/17 06:14 12/25/16 17:03 17 GM Oxycodone HCl (Roxicodone Immediate Rel Tab) 10 mg Q4H PRN PO 12/22/16 06:15 01/05/17 06:14 12/27/16 20:59 10 MG Hydromorphone HCl (Dilaudid Inj) 0.5 mg Q20M PRN IV 12/22/16 06:15 01/05/17 06:14 12/25/16 11:17 0.5 MG Naloxone HCl (Narcan Inj) 0.1 mg PRN PRN IV 12/22/16 06:15 01/21/17 06:14 Senna/Docusate Sodium (Senokot S Tab) 2 tab HS PO 12/22/16 21:00 01/21/17 20:59 12/30/16 22:55 2 TAB Bisacodyl (Dulcolax Supp) 10 mg DAILY PRN NM 12/22/16 06:15 01/21/17 06:14 Sodium Biphosphate/ Sodium Phosphate (Fleet Enema) 132 ml PRN PRN NM 12/22/16 06:15 Atorvastatin Calcium (Lipitor Tab) 40 mg QAM PO 12/22/16 09:00 01/21/17 08:59 01/01/17 08:39 40 MG Carvedilol (Coreg Tab) 12.5 mg BID PO 12/22/16 09:00 01/21/17 08:59 01/01/17 08:42 12.5 MG Clonazepam (Klonopin Tab) 0.5 mg BID PO 12/22/16 09:00 01/21/17 08:59 01/01/17 08:55 0.5 MG Dicyclomine HCl (Bentyl Tab) 20 mg BID PRN PO 12/22/16 06:15 01/21/17 06:14 01/01/17 08:39 20 MG Quetiapine Fumarate (seroQUEL XR TAB) 800 mg HS PO 12/22/16 21:00 01/21/17 20:59 12/31/16 21:00 800 MG Terazosin HCl (Hytrin Cap) 1 mg HS PO 12/22/16 21:00 01/21/17 20:59 12/31/16 20:52 1 MG Topiramate (Topamax Tab) 200 mg AMHS PO 12/22/16 09:00 01/21/17 08:59 01/01/17 08:40 200 MG Lubiprostone (Amitiza) 24 mcg BID PO 12/22/16 09:00 01/21/17 08:59 01/01/17 08:42 24 MCG Pantoprazole Sodium (Protonix Tab) 40 mg QAM PO 12/22/16 09:00 01/21/17 08:59 01/01/17 08:40 40 MG Aspirin (Ecotrin Tab) 81 mg QAM PO 12/25/16 09:00 01/24/17 08:59 01/01/17 08:39 81 MG Clopidogrel Bisulfate (plAVix TAB) 75 mg QAM PO 12/25/16 09:00 01/24/17 08:59 01/01/17 08:39 75 MG Pancrelipase (Creon 52826 Unit) 1 AC PO 12/24/16 16:15 01/23/17 16:14 01/01/17 08:49 1 Mirtazapine (Remeron Tab) 7.5 mg Taper HS PO 12/28/16 21:00 04/10/17 20:59 12/31/16 20:56 7.5 MG Non-Formulary Medication (Non-Formulary Patient'S Own Med) 0.5 ea Taper HS PO 12/28/16 21:00 01/05/17 20:59 12/31/16 22:37 0.5 EA Carbamazepine (Tegretol Tab) 200 mg QID PO 12/29/16 09:00 01/28/17 08:59 01/01/17 08:41 200 MG Enteral Nutritional Formula (Boost) 1 can TIDM PO 12/29/16 18:00 01/28/17 17:59 01/01/17 08:55 1 CAN Quetiapine Fumarate (seroQUEL TAB) 25 mg TID@0900,1300,1700 PO 01/01/17 09:00 01/31/17 08:59 01/01/17 08:38 25 MG Potassium Chloride 10 meq/ Prmx 100 ml @ 100 mls/hr Q1H IV 01/01/17 09:00 01/01/17 12:59 Potassium Chloride (Klor-Con M10) 40 meq BID PO 01/01/17 09:00 01/31/17 08:59 Potassium Chloride 40 meq/ Prmx 100 ml @ 50 mls/hr ONE ONCE IV 01/01/17 18:00 01/01/17 19:59 UNV Last 24 Hours Test 01/01/17 05:45 White Blood Count 4.99 K/uL Red Blood Count 3.68 M/uL Hemoglobin 10.4 g/dL Hematocrit 31.5 % Mean Corpuscular Volume 85.6 fL Mean Corpuscular Hemoglobin 28.3 pg Mean Corpuscular Hemoglobin Concent 33.0 g/dl RDW Standard Deviation 53.7 fL RDW Coefficient of Variation 17.3 % Platelet Count 306 K/uL Mean Platelet Volume 8.8 fL Sodium Level 142 mmol/L Potassium Level 2.9 mmol/L Chloride Level 111 mmol/L Carbon Dioxide Level 22 mmol/L Anion Gap 9.0 mmol/L Blood Urea Nitrogen 8 mg/dl Creatinine 0.52 mg/dl Est Creatinine Clear Calc Drug Dose 127.3 ml/min Estimated GFR () 131.5 Estimated GFR (Non- 113.5 BUN/Creatinine Ratio 16.2 Random Glucose 79 mg/dl Calcium Level 8.2 mg/dl Magnesium Level 1.9 mg/dl Date/Time Source Procedure Growth Status 12/31/16 16:00 Stool C.difficile Toxin B Gene (PCR) - Final No C. difficile toxin B gene detected Complete Assessment & Plan hypokalemia-has chronic potassium wasting, thought to be GI in origin. giving 40 iv now and again 40 iv at 6pm, also giving 40po bid chronically. would like k levels to be stable on oral k supplement only, before sending home/ [facility] if possible. to recheck bmp again at 4pm.
[2017-01-01] MEDS: POTASSIUM CHLORIDE 10 MEQ TABCR PO SCH ×2 (09:09→21:00)
[2017-01-01] MEDS: POTASSIUM CHLR 10 MEQ / WTR 10 MEQ in PREMIXED WATER 100 ML IV SCH ×4 (09:10→12:32)
--- NOTE | 2017-01-01 12:51 | Progress Note ---
Internal Med Progress Note Date of Service: Jan 01, 2017. Provider Documentation: SUBJECTIVE: pt denies of any pain or discomfort no chest pa in or SOB visiting updated OBJECTIVE: Vital Signs-as noted below Exam: General-no sign of distress Eyes-sclera non icteric ENT-NAD Lungs-CTA Heart-regular S1/S2 Abdomen-soft, non tender Extremities-left hip surgical lena placed, appears to heal well Neuro-AAO x3, no focal deficit Lab data as noted below. ASSESSMENT & PLAN: This is a chronically ill 61 year old male with a complex past medical history, including hx. of CVA of the middle cerebral artery, hx. 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 cont 40meq po bid k level needs to be stable on oral k supplement only, before sending to [facility]. Acute Blood Loss Anemia due to post surgical status s/p two units PRBCs H/H stable Syncopal Episode appreciate neuro input on Tegretol taper Topiramate as outlined by neurology unsure of the cause of his syncopal episode: possible polypharmacy hx includes seizures and hx. of CVA MRI of brain -no acute change No residual motor dysfunction besides left LE, no sensory deficits No post-ictal state Hx. of CVA middle cerebral artery follows with Dr. Silva cont Aspirin , statin , Plavix MRI of brain : no acute change Hx. of CAD no complaint of chest pain, clinically stable continue b-bella, statin, aspirin Seizure Disorder cont anticonvulsants DVT ppx Sub q heparin FULL CODE DISPOSITION transfer pt to [facility] when medically stable Vital Signs: Date Time Temp Pulse Resp B/P (MAP) Pulse Ox O2 Delivery O2 Flow Rate FiO2 01/01/17 07:20 36.4 76 16 126/65 (85) 99 Room Air 01/01/17 00:43 Room Air 01/01/17 00:11 36.9 75 16 110/70 (83) 98 Room Air 12/31/16 20:49 85 144/75 (98) 12/31/16 15:45 Room Air 12/31/16 15:26 36.5 74 16 148/67 (94) 100 Room Air 12/31/16 13:38 78 100 Lab Results: Results Past 24 Hours Test 01/01/17 05:45 Range/Units White Blood Count 4.99 4.8-10.8 K/uL Red Blood Count 3.68 4.7-6.1 M/uL Hemoglobin 10.4 14.0-18.0 g/dL Hematocrit 31.5 42-52 % Mean Corpuscular Volume 85.6 80-100 fL Mean Corpuscular Hemoglobin 28.3 25-34 pg Mean Corpuscular Hemoglobin Concent 33.0 32-36 g/dl RDW Standard Deviation 53.7 36.4-46.3 fL RDW Coefficient of Variation 17.3 11.5-14.5 % Platelet Count 306 130-400 K/uL Mean Platelet Volume 8.8 7.4-10.4 fL Sodium Level 142 136-145 mmol/L Potassium Level 2.9 3.5-5.1 mmol/L Chloride Level 111 98-107 mmol/L Carbon Dioxide Level 22 21-32 mmol/L Anion Gap 9.0 3-11 mmol/L Blood Urea Nitrogen 8 7-18 mg/dl Creatinine 0.52 0.60-1.40 mg/dl Est Creatinine Clear Calc Drug Dose 127.3 ml/min Estimated GFR () 131.5 Estimated GFR (Non- 113.5 BUN/Creatinine Ratio 16.2 10-20 Random Glucose 79 70-99 mg/dl Calcium Level 8.2 8.5-10.1 mg/dl Magnesium Level 1.9 1.8-2.4 mg/dl Microbiology Results 12/31/16 C.difficile Toxin B Gene (PCR) - Final, Complete No C. difficile toxin B gene detected
[2017-01-01 14:51] VITALS: BP 143/80; PULSE 77; TEMP 36.6; O2SAT 100
[2017-01-01 16:22] LABS: BUN/CREATININE RATIO 11.3 (10-20); CALCIUM 8.1 mg/dl (8.5-10.1); CREATININE 0.63 mg/dl (0.60-1.40); POTASSIUM 3.8 mmol/L (3.5-5.1)
[2017-01-01] MEDS ORDERED: POTASSIUM CHLR 10 MEQ / WTR 10 MEQ in PREMIXED WATER 100 ML IV SCH (18:00)
--- NOTE | 2017-01-01 18:20 | Progress Note ---
Progress Note Date of Service Jan 01, 2017. Progress Note PRP AT 1600 K 3.8 D/C further IV K rider cont PO Supplement repeat PRP in AM Nephrology updated
[2017-01-01] MEDS: DOCUSATE SODIUM/SENNA 50/8.6MG TAB PO SCH (21:00)
[2017-01-01 21:35] VITALS: BP 149/79; PULSE 82
[2017-01-01] MEDS: VIIBRYD 40 MG PO SCH (21:46)
[2017-01-01] MEDS: QUETIAPINE FUMARATE 200 MG TABCR PO SCH (21:55)
[2017-01-01] MEDS: MIRTAZAPINE TAB 15 MG TAB PO SCH (21:55)
[2017-01-01 23:45] VITALS: BP 147/68; PULSE 80; TEMP 37.2; O2SAT 99
[2017-01-02 07:35] VITALS: BP 118/69; PULSE 88; TEMP 36.8; O2SAT 98
[2017-01-02 07:43] LABS: BUN/CREATININE RATIO 16.6 (10-20); CREATININE 0.4 mg/dl (0.60-1.40); POTASSIUM 3.1 mmol/L (3.5-5.1)
[2017-01-02] MEDS: BOOST VANILLA PO SCH ×6 (07:50→17:27)
[2017-01-02] MEDS: PANCRELIPASE PO SCH ×3 (07:50→17:25)
[2017-01-02 08:01] LABS: CALCIUM 8.3 mg/dl (8.5-10.1)
[2017-01-02] MEDS: POTASSIUM CHLORIDE 10 MEQ TABCR PO SCH (08:31)
[2017-01-02] MEDS: TOPIRAMATE 100 MG TAB PO SCH ×2 (08:31→20:37)
[2017-01-02] MEDS: QUETIAPINE FUMARATE 25 MG TAB PO SCH ×3 (08:32→17:25)
[2017-01-02] MEDS: PANTOprazole SOD 40 MG TAB PO SCH (08:32)
[2017-01-02] MEDS: CARBAMAZEPINE 200 MG TAB PO SCH ×4 (08:33→20:40)
[2017-01-02] MEDS: ASPIRIN 81 MG ECTAB PO SCH (08:34)
[2017-01-02] MEDS: CARVEDILOL 12.5 MG TAB PO SCH ×2 (08:34→20:40)
[2017-01-02] MEDS: ATORVASTATIN 40 MG TAB PO SCH (08:34)
[2017-01-02] MEDS: CLOPIDOGREL BISULFATE 75 MG TAB PO SCH (08:34)
[2017-01-02] MEDS: LUBIPROSTONE 8 MCG CAP PO SCH ×2 (08:34→20:38)
[2017-01-02] MEDS: CLONAZEPAM 0.5 MG TAB PO SCH ×2 (08:35→20:38)
[2017-01-02] MEDS: HEPARIN SOD 5000 UNIT/0.5 ML CARP SQ SCH ×2 (08:45→20:36)
[2017-01-02] MEDS: POTASSIUM CHLR 10 MEQ / WTR 10 MEQ in PREMIXED WATER 100 ML IV SCH ×4 (11:52→14:30)
--- NOTE | 2017-01-02 13:11 | Nephrology Progress Note ---
Nephrology Progress Note Date of Service: Jan 02, 2017. Subjective 61 yo male with hip fracture s/p pinning with recent colon surgery and has dilated loops of bowel. has had chronic hypokalemia since the colon surgery. being aggressively repleted. pt just had a diarrhea episode at 1pm and has good urine output from aguilera catheter. daughter in room and answered her questions. Objective Date Time Temp Pulse Resp B/P (MAP) Pulse Ox O2 Delivery O2 Flow Rate FiO2 01/02/17 07:35 36.8 88 18 118/69 (85) 98 Room Air 01/02/17 07:10 Room Air 01/01/17 23:45 37.2 80 16 147/68 (94) 99 Room Air 01/01/17 21:35 82 149/79 (102) 01/01/17 19:30 Room Air 01/01/17 16:20 Room Air 01/01/17 14:51 36.6 77 16 143/80 (101) 100 Room Air Physical Exam: General-aaox3, weak, cachectic Eyes-no scleral icterus ENT-mmm Neck-supple Lungs-cta Heart-rrr Abdomen-bs+/tympanitic Extremities-no edema Neuro-chronic, no new focal deficits Current Inpatient Medications Medications (Trade) Dose Ordered Sig/Pedro Route Start Time Stop Time Status Last Admin Dose Admin Heparin Sodium (Porcine) (Heparin Sq 5000 Unit/0.5ml) 5,000 unit Q12 SQ 12/22/16 09:00 01/21/17 08:59 Future hold 01/02/17 08:45 5,000 UNIT Acetaminophen (Tylenol Tab) 650 mg Q4H PRN PO 12/22/16 06:15 01/21/17 06:14 Al Hydrox/Mg Hydrox/Simethicone (Maalox Max Susp) 15 ml Q4H PRN PO 12/22/16 06:15 01/21/17 06:14 Magnesium Hydroxide (Milk Of Magnesia Susp) 30 ml Q12H PRN PO 12/22/16 06:15 01/21/17 06:14 12/26/16 11:09 30 ML Ondansetron HCl (Zofran Inj) 4 mg Q6H PRN IV 12/22/16 06:15 01/21/17 06:14 Polyethylene (Miralax Powder Packet) 17 gm DAILY PRN PO 12/22/16 06:15 01/21/17 06:14 12/25/16 17:03 17 GM Oxycodone HCl (Roxicodone Immediate Rel Tab) 10 mg Q4H PRN PO 12/22/16 06:15 01/05/17 06:14 12/27/16 20:59 10 MG Hydromorphone HCl (Dilaudid Inj) 0.5 mg Q20M PRN IV 12/22/16 06:15 01/05/17 06:14 12/25/16 11:17 0.5 MG Naloxone HCl (Narcan Inj) 0.1 mg PRN PRN IV 12/22/16 06:15 01/21/17 06:14 Senna/Docusate Sodium (Senokot S Tab) 2 tab HS PO 12/22/16 21:00 01/21/17 20:59 12/30/16 22:55 2 TAB Bisacodyl (Dulcolax Supp) 10 mg DAILY PRN [place] 12/22/16 06:15 01/21/17 06:14 Sodium Biphosphate/ Sodium Phosphate (Fleet Enema) 132 ml PRN PRN [place] 12/22/16 06:15 Atorvastatin Calcium (Lipitor Tab) 40 mg QAM PO 12/22/16 09:00 01/21/17 08:59 01/02/17 08:34 40 MG Carvedilol (Coreg Tab) 12.5 mg BID PO 12/22/16 09:00 01/21/17 08:59 01/02/17 08:34 12.5 MG Clonazepam (Klonopin Tab) 0.5 mg BID PO 12/22/16 09:00 01/21/17 08:59 01/02/17 08:35 0.5 MG Dicyclomine HCl (Bentyl Tab) 20 mg BID PRN PO 12/22/16 06:15 01/21/17 06:14 01/01/17 08:39 20 MG Quetiapine Fumarate (seroQUEL XR TAB) 800 mg HS PO 12/22/16 21:00 01/21/17 20:59 01/01/17 21:55 800 MG Terazosin HCl (Hytrin Cap) 1 mg HS PO 12/22/16 21:00 01/21/17 20:59 01/01/17 21:46 1 MG Topiramate (Topamax Tab) 200 mg AMHS PO 12/22/16 09:00 01/21/17 08:59 01/02/17 08:31 200 MG Lubiprostone (Amitiza) 24 mcg BID PO 12/22/16 09:00 01/21/17 08:59 01/02/17 08:34 24 MCG Pantoprazole Sodium (Protonix Tab) 40 mg QAM PO 12/22/16 09:00 01/21/17 08:59 01/02/17 08:32 40 MG Aspirin (Ecotrin Tab) 81 mg QAM PO 12/25/16 09:00 01/24/17 08:59 01/02/17 08:34 81 MG Clopidogrel Bisulfate (plAVix TAB) 75 mg QAM PO 12/25/16 09:00 01/24/17 08:59 01/02/17 08:34 75 MG Pancrelipase (Creon 13074 Unit) 1 AC PO 12/24/16 16:15 01/23/17 16:14 01/02/17 11:52 1 Mirtazapine (Remeron Tab) 15 mg Taper HS PO 12/28/16 21:00 04/10/17 20:59 01/01/17 21:55 15 MG Non-Formulary Medication (Non-Formulary Patient'S Own Med) 0.25 ea Taper HS PO 12/28/16 21:00 01/05/17 20:59 01/01/17 21:46 0.25 EA Carbamazepine (Tegretol Tab) 200 mg QID PO 12/29/16 09:00 01/28/17 08:59 01/02/17 11:53 200 MG Enteral Nutritional Formula (Boost) 1 can TIDM PO 12/29/16 18:00 01/28/17 17:59 01/02/17 07:50 1 CAN Quetiapine Fumarate (seroQUEL TAB) 25 mg TID@0900,1300,1700 PO 01/01/17 09:00 01/31/17 08:59 01/02/17 11:53 25 MG Potassium Chloride (Klor-Con M10) 40 meq BID PO 01/01/17 09:00 01/31/17 08:59 01/02/17 08:31 40 MEQ Potassium Chloride 10 meq/ Prmx 100 ml @ 100 mls/hr Q1H IV 01/02/17 11:30 01/02/17 15:29 01/02/17 12:53 100 MLS/HR Last 24 Hours Test 01/01/17 15:52 01/02/17 06:22 Sodium Level 143 mmol/L 142 mmol/L Potassium Level 3.8 mmol/L 3.1 mmol/L Chloride Level 111 mmol/L 113 mmol/L Carbon Dioxide Level 23 mmol/L 20 mmol/L Anion Gap 9.0 mmol/L 9.0 mmol/L Blood Urea Nitrogen 7 mg/dl 7 mg/dl Creatinine 0.63 mg/dl 0.40 mg/dl Est Creatinine Clear Calc Drug Dose 105.1 ml/min 165.5 ml/min Estimated GFR () 121.6 146.5 Estimated GFR (Non- 104.9 126.4 BUN/Creatinine Ratio 11.3 16.6 Random Glucose 122 mg/dl 77 mg/dl Calcium Level 8.1 mg/dl 8.3 mg/dl Assessment & Plan hypokalemia-has chronic potassium wasting, thought to be GI in origin. increasing his oral potassium from 40 bid to 40 tid. currently getting another 40 iv of potassium and rechecking bmp again at 6pm. trying to maintain appropriate potassium levels on oral potassium supplement alone.
--- NOTE | 2017-01-02 13:52 | Progress Note ---
Subjective Date of Service: Jan 02, 2017. Subjective Pt evaluation today including: conversation w/ patient, physical exam, lab review, review of studies, review of inpatient medication list Saw/examined the patient in room 382 He's doing well - no issues to note, denies chest pain/palpitations Eating well Problem List Medical Problems: (1) Altered mental status Status: Acute (2) Fall at home Status: Acute (3) Falling Status: Acute (4) Hip fracture, left Status: Acute (5) Slurred speech Status: Acute (6) Vomiting Status: Acute Review of Systems Constitutional: No fever, No chills Respiratory: No shortness of breath Cardiac: No chest pain, No edema, No palpitations Abdomen: No pain, No nausea, No vomiting, No diarrhea Musculoskeletal: No joint pain Heme: No abnormal bleeding/bruising Medications Current Inpatient Medications Medications (Trade) Dose Ordered Sig/Pedro Route Start Time Stop Time Status Last Admin Dose Admin Heparin Sodium (Porcine) (Heparin Sq 5000 Unit/0.5ml) 5,000 unit Q12 SQ 12/22/16 09:00 01/21/17 08:59 Future hold 01/02/17 08:45 5,000 UNIT Acetaminophen (Tylenol Tab) 650 mg Q4H PRN PO 12/22/16 06:15 01/21/17 06:14 Al Hydrox/Mg Hydrox/Simethicone (Maalox Max Susp) 15 ml Q4H PRN PO 12/22/16 06:15 01/21/17 06:14 Magnesium Hydroxide (Milk Of Magnesia Susp) 30 ml Q12H PRN PO 12/22/16 06:15 01/21/17 06:14 12/26/16 11:09 30 ML Ondansetron HCl (Zofran Inj) 4 mg Q6H PRN IV 12/22/16 06:15 01/21/17 06:14 Polyethylene (Miralax Powder Packet) 17 gm DAILY PRN PO 12/22/16 06:15 01/21/17 06:14 12/25/16 17:03 17 GM Oxycodone HCl (Roxicodone Immediate Rel Tab) 10 mg Q4H PRN PO 12/22/16 06:15 01/05/17 06:14 12/27/16 20:59 10 MG Hydromorphone HCl (Dilaudid Inj) 0.5 mg Q20M PRN IV 12/22/16 06:15 01/05/17 06:14 12/25/16 11:17 0.5 MG Naloxone HCl (Narcan Inj) 0.1 mg PRN PRN IV 12/22/16 06:15 01/21/17 06:14 Senna/Docusate Sodium (Senokot S Tab) 2 tab HS PO 12/22/16 21:00 01/21/17 20:59 12/30/16 22:55 2 TAB Bisacodyl (Dulcolax Supp) 10 mg DAILY PRN [place] 12/22/16 06:15 01/21/17 06:14 Sodium Biphosphate/ Sodium Phosphate (Fleet Enema) 132 ml PRN PRN [place] 12/22/16 06:15 Atorvastatin Calcium (Lipitor Tab) 40 mg QAM PO 12/22/16 09:00 01/21/17 08:59 01/02/17 08:34 40 MG Carvedilol (Coreg Tab) 12.5 mg BID PO 12/22/16 09:00 01/21/17 08:59 01/02/17 08:34 12.5 MG Clonazepam (Klonopin Tab) 0.5 mg BID PO 12/22/16 09:00 01/21/17 08:59 01/02/17 08:35 0.5 MG Dicyclomine HCl (Bentyl Tab) 20 mg BID PRN PO 12/22/16 06:15 01/21/17 06:14 01/01/17 08:39 20 MG Quetiapine Fumarate (seroQUEL XR TAB) 800 mg HS PO 12/22/16 21:00 01/21/17 20:59 01/01/17 21:55 800 MG Terazosin HCl (Hytrin Cap) 1 mg HS PO 12/22/16 21:00 01/21/17 20:59 01/01/17 21:46 1 MG Topiramate (Topamax Tab) 200 mg AMHS PO 12/22/16 09:00 01/21/17 08:59 01/02/17 08:31 200 MG Lubiprostone (Amitiza) 24 mcg BID PO 12/22/16 09:00 01/21/17 08:59 01/02/17 08:34 24 MCG Pantoprazole Sodium (Protonix Tab) 40 mg QAM PO 12/22/16 09:00 01/21/17 08:59 01/02/17 08:32 40 MG Aspirin (Ecotrin Tab) 81 mg QAM PO 12/25/16 09:00 01/24/17 08:59 01/02/17 08:34 81 MG Clopidogrel Bisulfate (plAVix TAB) 75 mg QAM PO 12/25/16 09:00 01/24/17 08:59 01/02/17 08:34 75 MG Pancrelipase (Creon [id number] Unit) 1 AC PO 12/24/16 16:15 01/23/17 16:14 01/02/17 11:52 1 Mirtazapine (Remeron Tab) 15 mg Taper HS PO 12/28/16 21:00 04/10/17 20:59 01/01/17 21:55 15 MG Non-Formulary Medication (Non-Formulary Patient'S Own Med) 0.25 ea Taper HS PO 12/28/16 21:00 01/05/17 20:59 01/01/17 21:46 0.25 EA Carbamazepine (Tegretol Tab) 200 mg QID PO 12/29/16 09:00 01/28/17 08:59 01/02/17 11:53 200 MG Enteral Nutritional Formula (Boost) 1 can TIDM PO 12/29/16 18:00 01/28/17 17:59 01/02/17 07:50 1 CAN Quetiapine Fumarate (seroQUEL TAB) 25 mg TID@0900,1300,1700 PO 01/01/17 09:00 01/31/17 08:59 01/02/17 11:53 25 MG Potassium Chloride 10 meq/ Prmx 100 ml @ 100 mls/hr Q1H IV 01/02/17 11:30 01/02/17 15:29 01/02/17 12:53 100 MLS/HR Potassium Chloride (Klor-Con Tab) 40 meq TID PO 01/02/17 14:00 01/31/17 08:59 Objective Vital Signs Date Time Temp Pulse Resp B/P (MAP) Pulse Ox O2 Delivery O2 Flow Rate FiO2 01/02/17 07:35 36.8 88 18 118/69 (85) 98 Room Air 01/02/17 07:10 Room Air 01/01/17 23:45 37.2 80 16 147/68 (94) 99 Room Air 01/01/17 21:35 82 149/79 (102) 01/01/17 19:30 Room Air 01/01/17 16:20 Room Air 01/01/17 14:51 36.6 77 16 143/80 (101) 100 Room Air Physical Exam General Appearance: no apparent distress, + thin Respiratory/Chest: chest non-tender, lungs clear, normal breath sounds, no respiratory distress, no accessory muscle use Cardiovascular: regular rate, rhythm, no edema, no murmur Extremities: normal inspection, no pedal edema Neurologic/Psychiatric: + motor weakness (mild, chronic psychomotor slowing) Laboratory Results Last 24 Hours Test 01/01/17 15:52 01/02/17 06:22 Sodium Level 143 mmol/L 142 mmol/L Potassium Level 3.8 mmol/L 3.1 mmol/L Chloride Level 111 mmol/L 113 mmol/L Carbon Dioxide Level 23 mmol/L 20 mmol/L Anion Gap 9.0 mmol/L 9.0 mmol/L Blood Urea Nitrogen 7 mg/dl 7 mg/dl Creatinine 0.63 mg/dl 0.40 mg/dl Est Creatinine Clear Calc Drug Dose 105.1 ml/min 165.5 ml/min Estimated GFR () 121.6 146.5 Estimated GFR (Non- 104.9 126.4 BUN/Creatinine Ratio 11.3 16.6 Random Glucose 122 mg/dl 77 mg/dl Calcium Level 8.1 mg/dl 8.3 mg/dl Assessment and Plan This is a chronically ill 61 year old male with a complex past medical history, including hx. of CVA of the middle cerebral artery, hx. 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, mood disorder/depression/anxiety, tobacco use disorder, unintentional weight loss presents with a syncopal episode Left Hip Fracture 01/02 stable 12/31 doing well stable for d/c in terms of fracture to [facility] 12/30 s/p left trochanteric nail PT/OT; d/c to rehab when stable 12/29 s/p left hip nail PT/OT d/c to rehab when stable; in 1-2 days X-ray seems to suggest a left hip fracture clinically significant pain at that side with painful ROM complex medical history; will consult anesthesia obtain an updated echo orthopedic consultation placed Dilaudid and oxycodone PRN Acute Blood Loss Anemia s/p two units PRBCs H/H stable Hypokalemia 01/02 K fluctuating, likely GI loss K = 3.1 this morning PO K increased, supplementing via IV K as well recheck BMP at 6PM and tomorrow morning 12/31 K improving to 3.0 will need to replete again KUB ordered yesterday, showed some gaseous distention +diarrhea this morning appreciate nephrology input 12/30 appreciate nephro input possible GI loss replete aggressively, recheck in AM encourage PO intake, boost protein shakes TID with meals 12/29 possibly related to decreased PO intake boost TID with meals printed circuit boards contact printer consulted urinary studies pending replete K and recheck in AM Syncopal Episode 12/30 appreciate neuro input will d/c back on Tegretol taper Topiramate as outlined by neurology 12/29 very weak and lethargic appreciate neuro input Brain MRI pending; hx. of CVA carbamazepine restarted taper topiramate as per neuro unsure of the cause of his syncopal episode: possible polypharmacy hx includes seizures and hx. of CVA No residual motor dysfunction besides left LE, no sensory deficits No post-ictal state monitor in tele update echo IVFs may need adjustment of his medications Unintentional Weight Loss in the setting of Tobacco use Disorder concerning for malignancy with tobacco use disorder, should obtain chest CT as outpatient elevated alk phos is also concerning when he is eating, will need ensure TID with meals Hx. of CVA middle cerebral artery follows with Dr. Silva hold aspirin, Plavix for now for possible surgery continue statin repeat Brain MRI pending Hx. of CAD no complaint of chest pain, clinically stable continue b-bella, statin, hold aspirin Seizure Disorder cont anticonvulsants DVT ppx SCDs FULL CODE
[2017-01-02] MEDS: POTASSIUM CHLORIDE 20 MEQ TABCR PO SCH ×2 (13:57→20:39)
[2017-01-02 14:54] VITALS: BP 153/70; PULSE 80; TEMP 36.9; O2SAT 99
[2017-01-02 18:34] LABS: BUN/CREATININE RATIO 12.6 (10-20); CALCIUM 7.9 mg/dl (8.5-10.1); CREATININE 0.66 mg/dl (0.60-1.40)
[2017-01-02] MEDS: DOCUSATE SODIUM/SENNA 50/8.6MG TAB PO SCH (20:37)
[2017-01-02] MEDS: QUETIAPINE FUMARATE 200 MG TABCR PO SCH (20:37)
[2017-01-02] MEDS: MIRTAZAPINE TAB 15 MG TAB PO SCH (20:39)
[2017-01-02] MEDS: VIIBRYD 40 MG PO SCH (20:40)
[2017-01-02 20:42] VITALS: BP 137/70; PULSE 105
[2017-01-02 23:05] VITALS: BP 123/65; PULSE 99; TEMP 36.7; O2SAT 98
[2017-01-03 06:35] LABS: HEMATOCRIT 33.5 % (42-52); MEAN CELL VOLUME 87.5 fL (80-100); MEAN CORPUSCULAR HGB CONC 33.1 g/dl (32-36); MEAN PLATELET VOLUME 9.2 fL (7.4-10.4); PLATELET COUNT 330 K/uL (130-400); RED BLOOD COUNT 3.83 M/uL (4.7-6.1); WHITE BLOOD COUNT 8.29 K/uL (4.8-10.8)
[2017-01-03 07:03] VITALS: BP 158/73; PULSE 86; TEMP 36.6; O2SAT 99
[2017-01-03 07:07] LABS: BUN/CREATININE RATIO 10.5 (10-20); CALCIUM 8.2 mg/dl (8.5-10.1); CREATININE 0.58 mg/dl (0.60-1.40); POTASSIUM 3.8 mmol/L (3.5-5.1)
[2017-01-03] MEDS: BOOST VANILLA PO SCH ×6 (08:46→18:21)
[2017-01-03] MEDS: PANCRELIPASE PO SCH ×3 (08:46→18:21)
[2017-01-03] MEDS: CLONAZEPAM 0.5 MG TAB PO SCH ×2 (08:47→21:09)
[2017-01-03] MEDS: ASPIRIN 81 MG ECTAB PO SCH (08:49)
[2017-01-03] MEDS: CLOPIDOGREL BISULFATE 75 MG TAB PO SCH (08:49)
[2017-01-03] MEDS: LUBIPROSTONE 8 MCG CAP PO SCH ×2 (08:50→21:01)
[2017-01-03] MEDS: CARVEDILOL 12.5 MG TAB PO SCH ×2 (08:56→21:04)
[2017-01-03] MEDS: ATORVASTATIN 40 MG TAB PO SCH (08:57)
[2017-01-03] MEDS: POTASSIUM CHLORIDE 20 MEQ TABCR PO SCH ×3 (08:57→21:01)
[2017-01-03] MEDS: PANTOprazole SOD 40 MG TAB PO SCH (08:58)
[2017-01-03] MEDS: QUETIAPINE FUMARATE 25 MG TAB PO SCH ×3 (08:58→15:59)
[2017-01-03] MEDS: CARBAMAZEPINE 200 MG TAB PO SCH ×4 (08:59→21:03)
[2017-01-03] MEDS: TOPIRAMATE 100 MG TAB PO SCH ×2 (08:59→20:59)
[2017-01-03] MEDS: HEPARIN SOD 5000 UNIT/0.5 ML CARP SQ SCH ×2 (09:04→21:08)
[2017-01-03 09:12] VITALS: BP 153/77; PULSE 86; O2SAT 99
--- NOTE | 2017-01-03 09:30 | Progress Note ---
Subjective Date of Service: Jan 03, 2017. Subjective Pt evaluation today including: conversation w/ patient, physical exam, lab review, review of studies, review of inpatient medication list Saw/examined the patient in room 382 Doing well today, seated in a chair, eating breakfast No pain, eager to go home Denies any other symptoms at this time Problem List Medical Problems: (1) Altered mental status Status: Acute (2) Fall at home Status: Acute (3) Falling Status: Acute (4) Hip fracture, left Status: Acute (5) Slurred speech Status: Acute (6) Vomiting Status: Acute Review of Systems Constitutional: No fever, No chills Respiratory: No cough, No sputum, No shortness of breath Cardiac: No chest pain, No edema, No palpitations Abdomen: No pain, No nausea, No vomiting, No diarrhea Musculoskeletal: + joint pain (controlled with medications) Heme: No abnormal bleeding/bruising Medications Current Inpatient Medications Medications (Trade) Dose Ordered Sig/Pedro Route Start Time Stop Time Status Last Admin Dose Admin Heparin Sodium (Porcine) (Heparin Sq 5000 Unit/0.5ml) 5,000 unit Q12 SQ 12/22/16 09:00 01/21/17 08:59 Future hold 01/03/17 09:04 5,000 UNIT Acetaminophen (Tylenol Tab) 650 mg Q4H PRN PO 12/22/16 06:15 01/21/17 06:14 Al Hydrox/Mg Hydrox/Simethicone (Maalox Max Susp) 15 ml Q4H PRN PO 12/22/16 06:15 01/21/17 06:14 Magnesium Hydroxide (Milk Of Magnesia Susp) 30 ml Q12H PRN PO 12/22/16 06:15 01/21/17 06:14 12/26/16 11:09 30 ML Ondansetron HCl (Zofran Inj) 4 mg Q6H PRN IV 12/22/16 06:15 01/21/17 06:14 Polyethylene (Miralax Powder Packet) 17 gm DAILY PRN PO 12/22/16 06:15 01/21/17 06:14 12/25/16 17:03 17 GM Oxycodone HCl (Roxicodone Immediate Rel Tab) 10 mg Q4H PRN PO 12/22/16 06:15 01/05/17 06:14 12/27/16 20:59 10 MG Hydromorphone HCl (Dilaudid Inj) 0.5 mg Q20M PRN IV 12/22/16 06:15 01/05/17 06:14 12/25/16 11:17 0.5 MG Naloxone HCl (Narcan Inj) 0.1 mg PRN PRN IV 12/22/16 06:15 01/21/17 06:14 Senna/Docusate Sodium (Senokot S Tab) 2 tab HS PO 12/22/16 21:00 01/21/17 20:59 01/02/17 20:37 2 TAB Bisacodyl (Dulcolax Supp) 10 mg DAILY PRN [place] 12/22/16 06:15 01/21/17 06:14 Sodium Biphosphate/ Sodium Phosphate (Fleet Enema) 132 ml PRN PRN [place] 12/22/16 06:15 Atorvastatin Calcium (Lipitor Tab) 40 mg QAM PO 12/22/16 09:00 01/21/17 08:59 01/03/17 08:57 40 MG Carvedilol (Coreg Tab) 12.5 mg BID PO 12/22/16 09:00 01/21/17 08:59 01/03/17 08:56 12.5 MG Clonazepam (Klonopin Tab) 0.5 mg BID PO 12/22/16 09:00 01/21/17 08:59 01/03/17 08:47 0.5 MG Dicyclomine HCl (Bentyl Tab) 20 mg BID PRN PO 12/22/16 06:15 01/21/17 06:14 01/01/17 08:39 20 MG Quetiapine Fumarate (seroQUEL XR TAB) 800 mg HS PO 12/22/16 21:00 01/21/17 20:59 01/02/17 20:37 800 MG Terazosin HCl (Hytrin Cap) 1 mg HS PO 12/22/16 21:00 01/21/17 20:59 01/02/17 20:38 1 MG Topiramate (Topamax Tab) 200 mg AMHS PO 12/22/16 09:00 01/21/17 08:59 01/03/17 08:59 200 MG Lubiprostone (Amitiza) 24 mcg BID PO 12/22/16 09:00 01/21/17 08:59 01/03/17 08:50 24 MCG Pantoprazole Sodium (Protonix Tab) 40 mg QAM PO 12/22/16 09:00 01/21/17 08:59 01/03/17 08:58 40 MG Aspirin (Ecotrin Tab) 81 mg QAM PO 12/25/16 09:00 01/24/17 08:59 01/03/17 08:49 81 MG Clopidogrel Bisulfate (plAVix TAB) 75 mg QAM PO 12/25/16 09:00 01/24/17 08:59 01/03/17 08:49 75 MG Pancrelipase (Creon 07531 Unit) 1 AC PO 12/24/16 16:15 01/23/17 16:14 01/03/17 08:46 1 Mirtazapine (Remeron Tab) 15 mg Taper HS PO 12/28/16 21:00 04/10/17 20:59 01/02/17 20:39 15 MG Non-Formulary Medication (Non-Formulary Patient'S Own Med) 0.25 ea Taper HS PO 12/28/16 21:00 01/05/17 20:59 01/02/17 20:40 0.25 EA Carbamazepine (Tegretol Tab) 200 mg QID PO 12/29/16 09:00 01/28/17 08:59 01/03/17 08:59 200 MG Enteral Nutritional Formula (Boost) 1 can TIDM PO 12/29/16 18:00 01/28/17 17:59 01/03/17 08:46 1 CAN Quetiapine Fumarate (seroQUEL TAB) 25 mg TID@0900,1300,1700 PO 01/01/17 09:00 01/31/17 08:59 01/03/17 08:58 25 MG Potassium Chloride (Klor-Con Tab) 40 meq TID PO 01/02/17 14:00 01/31/17 08:59 01/03/17 08:57 40 MEQ Objective Vital Signs Date Time Temp Pulse Resp B/P (MAP) Pulse Ox O2 Delivery O2 Flow Rate FiO2 01/03/17 07:03 36.6 86 15 158/73 (101) 99 Room Air 01/03/17 00:25 Room Air 01/02/17 23:05 36.7 99 18 123/65 (84) 98 Room Air 01/02/17 20:42 105 137/70 (92) 01/02/17 15:30 Room Air 01/02/17 14:54 36.9 80 18 153/70 (97) 99 Room Air Physical Exam General Appearance: no apparent distress, + cachetic, + thin Respiratory/Chest: lungs clear, normal breath sounds, no respiratory distress, no accessory muscle use Cardiovascular: regular rate, rhythm, no edema, no murmur Extremities: normal inspection, no pedal edema Neurologic/Psychiatric: alert, normal mood/affect, + motor weakness (some psychomotor slowing, chronic) Laboratory Results Last 24 Hours Test 01/02/17 18:10 01/03/17 05:55 Sodium Level 143 mmol/L 145 mmol/L Potassium Level 4.0 mmol/L 3.8 mmol/L Chloride Level 112 mmol/L 114 mmol/L Carbon Dioxide Level 23 mmol/L 23 mmol/L Anion Gap 8.0 mmol/L 8.0 mmol/L Blood Urea Nitrogen 8 mg/dl 6 mg/dl Creatinine 0.66 mg/dl 0.58 mg/dl Est Creatinine Clear Calc Drug Dose 100.3 ml/min 114.1 ml/min Estimated GFR () 119.3 125.8 Estimated GFR (Non- 102.9 108.5 BUN/Creatinine Ratio 12.6 10.5 Random Glucose 103 mg/dl 87 mg/dl Calcium Level 7.9 mg/dl 8.2 mg/dl White Blood Count 8.29 K/uL Red Blood Count 3.83 M/uL Hemoglobin 11.1 g/dL Hematocrit 33.5 % Mean Corpuscular Volume 87.5 fL Mean Corpuscular Hemoglobin 29.0 pg Mean Corpuscular Hemoglobin Concent 33.1 g/dl RDW Standard Deviation 56.9 fL RDW Coefficient of Variation 17.9 % Platelet Count 330 K/uL Mean Platelet Volume 9.2 fL Assessment and Plan This is a chronically ill 61 year old male with a complex past medical history, including hx. of CVA of the middle cerebral artery, hx. 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, mood disorder/depression/anxiety, tobacco use disorder, unintentional weight loss presents with a syncopal episode Hypokalemia 01/03 K = 3.8 today he is now on Klor-con 40 mEq TID, which we will continue as outpatient d/c to [facility] if okay with nephrology 01/02 K fluctuating, likely GI loss K = 3.1 this morning PO K increased, supplementing via IV K as well recheck BMP at 6PM and tomorrow morning 12/31 K improving to 3.0 will need to replete again KUB ordered yesterday, showed some gaseous distention +diarrhea this morning appreciate nephrology input 12/30 appreciate nephro input possible GI loss replete aggressively, recheck in AM encourage PO intake, boost protein shakes TID with meals 12/29 possibly related to decreased PO intake boost TID with meals licensed occupational therapy assistant consulted urinary studies pending replete K and recheck in AM Left Hip Fracture 01/02 stable 12/31 doing well stable for d/c in terms of fracture to [facility] 12/30 s/p left trochanteric nail PT/OT; d/c to rehab when stable 12/29 s/p left hip nail PT/OT d/c to rehab when stable; in 1-2 days X-ray seems to suggest a left hip fracture clinically significant pain at that side with painful ROM complex medical history; will consult anesthesia obtain an updated echo orthopedic consultation placed Dilaudid and oxycodone PRN Acute Blood Loss Anemia s/p two units PRBCs H/H stable Syncopal Episode 12/30 appreciate neuro input will d/c back on Tegretol taper Topiramate as outlined by neurology 12/29 very weak and lethargic appreciate neuro input Brain MRI pending; hx. of CVA carbamazepine restarted taper topiramate as per neuro unsure of the cause of his syncopal episode: possible polypharmacy hx includes seizures and hx. of CVA No residual motor dysfunction besides left LE, no sensory deficits No post-ictal state monitor in tele update echo IVFs may need adjustment of his medications Unintentional Weight Loss in the setting of Tobacco use Disorder concerning for malignancy with tobacco use disorder, should obtain chest CT as outpatient elevated alk phos is also concerning when he is eating, will need ensure TID with meals Hx. of CVA middle cerebral artery follows with Dr. Silva hold aspirin, Plavix for now for possible surgery continue statin repeat Brain MRI pending Hx. of CAD no complaint of chest pain, clinically stable continue b-bella, statin, hold aspirin Seizure Disorder cont anticonvulsants DVT ppx SCDs FULL CODE
[2017-01-03] MEDS ORDERED: TOPI100T45 PO (13:15)
[2017-01-03] MEDS ORDERED: MCRK20 PO (13:15)
--- NOTE | 2017-01-03 15:11 | Nephrology Progress Note ---
Nephrology Progress Note Date of Service: Jan 03, 2017. Subjective 61 yo male with hip fracture s/p pinning with recent colon surgery and has dilated loops of bowel. has had chronic hypokalemia since the colon surgery. pt doing better. potassium this morning was stable. currently on 40mg of kdur three times a day. pt had aguilera catheter removed this morning. urinating on his own. Objective Date Time Temp Pulse Resp B/P (MAP) Pulse Ox O2 Delivery O2 Flow Rate FiO2 01/03/17 09:12 86 99 01/03/17 07:30 Room Air 01/03/17 07:03 36.6 86 15 158/73 (101) 99 Room Air 01/03/17 00:25 Room Air 01/02/17 23:05 36.7 99 18 123/65 (84) 98 Room Air 01/02/17 20:42 105 137/70 (92) 01/02/17 15:30 Room Air Physical Exam: General-aaox3, weak, cachectic Eyes-no scleral icterus ENT-mmm Neck-supple Lungs-clear Heart-regular Abdomen-bs+/tympanitic Extremities-no edema Neuro-chronic, no new focal deficits Current Inpatient Medications Medications (Trade) Dose Ordered Sig/Pedro Route Start Time Stop Time Status Last Admin Dose Admin Heparin Sodium (Porcine) (Heparin Sq 5000 Unit/0.5ml) 5,000 unit Q12 SQ 12/22/16 09:00 01/21/17 08:59 Future hold 01/03/17 09:04 5,000 UNIT Acetaminophen (Tylenol Tab) 650 mg Q4H PRN PO 12/22/16 06:15 01/21/17 06:14 Al Hydrox/Mg Hydrox/Simethicone (Maalox Max Susp) 15 ml Q4H PRN PO 12/22/16 06:15 01/21/17 06:14 Magnesium Hydroxide (Milk Of Magnesia Susp) 30 ml Q12H PRN PO 12/22/16 06:15 01/21/17 06:14 12/26/16 11:09 30 ML Ondansetron HCl (Zofran Inj) 4 mg Q6H PRN IV 12/22/16 06:15 01/21/17 06:14 Polyethylene (Miralax Powder Packet) 17 gm DAILY PRN PO 12/22/16 06:15 01/21/17 06:14 12/25/16 17:03 17 GM Oxycodone HCl (Roxicodone Immediate Rel Tab) 10 mg Q4H PRN PO 12/22/16 06:15 01/05/17 06:14 12/27/16 20:59 10 MG Hydromorphone HCl (Dilaudid Inj) 0.5 mg Q20M PRN IV 12/22/16 06:15 01/05/17 06:14 12/25/16 11:17 0.5 MG Naloxone HCl (Narcan Inj) 0.1 mg PRN PRN IV 12/22/16 06:15 01/21/17 06:14 Senna/Docusate Sodium (Senokot S Tab) 2 tab HS PO 12/22/16 21:00 01/21/17 20:59 01/02/17 20:37 2 TAB Bisacodyl (Dulcolax Supp) 10 mg DAILY PRN [place] 12/22/16 06:15 01/21/17 06:14 Sodium Biphosphate/ Sodium Phosphate (Fleet Enema) 132 ml PRN PRN [place] 12/22/16 06:15 Atorvastatin Calcium (Lipitor Tab) 40 mg QAM PO 12/22/16 09:00 01/21/17 08:59 01/03/17 08:57 40 MG Carvedilol (Coreg Tab) 12.5 mg BID PO 12/22/16 09:00 01/21/17 08:59 01/03/17 08:56 12.5 MG Clonazepam (Klonopin Tab) 0.5 mg BID PO 12/22/16 09:00 01/21/17 08:59 01/03/17 08:47 0.5 MG Dicyclomine HCl (Bentyl Tab) 20 mg BID PRN PO 12/22/16 06:15 01/21/17 06:14 01/01/17 08:39 20 MG Quetiapine Fumarate (seroQUEL XR TAB) 800 mg HS PO 12/22/16 21:00 01/21/17 20:59 01/02/17 20:37 800 MG Terazosin HCl (Hytrin Cap) 1 mg HS PO 12/22/16 21:00 01/21/17 20:59 01/02/17 20:38 1 MG Topiramate (Topamax Tab) 200 mg AMHS PO 12/22/16 09:00 01/21/17 08:59 01/03/17 08:59 200 MG Lubiprostone (Amitiza) 24 mcg BID PO 12/22/16 09:00 01/21/17 08:59 01/03/17 08:50 24 MCG Pantoprazole Sodium (Protonix Tab) 40 mg QAM PO 12/22/16 09:00 01/21/17 08:59 01/03/17 08:58 40 MG Aspirin (Ecotrin Tab) 81 mg QAM PO 12/25/16 09:00 01/24/17 08:59 01/03/17 08:49 81 MG Clopidogrel Bisulfate (plAVix TAB) 75 mg QAM PO 12/25/16 09:00 01/24/17 08:59 01/03/17 08:49 75 MG Pancrelipase (Creon 30693 Unit) 1 AC PO 12/24/16 16:15 01/23/17 16:14 01/03/17 12:39 1 Mirtazapine (Remeron Tab) 15 mg Taper HS PO 12/28/16 21:00 04/10/17 20:59 01/02/17 20:39 15 MG Non-Formulary Medication (Non-Formulary Patient'S Own Med) 0.25 ea Taper HS PO 12/28/16 21:00 01/05/17 20:59 01/02/17 20:40 0.25 EA Carbamazepine (Tegretol Tab) 200 mg QID PO 12/29/16 09:00 01/28/17 08:59 01/03/17 12:40 200 MG Enteral Nutritional Formula (Boost) 1 can TIDM PO 12/29/16 18:00 01/28/17 17:59 01/03/17 12:40 1 CAN Quetiapine Fumarate (seroQUEL TAB) 25 mg TID@0900,1300,1700 PO 01/01/17 09:00 01/31/17 08:59 01/03/17 12:39 25 MG Potassium Chloride (Klor-Con Tab) 40 meq TID PO 01/02/17 14:00 01/31/17 08:59 01/03/17 13:52 40 MEQ Last 24 Hours Test 01/02/17 18:10 01/03/17 05:55 Sodium Level 143 mmol/L 145 mmol/L Potassium Level 4.0 mmol/L 3.8 mmol/L Chloride Level 112 mmol/L 114 mmol/L Carbon Dioxide Level 23 mmol/L 23 mmol/L Anion Gap 8.0 mmol/L 8.0 mmol/L Blood Urea Nitrogen 8 mg/dl 6 mg/dl Creatinine 0.66 mg/dl 0.58 mg/dl Est Creatinine Clear Calc Drug Dose 100.3 ml/min 114.1 ml/min Estimated GFR () 119.3 125.8 Estimated GFR (Non- 102.9 108.5 BUN/Creatinine Ratio 12.6 10.5 Random Glucose 103 mg/dl 87 mg/dl Calcium Level 7.9 mg/dl 8.2 mg/dl White Blood Count 8.29 K/uL Red Blood Count 3.83 M/uL Hemoglobin 11.1 g/dL Hematocrit 33.5 % Mean Corpuscular Volume 87.5 fL Mean Corpuscular Hemoglobin 29.0 pg Mean Corpuscular Hemoglobin Concent 33.1 g/dl RDW Standard Deviation 56.9 fL RDW Coefficient of Variation 17.9 % Platelet Count 330 K/uL Mean Platelet Volume 9.2 fL Assessment & Plan hypokalemia-has chronic potassium wasting, thought to be GI in origin. on 40meq po tid and to repeat bmp again tomorrow. if k is stable on current k dose, ok from renal perspective to be discharged tomorrow. will need close follow up with frequent labs as an outpt to adjust potassium supplementation.
[2017-01-03 15:46] VITALS: BP 147/77; PULSE 85; TEMP 36.8; O2SAT 100
[2017-01-03 16:30] VITALS: O2SAT 100
[2017-01-03] MEDS: DOCUSATE SODIUM/SENNA 50/8.6MG TAB PO SCH (20:59)
[2017-01-03] MEDS: QUETIAPINE FUMARATE 200 MG TABCR PO SCH (21:00)
[2017-01-03] MEDS: MIRTAZAPINE TAB 15 MG TAB PO SCH (21:00)
[2017-01-03] MEDS: VIIBRYD 40 MG PO SCH (21:03)
[2017-01-03 23:05] VITALS: BP 128/70; PULSE 96; TEMP 37.3; O2SAT 97
[2017-01-04 07:04] LABS: BUN/CREATININE RATIO 10.6 (10-20); CREATININE 0.61 mg/dl (0.60-1.40); POTASSIUM 4.2 mmol/L (3.5-5.1)
[2017-01-04 07:17] VITALS: BP 147/78; PULSE 81; TEMP 36.6; O2SAT 99
[2017-01-04] MEDS: PANCRELIPASE PO SCH ×2 (08:20→12:37)
[2017-01-04] MEDS: LUBIPROSTONE 8 MCG CAP PO SCH (08:21)
[2017-01-04] MEDS: ASPIRIN 81 MG ECTAB PO SCH (08:21)
[2017-01-04] MEDS: ATORVASTATIN 40 MG TAB PO SCH (08:22)
[2017-01-04] MEDS: POTASSIUM CHLORIDE 20 MEQ TABCR PO SCH (08:22)
[2017-01-04] MEDS: CLOPIDOGREL BISULFATE 75 MG TAB PO SCH (08:23)
[2017-01-04] MEDS: PANTOprazole SOD 40 MG TAB PO SCH (08:23)
[2017-01-04] MEDS: QUETIAPINE FUMARATE 25 MG TAB PO SCH ×2 (08:24→12:38)
[2017-01-04] MEDS: CARBAMAZEPINE 200 MG TAB PO SCH ×2 (08:24→12:38)
[2017-01-04] MEDS: TOPIRAMATE 100 MG TAB PO SCH (08:25)
[2017-01-04 08:27] VITALS: BP 127/74; PULSE 88
[2017-01-04] MEDS: CARVEDILOL 12.5 MG TAB PO SCH (08:27)
[2017-01-04] MEDS: CLONAZEPAM 0.5 MG TAB PO SCH (08:30)
[2017-01-04] MEDS: BOOST VANILLA PO SCH ×4 (08:34→12:41)
[2017-01-04] MEDS: HEPARIN SOD 5000 UNIT/0.5 ML CARP SQ SCH (08:34)
--- NOTE | 2017-01-04 10:49 | Progress Note ---
Subjective Date of Service: Jan 04, 2017. Subjective Pt evaluation today including: conversation w/ patient, physical exam, lab review, review of studies, review of inpatient medication list Saw/examined the patient in room 382 No problems/issues to note today, he is seated in a chair; denies pain, eager to be discharged Problem List Medical Problems: (1) Altered mental status Status: Acute (2) Fall at home Status: Acute (3) Falling Status: Acute (4) Hip fracture, left Status: Acute (5) Slurred speech Status: Acute (6) Vomiting Status: Acute Review of Systems Constitutional: No fever, No chills Respiratory: No cough, No sputum, No shortness of breath Cardiac: No chest pain, No palpitations Abdomen: No pain, No nausea, No vomiting, No diarrhea Musculoskeletal: No joint pain Medications Current Inpatient Medications Medications (Trade) Dose Ordered Sig/Pedro Route Start Time Stop Time Status Last Admin Dose Admin Heparin Sodium (Porcine) (Heparin Sq 5000 Unit/0.5ml) 5,000 unit Q12 SQ 12/22/16 09:00 01/21/17 08:59 Future hold 01/04/17 08:34 5,000 UNIT Acetaminophen (Tylenol Tab) 650 mg Q4H PRN PO 12/22/16 06:15 01/21/17 06:14 Al Hydrox/Mg Hydrox/Simethicone (Maalox Max Susp) 15 ml Q4H PRN PO 12/22/16 06:15 01/21/17 06:14 Magnesium Hydroxide (Milk Of Magnesia Susp) 30 ml Q12H PRN PO 12/22/16 06:15 01/21/17 06:14 12/26/16 11:09 30 ML Ondansetron HCl (Zofran Inj) 4 mg Q6H PRN IV 12/22/16 06:15 01/21/17 06:14 Polyethylene (Miralax Powder Packet) 17 gm DAILY PRN PO 12/22/16 06:15 01/21/17 06:14 12/25/16 17:03 17 GM Oxycodone HCl (Roxicodone Immediate Rel Tab) 10 mg Q4H PRN PO 12/22/16 06:15 01/05/17 06:14 12/27/16 20:59 10 MG Hydromorphone HCl (Dilaudid Inj) 0.5 mg Q20M PRN IV 12/22/16 06:15 01/05/17 06:14 12/25/16 11:17 0.5 MG Naloxone HCl (Narcan Inj) 0.1 mg PRN PRN IV 12/22/16 06:15 01/21/17 06:14 Senna/Docusate Sodium (Senokot S Tab) 2 tab HS PO 12/22/16 21:00 01/21/17 20:59 01/03/17 20:59 2 TAB Bisacodyl (Dulcolax Supp) 10 mg DAILY PRN AK 12/22/16 06:15 01/21/17 06:14 Sodium Biphosphate/ Sodium Phosphate (Fleet Enema) 132 ml PRN PRN AK 12/22/16 06:15 Atorvastatin Calcium (Lipitor Tab) 40 mg QAM PO 12/22/16 09:00 01/21/17 08:59 01/04/17 08:22 40 MG Carvedilol (Coreg Tab) 12.5 mg BID PO 12/22/16 09:00 01/21/17 08:59 01/04/17 08:27 12.5 MG Clonazepam (Klonopin Tab) 0.5 mg BID PO 12/22/16 09:00 01/21/17 08:59 01/04/17 08:30 0.5 MG Dicyclomine HCl (Bentyl Tab) 20 mg BID PRN PO 12/22/16 06:15 01/21/17 06:14 01/01/17 08:39 20 MG Quetiapine Fumarate (seroQUEL XR TAB) 800 mg HS PO 12/22/16 21:00 01/21/17 20:59 01/03/17 21:00 800 MG Terazosin HCl (Hytrin Cap) 1 mg HS PO 12/22/16 21:00 01/21/17 20:59 01/03/17 20:59 1 MG Topiramate (Topamax Tab) 200 mg AMHS PO 12/22/16 09:00 01/21/17 08:59 01/04/17 08:25 200 MG Lubiprostone (Amitiza) 24 mcg BID PO 12/22/16 09:00 01/21/17 08:59 01/04/17 08:21 24 MCG Pantoprazole Sodium (Protonix Tab) 40 mg QAM PO 12/22/16 09:00 01/21/17 08:59 01/04/17 08:23 40 MG Aspirin (Ecotrin Tab) 81 mg QAM PO 12/25/16 09:00 01/24/17 08:59 01/04/17 08:21 81 MG Clopidogrel Bisulfate (plAVix TAB) 75 mg QAM PO 12/25/16 09:00 01/24/17 08:59 01/04/17 08:23 75 MG Pancrelipase (Creon 28444 Unit) 1 AC PO 12/24/16 16:15 01/23/17 16:14 01/04/17 08:20 1 Mirtazapine (Remeron Tab) 15 mg Taper HS PO 12/28/16 21:00 04/10/17 20:59 01/03/17 21:00 15 MG Non-Formulary Medication (Non-Formulary Patient'S Own Med) 0.25 ea Taper HS PO 12/28/16 21:00 01/05/17 20:59 01/03/17 21:03 0.25 EA Carbamazepine (Tegretol Tab) 200 mg QID PO 12/29/16 09:00 01/28/17 08:59 01/04/17 08:24 200 MG Enteral Nutritional Formula (Boost) 1 can TIDM PO 12/29/16 18:00 01/28/17 17:59 01/04/17 08:34 1 CAN Quetiapine Fumarate (seroQUEL TAB) 25 mg TID@0900,1300,1700 PO 01/01/17 09:00 01/31/17 08:59 01/04/17 08:24 25 MG Potassium Chloride (Klor-Con Tab) 40 meq TID PO 01/02/17 14:00 01/31/17 08:59 01/04/17 08:22 40 MEQ Objective Vital Signs Date Time Temp Pulse Resp B/P (MAP) Pulse Ox O2 Delivery O2 Flow Rate FiO2 01/04/17 08:27 88 127/74 (91) 01/04/17 07:17 36.6 81 16 147/78 (101) 99 Room Air 01/04/17 07:15 Room Air 01/04/17 00:25 Room Air 01/03/17 23:05 37.3 96 16 128/70 (89) 97 Room Air 01/03/17 16:30 100 Room Air 01/03/17 15:46 36.8 85 16 147/77 (100) 100 Room Air Physical Exam General Appearance: no apparent distress, + thin Respiratory/Chest: lungs clear, normal breath sounds, no respiratory distress, no accessory muscle use Cardiovascular: regular rate, rhythm, no edema, no murmur Extremities: non-tender, normal inspection, no pedal edema Laboratory Results Last 24 Hours Test 01/04/17 06:14 Sodium Level 141 mmol/L Potassium Level 4.2 mmol/L Chloride Level 111 mmol/L Carbon Dioxide Level 21 mmol/L Anion Gap 9.0 mmol/L Blood Urea Nitrogen 6 mg/dl Creatinine 0.61 mg/dl Est Creatinine Clear Calc Drug Dose 108.5 ml/min Estimated GFR () 123.2 Estimated GFR (Non- 106.3 BUN/Creatinine Ratio 10.6 Random Glucose 91 mg/dl Assessment and Plan This is a chronically ill 61 year old male with a complex past medical history, including hx. of CVA of the middle cerebral artery, hx. 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, mood disorder/depression/anxiety, tobacco use disorder, unintentional weight loss presents with a syncopal episode Hypokalemia 01/04 K = 4.2 today will switch PO potassium to 40mEq BID check K on 01/05, 01/06, and 01/07 at [facility] and adjust dose as needed 01/03 K = 3.8 today he is now on Klor-con 40 mEq TID, which we will continue as outpatient d/c to [facility] if okay with nephrology 01/02 K fluctuating, likely GI loss K = 3.1 this morning PO K increased, supplementing via IV K as well recheck BMP at 6PM and tomorrow morning 12/31 K improving to 3.0 will need to replete again KUB ordered yesterday, showed some gaseous distention +diarrhea this morning appreciate nephrology input 12/30 appreciate nephro input possible GI loss replete aggressively, recheck in AM encourage PO intake, boost protein shakes TID with meals 12/29 possibly related to decreased PO intake boost TID with meals director cardiovascular consulted urinary studies pending replete K and recheck in AM Left Hip Fracture 01/02 stable 12/31 doing well stable for d/c [facility] terms of [facility] 12/30 s/p left trochanteric nail PT/OT; d/c to rehab when stable 12/29 s/p left hip nail PT/OT d/c to rehab when stable; in 1-2 days X-ray seems to suggest a left hip fracture clinically significant pain at that side with painful ROM complex medical history; will consult anesthesia obtain an updated echo orthopedic consultation placed Dilaudid and oxycodone PRN Acute Blood Loss Anemia s/p two units PRBCs H/H stable Syncopal Episode 12/30 appreciate neuro input will d/c back on Tegretol taper Topiramate as outlined by neurology 12/29 very weak and lethargic appreciate neuro input Brain MRI pending; hx. of CVA carbamazepine restarted taper topiramate as per neuro unsure of the cause of his syncopal episode: possible polypharmacy hx includes seizures and hx. of CVA No residual motor dysfunction besides left LE, no sensory deficits No post-ictal state monitor in tele update echo IVFs may need adjustment of his medications Unintentional Weight Loss in the setting of Tobacco use Disorder concerning for malignancy with tobacco use disorder, should obtain chest CT as outpatient elevated alk phos is also concerning when he is eating, will need ensure TID with meals Hx. of CVA middle cerebral artery follows with Dr. Silva hold aspirin, Plavix for now for possible surgery continue statin repeat Brain MRI pending Hx. of CAD no complaint of chest pain, clinically stable continue b-bella, statin, hold aspirin Seizure Disorder cont anticonvulsants DVT ppx SCDs FULL CODE
[2017-01-04] MEDS ORDERED: MCRK20 PO ×2 (10:50→11:26)
--- NOTE | 2017-01-04 10:58 | Discharge Instructions ---
Discharge Instructions Date of Service Jan 04, 2017. Admission Reason for Admission: Fall At Home, Left Hip Fracture Discharge Discharge Diagnosis / Problem: Left Hip Fracture, Seizure Disorder, Hypokalemia Discharge Goals Goal(s): Decrease discomfort, Improve function, Diagnostic testing, Therapeutic intervention Activity Recommendations Activity Level: Up Ad Mariaelena, Assistance Required Therapies: Physical Therapy, Occupational Therapy Weightbearing Status: Left toe touch . Additional Information Patient informed of condition: Yes Advance Directives: No DNR: No Level of Care: Acute Rehab Communicable Disease: No Prognosis: Stable Instructions / Follow-Up Instructions / Follow-Up Patient to be discharged on Klor-Con 40mEq BID * check PRP on 01/05, 01/06, 01/07 to assure no hypo or hyperkalemia with the above dose Patient to be discharged on Topiramate 150mg for one more week * Please decrease dose to 100mg daily for two weeks, then 50mg daily for two weeks and then stop SELF CARE INSTRUCTIONS: A. You are to ambulate with a walker or crutches for approximately 6 weeks. B. You are TOE TOUCH WEIGHT BEARING on your operative lower extremity for at least 6 weeks. C. Wear low heeled shoes with non-slip soles D. Be sure that your floors are free of things that could trip you throw rugs, electrical cords, and small objects. Avoid wet and waxed floors, especially with crutches/walker/cane. E. Try to walk several times a day with rest periods between. F. You may shower 48 hours after surgery and get the incision area wet, but DO NOT soak or submerge incision area in water. (No baths, swimming pools, hot tubs ) G. You may have a large, band-aid like dressing over your incision (Aquacel). This will remain on your incision for 7 days, and then can be removed. You CAN shower with this on. If incision is leaking through the dressing, please call the office . H. Do NOT apply soap or any ointment/lotions directly over incision. I. You may use ice as needed to operative site. SPECIAL CARE INSTRUCTIONS: VERY IMPORTANT TO READ AND REVIEW A. You may be at risk for phlebitis or blood clots. a. Wear surgical stockings (YANET hose) for 2 weeks after surgery to improve circulation and reduce swelling. b. Take ASPIRIN 325 mg twice daily for 4 weeks or as directed. This is your blood thinner. c. If you are on Coumadin- you will have daily/weekly blood work to monitor your levels. This will be done by either your family physician/ deputy sheriff k9 handler (if you are on Coumadin chronically) versus your orthopedic surgeon. Expect a phone call the day of or the day after your blood work is drawn to adjust your dose accordingly. B. There are a few signs you need to watch for after you are home. Call [facility] at [phone] if you experience any of the following: a. If you have a temperature of 101 degrees or higher. b. Sudden increase in pain in your hip not relieved by rest or pain medication. c. Any fluid or drainage from the incision; redness of the incision. d. Shortness of breath or chest pain. B. Please call [facility] at [phone] if you have any questions or concerns about your operation or recovery. C. Call your physician if: a. Temperature is greater than 101 degrees (F). b. Pain is not relieved by prescribed pain medications. c. Increase drainage or redness from incision. d. Unanswered questions or concerns. D. Pain Medication: a. You will be prescribed pain medication upon discharge that should last till your first post-operative appointment. b. If you experience nausea and/or skin rash, discontinue this medication and contact our office for an alternative medication. c. Caution- narcotic pain medication can cause constipation. FOLLOW UP VISIT: Please call [facility] at [phone] to schedule a follow up appointment 10-14 days from the date of your surgery date. Current Hospital Diet Patient's current hospital diet: Regular Diet Discharge Diet Recommended Diet: Regular Diet Procedures Procedures Performed: Closed reduction, intermedulary nailing of left hip fracture Pending Studies Studies pending at discharge: no Medical Emergencies . Who to Call and When: Medical Emergencies: If at any time you feel your situation is an emergency, please call 911 immediately. . Non-Emergent Contact Non-Emergency issues call your: Primary Care Provider, Surgeon . . "Provider Documentation" section prepared by Travis Motnes. . Onshore Diver Recommendations Onshore Diver Recommendations: ID Consult Dictated # [id number] A/P: 1. UTI -continue dapto pending final culture results, will need 3 days total -thank you Orthopedics S/P Left intertrochanteric nail UOC DISCHARGE INSTRUCTIONS: HIP FRACTURE SELF CARE INSTRUCTIONS: A. You are to ambulate with a walker or crutches for approximately 6 weeks. B. You are TOE TOUCH WEIGHT BEARING on your operative lower extremity for at least 6 weeks. C. Wear low heeled shoes with non-slip soles D. Be sure that your floors are free of things that could trip you throw rugs, electrical cords, and small objects. Avoid wet and waxed floors, especially with crutches/walker/cane. E. Try to walk several times a day with rest periods between. F. You may shower 48 hours after surgery and get the incision area wet, but DO NOT soak or submerge incision area in water. (No baths, swimming pools, hot tubs ) G. You may have a large, band-aid like dressing over your incision (Aquacel). This will remain on your incision for 7 days, and then can be removed. You CAN shower with this on. If incision is leaking through the dressing, please call the office . H. Do NOT apply soap or any ointment/lotions directly over incision. I. You may use ice as needed to operative site. SPECIAL CARE INSTRUCTIONS: VERY IMPORTANT TO READ AND REVIEW A. You may be at risk for phlebitis or blood clots. a. Wear surgical stockings (YANET hose) for 2 weeks after surgery to improve circulation and reduce swelling. b. Take ASPIRIN 325 mg twice daily for 4 weeks or as directed. This is your blood thinner. c. If you are on Coumadin- you will have daily/weekly blood work to monitor your levels. This will be done by either your family physician/ deputy sheriff k9 handler (if you are on Coumadin chronically) versus your orthopedic surgeon. Expect a phone call the day of or the day after your blood work is drawn to adjust your dose accordingly. B. There are a few signs you need to watch for after you are home. Call [facility] at [phone] if you experience any of the following: a. If you have a temperature of 101 degrees or higher. b. Sudden increase in pain in your hip not relieved by rest or pain medication. c. Any fluid or drainage from the incision; redness of the incision. d. Shortness of breath or chest pain. B. Please call [facility] at [phone] if you have any questions or concerns about your operation or recovery. C. Call your physician if: a. Temperature is greater than 101 degrees (F). b. Pain is not relieved by prescribed pain medications. c. Increase drainage or redness from incision. d. Unanswered questions or concerns. D. Pain Medication: a. You will be prescribed pain medication upon discharge that should last till your first post-operative appointment. b. If you experience nausea and/or skin rash, discontinue this medication and contact our office for an alternative medication. c. Caution- narcotic pain medication can cause constipation. FOLLOW UP VISIT: Please call [facility] at [phone] to schedule a follow up appointment 10-14 days from the date of your surgery date. Core Measure Problem Core Measures: None
--- NOTE | 2017-01-04 11:01 | Discharge Summary ---
Discharge Summary Date of Service Jan 04, 2017. Discharge Summary Admission Date: Dec 22, 2016 at 06:29 Discharge Date: Jan 03, 2017 Discharge Disposition: Rehab Principal Diagnosis: Left Hip Fracture, Seizure Disorder, Hypokalemia Medication Reconciliation New Medications: Potassium Chloride (Klor-Con M20) 20 Meq Tabcr 40 MEQ PO BID for 30 Days, #120 TABS Changed Medications: Topiramate (Topamax) 100 Mg Tab 1.5 TAB PO DAILY for 7 Days, #11 TAB 1 Refill (Changed from: Topiramate (Topamax ) 200 Mg Tab 200 Mg PO AMHS) Continued Medications: Ascorbic Acid (Ascorbic Acid) 500 Mg Tab 500 MG PO DAILY, TAB Aspirin (Aspirin Ec) 81 Mg Tab 81 MG PO DAILY Atorvastatin (Lipitor) 40 Mg Tab 40 MG PO QAM Calcium Carbonate (Calcium 600) 600 Mg Tab 600 MG PO QAM Carbamazepine Extended Release (Tegretol Xr) 400 Mg Tabcr 400 MG PO AMPM, TAB Carvedilol (Coreg) 12.5 Mg Tab 12.5 MG PO AMHS Cholecalciferol (Vitamin D3) 1,000 Unit Tab 1000 MG PO DAILY Clonazepam (Klonopin) 0.5 Mg Tab 0.5 MG PO AMHS TAKE AT 8AM & 10PM Clopidogrel Bisulfate (Clopidogrel) 75 Mg Tab 75 MG PO DAILY Cyanocobalamin (Vitamin B-12) 1,000 Mcg Tab 1000 MCG PO DAILY, TAB Dicyclomine Hcl (Bentyl) 20 Mg Tab 20 MG PO BID PRN for ABDOMINAL CRAMPING, TAB Fluticasone Propionate (Nasal) (Flonase Allergy Relief) 50 Mcg/Act Spr 1 SPRAY XIMENA DAILY Lorazepam (Ativan) 2 Mg Tab 2 MG UNKNOWN UD PRN for seizures Lubiprostone (Amitiza) 24 Mcg Cap 24 MCG PO BID, CAP Multiple Vitamins W/ Minerals (One Daily Mens) 1 Tab Tab 1 TABLET PO DAILY Olopatadine Hcl (Patanol 0.1% Oph) 0.1 % Carolyn 1 DROP OP BID, BTL Omeprazole (Prilosec) 40 Mg Cap 40 MG PO QAM, CAP Pancrelipase (Lipase-Protease- (Creon) 1 Cap Cap 79903 MG PO WM Quetiapine Fumarate (Seroquel) 25 Mg Tab 25 MG PO TID, TAB Quetiapine Fumarate Xr (Seroquel Xr Tab) 400 Mg Tabcr 800 MG PO HS, TAB Terazosin Hcl (Hytrin) 1 Mg Cap 1 MG PO HS, CAP Vilazodone Hcl (Viibryd) 40 Mg Tab 40 MG PO QPM Admission Information HPI (per Admitting provider): This is a chronically ill 61 year old male with a complex past medical history, including hx. of CVA of the middle cerebral artery, hx. 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, mood disorder/depression/anxiety, tobacco use disorder, unintentional weight loss presents with a syncopal episode , transient loss of consciousness. States that he does not recall the fall itself, but regained consciousness shortly after he fell. Denies urinary/bowel incontinence; no tongue biting. heard the fall - and was by his side very shortly afterwards; states that his main complaint was left hip pain. No post-ictal state; no recent illness; no recent change in medications. No chest pain/shortness of breath/palpitations/ edema. states that he has very poor appetite at home and has had significant weight loss, unintentionally. He continues to smoke and is not yet ready to quit. Physical Exam (per Admitting): General Appearance: + moderate distress (secondary to pain), + cachetic, + thin, + pertinent finding (thin, ill appearing, cachectic; moderate distress secondary to pain) Head: normocephalic, atraumatic Eyes: normal inspection ENT: hearing grossly normal Respiratory/Chest: chest non-tender, lungs clear, no respiratory distress, no accessory muscle use, + decreased breath sounds Cardiovascular: no edema, no murmur, + tachycardia Abdomen/GI: normal bowel sounds, non tender, soft Back: normal inspection Extremities/Musculoskelatal: + pertinent finding (left leg is externally rotated, no movement secondary to pain, point tenderness) Neurologic/Psych: sheet heater II-XII nml as tested, no motor/sensory deficits, alert , normal mood/affect, oriented x 3 Skin: normal color Lymphatic: no adenopathy Hospital Course This is a chronically ill 61 year old male with a complex past medical history, including hx. of CVA of the middle cerebral artery, hx. 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, mood disorder/depression/anxiety, tobacco use disorder, unintentional weight loss presents with a syncopal episode Hypokalemia 6/27 K = 4.2 today will switch PO potassium to 40mEq BID check K on 01/05, 01/06, and 01/07 at [facility] and adjust dose as needed 01/03 K = 3.8 today he is now on Klor-con 40 mEq TID, which we will continue as outpatient d/c to [facility] if okay with nephrology 01/02 K fluctuating, likely GI loss K = 3.1 this morning PO K increased, supplementing via IV K as well recheck BMP at 6PM and tomorrow morning 12/31 K improving to 3.0 will need to replete again KUB ordered yesterday, showed some gaseous distention +diarrhea this morning appreciate nephrology input 12/30 appreciate nephro input possible GI loss replete aggressively, recheck in AM encourage PO intake, boost protein shakes TID with meals 12/29 possibly related to decreased PO intake 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 pending replete K and recheck in AM Left Hip Fracture 01/02 stable 12/31 doing well stable for d/c in terms of fracture to [facility] 12/30 s/p left trochanteric nail PT/OT; d/c to rehab when stable 12/29 s/p left hip nail PT/OT d/c to rehab when stable; in 1-2 days X-ray seems to suggest a left hip fracture clinically significant pain at that side with painful ROM complex medical history; will consult anesthesia obtain an updated echo orthopedic consultation placed Dilaudid and oxycodone PRN Acute Blood Loss Anemia s/p two units PRBCs H/H stable Syncopal Episode 12/30 appreciate neuro input will d/c back on Tegretol taper Topiramate as outlined by neurology 12/29 very weak and lethargic appreciate neuro input Brain MRI pending; hx. of CVA carbamazepine restarted taper topiramate as per neuro unsure of the cause of his syncopal episode: possible polypharmacy hx includes seizures and hx. of CVA No residual motor dysfunction besides left LE, no sensory deficits No post-ictal state monitor in tele update echo IVFs may need adjustment of his medications Unintentional Weight Loss in the setting of Tobacco use Disorder concerning for malignancy with tobacco use disorder, should obtain chest CT as outpatient elevated alk phos is also concerning when he is eating, will need ensure TID with meals Hx. of CVA middle cerebral artery follows with Dr. Silva hold aspirin, Plavix for now for possible surgery continue statin repeat Brain MRI pending Hx. of CAD no complaint of chest pain, clinically stable continue b-bella, statin, hold aspirin Seizure Disorder cont anticonvulsants DVT ppx SCDs FULL CODE Total time spent on discharge = 45 minutes This includes examination of the patient, discharge planning, medication reconciliation, and communication with other providers. Discharge Instructions Patient to be discharged on Klor-Con 40mEq BID * check PRP on 01/05, 01/06, 01/07 to assure no hypo or hyperkalemia with the above dose Patient to be discharged on Topiramate 150mg for one more week * Please decrease dose to 100mg daily for two weeks, then 50mg daily for two weeks and then stop SELF CARE INSTRUCTIONS: A. You are to ambulate with a walker or crutches for approximately 6 weeks. B. You are TOE TOUCH WEIGHT BEARING on your operative lower extremity for at least 6 weeks. C. Wear low heeled shoes with non-slip soles D. Be sure that your floors are free of things that could trip you throw rugs, electrical cords, and small objects. Avoid wet and waxed floors, especially with crutches/walker/cane. E. Try to walk several times a day with rest periods between. F. You may shower 48 hours after surgery and get the incision area wet, but DO NOT soak or submerge incision area in water. (No baths, swimming pools, hot tubs ) G. You may have a large, band-aid like dressing over your incision (Aquacel). This will remain on your incision for 7 days, and then can be removed. You CAN shower with this on. If incision is leaking through the dressing, please call the office . H. Do NOT apply soap or any ointment/lotions directly over incision. I. You may use ice as needed to operative site. SPECIAL CARE INSTRUCTIONS: VERY IMPORTANT TO READ AND REVIEW A. You may be at risk for phlebitis or blood clots. a. Wear surgical stockings (YANET hose) for 2 weeks after surgery to improve circulation and reduce swelling. b. Take ASPIRIN 325 mg twice daily for 4 weeks or as directed. This is your blood thinner. c. If you are on Coumadin- you will have daily/weekly blood work to monitor your levels. This will be done by either your family physician/ media planner (if you are on Coumadin chronically) versus your orthopedic surgeon. Expect a phone call the day of or the day after your blood work is drawn to adjust your dose accordingly. B. There are a few signs you need to watch for after you are home. Call [facility] at [phone] if you experience any of the following: a. If you have a temperature of 101 degrees or higher. b. Sudden increase in pain in your hip not relieved by rest or pain medication. c. Any fluid or drainage from the incision; redness of the incision. d. Shortness of breath or chest pain. B. Please call [facility] at [phone] if you have any questions or concerns about your operation or recovery. C. Call your physician if: a. Temperature is greater than 101 degrees (F). b. Pain is not relieved by prescribed pain medications. c. Increase drainage or redness from incision. d. Unanswered questions or concerns. D. Pain Medication: a. You will be prescribed pain medication upon discharge that should last till your first post-operative appointment. b. If you experience nausea and/or skin rash, discontinue this medication and contact our office for an alternative medication. c. Caution- narcotic pain medication can cause constipation. FOLLOW UP VISIT: Please call [facility] at [phone] to schedule a follow up appointment 10-14 days from the date of your surgery date.
[2017-01-04] MEDS ORDERED: TOPI100T45 PO (11:26)
[2017-01-04 12:49] VITALS: BP 127/74; PULSE 88; TEMP 36.6; O2SAT 99
[2017-01-04 13:17] LABS: CALCIUM 8.5 mg/dl (8.5-10.1)
== END 2017-01-04 13:27 | DRG 480 ==
LOC: EDBD 03:41 → C.EDB 03:42 → C.2T 06:29 → ENRESERV 06:43 → C.MSN 12-28 12:54 → ENRESERV 12-28 13:19
PROVIDERS: ADMIT Family Medicine; ATTEND Hospitalist
PROC: 0QS734Z Reposition Left Upper Femur with Internal Fixation Device, Percutaneous Approach (ICD-10-PCS; principal; 2016-12-23 13:45)
DX: S72.142A Displaced intertrochanteric fracture of left femur, initial encounter for closed fracture (principal); E43 Unspecified severe protein-calorie malnutrition; N39.0 Urinary tract infection, site not specified; D62 Acute posthemorrhagic anemia; I25.10 Atherosclerotic heart disease of native coronary artery without angina pectoris; I69.898 Other sequelae of other cerebrovascular disease; Z95.5 Presence of coronary angioplasty implant and graft; F17.200 Nicotine dependence, unspecified, uncomplicated; R56.9 Unspecified convulsions; E87.6 Hypokalemia; F32.9 Major depressive disorder, single episode, unspecified; R73.03 Prediabetes; I73.9 Peripheral vascular disease, unspecified; I25.2 Old myocardial infarction; K22.70 Barrett's esophagus without dysplasia; F10.21 Alcohol dependence, in remission; B95.4 Other streptococcus as the cause of diseases classified elsewhere; Y93.01 Activity, walking, marching and hiking; Y92.012 Bathroom of single-family (private) house as the place of occurrence of the external cause; Z79.82 Long term (current) use of aspirin; W19.XXXA Unspecified fall, initial encounter

== ENCOUNTER → 2017-08-15 | Outpatient (CLI) | payer OTHER ==
[~2017-08-15] MED LIST changes: +CALC600T PO; -CALCTAB5 PO; +DICY20TA35 PO; -DOCU-94 PO; -FAMO20TA11 PO; -FLNIN NAE; +FLUT0.15 NAE; -FRS/40 PO; -LACTTAB7 PO; -LAMO100T16 PO; +MCRK20 PO; -OLOP0.1S2 OP; +OLOP0.1S3 OP; -OMEP40CA PO; +OMEP40CA41 PO; -POTA20TA16 PO; +TOPI100T45 PO; -TPM100 PO
[2017-08-15 12:39] LABS: BASO % 0.4 %; BASO ABS # 0.03 K/uL (0-0.2); EOS % 1.7 %; EOS ABS # 0.14 K/uL (0-0.5); HEMATOCRIT 36.7 % (42-52); HEMOGLOBIN 12.2 g/dL (14.0-18.0); LYMPH % 16.6 %; LYMPH ABS # 1.34 K/uL (1.2-3.4); MEAN CELL VOLUME 91.5 fL (80-100); MEAN CORPUSCULAR HEMOGLOBIN 30.4 pg (25-34); MEAN CORPUSCULAR HGB CONC 33.2 g/dl (32-36); MEAN PLATELET VOLUME 8.8 fL (7.4-10.4); MONO % 8.9 %; MONO ABS # 0.72 K/uL (0.11-0.59); NEUT % 71.2 %; NEUT ABS # 5.74 K/uL (1.4-6.5); PLATELET COUNT 345 K/uL (130-400); RED CELL DISTRIBUTION WIDTH CV 16.6 % (11.5-14.5); RED CELL DISTRIBUTION WIDTH SD 55.9 fL (36.4-46.3); WHITE BLOOD COUNT 8.07 K/uL (4.8-10.8)
[2017-08-15 13:05] LABS: ALBUMIN 2.7 gm/dl (3.4-5.0); ALKALINE PHOSPHATASE 240 U/L (45-117); ALT/SGPT 22 U/L (12-78); AST/SGOT 12 U/L (15-37); BLOOD UREA NITROGEN 8 mg/dl (7-18); CALCIUM 8.1 mg/dl (8.5-10.1); CARBON DIOXIDE 25 mmol/L (21-32); GLUCOSE 110 mg/dl (70-99); SODIUM 134 mmol/L (136-145); TOTAL PROTEIN 7.1 gm/dl (6.4-8.2)
== END | disposition home or self-care (01) ==
LOC: C.LABPBG 08:18
PROVIDERS: ATTEND Psychiatry & Neurology Neurology
DX: R33.9 Retention of urine, unspecified (principal); G40.909 Epilepsy, unspecified, not intractable, without status epilepticus

== ENCOUNTER 2018-02-03 13:17 | Inpatient (IN) | payer OTHER ==
[~2018-02-03] VITALS: Ht 172.7 cm; Wt 67.1 kg
[~2018-02-03 13:17] MED LIST changes: -CLON0.5T3 PO; +KLN/5 PO
[2018-02-03] MEDS ORDERED: SODIUM CHLORIDE 0.9% 1000ML 1,000 ML IV STA (15:16)
[2018-02-03] MEDS ORDERED: SODIUM CHLORIDE 0.9% 500ML 500 ML IV STA (15:16)
[2018-02-03 15:29] LABS: BASO % 0.5 %; BASO ABS # 0.03 K/uL (0-0.2); EOS % 2.6 %; EOS ABS # 0.17 K/uL (0-0.5); HEMATOCRIT 35.4 % (42-52); HEMOGLOBIN 11.4 g/dL (14.0-18.0); IG# 0.01 K/uL (0.00-0.02); LYMPH % 15.7 %; LYMPH ABS # 1.04 K/uL (1.2-3.4); MEAN CELL VOLUME 91.5 fL (80-100); MEAN CORPUSCULAR HEMOGLOBIN 29.5 pg (25-34); MEAN CORPUSCULAR HGB CONC 32.2 g/dl (32-36); MEAN PLATELET VOLUME 10.1 fL (7.4-10.4); MONO % 6.5 %; MONO ABS # 0.43 K/uL (0.11-0.59); NEUT % 74.5 %; NEUT ABS # 4.94 K/uL (1.4-6.5); PLATELET COUNT 329 K/uL (130-400); RED CELL DISTRIBUTION WIDTH CV 17.5 % (11.5-14.5); RED CELL DISTRIBUTION WIDTH SD 58.7 fL (36.4-46.3); WHITE BLOOD COUNT 6.62 K/uL (4.8-10.8)
--- NOTE | 2018-02-03 15:41 | EMERGENCY ROOM VISIT NOTE ---
History Report prepared by Camilla: Jeimy Vargas Under the Supervision of: Dr. Liat Childers M.D. First contact with patient: 14:53 Chief Complaint: WEAKNESS Stated Complaint: WEAKNESS,DIZZY,FALLS,SEEING DOUBLE Nursing Triage Summary: Pt with . per pt has been increasingly weak, increase in falls, lack of appetite. Ongoing for the past 2 months. Pt unable to get into PCP until end of Feb. c/o lower abd pain. "anytime I drink or eat anything". Hx of TIA and seizure History of Present Illness The patient is a 62 year old male who presents to the Emergency Room with complaints of constant weakness beginning 5 weeks ago. He notes he feels too weak to stand up, and experiences dizziness when he does stand up, causing him to fall. The patient states he has fallen 6 times in the past 2 months, and his last fall was a few days ago. He states he uses a walker or wheelchair most of the time. The patient notes he has not been eating as much past 5 weeks. His states he eats about 1 1/2 slices toast per day and has been losing weight. The patient notes he is not pooping much, and his last bowel movement was a few days ago. He denies vomiting or blood in his stools. His notes he is very confused, especially about time, which is relatively new. The patient notes he has chronic stomach pain below his belly button. He states he was seen in [place] 1.5 months ago when his symptoms began, diagnosed with a sinus infection, and given antibiotics and sent home. He notes his symptoms did not improve following that visit, but an enema he was given then made him feel much better. He reports a history of heart trouble and stents. His notes the patient had a bowel obstruction 3 months ago, and had surgery on his lower colon at that time. Source of History: patient, spouse/significant other Onset: 5 weeks ago Position: other (global) Quality: other (weakness) Timing: constant Modifying Factors (Worsening): other (standing up) Associated Symptoms: + abdominal pain (chronic, below belly button) Note: Associated symptoms: lack of appetite, weight loss, reduced bowel movements Review of Systems See HPI for pertinent positives & negatives. A total of 10 systems reviewed and were otherwise negative. Past Medical & Surgical Medical Problems: (1) Alcohol dependence in sustained full remission (2) Velez esophagus (3) CAD (coronary artery disease) (4) Constipation (5) CVA (cerebral infarction) (6) Diverticulitis (7) GERD (gastroesophageal reflux disease) (8) Intermittent small bowel obstruction (9) WA (myocardial infarction) (10) Mood disorder due to cerebrovascular accident (CVA) (11) PAD (peripheral artery disease) (12) Pancreatitis (13) Seizure disorder as sequela of cerebrovascular accident (14) TIA (transient ischemic attack) (15) Tobacco use disorder Surgical Problems: (1) S/P laparoscopic cholecystectomy (2) S/p stent right lower extremity (3) Status post carotid surgery Social History Problems: (1) Humerus fracture Family History Cardiac disorder MOTHER SISTER FH: cancer BROTHER Hypertension MOTHER SISTER Social History Smoking Status: Former Smoker Drug Use: none Marital Status: Housing Status: lives with family Occupation Status: disabled Current/Historical Medications Scheduled Ascorbic Acid (Ascorbic Acid), 500 MG PO DAILY Aspirin (Aspirin Ec), 81 MG PO DAILY Calcium Carbonate-Vitamin D W/ (Caltrate 600 Plus), 1 TAB PO DAILY Carbamazepine Extended Release (Tegretol Xr), 400 MG PO AMPM Carvedilol (Coreg), 12.5 MG PO AMHS Cholecalciferol (Vitamin D3), 1,000 MG PO DAILY Clonazepam (Klonopin), 0.5 MG PO AMHS Clopidogrel Bisulfate (Clopidogrel), 75 MG PO DAILY Cyanocobalamin (Vitamin B-12), 1,000 MCG PO DAILY Docusate Sodium (Stool Softener), 200 MG PO HS Dutasteride (Avodart), 0.5 MG PO DAILY Famotidine (Pepcid), 20 MG PO DAILY Furosemide (Lasix), 40 MG PO DAILY Lubiprostone (Amitiza), 24 MCG PO BID Multiple Vitamins W/ Minerals (One Daily Mens), 1 TABLET PO DAILY Olopatadine Hcl (Patanol 0.1% Oph), 1 DROP OP BID Potassium Chloride Microencaps (Potassium Chloride Er), 2 TAB PO DAILY Quetiapine Fumarate (Seroquel), 25 MG PO TID Quetiapine Fumarate Xr (Seroquel Xr Tab), 800 MG PO HS Tamsulosin Hcl (Flomax), 0.4 MG PO DAILY Telmisartan (Micardis), 1 TAB PO HS Terazosin Hcl (Hytrin), 1 MG PO HS Topiramate (Topamax), 200 MG PO BID Vilazodone Hcl (Viibryd), 40 MG PO QPM Scheduled PRN Dicyclomine Hcl (Dicyclomine Hcl), 1 TAB PO BID PRN for ABD PAIN Fluticasone Propionate (Nasal) (Flonase Allergy Relief), 1 SPRAY XIMENA DAILY PRN for Nasal Congestion Lorazepam (Ativan), 2 MG UNKNOWN UD PRN for seizures Allergies Coded Allergies: Levetiracetam (Verified Allergy, Mild, 12/23/16) Phenytoin (Verified Allergy, Mild, 12/23/16) Physical Exam Vital Signs Date Time Temp Pulse Resp B/P (MAP) Pulse Ox O2 Delivery O2 Flow Rate FiO2 02/03/18 18:50 80 18 128/78 99 Room Air 02/03/18 17:18 68 18 131/80 100 Room Air 02/03/18 16:26 89 115/68 99 Room Air 85 110/70 92 64/50 02/03/18 15:14 75 22 131/99 100 Room Air 02/03/18 14:23 99 Room Air 02/03/18 14:23 77 02/03/18 13:31 36.7 72 16 102/70 97 Room Air Physical Exam Vital signs reviewed. General: Chronically ill-appearing 62-year-old male, in no significant distress. HEENT: Pale conjunctiva, no scleral icterus, PERRLA, neck supple. Atraumatic. Dry mucus membranes. Cardiovascular: Regular rate and rhythm, no extra sounds. Pulmonary: Clear to auscultation bilaterally, normal work of breathing. Abdomen: Soft, nontender, nondistended, positive bowel sounds. Musculoskeletal: Atraumatic, no peripheral edema. Neurologic: Patient awake alert and oriented x 3 Skin: Warm, dry, no rash Rectal exam: dried stool to rectum that is black, guaiac positive, liquidly melanotic stool Medical Decision & Procedures ER Provider Diagnostic Interpretation: Radiology results as stated below per my review and radiologist interpretation: KUB CLINICAL HISTORY: constipation COMPARISON STUDY: 12/30/2016 FINDINGS: There are surgical clips within the right upper quadrant. There are left upper quadrant calcifications likely splenic. There is a right iliac artery stent. There are postsurgical changes present within the left hip. There is a 2 cm sclerotic density projected over the right greater trochanter. There is gaseous distention of both large and small bowel loops, likely secondary to an ileus. An excessive amount of stool was not visualized on conventional graphic imaging. IMPRESSION: Gaseous distention of both large and small bowel loops, likely secondary to an ileus. It is not possible to exclude obstruction on the basis of this study. If this is a clinical concern, additional imaging such as a CT scan would be recommended. Electronically signed by: Chao Francis M.D. 02/03/2018 4:09 PM Dictated Date/Time: 02/03/2018 4:[address] OF THE HEAD WITHOUT CONTRAST CLINICAL HISTORY: Falls. Weakness. COMPARISON STUDY: Head CT December 22, 2016 and MRI of the brain December 29, 2016. CT DOSE: 614.27 mGy.cm TECHNIQUE: Helical axial images of the head were obtained without IV contrast. Automated exposure control was utilized for the study. A dose lowering technique was utilized adhering to the principles of ALARA. FINDINGS: No acute intracranial hemorrhage, midline shift or mass effect is present. Old right MCA territory infarct is noted with extensive encephalomalacia and associated dilatation of the right lateral ventricle. The basilar cisterns are patent. There are no extra-axial collections. Old left parietal infarct is noted. There are no findings to suggest acute dural sinus thrombosis or acute territorial infarct. The appearance of the brain is unchanged. There is no calvarial fracture. Interval sphenoid sinus secretions are noted. IMPRESSION: 1. No acute intracranial findings. 2. No change since previous exam with multiple old infarcts, as described above. 3. No calvarial fracture. Electronically signed by: Biju Cortes M.D. 02/03/2018 5:03 PM Dictated Date/Time: 02/03/2018 4:53 PM CHEST ONE VIEW PORTABLE HISTORY: falls, weakness COMPARISON: Chest 12/22/2016. FINDINGS: No pneumothorax. No pleural effusions. The heart is normal in size. Old, healed right humeral neck fracture. Nodular density at the right lung base consistent with a nipple shadow. The lungs appear clear. Stable blunting of the left lateral costophrenic sulcus. Multiple old, healed left-sided rib fractures. Cortical step-off at the left anterior sixth rib. IMPRESSION: 1. Cortical step-off at the left anterior sixth rib. This favors an old, healed fracture. However, recommend correlation for pain at this location to exclude an acute injury.. 2. Multiple old, healed left-sided rib fractures. 3. No pneumothorax. Electronically signed by: Tereso Guerrier M.D. 02/03/2018 4:08 PM Dictated Date/Time: 02/03/2018 4:05 PM Laboratory Results Test 02/03/18 14:20 Immature Granulocyte % (Auto) 0.2 % White Blood Count 6.62 K/uL (4.8-10.8) Red Blood Count 3.87 M/uL (4.7-6.1) Hemoglobin 11.4 g/dL (14.0-18.0) Hematocrit 35.4 % (42-52) Mean Corpuscular Volume 91.5 fL (80-100) Mean Corpuscular Hemoglobin 29.5 pg (25-34) Mean Corpuscular Hemoglobin Concent 32.2 g/dl (32-36) Platelet Count 329 K/uL (130-400) Mean Platelet Volume 10.1 fL (7.4-10.4) Neutrophils (%) (Auto) 74.5 % Lymphocytes (%) (Auto) 15.7 % Monocytes (%) (Auto) 6.5 % Eosinophils (%) (Auto) 2.6 % Basophils (%) (Auto) 0.5 % Neutrophils # (Auto) 4.94 K/uL (1.4-6.5) Lymphocytes # (Auto) 1.04 K/uL (1.2-3.4) Monocytes # (Auto) 0.43 K/uL (0.11-0.59) Eosinophils # (Auto) 0.17 K/uL (0-0.5) Basophils # (Auto) 0.03 K/uL (0-0.2) Immature Granulocyte # (Auto) 0.01 K/uL (0.00-0.02) Magnesium Level 2.1 mg/dl (1.8-2.4) Total Bilirubin 0.4 mg/dl (0.2-1) Direct Bilirubin 0.2 mg/dl (0-0.2) Aspartate Amino Transf (AST/SGOT) 25 U/L (15-37) Alanine Aminotransferase (ALT/SGPT) 32 U/L (12-78) Alkaline Phosphatase 243 U/L (45-117) Troponin I < 0.015 ng/ml (0-0.045) Total Protein 7.2 gm/dl (6.4-8.2) Albumin 2.4 gm/dl (3.4-5.0) Thyroid Stimulating Hormone (TSH) 1.450 uIu/ml (0.300-4.500) Laboratory results per my review. Medications Administered Medications (Trade) Dose Ordered Sig/Pedro Route Start Time Stop Time Status Last Admin Dose Admin Sodium Chloride 500 ml @ 999 mls/hr Q31M STAT IV 02/03/18 15:16 02/03/18 15:46 DC 02/03/18 16:26 999 MLS/HR Sodium Chloride 1,000 ml @ 125 mls/hr Q8H STAT IV 02/03/18 15:16 02/03/18 20:56 DC 02/03/18 18:50 125 MLS/HR ECG Per My Interpretation Indication: weakness Rate (beats per minute): 77 Rhythm: normal sinus Findings: 1st degree AV block, LBBB ED Course 1501: Past medical records reviewed. The patient was evaluated in room A2. A complete history and physical examination was performed. 1734: I reviewed the patient's case with Leigh Peralta PA-C, [facility] hospitalist. She will evaluate the patient for further management. 1830: I discussed findings with the patient. He verbalized agreement of the treatment plan. The patient was admitted for further evaluation. Medical Decision Differential diagnosis: Etiologies such as diverticulosis, AVM, coagulopathy, colitis, inflammatory bowel disease, malignancy, Padmini-Lee tear, esophagitis, peptic ulcer disease , variceal bleed, gastritis, epistaxis, fissure, hemorrhoids, as well as others were entertained. This patient was evaluated and appeared to be in no significant distress. The patient appears to be chronically ill. He was hydrated with normal saline solution. Stool is guaiac positive. Abdomen is surprisingly not significantly distended. KUB x-ray was performed due to the patient's complaints of constipation. There are dilated loops of both large and small bowel. Patient was CT scan of the abdomen pelvis was ordered with IV and oral contrast, there is great concern for the possibility of underlying malignancy. This study remains pending. Patient is noted to be markedly orthostatic dropping to 64 systolic upon standing. I did speak with the patient and his . The patient will be evaluated by the hospitalist service for further management. Medication Reconcilliation Current Medication List: was personally reviewed by me Blood Pressure Screening Patient's blood pressure: Normal blood pressure Blood pressure disposition: Did not require urgent referral Consults Time Called: 1729 Consulting Physician: Leigh Peralta PA-C, [facility] hospitalist Returned Call: [phone] I reviewed the patient's case with Leigh Peralta PA-C, [facility] hospitalist. She will evaluate the patient for further management. Impression Primary Impression: Orthostasis Additional Impressions: Weakness Weight loss Ileus GI bleed Scribe Attestation The scribe's documentation has been prepared under my direction and personally reviewed by me in its entirety. I confirm that the note above accurately reflects all work, treatment, procedures, and medical decision making performed by me. Departure Information Dispostion Being Evaluated By Hospitalist Referrals Griffin Salinas M.D. (PCP) Patient Instructions My [facility] Problem Qualifiers
[2018-02-03 15:48] LABS: ALBUMIN 2.4 gm/dl (3.4-5.0); ALKALINE PHOSPHATASE 243 U/L (45-117); ALT/SGPT 32 U/L (12-78); AST/SGOT 25 U/L (15-37); BLOOD UREA NITROGEN 11 mg/dl (7-18); CALCIUM 8.9 mg/dl (8.5-10.1); CARBON DIOXIDE 24 mmol/L (21-32); CREATININE 0.96 mg/dl (0.60-1.40); GLUCOSE 95 mg/dl (70-99); POTASSIUM 4.3 mmol/L (3.5-5.1); SODIUM 141 mmol/L (136-145); TOTAL PROTEIN 7.2 gm/dl (6.4-8.2)
--- NOTE | 2018-02-03 16:09 | DIAGNOSTIC IMAGING REPORT ---
CHEST ONE VIEW PORTABLE HISTORY: falls, weakness COMPARISON: Chest 12/22/2016. FINDINGS: No pneumothorax. No pleural effusions. The heart is normal in size. Old, healed right humeral neck fracture. Nodular density at the right lung base consistent with a nipple shadow. The lungs appear clear. Stable blunting of the left lateral costophrenic sulcus. Multiple old, healed left-sided rib fractures. Cortical step-off at the left anterior sixth rib. IMPRESSION: 1. Cortical step-off at the left anterior sixth rib. This favors an old, healed fracture. However, recommend correlation for pain at this location to exclude an acute injury.. 2. Multiple old, healed left-sided rib fractures. 3. No pneumothorax. Electronically signed by: Tereso Guerrier M.D. 02/03/2018 4:08 PM Dictated Date/Time: 02/03/2018 4:05 PM
--- NOTE | 2018-02-03 16:10 | DIAGNOSTIC IMAGING REPORT ---
KUB CLINICAL HISTORY: constipation COMPARISON STUDY: 12/30/2016 FINDINGS: There are surgical clips within the right upper quadrant. There are left upper quadrant calcifications likely splenic. There is a right iliac artery stent. There are postsurgical changes present within the left hip. There is a 2 cm sclerotic density projected over the right greater trochanter. There is gaseous distention of both large and small bowel loops, likely secondary to an ileus. An excessive amount of stool was not visualized on conventional graphic imaging. IMPRESSION: Gaseous distention of both large and small bowel loops, likely secondary to an ileus. It is not possible to exclude obstruction on the basis of this study. If this is a clinical concern, additional imaging such as a CT scan would be recommended. Electronically signed by: Chao Francis M.D. 02/03/2018 4:09 PM Dictated Date/Time: 02/03/2018 4:06 PM
[2018-02-03] MEDS ORDERED: DUTA0.5C PO (16:42)
[2018-02-03] MEDS ORDERED: TOPI200T14 PO (16:42)
[2018-02-03] MEDS ORDERED: CALCTAB7 PO (16:42)
[2018-02-03] MEDS ORDERED: FAMO20TA11 PO (16:42)
[2018-02-03] MEDS ORDERED: TAMS0.4C38 PO (16:42)
[2018-02-03] MEDS ORDERED: DOCU100T7 PO (16:42)
[2018-02-03] MEDS ORDERED: FRS/40 PO (16:42)
[2018-02-03] MEDS ORDERED: DICY20TA10 PO (16:42)
[2018-02-03] MEDS ORDERED: LEVE500T13 PO (16:42)
[2018-02-03] MEDS ORDERED: OTC POTASSIUM PO (16:46)
[2018-02-03] MEDS ORDERED: AMT24 PO (16:49)
--- NOTE | 2018-02-03 17:04 | DIAGNOSTIC IMAGING REPORT ---
CT OF THE HEAD WITHOUT CONTRAST CLINICAL HISTORY: Falls. Weakness. COMPARISON STUDY: Head CT December 22, 2016 and MRI of the brain December 29, 2016. CT DOSE: 614.27 mGy.cm TECHNIQUE: Helical axial images of the head were obtained without IV contrast. Automated exposure control was utilized for the study. A dose lowering technique was utilized adhering to the principles of ALARA. FINDINGS: No acute intracranial hemorrhage, midline shift or mass effect is present. Old right MCA territory infarct is noted with extensive encephalomalacia and associated dilatation of the right lateral ventricle. The basilar cisterns are patent. There are no extra-axial collections. Old left parietal infarct is noted. There are no findings to suggest acute dural sinus thrombosis or acute territorial infarct. The appearance of the brain is unchanged. There is no calvarial fracture. Interval sphenoid sinus secretions are noted. IMPRESSION: 1. No acute intracranial findings. 2. No change since previous exam with multiple old infarcts, as described above. 3. No calvarial fracture. Electronically signed by: Biju Cortes M.D. 02/03/2018 5:03 PM Dictated Date/Time: 02/03/2018 4:53 PM
[2018-02-03] MEDS ORDERED: OPTIRAY 320 IV PRN (17:15)
[2018-02-03] MEDS ORDERED: SODIUM CHLORIDE 0.9% 1000ML 1,000 ML IV SCH (19:30)
[2018-02-03] MEDS ORDERED: ONDANSETRON INJ 2 MG/ML 2 ML VIAL IV PRN (19:30)
--- NOTE | 2018-02-03 19:30 | History and Physical ---
History & Physical Date & Time of Service: Feb 03, 2018 at 19:29 Chief Complaint: Weakness,Dizzy,Falls,Seeing Double Primary Care Physician: Griffin Salinas M.D. History of Present Illness Source: patient, spouse ( at bedside), clinic records, hospital records This is a 62-year-old male with a PMH of seizure disorder (secondary to MCA stroke in 2004) with residual dysarthria and left hemiparesis, h/o recurrent SBO and diverticulitis, h/o pancreatitis, CAD (s/p stenting), PAD and other medical problems listed below who presents with increased weakness and frequency of falls 5 weeks. Patient feels generally weak, having difficulty standing up and feels dizzy when he does so. Last fall was 3 days ago and states that he first experienced a seizure before falling back into his chair. Describes double vision and "shaking all over". No head trauma. Denies any bowel/bladder incontinence, tongue biting or post-ictal state. Also endorses continued decreased appetite, only eating a few pieces of toast each day. Poor fluid intake as well. Continues to have chronic lower abdominal pain and constipation. Last bowel movement was diarrhea 3 days ago with some bright red blood mixed into stool. notes that patient had surgery on his lower colon ~ 3 months ago due to an obstruction. Denies fever, chills, headache, chest pain, palpitations, SOB, nausea, vomiting, dysuria, hematuria or melena. No LE swelling. Patient was last admitted from 12/22-01/04 for a left hip fracture 2/2 fall from syncopal episode. Brain MRI performed at this time was negative for acute changes. Due to complaints of decreased appetite and unintentional weight loss, the plan was to taper off Topamax over a 6 week period. Unfortunately, there was a miscommunication and patient has not tapered medication. is unsure of current Topamax dose. In the ED, orthostatics were positive and rectal exam was heme positive with melanotic stool. Past Medical/Surgical History Medical Problems: (1) Alcohol dependence in sustained full remission (2) Altered mental status (3) Velez esophagus (4) Constipation (5) CVA (cerebral infarction) (6) Diverticulitis (7) Fall at home (8) Falling (9) GERD (gastroesophageal reflux disease) (10) Hip fracture, left (11) Humerus fracture (12) Intermittent small bowel obstruction (13) AK (myocardial infarction) (14) Mood disorder due to cerebrovascular accident (CVA) (15) PAD (peripheral artery disease) (16) Pancreatitis (17) Seizures (18) Slurred speech (19) TIA (transient ischemic attack) (20) Vomiting Surgical Problems: (1) History of cholecystectomy (2) S/P laparoscopic cholecystectomy (3) S/p stent right lower extremity (4) Status post carotid surgery Family History Cardiac disorder MOTHER SISTER FH: cancer BROTHER Hypertension MOTHER SISTER Social History Smoking Status: Current Every Day Smoker (1-2 cigarettes daily ) Alcohol Use: none Drug Use: none Marital Status: Housing status: lives with significant other Occupational Status: disabled Allergies Coded Allergies: Levetiracetam (Verified Allergy, Mild, 12/23/16) Phenytoin (Verified Allergy, Mild, 12/23/16) Home Medications Scheduled Ascorbic Acid (Ascorbic Acid), 500 MG PO DAILY Aspirin (Aspirin Ec), 81 MG PO DAILY Calcium Carbonate-Vitamin D W/ (Caltrate 600 Plus), 1 TAB PO DAILY Carbamazepine Extended Release (Tegretol Xr), 400 MG PO AMPM Carvedilol (Coreg), 12.5 MG PO AMHS Cholecalciferol (Vitamin D3), 1,000 MG PO DAILY Clonazepam (Klonopin), 0.5 MG PO AMHS Clopidogrel Bisulfate (Clopidogrel), 75 MG PO DAILY Cyanocobalamin (Vitamin B-12), 1,000 MCG PO DAILY Docusate Sodium (Stool Softener), 200 MG PO HS Dutasteride (Avodart), 0.5 MG PO DAILY Famotidine (Pepcid), 20 MG PO DAILY Furosemide (Lasix), 40 MG PO DAILY Lubiprostone (Amitiza), 24 MCG PO BID Multiple Vitamins W/ Minerals (One Daily Mens), 1 TABLET PO DAILY Olopatadine Hcl (Patanol 0.1% Oph), 1 DROP OP BID Potassium Chloride Microencaps (Potassium Chloride Er), 2 TAB PO DAILY Quetiapine Fumarate (Seroquel), 25 MG PO TID Quetiapine Fumarate Xr (Seroquel Xr Tab), 800 MG PO HS Tamsulosin Hcl (Flomax), 0.4 MG PO DAILY Telmisartan (Micardis), 1 TAB PO HS Terazosin Hcl (Hytrin), 1 MG PO HS Topiramate (Topamax), 200 MG PO BID Vilazodone Hcl (Viibryd), 40 MG PO QPM Scheduled PRN Dicyclomine Hcl (Dicyclomine Hcl), 1 TAB PO BID PRN for ABD PAIN Fluticasone Propionate (Nasal) (Flonase Allergy Relief), 1 SPRAY XIMENA DAILY PRN for Nasal Congestion Lorazepam (Ativan), 2 MG UNKNOWN UD PRN for seizures Review of Systems Ten systems reviewed and negative except as noted in the HPI. Physical Exam Vital Signs Date Time Temp Pulse Resp B/P (MAP) Pulse Ox O2 Delivery O2 Flow Rate FiO2 02/03/18 18:50 80 18 128/78 99 Room Air 02/03/18 17:18 68 18 131/80 100 Room Air 02/03/18 16:26 89 115/68 99 Room Air 85 110/70 92 64/50 02/03/18 15:14 75 22 131/99 100 Room Air 02/03/18 14:23 99 Room Air 02/03/18 14:23 77 02/03/18 13:31 36.7 72 16 102/70 97 Room Air General Appearance: WD/WN, no apparent distress, + pertinent finding ( chronically ill appearing, pale ) Head: normocephalic, atraumatic Eyes: normal inspection, PERRL, sclerae normal ENT: normal ENT inspection, hearing grossly normal, pharynx normal (dry mucous membranes ) Neck: supple, thyroid normal, trachea midline Respiratory/Chest: chest non-tender, lungs clear, normal breath sounds, no respiratory distress, no accessory muscle use Cardiovascular: regular rate, rhythm, no murmur, normal peripheral pulses Abdomen/GI: normal bowel sounds, soft, no organomegaly, + tenderness (Mild LLQ TTP, no guarding ) Back: normal inspection Extremities/Musculoskelatal: normal inspection, no calf tenderness, no pedal edema Neurologic/Psych: no motor/sensory deficits, alert, normal mood/affect, oriented x 3 Skin: warm/dry, no rash, + pallor Diagnostics Laboratory Results Results Past 24 Hours Test 02/03/18 14:20 Range/Units White Blood Count 6.62 4.8-10.8 K/uL Red Blood Count 3.87 4.7-6.1 M/uL Hemoglobin 11.4 14.0-18.0 g/dL Hematocrit 35.4 42-52 % Mean Corpuscular Volume 91.5 80-100 fL Mean Corpuscular Hemoglobin 29.5 25-34 pg Mean Corpuscular Hemoglobin Concent 32.2 32-36 g/dl Platelet Count 329 130-400 K/uL Mean Platelet Volume 10.1 7.4-10.4 fL Neutrophils (%) (Auto) 74.5 % Lymphocytes (%) (Auto) 15.7 % Monocytes (%) (Auto) 6.5 % Eosinophils (%) (Auto) 2.6 % Basophils (%) (Auto) 0.5 % Neutrophils # (Auto) 4.94 1.4-6.5 K/uL Lymphocytes # (Auto) 1.04 1.2-3.4 K/uL Monocytes # (Auto) 0.43 0.11-0.59 K/uL Eosinophils # (Auto) 0.17 0-0.5 K/uL Basophils # (Auto) 0.03 0-0.2 K/uL RDW Standard Deviation 58.7 36.4-46.3 fL RDW Coefficient of Variation 17.5 11.5-14.5 % Immature Granulocyte % (Auto) 0.2 % Immature Granulocyte # (Auto) 0.01 0.00-0.02 K/uL Sodium Level 141 136-145 mmol/L Potassium Level 4.3 3.5-5.1 mmol/L Chloride Level 110 98-107 mmol/L Carbon Dioxide Level 24 21-32 mmol/L Anion Gap 7.0 3-11 mmol/L Blood Urea Nitrogen 11 7-18 mg/dl Creatinine 0.96 0.60-1.40 mg/dl Estimated GFR () 96.4 Estimated GFR (Non- 83.2 BUN/Creatinine Ratio 11.7 10-20 Random Glucose 95 70-99 mg/dl Calcium Level 8.9 8.5-10.1 mg/dl Magnesium Level 2.1 1.8-2.4 mg/dl Total Bilirubin 0.4 0.2-1 mg/dl Direct Bilirubin 0.2 0-0.2 mg/dl Aspartate Amino Transf (AST/SGOT) 25 15-37 U/L Alanine Aminotransferase (ALT/SGPT) 32 12-78 U/L Alkaline Phosphatase 243 45-117 U/L Troponin I < 0.015 0-0.045 ng/ml Total Protein 7.2 6.4-8.2 gm/dl Albumin 2.4 3.4-5.0 gm/dl Thyroid Stimulating Hormone (TSH) 1.450 0.300-4.500 uIu/ml Diagnostic Radiology CT head: IMPRESSION: 1. No acute intracranial findings. 2. No change since previous exam with multiple old infarcts, as described above. 3. No calvarial fracture. CXR: IMPRESSION: 1. Cortical step-off at the left anterior sixth rib. This favors an old, healed fracture. However, recommend correlation for pain at this location to exclude an acute injury. 2. Multiple old, healed left-sided rib fractures. 3. No pneumothorax. KUB: IMPRESSION: Gaseous distention of both large and small bowel loops, likely secondary to an ileus. It is not possible to exclude obstruction on the basis of this study. If this is a clinical concern, additional imaging such as a CT scan would be recommended. CT abd/pelvis: IMPRESSION: 1. Multiple necrotic samuel hepatis, peripancreatic, para-aortic and retrocrural masses which favor necrotic lymph nodes. The findings represent a neoplastic process with metastatic lymphadenopathy. The primary tumor is not entirely clear on this exam although may reflect a pancreatic carcinoma arising from the uncinate process. No biliary or pancreatic ductal dilatation. 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 2. Moderate colonic dilatation. Equivocal caliber change at the level the sigmoid anastomosis without evidence for a high-grade obstruction. No mucosal lesion identified although sensitivity diminished given CT technique. 3. Bilateral nephrolithiasis. No hydronephrosis. EKG Sinus rhythm with 1st degree A-V block. Left bundle branch block No change from prior EKG Impression Assessment and Plan This is a 62-year-old male with a PMH of seizure disorder (secondary to MCA stroke in 2004) with residual dysarthria and left hemiparesis, h/o recurrent SBO and diverticulitis, h/o pancreatitis, CAD (s/p stenting), PAD and other medical problems listed below who presents with increased weakness and frequency of falls 5 weeks. Neoplastic process with metastatic lymphadenopathy Heme positive stool -Unintentional weight loss, constipation, lower abd pain for weeks -CT abd/pelvis with - Multiple necrotic samuel hepatis, peripancreatic, para-aortic and retrocrural masses which favor necrotic lymph nodes. The findings represent a neoplastic process with metastatic lymphadenopathy. -The primary tumor is not entirely clear on this exam although may reflect a pancreatic carcinoma arising from the uncinate process. No biliary or pancreatic ductal dilatation. 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 -GI consulted -Hgb stable at 11.4. Trend H&H overnight -NPO except meds -Coags, lipase, afp, Ca-125, hepatitis panel ordered for AM Generalized weakness, increased falls -Lightheaded when standing, + orthostatic vitals -In setting of new diagnosis of ?pancreatic cancer -Poor PO intake, limited fluids, possible GI bleed -IV D5 and NSS overnight -Hold antihypertensives in setting of postural hypotension -PT/OT for evaluation, conditioning Constipation -Chronic condition, poor PO intake, neoplastic process -CT abd/pelvis with moderate colonic dilatation but no evidence of obstruction -Fleet enema pending, continue bowel regimen -IV fluids Seizure disorder -Possible seizure earlier this week -EEG from November 2017 with increased epileptogenic potential over the right parietal area -Seizure precautions -Continue Tegretol, Topamax -Neuro consulted -Topamax possibly contributing to poor appetite -Ativan PRN for seizures H/o CVA -Aspirin, plavix held in setting of possible bleed Mood disorder -Continue Seroquel, Klonopin, Viibryd CAD (s/p stenting) -Stable, no CP -EKG without changes DVT Ppx: SCDs for now Code status: FULL [facility]CP: [facility] Dis[facility]: Admitted to telemetry. Discharge planning ordered. Patient seen in collaboration with Dr. Montes. Please see addendum. Resuscitation Status VTE Prophylaxis Will order VTE Prophylaxis: Yes
[2018-02-03] MEDS ORDERED: TERA1CAP PO (19:46)
[2018-02-03] MEDS ORDERED: TELM40TA PO (19:46)
[2018-02-03] MEDS ORDERED: POTA20TA13 PO (19:46)
[2018-02-03] MEDS ORDERED: SOD PHOSPHATE/SOD BIPHOSPHATE ENEMA 132 ML BTL PR STA (20:02)
--- NOTE | 2018-02-03 20:20 | History and Physical ---
History & Physical Date of Service Feb 03, 2018. History & Physical This is a 62 year old male with a complex past medical history, including hx. of CVA of the middle cerebral artery, hx. 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, mood disorder/depression/anxiety, tobacco use disorder, unintentional weight loss presents with a weakness, difficulty with ambulation and possible seizure. States he's had a lot of seizures in the past and earlier this week felt like he may have had a mini-seizure. He has no further recollection of this. States he has some abdominal pain right around the umbilicus - has had surgeries in the past due to SBO. States he feels he needs an enema due to no BMs the past few days. Denies chest pain/shortness of breath. Plan: will consult neurology due to seizures and complex seizure history was to be on a Topamax taper, which he may not done seizures precautions, continue home meds and Ativan PRN for seizures PT/OT for weakness adding PPI daily due to heme positive stool c/o constipation - CT abdomen pending, adding fleet enema x1, continue bowel regimen
--- NOTE | 2018-02-03 20:39 | DIAGNOSTIC IMAGING REPORT ---
CT OF THE ABDOMEN AND PELVIS WITH CONTRAST CLINICAL HISTORY: GI bleed, weight loss and weakness. COMPARISON STUDY: CT of the abdomen and pelvis November 26, 2015 and KUB performed earlier today. TECHNIQUE: Following IV administration of 115 mL of Optiray-320, axial images of the abdomen and pelvis were obtained from the lung bases to the proximal femurs. Images were reviewed in the axial, sagittal, and coronal planes. IV contrast was administered without complication. A dose lowering technique was utilized adhering to the principles of ALARA. CT DOSE: 491.30 mGy.cm FINDINGS: Visualized portions of the lower chest demonstrate trace bilateral pleural effusions. Note is made of an indeterminate 1.8 cm hypodensity within the medial segment of the left hepatic lobe. The gallbladder surgically absent. Calcification and lobular appearance of the spleen is unchanged from CT of November 28, 2015. Small bilateral renal calculi are noted. There is no hydronephrosis. No renal lesion is present. There is no biliary or pancreatic ductal dilatation. Note is made of multiple enlarged retrocrural lymph nodes, measuring up to 2.3 cm. The largest node is necrotic. There is a necrotic 6.3 x 4.3 x 3.4 cm samuel hepatis mass which favors a necrotic lymph node. There are numerous adjacent necrotic nodes. Several of these lesions lesions are contiguous with the uncinate process of the pancreas. Note is made of near occlusive thrombus which likely reflects tumor thrombus within the proximal main portal vein. The left and right portal veins are patent. Superior mesenteric vein is patent. Moderate colonic distention is noted. A sigmoid anastomosis is noted. There is mild caliber change at this level without evidence for a high-grade obstruction. There is a moderate amount of stool within the rectum. Extensive atherosclerotic plaque of the abdominal aorta and major branch vessels is noted. There is extensive plaque within the left common iliac artery which results in high-grade stenosis versus occlusion. No suspicious osseous lesion is present. IMPRESSION: 1. Multiple necrotic samuel hepatis, peripancreatic, para-aortic and retrocrural masses which favor necrotic lymph nodes. The findings represent a neoplastic process with metastatic lymphadenopathy. The primary tumor is not entirely clear on this exam although may reflect a pancreatic carcinoma arising from the uncinate process. No biliary or pancreatic ductal dilatation. 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 2. Moderate colonic dilatation. Equivocal caliber change at the level the sigmoid anastomosis without evidence for a high-grade obstruction. No mucosal lesion identified although sensitivity diminished given CT technique. 3. Bilateral nephrolithiasis. No hydronephrosis. Electronically signed by: Biju Cortes M.D. 02/03/2018 8:37 PM Dictated Date/Time: 02/03/2018 8:18 PM
[2018-02-03 21:09] LABS: HEMATOCRIT 33.6 % (42-52); HEMOGLOBIN 10.7 g/dL (14.0-18.0)
[2018-02-03 22:05] VITALS: BP 136/75; PULSE 79; TEMP 36.9; O2SAT 100
[2018-02-03 22:09] VITALS: BP 136/75; PULSE 79; TEMP 36.9; O2SAT 100; BMI 19.2
[2018-02-03] MEDS ORDERED: SOD PHOSPHATE/SOD BIPHOSPHATE ENEMA 132 ML BTL ONE (22:34)
[2018-02-03] MEDS: D5W AND NSS 1,000 ML IV SCH (22:50)
[2018-02-03 23:50] VITALS: BP 126/72; PULSE 80; TEMP 36.8; O2SAT 97
[2018-02-04] VITALS (8 sets, daily range): BP systolic 101–130; BP diastolic 62–73; PULSE 71–87; TEMP 36.6–37.2; O2SAT 97–99
[2018-02-04] MEDS: MoRPHine SULFATE 4 MG/ML 1 ML CARP\\VIAL IV PRN (00:10)
[2018-02-04 02:52] LABS: HEMATOCRIT 31.9 % (42-52); HEMOGLOBIN 10.1 g/dL (14.0-18.0); MEAN CELL VOLUME 91.4 fL (80-100); MEAN CORPUSCULAR HEMOGLOBIN 28.9 pg (25-34); MEAN CORPUSCULAR HGB CONC 31.7 g/dl (32-36); MEAN PLATELET VOLUME 9.6 fL (7.4-10.4); PLATELET COUNT 287 K/uL (130-400); RED CELL DISTRIBUTION WIDTH CV 17.4 % (11.5-14.5); WHITE BLOOD COUNT 6.23 K/uL (4.8-10.8)
[2018-02-04 03:03] LABS: INR 1.1 (0.9-1.1)
[2018-02-04 03:15] LABS: CALCIUM 7.8 mg/dl (8.5-10.1); CREATININE 0.7 mg/dl (0.60-1.40); POTASSIUM 3.5 mmol/L (3.5-5.1)
[2018-02-04] MEDS: D5W AND NSS 1,000 ML IV SCH ×2 (06:15→16:14)
[2018-02-04] MEDS ORDERED: TOPIRAMATE 100 MG TAB PO ONE (08:36)
[2018-02-04] MEDS ORDERED: LEVETIRACETAM 250 MG TAB PO ONE (08:41)
[2018-02-04] MEDS ORDERED: FLUTICASONE PROPIONATE NA SPR 16 GM BTL NAE PRN (08:45)
[2018-02-04] MEDS ORDERED: LORAZEPAM 2 MG TAB JT PRN (08:45)
--- NOTE | 2018-02-04 09:10 | Neurology Consultation ---
Neurology Consultation Date of Consultation: Feb 04, 2018. Attending Physician: Dakota Gamez M.D. Primary Care Physician: Griffin Salinas M.D. Reason for Consultation: Patient is a 62-year-old, who I was asked to see the request of Leigh Ellis PA-C, for neurologic consultation regarding generalized weakness, weight loss, history of seizure disorder and stroke History of Present Illness Source: patient, caregiver, clinic records, hospital records In November of 2015, I 1st saw this patient in ended up diagnosing a TIA, as there was no new stroke on MRI. 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 Classic seizures for him consist of the onset of the visual distortion or hallucination followed by left upper extremity clonic activity. Occasionally there would be generalization. To complicate matters, the patient will call lots of different spells and symptoms he experiences as a seizure. Although he has a past allergy of levetiracetam he has been on levetiracetam since July of 2017. He has side effects to Dilantin as well. He [address]st saw Dr. Silva in 2007 and was on Depakote and topiramate at the time. By 2015 he was on topiramate, Lamictal, and carbamazepine. An EEG showed focal slowing in the right middle cerebral artery territory particularly right parietal with potentially epileptogenic activity emanating from that area. I saw the patient last December of 2016 and he was neurologically stable. His seizures were controlled on carbamazepine, topiramate, and clonazepam. An MRI of the brain showed no change from previous scans. Because of decreased appetite and weight loss, I recommended tapering off topiramate over 1-2 months time frame and continuing carbamazepine. Unfortunately, this was not done. In early July of 2017, the patient was admitted to [facility] for confusion. A UTI was found and treated. An EEG showed focal slowing in the right parietal head region with periodic epileptiform discharges emanating from that region. He was initiated on Keppra 500 milligrams twice a day. He last saw Dr. Silva in later July of 2017. He kept him on topiramate 200 milligrams twice daily, carbamazepine ER 400 milligrams twice daily, and Keppra 500 milligrams twice daily. He also takes clonazepam 0.5 milligrams twice a day. He is followed by Dr. Arnett, Psychiatry, who has the patient on Viibryd 40 milligrams daily and generic Seroquel 25 milligrams 3 times a day plus 800 milligrams XR each evening. Most recent carbamazepine level was August of 2017 and a carbamazepine level was 11.8 Three months ago, apparently he had a bowel obstruction requiring surgery at [facility]. We do not have these records. Since this time, he has had abdominal pain, generalized weakness and fatigue, decreased appetite and weight loss, dizziness with standing, and falling. This is particularly true over the last 5 weeks. He had an episode of double vision watching TV lasting 30 minutes about 2 days ago. He states that he had a seizure couple of weeks ago consisting of a generalized stiffness of the limbs with hindered ability to talk but he could understand. He feels he is awake and remembers the whole spell which lasted an hour. He was then very scared afterwards. He arrived to the emergency room on February 03 at 1331 hours with a temperature 36.7, pulse 72 and regular, respiratory rate 16, blood pressure 102/70, and O2 saturation 97 percent. He was described as oriented with no focal findings or weakness CT scan of the head showed no acute or changes from previous scan KUB showed distention with loops of the large and small bowel suggesting ileus Chest x-ray showed multiple old left-sided rib fractures, including a more prominent 1 in the [address] scan of the abdomen and pelvis showed multiple necrotic lymph nodes and suggestive of Mets, colonic dilatation, and bilateral nephrolithiasis CBC shows anemia. Chem profile was largely unremarkable TSH was 1.4. He had elevated white cells in his urine and urine culture is pending. Tumor markers for the abdomen or pending as well. He has heme-positive stool. Currently, the patient has fatigue and weakness in general. He feels somewhat dizzy with standing up and has some low back pain which is chronic but no other pain or headache. He does have abdominal discomfort. He has no numbness in the limbs or incontinence. He feels that his mood is worse with more depression. Past Medical/Surgical History Medical Problems: (1) Altered mental status Status: Acute (2) Fall at home Status: Acute (3) Falling Status: Acute (4) GI bleed Status: Acute (5) Hip fracture, left Status: Acute (6) Ileus Status: Acute (7) Orthostasis Status: Acute (8) Slurred speech Status: Acute (9) Vomiting Status: Acute (10) Weakness Status: Acute (11) Weight loss Status: Acute Large right middle cerebral artery stroke, 2004 Focal onset seizures right parietal with and without secondary generalization, secondary to the previous stroke Old left posterior parietal stroke of uncertain age seen on imaging studies History of ND Dyslipidemia Peripheral arterial disease Gastroesophageal reflux disease Borderline diabetes Abdominal pain with ileus and previous colonic obstruction resection earlier this year Post cholecystectomy Post right carotid endarterectomy after his stroke. Most recent carotid ultrasound in August of this year showed less than 50 percent stenosis in the ICAs bilaterally. Family History Mother age 76 of an ND. 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 following his ND The patient smokes on filtered cigarettes as much as a half a pack a day Patient used to drink as much as a case of beer per week but quit in 2005 after he was initiated on antiepileptic medication Smoking Status: Current every day smoker Smokeless Tobacco Use: No Alcohol Use: none Drug Use: none Marital Status: Housing Status: lives with family Occupation Status: retired, disabled Allergies Coded Allergies: Levetiracetam (Verified Allergy, Mild, 12/23/16) Phenytoin (Verified Allergy, Mild, 12/23/16) Current Inpatient Medications Current Inpatient Medications Medications (Trade) Dose Ordered Sig/Pedro Route Start Time Stop Time Status Last Admin Dose Admin Ioversol (Optiray 320) 111 ml UD PRN IV 02/03/18 17:15 02/07/18 17:14 Ondansetron HCl (Zofran Inj) 4 mg Q6H PRN IV 02/03/18 19:30 03/05/18 19:29 Pantoprazole Sodium 40 mg/ Syringe 10 ml @ 5 mls/min DAILY@11 IV 02/04/18 11:00 03/06/18 10:59 Dextrose/Sodium Chloride 1,000 ml @ 100 mls/hr Q10H IV 02/03/18 21:00 03/05/18 20:59 02/04/18 06:15 100 MLS/HR Morphine Sulfate (MoRPHine SULFATE INJ) 3 mg Q4 PRN IV 02/04/18 00:00 02/18/18 00:00 02/04/18 00:10 3 MG Review of Systems Constitutional: + weight loss, + weakness, + fatigue Eyes: No worsening of vision, No diplopia ENT: No hearing loss, No trouble swallowing Respiratory: No cough, No shortness of breath Cardiovascular: No chest pain, No palpitations Abdomen: + pain, + nausea Musculoskeletal: + joint pain, No muscle pain Genitourinary - Male: No dysuria, No urinary incontinence Neurologic: + weakness, + balance problems, No memory loss, No numbness/ tingling, No vertigo Psychiatric: + depression symptoms, + anxiety Endocrine: + fatigue Hematologic / Lymphatic: + abnormal bleeding/bruising Integumentary: No rash Allergic / Immunologic: No hives Physical Exam Vital Signs (Past 24 Hrs): Date Time Temp Pulse Resp B/P (MAP) Pulse Ox O2 Delivery O2 Flow Rate FiO2 02/04/18 07:56 82 120/71 (87) 02/04/18 06:59 37.1 83 18 130/65 (86) 98 Room Air 02/04/18 04:41 36.6 71 17 122/70 (87) 97 Room Air 02/04/18 00:21 Room Air 02/03/18 23:50 36.8 80 20 126/72 (90) 97 Room Air 02/03/18 22:09 36.9 79 18 136/75 100 Room Air 02/03/18 22:05 36.9 79 18 136/75 (95) 100 Room Air 02/03/18 20:53 80 18 134/68 99 02/03/18 20:51 80 18 134/68 99 Room Air 02/03/18 18:50 80 18 128/78 99 Room Air 02/03/18 17:18 68 18 131/80 100 Room Air 02/03/18 16:26 89 115/68 99 Room Air 85 110/70 92 64/50 02/03/18 15:14 75 22 131/99 100 Room Air 02/03/18 14:23 99 Room Air 02/03/18 14:23 77 02/03/18 13:31 36.7 72 16 102/70 97 Room Air Patient is right-handed. The patient is awake and alert. Speech is remarkable for slight dysarthria at best and no significant aphasia. Mentation and thought processes are impaired and he is not fully oriented orientation. Mood is reasonable, and he is pleasant and cooperative, and his affect seems appropriate. Appearance and grooming are normal. Long and short-term memory a rather poor. He knows his name and date and where he lives the fact that he is in hospital, but he does not know the month or the year The discs are sharp with positive venous pulsations. There are no exudates, hemorrhages, or blood vessel changes seen. Pupils are 4mm bilaterally and reactive to light. Extraocular eye muscles are intact without nystagmus. Visual acuity and visual gibson seem normal grossly to confrontation. There are no deficits to sensation of the face bilaterally. Corneal reflexes are positive bilaterally. There is facial asymmetry and weakness on the left. Hearing seems intact grossly to voice and finger rub. Palate moves well without asymmetry. There is normal sternocleidomastoid and trapezius strength bilaterally. Tongue is midline with good strength bilaterally. Neck is with full range of motion without discomfort. There are no cervical bruits. There are no cranial or ocular bruits. Heart is without murmur. Cervical, thoracic, and lumbar spine are nontender to palpation. Gait is poor and he is very unstable. He gets lightheaded with sitting and standing but has no nystagmus. He cannot take steps without assistance and is a big fall risk. With outstretched arms there is a very slight drift only on the left. There are no resting, postural, or action tremors. There is no ataxia with finger-to- nose testing. There is reason a facility in the hands bilaterally. There are no abnormal involuntary movements noted. Motor strength is 4+/5 diffusely in the left upper extremity compared to 05/05 in the right upper extremity both proximally and distally. Strength is 5/5 diffusely in the right leg both proximally distally and in the left leg there is 4 +/5 strength proximally and 5/5 distally. He has mild stiffness in spasticity on the left side compared to the right. He has no focal atrophy and has no myoclonic jerks or fasciculations Sensory examination is intact to pin and touch throughout all four limbs. Reflexes are 2/4 in the left biceps, triceps, brachioradialis, quadriceps, and Achilles tendons . The right arm and leg reflexes are absent. Toes are downgoing with plantar stimulation bilaterally. Peripheral pulses are present and of normal quality distally in all four limbs. There is no peripheral edema noted. Laboratory Results Past 24 Hours: 02/04/18 02:22 02/04/18 02:22 Test 02/03/18 14:20 02/04/18 02:22 02/04/18 07:13 Immature Granulocyte % (Auto) 0.2 % White Blood Count 6.62 K/uL (4.8-10.8) Red Blood Count 3.87 M/uL (4.7-6.1) 3.49 M/uL (4.7-6.1) Hemoglobin 11.4 g/dL (14.0-18.0) Hematocrit 35.4 % (42-52) Mean Corpuscular Volume 91.5 fL (80-100) 91.4 fL (80-100) Mean Corpuscular Hemoglobin 29.5 pg (25-34) 28.9 pg (25-34) Mean Corpuscular Hemoglobin Concent 32.2 g/dl (32-36) 31.7 g/dl (32-36) Platelet Count 329 K/uL (130-400) Mean Platelet Volume 10.1 fL (7.4-10.4) 9.6 fL (7.4-10.4) Neutrophils (%) (Auto) 74.5 % Lymphocytes (%) (Auto) 15.7 % Monocytes (%) (Auto) 6.5 % Eosinophils (%) (Auto) 2.6 % Basophils (%) (Auto) 0.5 % Neutrophils # (Auto) 4.94 K/uL (1.4-6.5) Lymphocytes # (Auto) 1.04 K/uL (1.2-3.4) Monocytes # (Auto) 0.43 K/uL (0.11-0.59) Eosinophils # (Auto) 0.17 K/uL (0-0.5) Basophils # (Auto) 0.03 K/uL (0-0.2) Immature Granulocyte # (Auto) 0.01 K/uL (0.00-0.02) Magnesium Level 2.1 mg/dl (1.8-2.4) Total Bilirubin 0.4 mg/dl (0.2-1) Direct Bilirubin 0.2 mg/dl (0-0.2) Aspartate Amino Transf (AST/SGOT) 25 U/L (15-37) Alanine Aminotransferase (ALT/SGPT) 32 U/L (12-78) Alkaline Phosphatase 243 U/L (45-117) Troponin I < 0.015 ng/ml (0-0.045) Total Protein 7.2 gm/dl (6.4-8.2) Albumin 2.4 gm/dl (3.4-5.0) Thyroid Stimulating Hormone (TSH) 1.450 uIu/ml (0.300-4.500) RDW Standard Deviation 58.0 fL (36.4-46.3) RDW Coefficient of Variation 17.4 % (11.5-14.5) Prothrombin Time 11.1 SECONDS (9.0-12.0) Prothromb Time International Ratio 1.1 (0.9-1.1) Anion Gap 6.0 mmol/L (3-11) Est Creatinine Clear Calc Drug Dose 86.4 ml/min Estimated GFR () 115.6 Estimated GFR (Non- 99.7 BUN/Creatinine Ratio 13.1 (10-20) Calcium Level 7.8 mg/dl (8.5-10.1) Lipase 134 U/L (73-393) Hepatitis B Surface Antigen NEG (NEG) Urine Color DK YELLOW Urine Appearance CLOUDY (CLEAR) Urine pH 6.5 (4.5-7.5) Urine Specific [place] > 1.045 (1.000-1.030) Urine Protein NEG (NEG) Urine Glucose (UA) NEG (NEG) Urine Ketones TRACE (NEG) Urine Occult Blood TRACE (NEG) Urine Nitrite POS (NEG) Urine Bilirubin NEG (NEG) Urine Urobilinogen NEG (NEG) Urine Leukocyte Esterase MODERATE (NEG) Urine WBC (Auto) >30 /hpf (0-5) Urine RBC (Auto) 0-4 /hpf (0-4) Urine Hyaline Casts (Auto) 1-5 /lpf (0-5) Urine Epithelial Cells (Auto) 0-5 /lpf (0-5) Urine Bacteria (Auto) 3+ (NEG) Impression 1. Large right middle cerebral artery stroke, 2004. This resulted in residual spastic left hafsa paresis (face and arm greater than leg), mild dysarthria, affective disorder, and seizure disorder of right parietal onset with without secondary generalization Overall, he is very stable clinically and very much like I last saw him 1 year ago. He has generalized weakness and fatigue but this is more subjective than objective. He was on aspirin and Plavix daily but these were held on admission due to his GI bleed. His risk factors for stroke include his chronic cigarette smoking, which she has not stopped, and dyslipidemia 2. Seizure disorder secondary to previous stroke This actually is very well controlled on current medication. I am not certain he needs all of these anticonvulsants. Most of the episodes he calls seizures are likely not epilepsy. Nevertheless, he has active seizure focus from his previous stroke. At baseline he was on carbamazepine ER 400 milligrams twice daily, Keppra 500 milligrams twice daily, topiramate 200 milligrams twice daily, and clonazepam 0.5 milligrams twice a day (which was also helping his psychiatric condition). 3. Severe depression and anxiety, initiated after his significant stroke. He is followed by Psychiatry and is on a rather large dose of generic Seroquel as well as Viibryd. He believes his mood is worse recently. 4. Subacute progression of symptoms including generalized weakness, fatigue, abdominal pain, lightheadedness with standing, confusion, decreased appetite and weight loss, and history of bowel obstruction requiring surgery 3 months ago. This is all likely due to whatever is going on his abdomen. His CT scan shows abnormal lymph nodes the and he may have an underlying carcinoma. He has heme-positive stool as well. The lightheadedness with standing is likely orthostatic. Chronic nephrolithiasis is noted. Plan 1. I see no need for additional neurologic testing at this time. He does not seem to have any new neurologic symptoms that would require additional imaging. 2. Cancel EEG He has a known active focal epileptic area in the right parietal head region. He is on multiple anticonvulsants and an EEG is likely not going to add or change anything we do for now 3. Continue carbamazepine ER 400 milligrams twice daily. If we cannot get this formulation then he would need IR carbamazepine 200 milligrams q.i.d. 4. Obtain a trough carbamazepine level tomorrow morning 5. Increase levetiracetam to 750 milligrams twice daily. 6. Because of his decreased appetite and nephrolithiasis, and the fact that his headaches and epilepsy are under control, it is reasonable to taper topiramate some. For now, decrease topiramate to 150 milligrams twice daily. 7. Continue clonazepam 0.5 milligrams twice daily. 8. Continue usual psychiatric medication but consider consult Psychiatry for any possible changes. 9. Hold aspirin and Plavix for now, in lieu of his recent GI bleed. After cleared by GI or Medicine, I would restart 75 milligrams of Plavix but I do not see the need for adding back aspirin, as both together the increase bleeding risk. 10. Physical and Occupational therapy consults to increase strength and functionality. Her overall, I spent a total of 80 minutes with this case including records review, direct evaluation the patient at bedside, and discussion of the case with Dr. Gamez, his clinical staff, and the patient at bedside including differential diagnosis and treatment options.
[2018-02-04 09:41] LABS: HEP C IGG 13 YRS+OLDER_RFLX NEG (NEG)
[2018-02-04] MEDS: CYANOCOBALAMIN 500 MCG TAB (VIT B-12) PO SCH (09:41)
[2018-02-04] MEDS: FAMOTIDINE 20 MG TAB PO SCH (09:42)
[2018-02-04] MEDS: ASCORBIC ACID 500 MG TAB PO SCH (09:42)
[2018-02-04] MEDS: CARVEDILOL 12.5 MG TAB PO SCH ×2 (09:42→20:38)
[2018-02-04] MEDS: CEROVITE ADV FORMULA TAB PO SCH (09:42)
[2018-02-04] MEDS: CALCIUM 600MG + VIT D 400 IU TAB PO SCH (09:42)
[2018-02-04] MEDS: CHOLECALCIFEROL 1000 INTER.UNIT TAB PO SCH (09:42)
[2018-02-04] MEDS: POTASSIUM CHLORIDE 20 MEQ TABCR PO SCH (09:43)
[2018-02-04] MEDS: TAMSULOSIN HCL 0.4 MG CAP PO SCH (09:43)
[2018-02-04] MEDS: CLONAZEPAM 0.5 MG TAB PO SCH ×2 (09:45→20:39)
[2018-02-04] MEDS: CARBAMAZEPINE 200 MG TABCR PO SCH ×2 (10:48→20:38)
[2018-02-04] MEDS: QUETIAPINE FUMARATE 25 MG TAB PO SCH ×3 (10:48→20:38)
[2018-02-04] MEDS: PANTOprazole INJ 40 MG in SYRINGE 0 ML IV SCH (10:49)
[2018-02-04] MEDS ORDERED: POLYETHYLENE (MIRALAX) 17 GM PACK PO ONE (12:00)
--- NOTE | 2018-02-04 13:07 | GASTROINTESTINAL CONSULTATION ---
DATE OF CONSULTATION: 02/03/2018 ATTENDING PHYSICIAN: Dr. Gamez. CONSULTING PHYSICIAN: Dr. Gore. REASON FOR CONSULTATION: New neoplastic pancreatic process on CT imaging. HISTORY OF PRESENT ILLNESS: Rufus Doyle is a 62-year-old male who presented to the Department of Emergency Medicine on 02/03/2018 with complaints of weakness, dizziness, and falls. He also complained of some bilateral lower quadrant abdominal pain. Upon arrival to the Department of Emergency Medicine, he stated that he was having a poor appetite as well as constipation. He also reported a history of a bowel obstruction approximately 3 months prior to his arrival with a colon resection at that time though no records are available. His laboratory studies in the Department of Emergency Medicine showed a normal white blood cell count of 6.62 with an H and H of 11.4 and 35.4, his platelet count was 329. PT and INR were normal. His liver panel was essentially unremarkable with the exception of a slight elevation of alkaline phosphatase of 243. He did undergo a KUB x-ray that showed gaseous distention of both the small and large bowel loops, which could be secondary to an ileus. CT scan was recommended by the attending radiologist and was performed and showed multiple necrotic samuel hepatis; peripancreatic, periaortic, and retrocrural masses favoring necrotic lymph nodes. The findings represented a neoplastic process with metastatic lymphadenopathy. 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 There was also moderate colonic dilation with equivocal caliber change at the level of the sigmoid anastomosis without evidence of a high-grade obstruction. There was bilateral nephrolithiasis, but no hydronephrosis. The patient was subsequently admitted. He was given Protonix 40 mg daily as well as Pepcid 20 mg daily and p.r.n.'s including morphine and Zofran as needed. At the time that I saw the patient, he states that he was feeling better than his arrival stating that he did not feel as weak. He denied any specific abdominal pain at present. He does report that his shift lab technician is Dr. Guerra from [facility] who he has seen on several occasions and has done colonoscopy in the past, frequently though I do not have these records. He denies any fevers, chills, nausea, vomiting, hematemesis, melena, hematochezia, chest pain, palpitations, shortness of breath, cough, dysuria, hematuria, numbness, or tingling in his extremities. He denies any recent weight loss. He has no further complaints. PAST MEDICAL HISTORY: Significant for Velez's esophagus, history of a CVA, history of diverticulitis, GERD, coronary artery disease, peripheral artery disease, pancreatitis, seizures, slurred speech. PAST SURGICAL HISTORY: Includes cholecystectomy, stent to the right lower extremity, carotid surgery. ALLERGIES: PHENYTOIN AND KEPPRA. MEDICATIONS: At present include Seroquel 800 mg p.o. at bedtime, Micardis 40 mg p.o. at bedtime, Topamax 150 mg b.i.d., Colace 200 mg p.o. at bedtime, Keppra 750 mg p.o. b.i.d., Protonix 40 mg IV daily, Seroquel 25 mg p.o. t.i.d., Tegretol-XR 400 mg p.o. b.i.d., ascorbic acid 500 mg p.o. daily, Caltrate plus vitamin D 1 tab daily, Coreg 12.5 mg p.o. at bedtime, vitamin D 1000 international units p.o. daily, Klonopin 0.5 mg p.o. a.m. and at bedtime, vitamin B12 1000 mcg p.o. daily, Pepcid 20 mg p.o. daily, multivitamin 1 tab p.o. daily, Flomax 0.4 mg p.o. daily, Flonase 1 spray via each nostril daily p.r.n. nasal congestion, Ativan 2 mg as directed p.r.n. seizures, morphine 3 mg IV q. 4 p.r.n. pain, Zofran 4 mg IV q. 6 p.r.n. nausea. SOCIAL HISTORY: He is , on disability. Denies any current alcohol use though is a former alcoholic. He smokes, continues to smoke daily. No illicit drug use. FAMILY HISTORY: Negative for GI malignancy or inflammatory bowel disease. PHYSICAL EXAMINATION: Includes: VITAL SIGNS: Temperature 37.1, pulse 82, respirations 18, blood pressure 120/71, pulse ox 98% on room air. GENERAL: He is awake, cooperative, in no acute distress. He is chronic ill appearing. HEAD: Normocephalic, atraumatic. EYES: Pupils equally round. Extraocular muscles are intact. ENT: External evaluation of ears and nose are normal. NECK: Soft and supple. CHEST: Nontender, bilateral clear to auscultation bilateral bases. CARDIOVASCULAR SYSTEM: Regular rate and rhythm. ABDOMEN: Soft, mild tenderness left lower quadrant. Nondistended. There are positive bowel sounds. EXTREMITIES: No clubbing, cyanosis, or edema. PSYCHIATRIC: Normal mood. NEUROLOGIC: Oriented x3. SKIN: Noted pallor. LABORATORY STUDIES AND RADIOGRAPHIC STUDIES: Reviewed in the HPI. IMPRESSION: A 62-year-old male presenting with weakness, abdominal pain, constipation, who was noted to have multiple necrotic lymph nodes in the abdomen with questionable new pancreatic neoplastic process. PLAN: Clearly, the patient will need further workup in this regard. Currently, he receives his GI care through [facility]. I do not see any need for emergent testing during this hospitalization, though recommendation would be to have the patient undergo EUS for further evaluation of the CT findings. If Dr. Guerra's group at [facility] does not perform EUS or have the capability of performing EUS, I would recommend Dr. Patiño or Dr. Hernández of [facility] to perform EUS for further evaluation of the patient's findings. I would recommend continuing the patient's current care with Protonix and Pepcid therapy. I will add MiraLax 17 g p.o. daily in an 8 ounce glass of water to aid in relief of the patient's constipation. I will follow his clinical course and make further recommendations as needed. Once again, thanks for allowing me to participate in the care of this patient. If you have any further questions, please do not hesitate in contacting me.
[2018-02-04] MEDS: DUTASTERIDE SCH (15:38)
--- NOTE | 2018-02-04 18:43 | Progress Note ---
Internal Med Progress Note Date of Service: Feb 04, 2018. Provider Documentation: SUBJECTIVE: The patient was seen and examined in telemetry unit He is a 62-year-old male with a PMH of seizure disorder (secondary to MCA stroke in 2004) with residual dysarthria and left hemiparesis, h/o recurrent SBO and diverticulitis, h/o pancreatitis, CAD (s/p stenting), PAD and other medical problems listed below who presents with increased weakness and frequency of falls 5 weeks. He is status post laparotomy surgery about [address] [facility]. Complains to have one going mid abdominal pain without any associated nausea and /or vomiting The pain has been going on for about 3 months Denies any dizziness, headache, chest pain, palpitation or shortness of breath at rest OBJECTIVE: Vital Signs-as noted below Exam: General-no apparent distress Looked depressed Eyes-normal ENT-normal Neck-supple Lungs-clear to auscultate bilaterally Heart-regular, no murmur appreciated Abdomen-soft, mildly tender generalized, pronounced right lower quadrant without any guarding and no rigidity No organomegaly, bowel sounds present Extremities-no edema Neuro-alert, awake and oriented 3 Has mild dysarthria And mild hemiparesis involving left side Lab data as noted below. ASSESSMENT & PLAN: This is a 62-year-old male with a PMH of seizure disorder (secondary to MCA stroke in 2004) with residual dysarthria and left hemiparesis, h/o recurrent SBO and diverticulitis, h/o pancreatitis, CAD (s/p stenting), PAD and other medical problems listed below who presents with increased weakness and frequency of falls 5 weeks. Neoplastic process with metastatic lymphadenopathy Heme positive stool -Unintentional weight loss, constipation, lower abd pain for weeks -CT abd/pelvis with - Multiple necrotic samuel hepatis, peripancreatic, para-aortic and retrocrural masses which favor necrotic lymph nodes. The findings represent a neoplastic process with metastatic lymphadenopathy. -The primary tumor is not entirely clear on this exam although may reflect a pancreatic carcinoma arising from the uncinate process. No biliary or pancreatic ductal dilatation. 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 Had been in the [facility] with lab work to make surgery for probable bowel obstruction We will get records from [facility] Appreciate GI input-likely to need EUS as an in/outpatient setting -Hgb stable at 11.4. Trend H&H overnight-remains stable -NPO except meds, clears and started R -Coags, lipase, afp, Ca-125, hepatitis panel-unremarkable -Remains stable -Continue current management Seizure disorder -Possible seizure earlier this week -EEG from November 2017 with increased epileptogenic potential over the right parietal area -Seizure precautions -Continue Tegretol, Topamax -Neuro consulted-appreciate input -Antiseizure medications have been restarted after discussion with the neurologist -Doubt any more seizure since admission -Does not require another EEG Generalized weakness, increased falls -Lightheaded when standing, + orthostatic vitals -Poor PO intake, limited fluids, possible GI bleed -IV D5 and NSS overnight -Hold antihypertensives in setting of postural hypotension -PT/OT for evaluation, conditioning Constipation -Chronic condition, poor PO intake, neoplastic process -CT abd/pelvis with moderate colonic dilatation but no evidence of obstruction -Fleet enema pending, continue bowel regimen -IV fluids H/o CVA -Aspirin, Plavix held in setting of possible bleed Mood disorder -Continue Seroquel, Klonopin, Viibryd CAD (s/p stenting) -Stable, no CP -EKG without changes -Denies any acute symptoms DVT Ppx: SCDs for now Code status: FULL PCP: Russell Dispo: Admitted to telemetry. Discharge planning ordered. I had a long discussion with the family members especially the informed the patient Discussed about the recent CT of the abdomen findings and possible metastatic disease which is causing his abdominal symptoms for a long time Mentioned that records from [facility] will be reviewed and possible EUS for tissue sample for further guidance of management Mentioned that it could be something serious but not sure until pathology is back All of the family members and the patient where understanding about this medical issue. Vital Signs: Date Time Temp Pulse Resp B/P (MAP) Pulse Ox O2 Delivery O2 Flow Rate FiO2 02/04/18 16:00 99 Room Air 02/04/18 15:50 36.6 87 16 116/69 (85) 99 Room Air 02/04/18 11:43 37.0 76 18 118/73 (88) 98 Room Air 02/04/18 08:00 Room Air 02/04/18 07:56 82 120/71 (87) 02/04/18 06:59 37.1 83 18 130/65 (86) 98 Room Air 02/04/18 04:41 36.6 71 17 122/70 (87) 97 Room Air 02/04/18 00:21 Room Air 02/03/18 23:50 36.8 80 20 126/72 (90) 97 Room Air 02/03/18 22:09 36.9 79 18 136/75 100 Room Air 02/03/18 22:05 36.9 79 18 136/75 (95) 100 Room Air 02/03/18 20:53 80 18 134/68 99 02/03/18 20:51 80 18 134/68 99 Room Air 02/03/18 18:50 80 18 128/78 99 Room Air Lab Results: Results Past 24 Hours Test 02/03/18 20:41 02/04/18 02:22 02/04/18 07:13 Range/Units Hemoglobin 10.7 10.1 14.0-18.0 g/dL Hematocrit 33.6 31.9 42-52 % White Blood Count 6.23 4.8-10.8 K/uL Red Blood Count 3.49 4.7-6.1 M/uL Mean Corpuscular Volume 91.4 80-100 fL Mean Corpuscular Hemoglobin 28.9 25-34 pg Mean Corpuscular Hemoglobin Concent 31.7 32-36 g/dl RDW Standard Deviation 58.0 36.4-46.3 fL RDW Coefficient of Variation 17.4 11.5-14.5 % Platelet Count 287 130-400 K/uL Mean Platelet Volume 9.6 7.4-10.4 fL Prothrombin Time 11.1 9.0-12.0 SECONDS Prothromb Time International Ratio 1.1 0.9-1.1 Sodium Level 142 136-145 mmol/L Potassium Level 3.5 3.5-5.1 mmol/L Chloride Level 114 98-107 mmol/L Carbon Dioxide Level 22 21-32 mmol/L Anion Gap 6.0 3-11 mmol/L Blood Urea Nitrogen 9 7-18 mg/dl Creatinine 0.70 0.60-1.40 mg/dl Est Creatinine Clear Calc Drug Dose 86.4 ml/min Estimated GFR () 115.6 Estimated GFR (Non- 99.7 BUN/Creatinine Ratio 13.1 10-20 Random Glucose 98 70-99 mg/dl Calcium Level 7.8 8.5-10.1 mg/dl Lipase 134 73-393 U/L Hepatitis B Surface Antigen NEG NEG Hepatitis C Antibody NEG NEG Urine Color DK YELLOW Urine Appearance CLOUDY CLEAR Urine pH 6.5 4.5-7.5 Urine Specific [place] > 1.045 1.000-1.030 Urine Protein NEG NEG Urine Glucose (UA) NEG NEG Urine Ketones TRACE NEG Urine Occult Blood TRACE NEG Urine Nitrite POS NEG Urine Bilirubin NEG NEG Urine Urobilinogen NEG NEG Urine Leukocyte Esterase MODERATE NEG Urine WBC (Auto) >30 0-5 /hpf Urine RBC (Auto) 0-4 0-4 /hpf Urine Hyaline Casts (Auto) 1-5 0-5 /lpf Urine Epithelial Cells (Auto) 0-5 0-5 /lpf Urine Bacteria (Auto) 3+ NEG Microbiology Results 02/04/18 Urine Culture, Received Pending
[2018-02-04] MEDS: DOCUSATE SODIUM 100 MG CAP PO SCH (20:38)
[2018-02-04] MEDS: TELMISARTAN 40 MG TAB PO SCH (20:39)
[2018-02-04] MEDS: LEVETIRACETAM 250 MG TAB PO SCH (20:39)
[2018-02-04] MEDS: TOPIRAMATE 100 MG TAB PO SCH (20:40)
[2018-02-04] MEDS ORDERED: QUETIAPINE FUMARATE 200 MG TABCR PO SCH (21:00)
[2018-02-05] VITALS (9 sets, daily range): BP systolic 91–108; BP diastolic 51–67; PULSE 62–94; TEMP 36.4–36.9; O2SAT 95–100
[2018-02-05] MEDS: D5W AND NSS 1,000 ML IV SCH ×3 (02:17→22:42)
[2018-02-05 06:14] LABS: HEPATITIS A IGM TC 51813E NON-REACTIVE (NON-REACTIVE); HEPATITIS B CORE IGM TC51854R NON-REACTIVE (NON-REACTIVE)
[2018-02-05 07:24] LABS: BASO % 0.6 %; BASO ABS # 0.03 K/uL (0-0.2); EOS % 2.5 %; EOS ABS # 0.13 K/uL (0-0.5); HEMATOCRIT 28.4 % (42-52); IG# 0.01 K/uL (0.00-0.02); LYMPH % 20.9 %; LYMPH ABS # 1.11 K/uL (1.2-3.4); MEAN CELL VOLUME 91.9 fL (80-100); MEAN CORPUSCULAR HEMOGLOBIN 29.1 pg (25-34); MEAN CORPUSCULAR HGB CONC 31.7 g/dl (32-36); MEAN PLATELET VOLUME 9.4 fL (7.4-10.4); MONO % 7.5 %; NEUT % 68.3 %; NEUT ABS # 3.62 K/uL (1.4-6.5); PLATELET COUNT 224 K/uL (130-400); RED CELL DISTRIBUTION WIDTH CV 17.7 % (11.5-14.5); RED CELL DISTRIBUTION WIDTH SD 59.8 fL (36.4-46.3)
[2018-02-05] MEDS: CLONAZEPAM 0.5 MG TAB PO SCH ×2 (07:41→21:00)
[2018-02-05] MEDS: DUTASTERIDE SCH ×4 (07:41→23:37)
[2018-02-05] MEDS: CHOLECALCIFEROL 1000 INTER.UNIT TAB PO SCH (07:42)
[2018-02-05] MEDS: CALCIUM 600MG + VIT D 400 IU TAB PO SCH (07:42)
[2018-02-05] MEDS: QUETIAPINE FUMARATE 25 MG TAB PO SCH ×2 (07:42→13:55)
[2018-02-05] MEDS: CEROVITE ADV FORMULA TAB PO SCH (07:42)
[2018-02-05] MEDS: TOPIRAMATE 100 MG TAB PO SCH ×2 (07:43→21:12)
[2018-02-05] MEDS: POLYETHYLENE (MIRALAX) 17 GM PACK PO SCH (07:43)
[2018-02-05] MEDS: CARBAMAZEPINE 200 MG TABCR PO SCH ×2 (07:44→21:13)
[2018-02-05] MEDS: CYANOCOBALAMIN 500 MCG TAB (VIT B-12) PO SCH (07:44)
[2018-02-05] MEDS: FAMOTIDINE 20 MG TAB PO SCH (07:44)
[2018-02-05] MEDS: ASCORBIC ACID 500 MG TAB PO SCH (07:44)
[2018-02-05] MEDS: TAMSULOSIN HCL 0.4 MG CAP PO SCH (07:45)
[2018-02-05] MEDS: LEVETIRACETAM 250 MG TAB PO SCH ×2 (07:45→21:13)
[2018-02-05] MEDS: CARVEDILOL 12.5 MG TAB PO SCH ×2 (07:46→21:00)
[2018-02-05 08:04] LABS: ALBUMIN 1.9 gm/dl (3.4-5.0); CALCIUM 7.8 mg/dl (8.5-10.1); CREATININE 0.59 mg/dl (0.60-1.40); POTASSIUM 3.4 mmol/L (3.5-5.1); TOTAL PROTEIN 5.7 gm/dl (6.4-8.2)
[2018-02-05] MEDS: POTASSIUM CHLORIDE 20 MEQ TABCR PO SCH (08:32)
--- NOTE | 2018-02-05 09:13 | Neurology Progress Notes ---
Neurology Progress Note Date of Service Feb 05, 2018. Subjective Patient has no complaint of pain. He is very sleepy this morning. He follows commands is very tired. He has had no seizure activity. ESR was 61 CBC showed anemia Chem profile showed a mildly low potassium and calcium and he has low total protein and albumin. CEA was 0.9 RAGHU Garrison, saw the patient and initiated Protonix and Pepcid and suggested further workup as an outpatient. Objective Date Time Temp Pulse Resp B/P (MAP) Pulse Ox O2 Delivery O2 Flow Rate FiO2 02/05/18 07:15 36.4 67 18 96/60 (72) 99 Room Air 02/05/18 04:33 36.9 75 19 108/61 (77) 98 Room Air 02/05/18 00:00 Room Air 02/04/18 23:03 36.6 75 19 101/62 (75) 97 Room Air 02/04/18 19:32 37.2 80 16 110/72 (85) 98 Room Air 02/04/18 16:00 99 Room Air 02/04/18 15:50 36.6 87 16 116/69 (85) 99 Room Air 02/04/18 11:43 37.0 76 18 118/73 (88) 98 Room Air Last 24 Hours Test 02/05/18 07:04 White Blood Count 5.30 K/uL Red Blood Count 3.09 M/uL Hemoglobin 9.0 g/dL Hematocrit 28.4 % Mean Corpuscular Volume 91.9 fL Mean Corpuscular Hemoglobin 29.1 pg Mean Corpuscular Hemoglobin Concent 31.7 g/dl Platelet Count 224 K/uL Mean Platelet Volume 9.4 fL Neutrophils (%) (Auto) 68.3 % Lymphocytes (%) (Auto) 20.9 % Monocytes (%) (Auto) 7.5 % Eosinophils (%) (Auto) 2.5 % Basophils (%) (Auto) 0.6 % Neutrophils # (Auto) 3.62 K/uL Lymphocytes # (Auto) 1.11 K/uL Monocytes # (Auto) 0.40 K/uL Eosinophils # (Auto) 0.13 K/uL Basophils # (Auto) 0.03 K/uL RDW Standard Deviation 59.8 fL RDW Coefficient of Variation 17.7 % Immature Granulocyte % (Auto) 0.2 % Immature Granulocyte # (Auto) 0.01 K/uL Erythrocyte Sedimentation Rate 65 mm/hr Sodium Level 145 mmol/L Potassium Level 3.4 mmol/L Chloride Level 116 mmol/L Carbon Dioxide Level 21 mmol/L Anion Gap 8.0 mmol/L Blood Urea Nitrogen 6 mg/dl Creatinine 0.59 mg/dl Est Creatinine Clear Calc Drug Dose 112.0 ml/min Estimated GFR () 124.0 Estimated GFR (Non- 107.0 BUN/Creatinine Ratio 9.4 Random Glucose 124 mg/dl Calcium Level 7.8 mg/dl Total Bilirubin 0.3 mg/dl Direct Bilirubin 0.2 mg/dl Aspartate Amino Transf (AST/SGOT) 20 U/L Alanine Aminotransferase (ALT/SGPT) 27 U/L Alkaline Phosphatase 200 U/L Total Protein 5.7 gm/dl Albumin 1.9 gm/dl Carcinoembryonic Antigen 0.9 ng/ml Exam: He is lethargic but easily woken and follows commands. He has the left spastic hafsa paresis as before and no abnormal involuntary movements. Current Inpatient Medications Medications (Trade) Dose Ordered Sig/Pedro Route Start Time Stop Time Status Last Admin Dose Admin Ioversol (Optiray 320) 111 ml UD PRN IV 02/03/18 17:15 02/07/18 17:14 Ondansetron HCl (Zofran Inj) 4 mg Q6H PRN IV 02/03/18 19:30 03/05/18 19:29 Pantoprazole Sodium 40 mg/ Syringe 10 ml @ 5 mls/min DAILY@11 IV 02/04/18 11:00 03/06/18 10:59 02/04/18 10:49 5 MLS/MIN Dextrose/Sodium Chloride 1,000 ml @ 100 mls/hr Q10H IV 02/03/18 21:00 03/05/18 20:59 02/05/18 02:17 100 MLS/HR Morphine Sulfate (MoRPHine SULFATE INJ) 3 mg Q4 PRN IV 02/04/18 00:00 02/18/18 00:00 02/04/18 00:10 3 MG Ascorbic Acid (Vitamin C Tab) 500 mg DAILY PO 02/04/18 09:00 03/06/18 08:59 02/05/18 07:44 500 MG Calcium/Vitamin D (Caltrate Plus Tab) 1 tab DAILY PO 7/28/18 09:00 03/06/18 08:59 02/05/18 07:42 1 TAB Carvedilol (Coreg Tab) 12.5 mg AMHS PO 02/04/18 09:00 03/06/18 08:59 02/04/18 20:38 12.5 MG Cholecalciferol (Vitamin D Tab) 1,000 inter.unit DAILY PO 02/04/18 09:00 03/06/18 08:59 02/05/18 07:42 1,000 INTER.UNIT Clonazepam (Klonopin Tab) 0.5 mg AMHS PO 02/04/18 09:00 03/06/18 08:59 02/05/18 07:41 0.5 MG Cyanocobalamin (Vitamin B-12 Tab) 1,000 mcg DAILY PO 02/04/18 09:00 03/06/18 08:59 02/05/18 07:44 1,000 MCG Famotidine (Pepcid Tab) 20 mg DAILY PO 02/04/18 09:00 03/06/18 08:59 02/05/18 07:44 20 MG Fluticasone Propionate (Flonase Nasal [place]) 1 sprays DAILY PRN XIMENA 02/04/18 08:45 03/06/18 08:44 Lorazepam (Ativan Tab) 2 mg UD PRN JT 02/04/18 08:45 03/06/18 08:44 Multivitamins/ Minerals (Multivitamin W/ Minerals Tab) 1 tab DAILY PO 02/04/18 09:00 03/06/18 08:59 02/05/18 07:42 1 TAB Potassium Chloride (Klor-Con Tab) 40 meq DAILY PO 02/04/18 09:00 03/06/18 08:59 02/05/18 08:32 40 MEQ Quetiapine Fumarate (seroQUEL TAB) 25 mg TID PO 02/04/18 10:00 03/06/18 09:59 02/05/18 07:42 25 MG Quetiapine Fumarate (seroQUEL XR TAB) 800 mg HS PO 02/04/18 21:00 03/06/18 20:59 02/04/18 20:38 800 MG Tamsulosin HCl (Flomax Cap) 0.4 mg DAILY PO 02/04/18 09:00 03/06/18 08:59 02/05/18 07:45 0.4 MG Telmisartan (Micardis Tab) 40 mg HS PO 02/04/18 21:00 03/06/18 20:59 02/04/18 20:39 40 MG Topiramate (Topamax Tab) 150 mg BID PO 02/04/18 21:00 03/06/18 20:59 02/05/18 07:43 150 MG Carbamazepine (Tegretol-Xr (Do Not Crush)) 400 mg BID PO 02/04/18 10:00 03/06/18 09:59 02/05/18 07:44 400 MG Docusate Sodium (coLACE CAP) 200 mg HS PO 02/04/18 21:00 03/06/18 20:59 02/04/18 20:38 200 MG Miscellaneous Information (Order Awaiting Action) 1 ea QS N/A 02/04/18 16:00 03/06/18 15:59 Miscellaneous Information (Order Awaiting Action) 1 ea QS N/A 02/04/18 16:00 03/06/18 15:59 Levetiracetam (Keppra Tab) 750 mg BID PO 02/04/18 21:00 03/06/18 20:59 02/05/18 07:45 750 MG Polyethylene (Miralax Powder Packet) 17 gm DAILY PO 02/05/18 09:00 03/07/18 08:59 02/05/18 07:43 17 GM Impression 1. Large right middle cerebral artery stroke, 2004. This resulted in residual spastic left hafsa paresis (face and arm greater than leg), mild dysarthria, affective disorder, and seizure disorder of right parietal onset with without secondary generalization Overall, he is very stable clinically and very much like I last saw him 1 year ago. He has generalized weakness and fatigue but this is more subjective than objective. He was on aspirin and Plavix daily but these were held on admission due to his GI bleed. His risk factors for stroke include his chronic cigarette smoking, which she has not stopped, and dyslipidemia 2. Seizure disorder secondary to previous stroke This actually is very well controlled on current medication. I am not certain he needs all of these anticonvulsants. Most of the episodes he calls seizures are likely not epilepsy. Nevertheless, he has active seizure focus from his previous stroke. At baseline he was on carbamazepine ER 400 milligrams twice daily, Keppra 500 milligrams twice daily, topiramate 200 milligrams twice daily, and clonazepam 0.5 milligrams twice a day (which was also helping his psychiatric condition). 3. Severe depression and anxiety, initiated after his significant stroke. He is followed by Psychiatry and is on a rather large dose of generic Seroquel as well as Viibryd. He believes his mood is worse recently. 4. Subacute progression of symptoms including generalized weakness, fatigue, abdominal pain, lightheadedness with standing, confusion, decreased appetite and weight loss, and history of bowel obstruction requiring surgery 3 months ago. This is all likely due to whatever is going on his abdomen. His CT scan shows abnormal lymph nodes the and he may have an underlying carcinoma. He has heme-positive stool as well. The lightheadedness with standing is likely orthostatic. Chronic nephrolithiasis is noted. 5. Increased sleepiness/lethargy: Increased Keppra may do this temporarily. This, however, could be multifactorial. Plan 1. I see no need for additional neurologic testing at this time. He does not seem to have any new neurologic symptoms that would require additional imaging. 2. Cancel EEG He has a known active focal epileptic area in the right parietal head region. He is on multiple anticonvulsants and an EEG is likely not going to add or change anything we do for now 3. Continue carbamazepine ER 400 milligrams twice daily. If we cannot get this formulation then he would need IR carbamazepine 200 milligrams q.i.d. 4. Obtain a trough carbamazepine level tomorrow morning 5. Continue levetiracetam to 750 milligrams twice daily. We will monitor him over the next day or 2 and if he continues to be lethargic and may have to lower this down again. 6. Because of his decreased appetite and nephrolithiasis, and the fact that his headaches and epilepsy are under control, it is reasonable to taper topiramate some. Keep topiramate to 150 milligrams twice daily now and I will consider lowering further , in future. 7. Continue clonazepam 0.5 milligrams twice daily, as this was his regular dosage at home.. 8. Continue usual psychiatric medication but consider consult Psychiatry for any possible changes. 9. Hold aspirin and Plavix for now, in lieu of his recent GI bleed. After cleared by GI or Medicine, I would restart 75 milligrams of Plavix but I do not see the need for adding back aspirin, as both together the increase bleeding risk. 10. Physical and Occupational therapy consults to increase strength and functionality.
[2018-02-05] MEDS: PANTOprazole INJ 40 MG in SYRINGE 0 ML IV SCH (11:28)
--- NOTE | 2018-02-05 11:48 | Progress Note ---
Medicine Progress Note Date & Time of Visit: Feb 05, 2018 at 11:35 . Subjective CC: Follow-up visit for possible seizure and other problems. HPI: Somnolent. Denies headache, CP, cough, SOB, nausea, vomiting, abdominal pain. ROS: Unable to obtain more complete ROS due to somnolence. . Objective Last 8 Hrs Date Time Temp Pulse Resp B/P (MAP) Pulse Ox O2 Delivery O2 Flow Rate FiO2 02/05/18 08:00 Room Air 02/05/18 07:15 36.4 67 18 96/60 (72) 99 Room Air 02/05/18 04:33 36.9 75 19 108/61 (77) 98 Room Air Physical Exam: General- lying in bed, no distress Lungs- clear to auscultation; no respiratory distress Cardiovascular- RRR; no murmur or gallop appreciated; no JVD; no pretibial edema Abdomen- + bowel sounds, soft, nontender Extremities- no cyanosis; no calf tenderness Neuro- somnolent, somewhat confused; PERRL, EOMI; left facial palsy; dysarthria ; left hemiparesis Skin- warm & dry . Laboratory Results: Last 24 Hours Test 02/05/18 07:04 White Blood Count 5.30 K/uL Red Blood Count 3.09 M/uL Hemoglobin 9.0 g/dL Hematocrit 28.4 % Mean Corpuscular Volume 91.9 fL Mean Corpuscular Hemoglobin 29.1 pg Mean Corpuscular Hemoglobin Concent 31.7 g/dl Platelet Count 224 K/uL Mean Platelet Volume 9.4 fL Neutrophils (%) (Auto) 68.3 % Lymphocytes (%) (Auto) 20.9 % Monocytes (%) (Auto) 7.5 % Eosinophils (%) (Auto) 2.5 % Basophils (%) (Auto) 0.6 % Neutrophils # (Auto) 3.62 K/uL Lymphocytes # (Auto) 1.11 K/uL Monocytes # (Auto) 0.40 K/uL Eosinophils # (Auto) 0.13 K/uL Basophils # (Auto) 0.03 K/uL RDW Standard Deviation 59.8 fL RDW Coefficient of Variation 17.7 % Immature Granulocyte % (Auto) 0.2 % Immature Granulocyte # (Auto) 0.01 K/uL Erythrocyte Sedimentation Rate 65 mm/hr Sodium Level 145 mmol/L Potassium Level 3.4 mmol/L Chloride Level 116 mmol/L Carbon Dioxide Level 21 mmol/L Anion Gap 8.0 mmol/L Blood Urea Nitrogen 6 mg/dl Creatinine 0.59 mg/dl Est Creatinine Clear Calc Drug Dose 112.0 ml/min Estimated GFR () 124.0 Estimated GFR (Non- 107.0 BUN/Creatinine Ratio 9.4 Random Glucose 124 mg/dl Calcium Level 7.8 mg/dl Total Bilirubin 0.3 mg/dl Direct Bilirubin 0.2 mg/dl Aspartate Amino Transf (AST/SGOT) 20 U/L Alanine Aminotransferase (ALT/SGPT) 27 U/L Alkaline Phosphatase 200 U/L Total Protein 5.7 gm/dl Albumin 1.9 gm/dl Carcinoembryonic Antigen 0.9 ng/ml Assessment & Plan SEIZURE History of seizure disorder. Apparent seizure at home. Markedly orthostatic in ED- may have had pseudoseizure secondary to cerebral hypoperfusion. CT demonstrated old cerebral infarcts, no acute findings. Neuro consulted. Continue anticonvulsant therapy with levetiracetam and carbamazepine. Seizure precautions. ORTHOSTATIC HYPOTENSION Systolic BP 115 supine --> 64 standing in ED. Orthostasis probably multifactorial- GI bleeding, meds (tamsulosin), etc. IV fluids. Follow. CORONARY ARTERY DISEASE Aspirin and clopidogrel on hold due to GI bleed. Continue carvedilol. CEREBROVASCULAR DISEASE Aspirin and clopidogrel on hold. WT LOSS / ABNORMAL IMAGING ABDOMEN AND PELVIS CT demonstrated multiple lesions consistent with metastatic lymphadenopathy, possible pancreatic mass. Diagnostic strategy to be determined. GI BLEEDING Reported rectal bleeding at home. Stools heme + in ED. Hgb 11.4 --> 9.0. Aspirin and clopidogrel on hold. Follow H/H. MOOD DISORDER Somnolence could be multifactorial. Adjust meds as able. INCOMPLETE DATA Records from [facility] requested. VTE PROPHYLAXIS No anticoagulants due to GI bleed. SCD's. DISPOSITION To be determined. Primary Care follow-up with Dr. Salinas. . Current Inpatient Medications: Current Inpatient Medications Medications (Trade) Dose Ordered Sig/Pedro Route Start Time Stop Time Status Last Admin Dose Admin Ioversol (Optiray 320) 111 ml UD PRN IV 02/03/18 17:15 02/07/18 17:14 Ondansetron HCl (Zofran Inj) 4 mg Q6H PRN IV 02/03/18 19:30 03/05/18 19:29 Pantoprazole Sodium 40 mg/ Syringe 10 ml @ 5 mls/min DAILY@11 IV 02/04/18 11:00 03/06/18 10:59 02/05/18 11:28 5 MLS/MIN Dextrose/Sodium Chloride 1,000 ml @ 100 mls/hr Q10H IV 02/03/18 21:00 03/05/18 20:59 02/05/18 02:17 100 MLS/HR Morphine Sulfate (MoRPHine SULFATE INJ) 3 mg Q4 PRN IV 02/04/18 00:00 02/18/18 00:00 02/04/18 00:10 3 MG Ascorbic Acid (Vitamin C Tab) 500 mg DAILY PO 02/04/18 09:00 03/06/18 08:59 02/05/18 07:44 500 MG Calcium/Vitamin D (Caltrate Plus Tab) 1 tab DAILY PO 02/04/18 09:00 03/06/18 08:59 02/05/18 07:42 1 TAB Carvedilol (Coreg Tab) 12.5 mg AMHS PO 02/04/18 09:00 03/06/18 08:59 02/04/18 20:38 12.5 MG Cholecalciferol (Vitamin D Tab) 1,000 inter.unit DAILY PO 02/04/18 09:00 03/06/18 08:59 02/05/18 07:42 1,000 INTER.UNIT Clonazepam (Klonopin Tab) 0.5 mg AMHS PO 02/04/18 09:00 03/06/18 08:59 02/05/18 07:41 0.5 MG Cyanocobalamin (Vitamin B-12 Tab) 1,000 mcg DAILY PO 02/04/18 09:00 03/06/18 08:59 02/05/18 07:44 1,000 MCG Famotidine (Pepcid Tab) 20 mg DAILY PO 02/04/18 09:00 03/06/18 08:59 02/05/18 07:44 20 MG Fluticasone Propionate (Flonase Nasal [place]) 1 sprays DAILY PRN XIMENA 02/04/18 08:45 03/06/18 08:44 Lorazepam (Ativan Tab) 2 mg UD PRN JT 02/04/18 08:45 03/06/18 08:44 Multivitamins/ Minerals (Multivitamin W/ Minerals Tab) 1 tab DAILY PO 02/04/18 09:00 03/06/18 08:59 02/05/18 07:42 1 TAB Potassium Chloride (Klor-Con Tab) 40 meq DAILY PO 02/04/18 09:00 03/06/18 08:59 02/05/18 08:32 40 MEQ Quetiapine Fumarate (seroQUEL TAB) 25 mg TID PO 02/04/18 10:00 03/06/18 09:59 02/05/18 07:42 25 MG Quetiapine Fumarate (seroQUEL XR TAB) 800 mg HS PO 02/04/18 21:00 03/06/18 20:59 02/04/18 20:38 800 MG Tamsulosin HCl (Flomax Cap) 0.4 mg DAILY PO 02/04/18 09:00 03/06/18 08:59 02/05/18 07:45 0.4 MG Telmisartan (Micardis Tab) 40 mg HS PO 02/04/18 21:00 03/06/18 20:59 02/04/18 20:39 40 MG Topiramate (Topamax Tab) 150 mg BID PO 02/04/18 21:00 03/06/18 20:59 02/05/18 07:43 150 MG Carbamazepine (Tegretol-Xr (Do Not Crush)) 400 mg BID PO 02/04/18 10:00 03/06/18 09:59 02/05/18 07:44 400 MG Docusate Sodium (coLACE CAP) 200 mg HS PO 02/04/18 21:00 03/06/18 20:59 02/04/18 20:38 200 MG Miscellaneous Information (Order Awaiting Action) 1 ea QS N/A 02/04/18 16:00 03/06/18 15:59 Miscellaneous Information (Order Awaiting Action) 1 ea QS N/A 02/04/18 16:00 03/06/18 15:59 Levetiracetam (Keppra Tab) 750 mg BID PO 02/04/18 21:00 03/06/18 20:59 02/05/18 07:45 750 MG Polyethylene (Miralax Powder Packet) 17 gm DAILY PO 02/05/18 09:00 03/07/18 08:59 02/05/18 07:43 17 GM
--- NOTE | 2018-02-05 14:17 | PROGRESS NOTE ---
DATE: 02/05/2018 PATIENT'S AGE: 62. SEX: Male. RACE: . SUBJECTIVE: I had the pleasure of seeing Rufus Doyle today at his bedside. He has had a noted drop in his H and H from yesterday to today from 10.1 and 31.9 to 9.0 and 28.4, though nursing reports that he has had no overt GI bleeding. He denies any abdominal pain at this time. He further denies any nausea, vomiting, hematemesis, melena or hematochezia. He denies any further complaints. PHYSICAL EXAMINATION: VITAL SIGNS: Temp 36.9, pulse 75, respirations 16, blood pressure 95/58, pulse ox 99% on room air. GENERAL: Chronic ill appearing, no acute distress. ABDOMEN: Soft, nontender, nondistended. There are positive bowel sounds. LABORATORY STUDIES: From today include H and H of 9.0 and 28.4, alkaline phosphatase of 200, AST and ALT of 20 and 27, total bilirubin of 0.3. IMPRESSION: This is a 62-year-old male presenting with weakness, who was noted to have an abnormal CT scan with a questionable new pancreatic neoplastic process. PLAN: I would recommend that the patient undergo further evaluation with EUS either through [facility], his primary GI team or through the [facility]. I would discuss this case with them tomorrow and make further recommendations. I would continue his current medical regimen including Protonix 40 mg IV daily as well as MiraLax 17 grams daily in an 8-ounce glass of water. Once again, thanks for allowing me to participate in the care of this patient. If you have any further questions, please do not hesitate in contacting me.
[2018-02-05] MEDS ORDERED: QUETIAPINE FUMARATE 200 MG TABCR PO SCH (21:00)
[2018-02-05] MEDS: TELMISARTAN 40 MG TAB PO SCH (21:00)
[2018-02-05] MEDS: DOCUSATE SODIUM 100 MG CAP PO SCH (21:11)
[2018-02-05] MEDS: CEFTRIAXONE SOD INJ 1 GM in DEXTROSE 5% ADD-VANTAGE 50ML 50 ML IV SCH (21:55)
[2018-02-06] VITALS (8 sets, daily range): BP systolic 84–155; BP diastolic 59–77; PULSE 79–116; TEMP 36.7–37.9; O2SAT 91–99; Ht 172.7 cm; Wt 67.1 kg
[2018-02-06 07:39] LABS: HEMATOCRIT 32.2 % (42-52); HEMOGLOBIN 10.3 g/dL (14.0-18.0); MEAN CELL VOLUME 91.5 fL (80-100); MEAN CORPUSCULAR HEMOGLOBIN 29.3 pg (25-34); MEAN PLATELET VOLUME 9.4 fL (7.4-10.4); PLATELET COUNT 241 K/uL (130-400); RED CELL DISTRIBUTION WIDTH CV 17.9 % (11.5-14.5); RED CELL DISTRIBUTION WIDTH SD 60.2 fL (36.4-46.3); WHITE BLOOD COUNT 5.97 K/uL (4.8-10.8)
[2018-02-06] MEDS: DUTASTERIDE SCH ×2 (08:00→15:46)
[2018-02-06 08:07] LABS: CREATININE 0.69 mg/dl (0.60-1.40)
[2018-02-06] MEDS: D5W AND NSS 1,000 ML IV SCH ×2 (08:10→17:57)
[2018-02-06] MEDS: POLYETHYLENE (MIRALAX) 17 GM PACK PO SCH (08:12)
[2018-02-06] MEDS: CARVEDILOL 12.5 MG TAB PO SCH ×2 (08:13→21:12)
[2018-02-06] MEDS: CEROVITE ADV FORMULA TAB PO SCH (08:14)
[2018-02-06] MEDS: CHOLECALCIFEROL 1000 INTER.UNIT TAB PO SCH (08:14)
[2018-02-06] MEDS: POTASSIUM CHLORIDE 20 MEQ TABCR PO SCH (08:15)
[2018-02-06] MEDS: CARBAMAZEPINE 200 MG TABCR PO SCH ×2 (08:16→21:14)
[2018-02-06] MEDS: CYANOCOBALAMIN 500 MCG TAB (VIT B-12) PO SCH (08:16)
[2018-02-06] MEDS: LEVETIRACETAM 250 MG TAB PO SCH (08:16)
[2018-02-06] MEDS: FAMOTIDINE 20 MG TAB PO SCH (08:17)
[2018-02-06] MEDS: CALCIUM 600MG + VIT D 400 IU TAB PO SCH (08:17)
[2018-02-06] MEDS: ASCORBIC ACID 500 MG TAB PO SCH (08:17)
[2018-02-06] MEDS: TOPIRAMATE 100 MG TAB PO SCH (08:23)
[2018-02-06] MEDS: CLONAZEPAM 0.5 MG TAB PO SCH ×2 (08:23→21:13)
--- NOTE | 2018-02-06 09:45 | Clinical Documentation Query ---
Dr. VEGA MANINDER : CLINICAL DOCUMENTATION QUERIES QUERY 1 OF 2 UA positive for nitrite, LE, > 30 WBC, 3+ bacteria. Culture positive Enterobacter Cloacae. Patient is being treated with IV Rocephin. As appropriate, consider capture of this clinical information as suggested below. Thank you. In your clinical opinion is this patient being managed for: ( x ) (Possible/Suspected/Likely) Urinary tract infection ( ) Not Agree ( ) Other explanation of clinical findings (No explanation is considered a No Response) ( ) Unable to determine ( ) Need to Discuss (Phone CDS or qliq) (No discussion is considered a No Response) The medical record reflects the following clinical findings, treatment, and risk factors. 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 As appropriate, consider capture of this clinical information as suggested below as this impacts accurate DRG assignment. Thank you. In your clinical opinion is this patient being managed for: ( ) Portal vein thrombus ( ) Not Agree ( ) Other explanation of clinical findings (No explanation is considered a No Response) ( x ) Unable to determine Not sure how coding guidelines define "manage." We are not treating it. ( ) Need to Discuss (Phone CDS or qliq) (No discussion is considered a No Response) The medical record reflects the following clinical findings, treatment, and risk factors. Clinical Indicators: As above Treatment: Radiology, GI evaluation, further evaluation pending Risk Factors: Possible pancreatic cancer with lymphatic metastasis? Please clarify and document your clinical opinion in the progress notes and discharge summary. Terms such as "probable", "suspected", "likely", "questionable", "possible", or "still to be ruled out" are acceptable. IF IN AGREEMENT, YOU MUST DOCUMENT ABOVE DIAGNOSTIC STATEMENT IN DAILY PROGRESS NOTES AND DISCHARGE SUMMARY. This document is not part of the patient's record. Thank You, Dennis Oh, HUGO [phone]
--- NOTE | 2018-02-06 09:51 | Gastroenterology Progress Note ---
Progress Note Date of Service: Feb 06, 2018 Subjective Pt evaluation today including: conversation w/ patient, physical exam, chart review Patient reports some abdominal pain but no nausea or vomiting. +hiccoughs. Denies any GIB symptoms. He remains afebrile. Dr. Gore has discussed utility of EUS with RAGHU Daley. H&H stable. Review of Systems Constitutional: + see HPI Abdomen: + see HPI Male : No problem reported Heme: No problem reported Medications Current Inpatient Medications Medications (Trade) Dose Ordered Sig/Pedro Route Start Time Stop Time Status Last Admin Dose Admin Ioversol (Optiray 320) 111 ml UD PRN IV 02/03/18 17:15 02/07/18 17:14 Ondansetron HCl (Zofran Inj) 4 mg Q6H PRN IV 02/03/18 19:30 03/05/18 19:29 Pantoprazole Sodium 40 mg/ Syringe 10 ml @ 5 mls/min DAILY@11 IV 02/04/18 11:00 03/06/18 10:59 02/05/18 11:28 5 MLS/MIN Dextrose/Sodium Chloride 1,000 ml @ 100 mls/hr Q10H IV 02/03/18 21:00 03/05/18 20:59 02/06/18 08:10 100 MLS/HR Morphine Sulfate (MoRPHine SULFATE INJ) 3 mg Q4 PRN IV 02/04/18 00:00 02/18/18 00:00 02/04/18 00:10 3 MG Ascorbic Acid (Vitamin C Tab) 500 mg DAILY PO 02/04/18 09:00 03/06/18 08:59 02/06/18 08:17 500 MG Calcium/Vitamin D (Caltrate Plus Tab) 1 tab DAILY PO 02/04/18 09:00 03/06/18 08:59 02/06/18 08:17 1 TAB Carvedilol (Coreg Tab) 12.5 mg AMHS PO 02/04/18 09:00 03/06/18 08:59 02/04/18 20:38 12.5 MG Cholecalciferol (Vitamin D Tab) 1,000 inter.unit DAILY PO 02/04/18 09:00 03/06/18 08:59 02/06/18 08:14 1,000 INTER.UNIT Clonazepam (Klonopin Tab) 0.5 mg AMHS PO 02/04/18 09:00 03/06/18 08:59 02/06/18 08:23 0.5 MG Cyanocobalamin (Vitamin B-12 Tab) 1,000 mcg DAILY PO 02/04/18 09:00 03/06/18 08:59 02/06/18 08:16 1,000 MCG Famotidine (Pepcid Tab) 20 mg DAILY PO 02/04/18 09:00 03/06/18 08:59 02/06/18 08:17 20 MG Fluticasone Propionate (Flonase Nasal [place]) 1 sprays DAILY PRN XIMENA 02/04/18 08:45 03/06/18 08:44 Lorazepam (Ativan Tab) 2 mg UD PRN JT 02/04/18 08:45 03/06/18 08:44 Multivitamins/ Minerals (Multivitamin W/ Minerals Tab) 1 tab DAILY PO 02/04/18 09:00 03/06/18 08:59 02/06/18 08:14 1 TAB Potassium Chloride (Klor-Con Tab) 40 meq DAILY PO 02/04/18 09:00 03/06/18 08:59 02/06/18 08:15 40 MEQ Telmisartan (Micardis Tab) 40 mg HS PO 02/04/18 21:00 03/06/18 20:59 02/04/18 20:39 40 MG Topiramate (Topamax Tab) 150 mg BID PO 02/04/18 21:00 03/06/18 20:59 02/06/18 08:23 150 MG Carbamazepine (Tegretol-Xr (Do Not Crush)) 400 mg BID PO 02/04/18 10:00 03/06/18 09:59 02/06/18 08:16 400 MG Docusate Sodium (coLACE CAP) 200 mg HS PO 02/04/18 21:00 03/06/18 20:59 02/05/18 21:11 200 MG Miscellaneous Information (Order Awaiting Action) 1 ea QS N/A 02/04/18 16:00 03/06/18 15:59 Miscellaneous Information (Order Awaiting Action) 1 ea QS N/A 02/04/18 16:00 03/06/18 15:59 Levetiracetam (Keppra Tab) 750 mg BID PO 02/04/18 21:00 03/06/18 20:59 02/06/18 08:16 750 MG Polyethylene (Miralax Powder Packet) 17 gm DAILY PO 02/05/18 09:00 03/07/18 08:59 02/06/18 08:12 17 GM Quetiapine Fumarate (seroQUEL XR TAB) 600 mg HS PO 02/05/18 21:00 03/07/18 20:59 Ceftriaxone Sodium 1 gm/ Dextrose 50 ml @ 100 mls/hr Q24H IV 02/05/18 21:30 02/10/18 21:29 02/05/18 21:55 100 MLS/HR Objective Vital Signs Date Time Temp Pulse Resp B/P (MAP) Pulse Ox O2 Delivery O2 Flow Rate FiO2 02/06/18 07:41 107 131/73 (92) 79 125/65 (85) 105 84/59 (67) 02/06/18 07:31 36.9 100 18 110/59 (76) 91 02/06/18 00:00 99 Room Air 02/05/18 22:58 36.8 62 17 91/58 (69) 95 Room Air 02/05/18 21:09 94 98/62 (74) 02/05/18 21:03 93 102/64 (77) 100 Room Air 02/05/18 19:35 99 Room Air 02/05/18 18:59 36.7 83 16 100/51 (67) 99 Room Air 02/05/18 15:24 36.6 76 16 107/67 (80) 100 Room Air 02/05/18 12:23 36.9 75 16 95/58 (70) 99 Room Air Physical Exam General Appearance: no apparent distress ENT: hearing grossly normal Neck: supple Respiratory/Chest: lungs clear, normal breath sounds, no respiratory distress Cardiovascular: regular rate, rhythm Abdomen: normal bowel sounds, soft, + tenderness (diffuse) Extremities: no pedal edema Neurologic/Psych: alert, normal mood/affect, oriented x 3 Skin: warm/dry Laboratory Results Last 24 Hours Test 02/06/18 07:25 02/06/18 07:29 White Blood Count 5.97 K/uL Red Blood Count 3.52 M/uL Hemoglobin 10.3 g/dL Hematocrit 32.2 % Mean Corpuscular Volume 91.5 fL Mean Corpuscular Hemoglobin 29.3 pg Mean Corpuscular Hemoglobin Concent 32.0 g/dl RDW Standard Deviation 60.2 fL RDW Coefficient of Variation 17.9 % Platelet Count 241 K/uL Mean Platelet Volume 9.4 fL Sodium Level 147 mmol/L Potassium Level 3.0 mmol/L Chloride Level 120 mmol/L Carbon Dioxide Level 20 mmol/L Anion Gap 7.0 mmol/L Blood Urea Nitrogen 6 mg/dl Creatinine 0.69 mg/dl Est Creatinine Clear Calc Drug Dose 97.0 ml/min Estimated GFR () 116.3 Estimated GFR (Non- 100.3 BUN/Creatinine Ratio 9.2 Random Glucose 124 mg/dl Calcium Level 8.0 mg/dl Cortisol AM Sample 27.48 mcg/dl Carbamazepine (Tegretol) Level 11.8 mcg/ml Ammonia 69.4 umol/L Assessment and Plan IMPRESSION: This is a 62-year-old male presenting with weakness, who was noted to have an abnormal CT scan with a questionable new pancreatic neoplastic process. 1. Await further input from RAGHU Daley in regard to utility of EUS while an inpatient. 2. Continue supportive measures per primary team. Agree with ANN Shen as above Abd: Soft, NT, ND, +BS Sitting up in bed eating dinner with nurse assist Primary team to do further workup and let GI know if any further assistance is needed. Will sign off at this time.
--- NOTE | 2018-02-06 11:40 | Neurology Progress Notes ---
Neurology Progress Note Date of Service Feb 06, 2018. Subjective Patient has no complaint of pain or headache. Is sitting up in the chair and was eating. He is described as his , who is present at bedside today as a little confused. She has the history that his appetite is been bad for about a year. He has been fatigue over the last the month or 2 and somewhat confused. He has not had any real seizures in months. Objective Date Time Temp Pulse Resp B/P (MAP) Pulse Ox O2 Delivery O2 Flow Rate FiO2 02/06/18 08:00 Room Air 02/06/18 07:41 107 131/73 (92) 79 125/65 (85) 105 84/59 (67) 02/06/18 07:31 36.9 100 18 110/59 (76) 91 02/06/18 00:00 99 Room Air 02/05/18 22:58 36.8 62 17 91/58 (69) 95 Room Air 02/05/18 21:09 94 98/62 (74) 02/05/18 21:03 93 102/64 (77) 100 Room Air 02/05/18 19:35 99 Room Air 02/05/18 18:59 36.7 83 16 100/51 (67) 99 Room Air 02/05/18 15:24 36.6 76 16 107/67 (80) 100 Room Air 02/05/18 12:23 36.9 75 16 95/58 (70) 99 Room Air Last 24 Hours Test 02/06/18 07:25 02/06/18 07:29 White Blood Count 5.97 K/uL Red Blood Count 3.52 M/uL Hemoglobin 10.3 g/dL Hematocrit 32.2 % Mean Corpuscular Volume 91.5 fL Mean Corpuscular Hemoglobin 29.3 pg Mean Corpuscular Hemoglobin Concent 32.0 g/dl RDW Standard Deviation 60.2 fL RDW Coefficient of Variation 17.9 % Platelet Count 241 K/uL Mean Platelet Volume 9.4 fL Sodium Level 147 mmol/L Potassium Level 3.0 mmol/L Chloride Level 120 mmol/L Carbon Dioxide Level 20 mmol/L Anion Gap 7.0 mmol/L Blood Urea Nitrogen 6 mg/dl Creatinine 0.69 mg/dl Est Creatinine Clear Calc Drug Dose 97.0 ml/min Estimated GFR () 116.3 Estimated GFR (Non- 100.3 BUN/Creatinine Ratio 9.2 Random Glucose 124 mg/dl Calcium Level 8.0 mg/dl Cortisol AM Sample 27.48 mcg/dl Carbamazepine (Tegretol) Level 11.8 mcg/ml Ammonia 69.4 umol/L Exam: He is awake and alert. His speech is sparse and he follows one-step commands well. He seems easily confused. He is more alert than yesterday however. Extraocular eye muscles are intact without nystagmus. He has facial droop on the left and left upper extremity weakness as before. There is no tremor or ataxia of the limbs. Current Inpatient Medications Medications (Trade) Dose Ordered Sig/Pedro Route Start Time Stop Time Status Last Admin Dose Admin Ioversol (Optiray 320) 111 ml UD PRN IV 02/03/18 17:15 02/07/18 17:14 Ondansetron HCl (Zofran Inj) 4 mg Q6H PRN IV 02/03/18 19:30 03/05/18 19:29 Pantoprazole Sodium 40 mg/ Syringe 10 ml @ 5 mls/min DAILY@11 IV 02/04/18 11:00 03/06/18 10:59 02/05/18 11:28 5 MLS/MIN Dextrose/Sodium Chloride 1,000 ml @ 100 mls/hr Q10H IV 02/03/18 21:00 03/05/18 20:59 02/06/18 08:10 100 MLS/HR Morphine Sulfate (MoRPHine SULFATE INJ) 3 mg Q4 PRN IV 02/04/18 00:00 02/18/18 00:00 02/04/18 00:10 3 MG Ascorbic Acid (Vitamin C Tab) 500 mg DAILY PO 02/04/18 09:00 03/06/18 08:59 02/06/18 08:17 500 MG Calcium/Vitamin D (Caltrate Plus Tab) 1 tab DAILY PO 02/04/18 09:00 03/06/18 08:59 02/06/18 08:17 1 TAB Carvedilol (Coreg Tab) 12.5 mg AMHS PO 02/04/18 09:00 03/06/18 08:59 02/04/18 20:38 12.5 MG Cholecalciferol (Vitamin D Tab) 1,000 inter.unit DAILY PO 02/04/18 09:00 03/06/18 08:59 02/06/18 08:14 1,000 INTER.UNIT Clonazepam (Klonopin Tab) 0.5 mg AMHS PO 02/04/18 09:00 03/06/18 08:59 02/06/18 08:23 0.5 MG Cyanocobalamin (Vitamin B-12 Tab) 1,000 mcg DAILY PO 02/04/18 09:00 03/06/18 08:59 02/06/18 08:16 1,000 MCG Famotidine (Pepcid Tab) 20 mg DAILY PO 02/04/18 09:00 03/06/18 08:59 02/06/18 08:17 20 MG Fluticasone Propionate (Flonase Nasal [place]) 1 sprays DAILY PRN XIMENA 02/04/18 08:45 03/06/18 08:44 Lorazepam (Ativan Tab) 2 mg UD PRN JT 02/04/18 08:45 03/06/18 08:44 Multivitamins/ Minerals (Multivitamin W/ Minerals Tab) 1 tab DAILY PO 02/04/18 09:00 03/06/18 08:59 02/06/18 08:14 1 TAB Potassium Chloride (Klor-Con Tab) 40 meq DAILY PO 02/04/18 09:00 03/06/18 08:59 02/06/18 08:15 40 MEQ Telmisartan (Micardis Tab) 40 mg HS PO 02/04/18 21:00 03/06/18 20:59 02/04/18 20:39 40 MG Topiramate (Topamax Tab) 150 mg BID PO 02/04/18 21:00 03/06/18 20:59 02/06/18 08:23 150 MG Carbamazepine (Tegretol-Xr (Do Not Crush)) 400 mg BID PO 02/04/18 10:00 03/06/18 09:59 02/06/18 08:16 400 MG Docusate Sodium (coLACE CAP) 200 mg HS PO 02/04/18 21:00 03/06/18 20:59 02/05/18 21:11 200 MG Miscellaneous Information (Order Awaiting Action) 1 ea QS N/A 02/04/18 16:00 03/06/18 15:59 Miscellaneous Information (Order Awaiting Action) 1 ea QS N/A 02/04/18 16:00 03/06/18 15:59 Levetiracetam (Keppra Tab) 750 mg BID PO 02/04/18 21:00 03/06/18 20:59 02/06/18 08:16 750 MG Polyethylene (Miralax Powder Packet) 17 gm DAILY PO 02/05/18 09:00 03/07/18 08:59 02/06/18 08:12 17 GM Quetiapine Fumarate (seroQUEL XR TAB) 600 mg HS PO 02/05/18 21:00 03/07/18 20:59 Ceftriaxone Sodium 1 gm/ Dextrose 50 ml @ 100 mls/hr Q24H IV 02/05/18 21:30 02/10/18 21:29 02/05/18 21:55 100 MLS/HR Impression 1. Large right middle cerebral artery stroke, 2004. This resulted in residual spastic left hafsa paresis (face and arm greater than leg), mild dysarthria, affective disorder, and seizure disorder of right parietal onset with without secondary generalization Overall, he is very stable clinically and very much like I last saw him 1 year ago. He has generalized weakness and fatigue but this is more subjective than objective. He was on aspirin and Plavix daily but these were held on admission due to his GI bleed. His risk factors for stroke include his chronic cigarette smoking, which she has not stopped, and dyslipidemia 2. Seizure disorder secondary to previous stroke This actually is very well controlled on current medication. I am not certain he needs all of these anticonvulsants. Most of the episodes he calls seizures are likely not epilepsy. Nevertheless, he has active seizure focus from his previous stroke. At baseline he was on carbamazepine ER 400 milligrams twice daily, Keppra 500 milligrams twice daily, topiramate 200 milligrams twice daily, and clonazepam 0.5 milligrams twice a day (which was also helping his psychiatric condition). Carbamazepine trough level was 11.8 this morning. 3. Severe depression and anxiety, initiated after his significant stroke. He is followed by Psychiatry and is on a rather large dose of generic Seroquel as well as Viibryd. He believes his mood is worse recently. 4. Subacute progression of symptoms including generalized weakness, fatigue, abdominal pain, lightheadedness with standing, confusion, decreased appetite and weight loss, and history of bowel obstruction requiring surgery 3 months ago. This is all likely due to whatever is going on his abdomen. His CT scan shows abnormal lymph nodes the and he may have an underlying carcinoma. He has heme-positive stool as well. The lightheadedness with standing is likely orthostatic. Chronic nephrolithiasis is noted. 5. Increased sleepiness/lethargy: Increased Keppra may do this temporarily. After consideration of this case, I am wondering if he was really getting all of his usual doses of medication at home, and now that he is in the hospital we gave him what he was supposed to be on and now he is overmedicated. He is on a very high dose of Seroquel and in addition takes clonazepam. Carbamazepine is not toxic but is at the upper limit of normal. Plan 1. Continue carbamazepine ER 400 milligrams twice daily for now. This will have to be monitored as an outpatient closely. As he loses weight he will need less carbamazepine. 2. Decrease levetiracetam to 500 milligrams twice a day for the next 3 days and then decrease to 250 milligrams twice daily. 3. Decrease topiramate to 100 milligrams twice daily. 4. Continue clonazepam 0.5 milligrams twice daily for now 5. Continue slow taper of Seroquel as you are doing. 6. Hold aspirin and Plavix for now, in lieu of his recent GI bleed. After cleared by GI or Medicine, I would restart 75 milligrams of Plavix but I do not see the need for adding back aspirin, as both together the increase bleeding risk. 7. Continue physical and occupational therapy Overall, I spent a total of 25 minutes with this case including records review, direct evaluation the patient at bedside, and discussion of the case with Dr. Hudson and with the patient and his who was at bedside including differential diagnosis and treatment options.
[2018-02-06] MEDS: PANTOprazole INJ 40 MG in SYRINGE 0 ML IV SCH (11:58)
[2018-02-06] MEDS ORDERED: POTASSIUM CHLORIDE 20 MEQ/15 ML UDC PO ONE (15:15)
--- NOTE | 2018-02-06 20:03 | Progress Note ---
Medicine Progress Note Date & Time of Visit: Feb 06, 2018 at 10:20 . Subjective CC: Follow-up visit for possible seizure, possible malignancy, and other problems. HPI: Somewhat more alert today. Confused. Still very weak. No fever. Trouble swallowing meds this morning. Denies CP, cough, SOB, nausea, vomiting. Has some lower abdominal discomfort. ROS: Unable to obtain more complete ROS due to somnolence. . Objective Last 8 Hrs Date Time Temp Pulse Resp B/P (MAP) Pulse Ox O2 Delivery O2 Flow Rate FiO2 02/06/18 16:00 95 Room Air 02/06/18 15:53 37.0 95 16 140/66 (90) 95 Room Air Physical Exam: General- lying in bed, no distress Lungs- clear to auscultation; no respiratory distress Cardiovascular- RRR; no murmur or gallop appreciated; no JVD; no pretibial edema Abdomen- + bowel sounds, soft, moderate lower abdominal discomfort without rebound or guarding Extremities- no cyanosis; no calf tenderness Neuro- more alert, somewhat confused; PERRL, EOMI; left facial palsy; dysarthria ; left hemiparesis Skin- warm & dry . Laboratory Results: Last 24 Hours Test 02/06/18 07:25 02/06/18 07:29 02/06/18 14:07 White Blood Count 5.97 K/uL Red Blood Count 3.52 M/uL Hemoglobin 10.3 g/dL Hematocrit 32.2 % Mean Corpuscular Volume 91.5 fL Mean Corpuscular Hemoglobin 29.3 pg Mean Corpuscular Hemoglobin Concent 32.0 g/dl RDW Standard Deviation 60.2 fL RDW Coefficient of Variation 17.9 % Platelet Count 241 K/uL Mean Platelet Volume 9.4 fL Sodium Level 147 mmol/L Potassium Level 3.0 mmol/L 3.3 mmol/L Chloride Level 120 mmol/L Carbon Dioxide Level 20 mmol/L Anion Gap 7.0 mmol/L Blood Urea Nitrogen 6 mg/dl Creatinine 0.69 mg/dl Est Creatinine Clear Calc Drug Dose 97.0 ml/min Estimated GFR () 116.3 Estimated GFR (Non- 100.3 BUN/Creatinine Ratio 9.2 Random Glucose 124 mg/dl Calcium Level 8.0 mg/dl Cortisol AM Sample 27.48 mcg/dl Carbamazepine (Tegretol) Level 11.8 mcg/ml Ammonia 69.4 umol/L Assessment & Plan SEIZURE History of seizure disorder. Possible seizure at home. Markedly orthostatic in ED- may have had pseudoseizure secondary to cerebral hypoperfusion. CT demonstrated old cerebral infarcts, no acute findings. Neuro consulted. Continue anticonvulsant therapy with levetiracetam, carbamazepine, topiramate- dosing per Neuro. Seizure precautions. ORTHOSTATIC HYPOTENSION Systolic BP 115 supine --> 64 standing in ED. Orthostasis probably multifactorial- GI bleeding, meds (tamsulosin), etc. IV fluids. Follow. CORONARY ARTERY DISEASE Aspirin and clopidogrel on hold due to GI bleed. Continue carvedilol. CEREBROVASCULAR DISEASE Aspirin and clopidogrel on hold. WT LOSS / ABNORMAL IMAGING ABDOMEN AND PELVIS reports 100 lb weight loss over past year. CT demonstrated multiple lesions consistent with metastatic lymphadenopathy, possible pancreatic mass, suspected portal vein tumor thrombosis. reports that pt's brother had pancreatic Ca. Diagnostic strategy to be determined once records from [facility] received. GI BLEEDING Reported rectal bleeding at home. Stools heme + in ED. Hgb 11.4 --> 9.0 --> 10.3. Aspirin and clopidogrel on hold. Follow H/H. MOOD DISORDER Somnolence could be multifactorial. Adjust meds as able. 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 UTI (present on admission) Admission UA showed nitrites, leukocyte esterase, WBC's, bacteria. Urine culture growing Citrobacter cloacae. Continue IV ceftriaxone. HYPOKALEMIA Serum potassium 3.0. Replace, follow. CONFUSION Suspect dementia with superimposed delirium (encephalopathy from UTI, etc. INCOMPLETE DATA Records from [facility] requested. VTE PROPHYLAXIS No anticoagulants due to GI bleed. SCD's. DISPOSITION To be determined. Primary Care follow-up with Dr. Salinas. visiting and given update. . Current Inpatient Medications: Current Inpatient Medications Medications (Trade) Dose Ordered Sig/Pedro Route Start Time Stop Time Status Last Admin Dose Admin Ioversol (Optiray 320) 111 ml UD PRN IV 02/03/18 17:15 02/07/18 17:14 Ondansetron HCl (Zofran Inj) 4 mg Q6H PRN IV 02/03/18 19:30 03/05/18 19:29 Dextrose/Sodium Chloride 1,000 ml @ 100 mls/hr Q10H IV 02/03/18 21:00 03/05/18 20:59 02/06/18 17:57 100 MLS/HR Morphine Sulfate (MoRPHine SULFATE INJ) 3 mg Q4 PRN IV 02/04/18 00:00 02/18/18 00:00 02/04/18 00:10 3 MG Ascorbic Acid (Vitamin C Tab) 500 mg DAILY PO 02/04/18 09:00 03/06/18 08:59 02/06/18 08:17 500 MG Calcium/Vitamin D (Caltrate Plus Tab) 1 tab DAILY PO 02/04/18 09:00 03/06/18 08:59 02/06/18 08:17 1 TAB Carvedilol (Coreg Tab) 12.5 mg AMHS PO 02/04/18 09:00 03/06/18 08:59 02/04/18 20:38 12.5 MG Cholecalciferol (Vitamin D Tab) 1,000 inter.unit DAILY PO 02/04/18 09:00 03/06/18 08:59 02/06/18 08:14 1,000 INTER.UNIT Clonazepam (Klonopin Tab) 0.5 mg AMHS PO 02/04/18 09:00 03/06/18 08:59 02/06/18 08:23 0.5 MG Cyanocobalamin (Vitamin B-12 Tab) 1,000 mcg DAILY PO 02/04/18 09:00 03/06/18 08:59 02/06/18 08:16 1,000 MCG Famotidine (Pepcid Tab) 20 mg DAILY PO 02/04/18 09:00 03/06/18 08:59 02/06/18 08:17 20 MG Fluticasone Propionate (Flonase Nasal [place]) 1 sprays DAILY PRN XIMENA 02/04/18 08:45 03/06/18 08:44 Lorazepam (Ativan Tab) 2 mg UD PRN JT 02/04/18 08:45 03/06/18 08:44 Multivitamins/ Minerals (Multivitamin W/ Minerals Tab) 1 tab DAILY PO 02/04/18 09:00 03/06/18 08:59 02/06/18 08:14 1 TAB Potassium Chloride (Klor-Con Tab) 40 meq DAILY PO 02/04/18 09:00 03/06/18 08:59 02/06/18 08:15 40 MEQ Telmisartan (Micardis Tab) 40 mg HS PO 02/04/18 21:00 03/06/18 20:59 02/04/18 20:39 40 MG Topiramate (Topamax Tab) 150 mg BID PO 02/04/18 21:00 03/06/18 20:59 02/06/18 08:23 150 MG Carbamazepine (Tegretol-Xr (Do Not Crush)) 400 mg BID PO 02/04/18 10:00 03/06/18 09:59 02/06/18 08:16 400 MG Docusate Sodium (coLACE CAP) 200 mg HS PO 02/04/18 21:00 03/06/18 20:59 02/05/18 21:11 200 MG Miscellaneous Information (Order Awaiting Action) 1 ea QS N/A 02/04/18 16:00 03/06/18 15:59 Miscellaneous Information (Order Awaiting Action) 1 ea QS N/A 02/04/18 16:00 03/06/18 15:59 Levetiracetam (Keppra Tab) 750 mg BID PO 02/04/18 21:00 03/06/18 20:59 02/06/18 08:16 750 MG Polyethylene (Miralax Powder Packet) 17 gm DAILY PO 02/05/18 09:00 03/07/18 08:59 02/06/18 08:12 17 GM Quetiapine Fumarate (seroQUEL XR TAB) 600 mg HS PO 02/05/18 21:00 03/07/18 20:59 Ceftriaxone Sodium 1 gm/ Dextrose 50 ml @ 100 mls/hr Q24H IV 02/05/18 21:30 02/10/18 21:29 02/05/18 21:55 100 MLS/HR Pantoprazole Sodium (Protonix Tab) 40 mg QAM PO 02/07/18 09:00 03/09/18 08:59 Enteral Nutritional Formula (Boost Breeze Nutritional Drink) 1 box BID PO 02/06/18 21:00 03/08/18 20:59
[2018-02-06] MEDS ORDERED: MULTI VITAMIN INFUSION IV SCH ×4 (20:30)
[2018-02-06] MEDS ORDERED: THIAMINE HCL IV SCH ×4 (20:30)
[2018-02-06] MEDS ORDERED: [UNRECOGNIZED DRUG - OTHER] IV SCH ×4 (20:30)
[2018-02-06] MEDS ORDERED: LACTULOSE SYRUP 30 GM/45 ML UDP PO SCH (21:00)
[2018-02-06] MEDS ORDERED: TOPIRAMATE 100 MG TAB PO SCH (21:00)
[2018-02-06] MEDS ORDERED: LEVETIRACETAM 500 MG TAB PO SCH (21:00)
[2018-02-06] MEDS ORDERED: POTASSIUM CHLORIDE 20 MEQ/15 ML UDC PO SCH (21:00)
[2018-02-06] MEDS ORDERED: QUETIAPINE FUMARATE 200 MG TABCR PO SCH (21:00)
[2018-02-06] MEDS ORDERED: BOOST BREEZE NUTRITION DRINK 1 BOX PO SCH (21:00)
[2018-02-06] MEDS: MULTI VITAMIN INFUSION IV SCH ×4 (21:08)
[2018-02-06] MEDS: [UNRECOGNIZED DRUG - OTHER] IV SCH ×4 (21:08)
[2018-02-06] MEDS: THIAMINE HCL IV SCH ×4 (21:08)
[2018-02-06] MEDS: DOCUSATE SODIUM 100 MG CAP PO SCH (21:10)
[2018-02-06] MEDS: TELMISARTAN 40 MG TAB PO SCH (21:15)
[2018-02-06] MEDS: CEFTRIAXONE SOD INJ 1 GM in DEXTROSE 5% ADD-VANTAGE 50ML 50 ML IV SCH (21:36)
[2018-02-06] MEDS ORDERED: ACETAMINOPHEN 325 MG TAB PO ONE (22:00)
[2018-02-07] VITALS (7 sets, daily range): BP systolic 105–167; BP diastolic 59–79; PULSE 86–105; TEMP 36.1–37.3; O2SAT 91–100
[2018-02-07 06:52] LABS: HEMATOCRIT 32.7 % (42-52); HEMOGLOBIN 10.4 g/dL (14.0-18.0); MEAN CELL VOLUME 90.8 fL (80-100); MEAN CORPUSCULAR HEMOGLOBIN 28.9 pg (25-34); MEAN CORPUSCULAR HGB CONC 31.8 g/dl (32-36); MEAN PLATELET VOLUME 9.8 fL (7.4-10.4); PLATELET COUNT 234 K/uL (130-400); RED CELL DISTRIBUTION WIDTH CV 17.7 % (11.5-14.5); RED CELL DISTRIBUTION WIDTH SD 58.8 fL (36.4-46.3); WHITE BLOOD COUNT 8.66 K/uL (4.8-10.8)
[2018-02-07] MEDS ORDERED: SODIUM CHLORIDE 0.9% 500ML 500 ML IV SCH (07:15)
[2018-02-07 07:21] LABS: CALCIUM 8.2 mg/dl (8.5-10.1); CREATININE 0.57 mg/dl (0.60-1.40); PHOSPHORUS 1.8 mg/dl (2.5-4.9); POTASSIUM 3.7 mmol/L (3.5-5.1)
[2018-02-07] MEDS: MULTI VITAMIN INFUSION IV SCH ×14 (07:46→20:43)
[2018-02-07] MEDS: THIAMINE HCL IV SCH ×14 (07:46→20:43)
[2018-02-07] MEDS: [UNRECOGNIZED DRUG - OTHER] IV SCH ×4 (07:46)
[2018-02-07] MEDS: DUTASTERIDE SCH ×3 (07:46→16:51)
[2018-02-07] MEDS ORDERED: METOPROLOL TARTRATE 1 MG/ML VIAL IV. ONE (07:49)
[2018-02-07] MEDS ORDERED: LORAZEPAM INJ 1 MG in SYRINGE 0.5 ML IV PRN (08:00)
[2018-02-07] MEDS ORDERED: LORAZEPAM INJ 0.25 MG in SYRINGE 0.25 ML IV SCH (09:00)
[2018-02-07] MEDS ORDERED: LEVETIRACETAM IV 500 MG in DEXTROSE 5% 100ML 100 ML IV SCH (09:00)
[2018-02-07] MEDS ORDERED: PANTOprazole SOD 40 MG TAB PO SCH (09:00)
[2018-02-07] MEDS ORDERED: THIAMINE HCL IV SCH (09:30)
[2018-02-07] MEDS ORDERED: MAG SULFATE IV SCH (09:30)
[2018-02-07] MEDS ORDERED: [UNRECOGNIZED DRUG - OTHER] IV SCH (09:30)
[2018-02-07] MEDS ORDERED: MULTI VITAMIN INFUSION IV SCH (09:30)
--- NOTE | 2018-02-07 09:44 | Progress Note ---
Medicine Progress Note Date & Time of Visit: Feb 07, 2018 at 08:50 . Subjective CC: Follow-up visit for possible seizure, abnormal CT of abdomen, and other concerns. HPI: Having difficulty voiding. Bedside US > 300 ml. Straight cath performed with some difficulty. Ongoing confusion. Nursing reports oral pocketing and they are concerned about aspiration risk. Low grade temp last night- 37.9. No coughing or respiratory distress. Patient indicates that he is having abdominal pain, but is unable to characterize it. ROS: Unable to obtain due to patient's confusion. . Objective Last 8 Hrs Date Time Temp Pulse Resp B/P (MAP) Pulse Ox O2 Delivery O2 Flow Rate FiO2 02/07/18 08:40 92 167/79 02/07/18 07:28 36.8 92 20 167/79 (108) 91 Room Air 02/07/18 04:00 36.1 86 20 157/72 (100) 99 Room Air Physical Exam: General- lying in bed, no distress Eyes- purulent drainage left eye ENT- oral mucosa dry Lungs- clear to auscultation; no respiratory distress Cardiovascular- RRR; no murmur or gallop appreciated; no JVD; no pretibial edema Abdomen- + bowel sounds, soft, diffuse abdominal discomfort without rebound Extremities- no cyanosis; no calf tenderness Neuro- confused; left facial palsy; dysarthria; left hemiparesis Skin- warm & dry . Laboratory Results: Last 24 Hours Test 02/06/18 14:07 02/07/18 06:36 Potassium Level 3.3 mmol/L 3.7 mmol/L White Blood Count 8.66 K/uL Red Blood Count 3.60 M/uL Hemoglobin 10.4 g/dL Hematocrit 32.7 % Mean Corpuscular Volume 90.8 fL Mean Corpuscular Hemoglobin 28.9 pg Mean Corpuscular Hemoglobin Concent 31.8 g/dl RDW Standard Deviation 58.8 fL RDW Coefficient of Variation 17.7 % Platelet Count 234 K/uL Mean Platelet Volume 9.8 fL Sodium Level 146 mmol/L Chloride Level 120 mmol/L Carbon Dioxide Level 19 mmol/L Anion Gap 7.0 mmol/L Blood Urea Nitrogen 8 mg/dl Creatinine 0.57 mg/dl Est Creatinine Clear Calc Drug Dose 124.3 ml/min Estimated GFR () 125.8 Estimated GFR (Non- 108.5 BUN/Creatinine Ratio 13.6 Random Glucose 149 mg/dl Calcium Level 8.2 mg/dl Phosphorus Level 1.8 mg/dl Magnesium Level 1.7 mg/dl Assessment & Plan POSSIBLE SEIZURE History of seizure disorder. Possible seizure at home after standing. Markedly orthostatic in ED- may have had pseudoseizure secondary to cerebral hypoperfusion. CT demonstrated old cerebral infarcts, no acute findings. Neuro consulted. Carbamazepine level 11.8. Continue anticonvulsant therapy with levetiracetam, carbamazepine, topiramate. Current dosing recommended by Neuro: levetiracetam 500 mg BID carbamazepine XR 400 mg BID topiramate 100 mg BID Seizure precautions. ORTHOSTATIC HYPOTENSION Systolic BP 115 supine --> 64 standing in ED. Orthostasis probably multifactorial- GI bleeding, meds (tamsulosin, terazosin), etc. IV fluids. Follow. CORONARY ARTERY DISEASE Aspirin and clopidogrel on hold due to GI bleed. Continue carvedilol. Resume antiplatelet therapy once GI bleeding resolved and invasive procedures are completed. CEREBROVASCULAR DISEASE Aspirin and clopidogrel on hold. WT LOSS / ABNORMAL IMAGING ABDOMEN AND PELVIS reports 100 lb weight loss over past year. CT demonstrated multiple lesions consistent with metastatic lymphadenopathy, 1.8 cm hepatic mass, possible pancreatic mass, suspected portal vein tumor thrombosis. reports that pt's brother had pancreatic Ca. GI consulted. AFP elevated at 52.5- may have hepatocellular carcinoma. CA 19-9 pending. EUS recommended, but not available at [facility]. Discussed case with GI at [facility]. They perform EUS there. GI BLEEDING Reported rectal bleeding at home. Stools heme + in ED. Hgb 11.4 --> 9.0 --> 10.4. Aspirin and clopidogrel on hold. No gross GI bleeding reported by nursing. Follow H/H. MOOD DISORDER Somnolence could be multifactorial. Taking quetiapine 875 mg daily at home. May be best to decrease dose in light of significant weight loss, sedation, confusion. DYSPHAGIA Bedside evaluation done by [employer]SPREAD CUTTER. Suspected aspiration. Nursing reports oral pocketing. Best to keep NPO. May need PEG, but will start with NGT. Discussed with ; OK to place NGT. UTI (present on admission) Admission UA showed nitrites, leukocyte esterase, WBC's, bacteria. Urine culture growing Citrobacter cloacae. Continue IV ceftriaxone. HYPOKALEMIA Serum potassium as low as 3.0. Received replacement. K today = 3.7. CONFUSION Head CT showed old strokes, no acute event. Suspect dementia with superimposed delirium, probably multifactorial: encephalopathy due to UTI hepatic encephalopathy- ammonia 69 metabolic encephalopathy secondary to meds INCOMPLETE DATA Records from [facility] requested. VTE PROPHYLAXIS No anticoagulants due to GI bleed. SCD's. RESUSCITATION STATUS Currently full code per patient's wishes. He does have a living will; will provide a copy. May be appropriate to re-address code status if metastatic malignancy is confirmed. DISPOSITION Patient requires endoscopic ultrasound for further evaluation of suspected intraabdominal malignancy. EUS not available at [facility]. [facility] Case discussed with them. They perform EUS there and accept the patient in transfer; Dr. Alonzo will be the accepting physician. given update by phone. . Consultants: GI Neuro . Procedures: CT head IV meds IV fluids CT abdomen and pelvis . Current Inpatient Medications: Current Inpatient Medications Medications (Trade) Dose Ordered Sig/Pedro Route Start Time Stop Time Status Last Admin Dose Admin Ioversol (Optiray 320) 111 ml UD PRN IV 02/03/18 17:15 02/07/18 17:14 Ondansetron HCl (Zofran Inj) 4 mg Q6H PRN IV 02/03/18 19:30 03/05/18 19:29 Morphine Sulfate (MoRPHine SULFATE INJ) 3 mg Q4 PRN IV 02/04/18 00:00 02/18/18 00:00 02/04/18 00:10 3 MG Carvedilol (Coreg Tab) 12.5 mg AMHS PO 02/04/18 09:00 03/06/18 08:59 Future Hold 02/06/18 21:12 12.5 MG Clonazepam (Klonopin Tab) 0.5 mg AMHS PO 02/04/18 09:00 03/06/18 08:59 Future Hold 02/06/18 21:13 0.5 MG Fluticasone Propionate (Flonase Nasal [place]) 1 sprays DAILY PRN XIMENA 02/04/18 08:45 03/06/18 08:44 Lorazepam (Ativan Tab) 2 mg UD PRN JT 02/04/18 08:45 03/06/18 08:44 Future Hold Telmisartan (Micardis Tab) 40 mg HS PO 02/04/18 21:00 03/06/18 20:59 Future Hold 02/06/18 21:15 40 MG Carbamazepine (Tegretol-Xr (Do Not Crush)) 400 mg BID PO 02/04/18 10:00 03/06/18 09:59 Future Hold 02/06/18 21:14 400 MG Docusate Sodium (coLACE CAP) 200 mg HS PO 02/04/18 21:00 03/06/18 20:59 Future Hold 02/06/18 21:10 200 MG Miscellaneous Information (Order Awaiting Action) 1 ea QS N/A 02/04/18 16:00 03/06/18 15:59 Miscellaneous Information (Order Awaiting Action) 1 ea QS N/A 02/04/18 16:00 03/06/18 15:59 Ceftriaxone Sodium 1 gm/ Dextrose 50 ml @ 100 mls/hr Q24H IV 02/05/18 21:30 02/10/18 21:29 02/06/18 21:36 100 MLS/HR Enteral Nutritional Formula (Boost Breeze Nutritional Drink) 1 box BID PO 02/06/18 21:00 03/08/18 20:59 Future Hold 02/06/18 22:08 1 BOX Quetiapine Fumarate (seroQUEL XR TAB) 400 mg HS PO 02/06/18 21:00 03/08/18 20:59 Future Hold 02/06/18 21:15 400 MG Levetiracetam (Keppra Tab) 500 mg BID PO 02/06/18 21:00 03/08/18 20:59 Future Hold 02/06/18 21:11 500 MG Topiramate (Topamax Tab) 100 mg BID PO 02/06/18 21:00 03/08/18 20:59 Future Hold 02/06/18 21:14 100 MG Potassium Chloride (Mirian Ciel Elix) 20 meq TID PO 02/06/18 21:00 03/08/18 20:59 Future Hold 02/06/18 21:11 20 MEQ Lactulose (Chronulac Syrup) 30 gm BID PO 02/06/18 21:00 03/08/18 20:59 Future Hold 02/06/18 21:11 30 GM Levetiracetam 500 mg/Dextrose 105 ml @ 420 mls/hr Q12 IV 02/07/18 09:00 03/09/18 08:59 02/07/18 08:40 420 MLS/HR Lorazepam 1 mg/ Syringe 1 ml @ 0.5 mls/min Q1H PRN IV 02/07/18 08:00 03/09/18 07:59 Metoprolol Tartrate (Lopressor Iv) 2.5 mg Q6 IV. 02/07/18 12:00 03/09/18 11:59 Pantoprazole Sodium 40 mg/ Syringe 10 ml @ 5 mls/min DAILY@11 IV 02/07/18 11:00 03/09/18 10:59 Lorazepam 0.25 mg/ Syringe 0.375 ml @ 0.5 mls/min BID IV 02/07/18 09:00 03/09/18 08:59 Magnesium Sulfate 1 gm/Thiamine HCl 100 mg/ Multivitamins 5 ml/Potassium Chloride/Dextrose/ Sod Cl 1,008 ml @ 125 mls/hr Q8H4M IV 02/07/18 09:30 03/09/18 09:29
[2018-02-07] MEDS: MAG SULFATE IV SCH ×10 (09:52→20:43)
[2018-02-07] MEDS: [UNRECOGNIZED DRUG - OTHER] IV SCH ×10 (09:52→20:43)
--- NOTE | 2018-02-07 10:13 | DIAGNOSTIC IMAGING REPORT ---
CHEST ONE VIEW PORTABLE CLINICAL HISTORY: NGT placement COMPARISON STUDY: 02/03/2018 FINDINGS: There is been interval placement of a feeding tube the tip of which projects over the stomach[ . The heart is the upper limits of normal in size. There is elevation of the interstitium consistent with mild pulmonary vascular congestion/fluid overload. There is a left midlung zone opacity. This could represent focal edema, pneumonia, or atelectasis. IMPRESSION: 1. Interval development of mild pulmonary vascular congestion/fluid overload 2. Interval placement of a nasogastric tube which is positioned within the stomach. Electronically signed by: Chao Francis M.D. 02/07/2018 10:11 AM Dictated Date/Time: 02/07/2018 10:09 AM
--- NOTE | 2018-02-07 10:14 | DIAGNOSTIC IMAGING REPORT ---
KUB CLINICAL HISTORY: NGT placement COMPARISON STUDY: 02/03/2018 FINDINGS: There is a nasogastric tube present within the stomach. There are dilated small bowel loops measuring up tor 7 cm. Colon is of normal caliber. This could indicate a small bowel obstruction. Clinical follow-up is advocated. IMPRESSION: 1. Nasogastric tube stomach 2. Dilated small bowel loops measuring up to 7 cm. Electronically signed by: Chao Francis M.D. 02/07/2018 10:13 AM Dictated Date/Time: 02/07/2018 10:12 AM
[2018-02-07] MEDS ORDERED: CLONAZEPAM 0.5 MG TAB GT ONE (10:40)
[2018-02-07] MEDS ORDERED: CARVEDILOL 12.5 MG TAB GT ONE (10:40)
[2018-02-07] MEDS ORDERED: TOPIRAMATE 100 MG TAB GT ONE (10:41)
[2018-02-07] MEDS ORDERED: PANTOprazole INJ 40 MG in SYRINGE 0 ML IV SCH (11:00)
[2018-02-07] MEDS: MoRPHine SULFATE 4 MG/ML 1 ML CARP\\VIAL IV PRN (11:09)
[2018-02-07] MEDS ORDERED: FUROSEMIDE INJ 20 MG in SYRINGE 0 ML IV ONE (11:30)
--- NOTE | 2018-02-07 11:30 | Discharge Summary ---
Discharge Summary Date of Service Feb 07, 2018. Discharge Summary Admission Date: Feb 03, 2018 at 19:19 Discharge Disposition: Acute care facility ([facility]) Principal Diagnosis: suspected intra-abdominal malignancy with metastatic lymphadenopathy OTHER ACUTE DIAGNOSES: possible seizure. orthostatic hypotension GI bleeding dysphagia UTI Enterobacter cloacae (present on admission) urinary retention delirium / encephalopathy hypokalemia hypomagnesemia dilated small bowel- possible bowel obstruction . Secondary Diagnoses/Problems: Chronic and Resolved Medical Problems: (1) Alcohol dependence in sustained full remission Status: Chronic (2) Vleez esophagus Status: Chronic (3) CAD (coronary artery disease) Permanent Comment: h/o stents Status: Chronic (4) Constipation Status: Chronic (5) CVA (cerebral infarction) Status: Chronic (6) Diverticulitis Status: Chronic (7) GERD (gastroesophageal reflux disease) Status: Chronic (8) Intermittent small bowel obstruction Status: Chronic (9) WI (myocardial infarction), history of Status: Resolved (10) Mood disorder due to cerebrovascular accident (CVA) Status: Chronic (11) PAD (peripheral artery disease) Status: Chronic (12) Pancreatitis Status: Chronic (13) Seizure disorder as sequela of cerebrovascular accident Status: Chronic (15) Tobacco use disorder Status: Chronic Surgical Problems: (1) S/P laparoscopic cholecystectomy (2) S/p stent right lower extremity (3) Status post carotid surgery (4) Status post laparotomy for bowel obstruction . Procedures: CT head IV meds IV fluids CT abdomen and pelvis Vines catheter for urinary retention NG feeding tube . Consultations: GI Neuro . Admission Information HPI (per Admitting provider): This is a 62-year-old male with a PMH of seizure disorder (secondary to MCA stroke in 2004) with residual dysarthria and left hemiparesis, h/o recurrent SBO and diverticulitis, h/o pancreatitis, CAD (s/p stenting), PAD and other medical problems listed below who presents with increased weakness and frequency of falls 5 weeks. Patient feels generally weak, having difficulty standing up and feels dizzy when he does so. Last fall was 3 days ago and states that he first experienced a seizure before falling back into his chair. Describes double vision and "shaking all over". No head trauma. Denies any bowel/bladder incontinence, tongue biting or post-ictal state. Also endorses continued decreased appetite, only eating a few pieces of toast each day. Poor fluid intake as well. Continues to have chronic lower abdominal pain and constipation. Last bowel movement was diarrhea 3 days ago with some bright red blood mixed into stool. notes that patient had surgery on his lower colon ~ 3 months ago due to an obstruction. Denies fever, chills, headache, chest pain, palpitations, SOB, nausea, vomiting, dysuria, hematuria or melena. No LE swelling. Patient was last admitted from 12/22-01/04 for a left hip fracture 2/2 fall from syncopal episode. Brain MRI performed at this time was negative for acute changes. Due to complaints of decreased appetite and unintentional weight loss, the plan was to taper off Topamax over a 6 week period. Unfortunately, there was a miscommunication and patient has not tapered medication. is unsure of current Topamax dose. In the ED, orthostatics were positive and rectal exam was heme positive with melanotic stool. . Physical Exam (per Admitting): General Appearance: WD/WN, no apparent distress, + pertinent finding ( chronically ill appearing, pale ) Head: normocephalic, atraumatic Eyes: normal inspection, PERRL, sclerae normal ENT: normal ENT inspection, hearing grossly normal, pharynx normal (dry mucous membranes ) Neck: supple, thyroid normal, trachea midline Respiratory/Chest: chest non-tender, lungs clear, normal breath sounds, no respiratory distress, no accessory muscle use Cardiovascular: regular rate, rhythm, no murmur, normal peripheral pulses Abdomen/GI: normal bowel sounds, soft, no organomegaly, + tenderness (Mild LLQ TTP, no guarding ) Back: normal inspection Extremities/Musculoskelatal: normal inspection, no calf tenderness, no pedal edema Neurologic/Psych: no motor/sensory deficits, alert, normal mood/affect, oriented x 3 Skin: warm/dry, no rash, + pallor Hospital Course WT LOSS / ABNORMAL IMAGING ABDOMEN AND PELVIS reports 100 lb weight loss over past year. CT demonstrated multiple lesions consistent with metastatic lymphadenopathy, 1.8 cm hepatic mass, possible pancreatic mass, suspected portal vein tumor thrombosis. reports that pt's brother had pancreatic Ca. GI consulted. AFP elevated at 52.5- may have hepatocellular carcinoma. CA 19-9 pending. EUS recommended, but not available at [facility]. Discussed case with GI at [facility]. They perform EUS there. GI BLEEDING Reported rectal bleeding at home. Stools heme + in ED. Hgb 11.4 --> 9.0 --> 10.4. Aspirin and clopidogrel on hold. Receiving PPI. No gross GI bleeding reported by nursing. Follow H/H. Consider EGD. POSSIBLE SEIZURE History of seizure disorder. Possible seizure at home after standing. Markedly orthostatic in ED- may have had pseudoseizure secondary to cerebral hypoperfusion. CT demonstrated old cerebral infarcts, no acute findings. Neuro consulted. Carbamazepine level 11.8. Continue anticonvulsant therapy with levetiracetam, carbamazepine, topiramate. Current dosing recommended by Neuro: levetiracetam 500 mg BID carbamazepine XR 400 mg BID --> 200 q 6 hrs via NGT topiramate 100 mg BID Seizure precautions. Carbamazepine level should be rechecked in a few days. ORTHOSTATIC HYPOTENSION Systolic BP 115 supine --> 64 standing in ED. Orthostasis probably multifactorial- GI bleeding, meds (tamsulosin, terazosin), etc. Tamsulosin and terazosin discontinued. Received IV fluids. Follow. CORONARY ARTERY DISEASE Aspirin and clopidogrel on hold due to GI bleed. Continue carvedilol. Resume antiplatelet therapy once GI bleeding resolved and invasive procedures are completed. HYPERTENSION Terazosin stopped due to severe orthostatic hypotension. Continue carvedilol and telmisartan. Follow and titrate Rx. CEREBROVASCULAR DISEASE S/P multiple CVA's with residual left hemiparesis. Aspirin and clopidogrel on hold. Resume antiplatelet therapy once GI bleeding resolved and invasive procedures are completed. MOOD DISORDER Somnolence could be multifactorial. Taking quetiapine 875 mg daily at home. May be best to decrease dose in light of significant weight loss, sedation, confusion. Quetiapine dose decreased to 400 mg HS. Continue clonazepam 0.5 mg BID. Usually takes vilazodone at home, but not available at [facility]. DYSPHAGIA Bedside evaluation done by [employer] M[employer] OPERATOR. Suspected aspiration. Nursing reports oral pocketing. Best to keep NPO. May need PEG, but will start with NGT. Discussed with ; OK to place NGT. UTI (present on admission) Admission UA showed nitrites, leukocyte esterase, WBC's, bacteria. Urine culture growing Citrobacter cloacae. Continue IV ceftriaxone. URINARY RETENTION History of BPH. Takes tamsulosin and dutasteride at home. Tamsulosin stopped due to severe orthostatic hypotension. Dutasteride nonformulary at [facility]; resume when able. Experienced difficulty voiding and bedside US demonstrated > 300 mls. Straight caths performed, but were uncomfortable. Vines catheter placed. HYPOKALEMIA Serum potassium as low as 3.0. Received replacement. K today = 3.7. CONFUSION Head CT showed old strokes, no acute event. Suspect dementia with superimposed delirium, probably multifactorial: encephalopathy due to UTI hepatic encephalopathy- ammonia 69 metabolic encephalopathy secondary to meds POSSIBLE BOWEL OBSTRUCTION KUB 02/07 demonstrated dilated loops of small bowel. NPO except for a few meds. Follow. May need surgical evaluation if no improvement. VTE PROPHYLAXIS No anticoagulants due to GI bleed. SCD's. RESUSCITATION STATUS Currently full code per patient's wishes. He does have a living will; will provide a copy. May be appropriate to re-address code status if metastatic malignancy is confirmed. DISPOSITION Patient requires endoscopic ultrasound for further evaluation of suspected intraabdominal malignancy. EUS not available at [facility]. Patient is known to [facility]. Case discussed with them. They perform EUS there and accept the patient in transfer; Dr. Alonzo will be the accepting physician. given update by phone. . Total time spent on discharge = 60 min. This includes examination of the patient, discharge planning, medication reconciliation, and communication with other providers. . Discharge Instructions VITALS routine ACTIVITY as tolerated with assistance, watch for orthostatic hypotension ALLERGIES phenytoin DIET NPO except for meds as ordered NURSING Vines cath for urinary retention seizure precautions aspiration precautions skin precautions, reposition at least q 2 hrs delirium precautions fall precautions keep head of bed elevated at least 30 degrees IV D5 1/2 NSS + 40 meq KCL + 8 mEq magnesium sulfate + 100 mg thiamine + MVI @ 100 mls/hr I/O's q shift VTE PROPHYLAXIS SCD's Reported Home Medications Medications Dose Route/Sig Max Daily Dose Days Date Category Dose Instructions Hytrin (Terazosin Hcl) 1 Mg Cap 1 Mg PO HS 02/03/18 Reported Micardis (Telmisartan) 40 Mg Tab 1 Tab PO HS 30 02/03/18 Reported Potassium Chloride Er (Potassium Chloride Microencaps) 20 Meq Tab 2 Tab PO DAILY 90 02/03/18 Reported Amitiza (Lubiprostone) 24 Mcg Cap 24 Mcg PO BID 02/03/18 Reported Topamax (Topiramate) 200 Mg Tab 200 Mg PO BID 02/03/18 Reported Flomax (Tamsulosin Hcl) 0.4 Mg Cap 0.4 Mg PO DAILY 02/03/18 Reported Stool Softener (Docusate Sodium) 100 Mg Tab 200 Mg PO HS 02/03/18 Reported Lasix (Furosemide) 40 Mg Tab 40 Mg PO DAILY 02/03/18 Reported Pepcid (Famotidine) 20 Mg Tab 20 Mg PO DAILY 02/03/18 Reported Avodart (Dutasteride) 0.5 Mg Cap 0.5 Mg PO DAILY 02/03/18 Reported Caltrate 600 Plus (Calcium Carbonate-Vitamin D W/) 1 Tab Tab 1 Tab PO DAILY 02/03/18 Reported Dicyclomine Hcl 20 Mg Tab 1 Tab PO BID PRN 30 02/03/18 Reported Flonase Allergy Relief (Fluticasone Propionate (Nasal)) 50 Mcg/Act Spr 1 [place] XIMENA DAILY PRN 12/22/16 Reported Patanol 0.1% Oph (Olopatadine Hcl) 0.1 % Carolyn 1 Drop OP BID 12/22/16 Reported Seroquel (Quetiapine Fumarate) 25 Mg Tab 25 Mg PO TID 11/26/15 Reported Ascorbic Acid 500 Mg Tab 500 Mg PO DAILY 11/26/15 Reported Vitamin B-12 (Cyanocobalamin) 1,000 Mcg Tab 1,000 Mcg PO DAILY 11/26/15 Reported Seroquel Xr Tab (Quetiapine Fumarate) 400 Mg Tabcr 800 Mg PO HS 11/26/15 Reported Viibryd (Vilazodone Hcl) 40 Mg Tab 40 Mg PO QPM 11/26/15 Reported Clopidogrel (Clopidogrel Bisulfate) 75 Mg Tab 75 Mg PO DAILY 11/26/15 Reported Aspirin Ec (Aspirin) 81 Mg Tab 81 Mg PO DAILY 11/26/15 Reported Ativan (Lorazepam) 2 Mg Tab 2 Mg UNKNOWN UD PRN 07/19/13 Reported Klonopin (Clonazepam) 0.5 Mg Tab 0.5 Mg PO AMHS 07/19/13 Reported TAKE AT 8AM & 10PM Coreg (Carvedilol) 12.5 Mg Tab 12.5 Mg PO AMHS 07/19/13 Reported Tegretol Xr (Carbamazepine) 400 Mg Tabcr 400 Mg PO AMPM 07/19/13 Reported Vitamin D3 (Cholecalciferol) 1,000 Unit Tab 1,000 Mg PO DAILY 07/19/13 Reported One Daily Mens (Multiple Vitamins W/ Minerals) 1 Tab Tab 1 Tablet PO DAILY 07/19/13 Reported CURRENT INPATIENT MEDS: D5 07/12 NSS + 40 meq KCL + 8 mEq magnesium sulfate + 100 mg thiamine + MVI @ 100 mls/hr carbamazepine 200 mg via NGT q 6 hrs carvedilol 12.5 mg via NGT BID hold for HR < 55 or sys BP < 100 ceftriaxone 1 gm IV daily @ 2100 for UTI clonazepam 0.5 mg via NGT BID lansoprazole ODT 15 mg via NGT BID levetiracetam susp 500 mg via NGT BID quetiapine 400 mg via NGT HS telmisartan 40 mg via NGT HS hold for sys BP < 110 topiramate 100 mg via NGT BID PRN MEDS: fluticasone nasal 1 spray nasally daily PRN allergy symptoms lorazepam 1 mg IV PRN seizure morphine sulfate 2 mg IV q 4 hrs PRN pain ondansetron 4 mg IV q 6 hrs PRN nausea Thank you for receiving this patient in transfer. Please call if you have any questions. Red Hudson . Additional Copies To Griffin Salinas M.D.
[2018-02-07] MEDS ORDERED: METOPROLOL TARTRATE 1 MG/ML VIAL IV. SCH (12:00)
[2018-02-07] MEDS ORDERED: MoRPHine SULFATE 4 MG/ML 1 ML CARP\\VIAL IV PRN (12:00)
[2018-02-07] MEDS: CARBAMAZEPINE 200 MG TAB PEG SCH ×2 (13:28→18:52)
[2018-02-07] MEDS ORDERED: CLONAZEPAM 0.5 MG TAB GT SCH (21:00)
[2018-02-07] MEDS ORDERED: LANSOPRAZOLE SOLUTAB 15 MG GT SCH (21:00)
[2018-02-07] MEDS ORDERED: TOPIRAMATE 100 MG TAB GT SCH (21:00)
[2018-02-07] MEDS ORDERED: LEVETIRACETAM SOLN 500 MG/5 ML UDP GT SCH (21:00)
[2018-02-07] MEDS ORDERED: CARVEDILOL 12.5 MG TAB GT SCH (21:00)
[2018-02-07] MEDS ORDERED: QUETIAPINE FUMARATE 200 MG TAB PO SCH (21:00)
[2018-02-07] MEDS ORDERED: TELMISARTAN 40 MG TAB NG SCH (21:00)
[2018-02-07] MEDS: CEFTRIAXONE SOD INJ 1 GM in DEXTROSE 5% ADD-VANTAGE 50ML 50 ML IV SCH (21:26)
[2018-02-08] MEDS ORDERED: LANSOPRAZOLE SOLUTAB 15 MG GT SCH (09:00)
== END 2018-02-07 23:31 | disposition short-term general hospital (02) | DRG 435 ==
LOC: C.EDB 13:18 → C.MED 19:19 → ENRESERV 20:04
PROVIDERS: ADMIT Family Medicine; ATTEND Hospitalist
DX: C25.0 Malignant neoplasm of head of pancreas (principal); K56.609 Unspecified intestinal obstruction, unspecified as to partial versus complete obstruction; K22.70 Barrett's esophagus without dysplasia; I25.10 Atherosclerotic heart disease of native coronary artery without angina pectoris; K62.5 Hemorrhage of anus and rectum; I69.854 Hemiplegia and hemiparesis following other cerebrovascular disease affecting left non-dominant side; I81 Portal vein thrombosis; N39.0 Urinary tract infection, site not specified; Z86.73 Personal history of transient ischemic attack (TIA), and cerebral infarction without residual deficits; G93.40 Encephalopathy, unspecified; K21.9 Gastro-esophageal reflux disease without esophagitis; C77.2 Secondary and unspecified malignant neoplasm of intra-abdominal lymph nodes; I25.2 Old myocardial infarction; I73.9 Peripheral vascular disease, unspecified; Z87.891 Personal history of nicotine dependence; I69.322 Dysarthria following cerebral infarction; K59.00 Constipation, unspecified; G40.909 Epilepsy, unspecified, not intractable, without status epilepticus; F39 Unspecified mood [affective] disorder; Z95.5 Presence of coronary angioplasty implant and graft; I95.1 Orthostatic hypotension; B96.89 Other specified bacterial agents as the cause of diseases classified elsewhere; R33.9 Retention of urine, unspecified; E87.6 Hypokalemia; E83.42 Hypomagnesemia; R63.4 Abnormal weight loss; R13.10 Dysphagia, unspecified; N40.1 Benign prostatic hyperplasia with lower urinary tract symptoms